=== PATIENT | male | born 1930 | race Caucasian/White ===

== ENCOUNTER 2016-06-25 11:04 | Inpatient (IN) | payer OTHER ==
[2016-06-25] VITALS (44 sets, daily range): BP systolic 81–118; BP diastolic 38–69; PULSE 45–77; TEMP 36.7–37; O2SAT 88–100; Ht 175.3 cm; Wt 93.4 kg
[~2016-06-25] VITALS: Ht 175.3 cm; Wt 93.4 kg
[~2016-06-25 11:04] MED LIST: ALBINS INH; BRVIN INH; BUDE0.5S INH; CINN500T PO; FRS/40 PO; LEVO300T5 PO; PRLSR20 PO
[2016-06-25] MEDS ORDERED: SODIUM CHLORIDE 0.9% 1000ML 1,000 ML IV ONE (11:10)
[2016-06-25] MEDS ORDERED: ACETAMINOPHEN 500 MG TAB PO STA (11:18)
[2016-06-25 11:51] LABS: VEN BLOOD GAS BASE EXCESS -0.4 mmol/L; VENOUS BLOOD GAS PCO2 62 mmHg (38.0-50.0); VENOUS BLOOD GAS PO2 29 mmHg
[2016-06-25 11:59] LABS: BASO % 0.2 %; BASO ABS # 0.03 K/uL (0-0.2); COMPLETE YES; HEMATOCRIT 38.2 % (42-52); IG% 0.3 %; LYMPH % 7.5 %; LYMPH ABS # 1.29 K/uL (1.2-3.4); MEAN CORPUSCULAR HEMOGLOBIN 28.4 pg (25-34); MEAN CORPUSCULAR HGB CONC 31.9 g/dl (32-36); MEAN PLATELET VOLUME 10.8 fL (7.4-10.4); MONO % 9.1 %; NEUT % 82.9 %; PLATELET COUNT 268 K/uL (130-400); RED BLOOD COUNT 4.29 M/uL (4.7-6.1); WHITE BLOOD COUNT 17.28 K/uL (4.8-10.8)
[2016-06-25] MEDS ORDERED: SODIUM CHLORIDE 0.9% 1000ML 1,000 ML IV STA ×3 (11:59→13:03)
[2016-06-25] MEDS ORDERED: PIPERACILLIN/TAZOBACTAM 4.5 GM/100ML D5W IV STA (11:59)
[2016-06-25 12:02] LABS: URINE APPEARANCE CLOUDY (CLEAR); URINE BILIRUBIN NEG (NEG); URINE COLOR YELLOW; URINE NITRITE NEG (NEG); URINE SPECIFIC GRAVITY 1.006 (1.000-1.030); UROBILINOGEN NEG (NEG); ZZUR CULT IF INDIC CLEAN CATCH NO
[2016-06-25 12:03] LABS: MANUAL MICROSCOPIC REQUIRED? NO; REVIEW REQ? NO
--- NOTE | 2016-06-25 12:03 | DIAGNOSTIC IMAGING REPORT ---
KUB HISTORY: fever COMPARISON: KUB 09/28/2013. FINDINGS: The bowel gas pattern is unremarkable. There are no dilated loops of small bowel to suggest an obstruction. Poststernotomy changes. There are 2 gallstones, unchanged. These measure 1.4 cm. No pneumoperitoneum or pneumatosis. IMPRESSION: 1. Unremarkable bowel gas pattern. No evidence for bowel obstruction. 2. Stable cholelithiasis. Electronically signed by: Surendra Palma M.D. 06/25/2016 12:02 PM Dictated Date/Time: 06/25/2016 12:00 PM
--- NOTE | 2016-06-25 12:05 | DIAGNOSTIC IMAGING REPORT ---
CHEST ONE VIEW PORTABLE CLINICAL HISTORY: Fever. Sepsis. COMPARISON STUDY: Chest radiograph December 10, 2013. FINDINGS: There are median sternotomy wires and clips from bypass grafting. Cardiomediastinal silhouette is stable. There is no pneumothorax. There may be a small left pleural effusion. Interstitial thickening is noted. There is mild left basilar opacity. Irregular right midlung density is unchanged. IMPRESSION: 1. Diffuse interstitial thickening. This may reflect pulmonary edema or an infectious process. Radiographic follow-up is recommended. 2. Left hilar prominence. This is likely due to normal vessels but can be assessed on subsequent exams. 3. Left basilar opacity which may reflect consolidation or atelectasis. Electronically signed by: Ron Abdalla M.D. 06/25/2016 12:04 PM Dictated Date/Time: 06/25/2016 12:01 PM
[2016-06-25 12:07] LABS: CALCIUM 8.5 mg/dl (8.5-10.1); CREATININE 2.5 mg/dl (0.60-1.40); MAGNESIUM 1.9 mg/dl (1.8-2.4); PARTIAL THROMBOPLASTIN RATIO 1.2; POTASSIUM 4.2 mmol/L (3.5-5.1); PROTHROMBIN TIME (PATIENT) 11.1 SECONDS (9.0-12.0)
[2016-06-25 12:23] LABS: ALB/GLOB RATIO 0.5 (0.9-2); C-REACTIVE PROTEIN 10.8 mg/dl (0-0.29); CKMB/CK RATIO 0.7 (0-3.0); PHOSPHORUS 3.6 mg/dl (2.5-4.9)
[2016-06-25 12:29] LABS: VEN BLD GAS O2 SATURATION < 60.0 %
[2016-06-25] MEDS ORDERED: NOREPINEPHRINE BIT INJ 8 MG in DEXTROSE 5% 500ML 500 ML IV STA (12:29)
[2016-06-25] MEDS ORDERED: VANCOMYCIN INJ 2,000 MG in SODIUM CHLORIDE 0.9% 500ML 500 ML IV STA (12:50)
[2016-06-25] MEDS ORDERED: LEVAQUIN 750MG / 150ML D5W IV STA (13:18)
[2016-06-25] MEDS ORDERED: VANCOMYCIN INJ 1,000 MG in SODIUM CHLORIDE 0.9% 250ML 250 ML IV STA (13:59)
[2016-06-25] MEDS ORDERED: ACETAMINOPHEN 325 MG TAB PO PRN (14:00)
[2016-06-25] MEDS ORDERED: ONDANSETRON INJ 2 MG/ML 2 ML VIAL IV PRN (14:00)
[2016-06-25] MEDS ORDERED: LSN25 PO (14:03)
[2016-06-25] MEDS ORDERED: LEVO200T6 PO (14:03)
[2016-06-25] MEDS ORDERED: GLUCOSE 40% GEL 15 GM TUBE PO PRN (14:15)
[2016-06-25] MEDS ORDERED: GLUCOSE 10 TABS/TUBE PO PRN (14:15)
[2016-06-25] MEDS ORDERED: DEXTROSE 50% 50 ML SYR IV PRN (14:15)
[2016-06-25] MEDS ORDERED: GLUCAGON FOR INJ 1 MG VIAL SQ PRN (14:15)
[2016-06-25] MEDS ORDERED: UREA20CR EXT (14:23)
[2016-06-25] MEDS ORDERED: BCTROWC EXT (14:23)
[2016-06-25] MEDS ORDERED: MAGNSUS73 PO (14:23)
[2016-06-25] MEDS ORDERED: PROMSYP2 PO (14:23)
[2016-06-25] MEDS ORDERED: LEVALBUTEROL/IPRATROPIUM NEB INH SCH (14:30)
[2016-06-25] MEDS ORDERED: BACITRACIN OINT 15 GM TUBE EXT PRN (14:30)
[2016-06-25] MEDS ORDERED: LEVALBUTEROL/IPRATROPIUM NEB INH PRN (14:30)
[2016-06-25] MEDS ORDERED: MAGNESIUM HYDROXIDE SUSP 30 ML UDC PO PRN (14:30)
[2016-06-25] MEDS ORDERED: PIPERACILL/TAZOBAC CONSULT ACTIVE PRN (15:00)
[2016-06-25] MEDS ORDERED: VANCOMYCIN CONSULT ACTIVE PRN (15:00)
[2016-06-25] MEDS ORDERED: LEVOFLOXACIN CONSULT ACTIVE PRN (15:00)
[2016-06-25] MEDS ORDERED: ALBUTEROL HFA 8 GM INHALER INH PRN (15:00)
--- NOTE | 2016-06-25 15:03 | EMERGENCY ROOM VISIT NOTE ---
History Report prepared by Georgi: Nikkie Jacome Under the Supervision of: Dr. Lucien Pedersen D.O. First contact with patient: 11:04 Stated Complaint: SEPSIS History of Present Illness The patient is an 85 year old male arriving by ambulance from Dr. Goldsmith's office who presents to the Emergency Room with complaints of worsening cough and respiratory difficulties over the past 4 days. The patient visited his PCP' s office this morning for his symptoms, but upon arrival he was found to be febrile at 102.5F, hypotensive and severely hypoxic, so the ambulance was called to bring him to the ED for further evaluation. Patient was given IV fluids as well as a DuoNeb en route to the ED, which did seem to improve his symptoms. Along with the cough and respiratory difficulties over the past few days, patient states that he has been feeling generally ill. He also notes passing several movements of diarrhea yesterday, but he denies abdominal pain, nausea, vomiting or urinary symptoms. Patient does have a history of COPD and CHF. He denies having any chest pain but he has noticed increased swelling to his lower extremities. 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 Review of Systems See HPI for pertinent positives & negatives. A total of 10 systems reviewed and were otherwise negative. Past Medical & Surgical Medical Problems: (1) CKD (chronic kidney disease), stage III (2) COPD (chronic obstructive pulmonary disease) (3) DM type 2 (diabetes mellitus, type 2) (4) H/O diastolic dysfunction (5) Heart disease (6) History of Clostridium difficile (7) Hyperlipidemia (8) Hypertension (9) Hypotension (10) Hypothyroidism (11) Sepsis Surgical Problems: (1) History of cataract surgery (2) S/P CABG x 3 Family History Diabetes mellitus MOTHER FAM HX-ISCHEM HEART DIS MOTHER Social History Smoking Status: Former Smoker Drug Use: none Marital Status: Housing Status: lives with family Occupation Status: retired Current/Historical Medications Scheduled Aspirin (Aspirin 81), 81 MG PO DAILY Atorvastatin (Lipitor), 40 MG PO DAILY Calcitriol (Calcitriol), 0.25 MCG PO DAILY Cholecalciferol (Vitamin D 1000 Unit), 1,000 INTER.UNIT PO DAILY Furosemide (Lasix), 40 MG PO DAILY Levothyroxine Sodium (Levothyroxine Sodium), 1 TAB PO DAILY Levothyroxine Sodium (Levothyroxine Sodium), 1 TAB PO DAILY Lisinopril (Lisinopril), 2.5 MG PO DAILY Pioglitazone Hcl (Actos), 30 MG PO DAILY Urea (Carmol 20), 1 APPLN EXT DAILY Scheduled PRN Albuterol 0.083% Soln (Ventolin 0.083% Soln *), 1 EA INH Q4HR PRN for SOB/ Wheezing Albuterol Sulfate (Proair Respiclick), 2 PUFFS INH Q4H PRN for Wheezing Magnesium Hydroxide (Milk of Magnesia 400 mg/5Ml), 30 ML PO DAILY PRN for Constipation Mupirocin (Bactroban 2% Oint), 1 APPLN EXT TID PRN for skin impairment Omeprazole (Prilosec), 20 MG PO DAILY PRN for Dyspepsia Promethazine-Dm (Promethazine-Dm), 5 ML PO Q6H PRN for Cough Allergies Coded Allergies: No Known Allergies (Verified , 06/25/16) Physical Exam Vital Signs Date Time Temp Pulse Resp B/P Pulse Ox O2 Delivery O2 Flow Rate FiO2 06/25/16 13:46 111/53 06/25/16 13:44 74 23 111/53 100 06/25/16 13:39 77 20 100 06/25/16 13:34 75 26 88/45 100 06/25/16 13:29 76 27 100 06/25/16 13:28 96/39 06/25/16 13:25 37.0 75 28 110/52 100 Non-Rebreather 10.0 06/25/16 13:24 73 24 100 06/25/16 13:23 110/52 06/25/16 13:19 76 30 100 06/25/16 13:18 103/47 06/25/16 13:14 75 30 102/41 100 06/25/16 13:09 76 23 105/45 100 06/25/16 13:04 76 29 106/44 99 06/25/16 13:03 96/45 96 Non-Rebreather 10.0 06/25/16 12:59 77 19 92 06/25/16 12:58 96/45 06/25/16 12:56 88/45 97 Nasal Cannula 6.0 06/25/16 12:54 77 29 88/45 99 06/25/16 12:49 79 26 100 06/25/16 12:48 83/39 06/25/16 12:46 79 28 82/37 100 Non-Rebreather 12.0 06/25/16 12:44 80 23 82/37 100 06/25/16 12:39 79 22 79/40 100 06/25/16 12:34 78 27 100 06/25/16 12:33 75/37 06/25/16 12:31 76/38 06/25/16 12:29 76 27 75/33 100 06/25/16 12:24 77 25 72/42 100 06/25/16 12:23 78 28 73/38 100 Non-Rebreather 12.0 06/25/16 12:19 76 30 100 06/25/16 12:18 73/38 06/25/16 12:16 74/44 06/25/16 12:14 79 29 74/44 100 06/25/16 12:09 79 29 82/34 100 06/25/16 12:07 81/32 06/25/16 12:04 86 25 100 06/25/16 11:59 83 28 92/38 100 06/25/16 11:54 84 33 100 06/25/16 11:53 84/50 06/25/16 11:49 83 32 100 06/25/16 11:48 90/47 06/25/16 11:44 89 23 108/56 100 06/25/16 11:39 84 31 81/45 100 06/25/16 11:34 84 33 103/45 100 06/25/16 11:29 86 21 88/43 100 06/25/16 11:28 87 06/25/16 11:26 100 Non-Rebreather 12.0 06/25/16 11:23 90/40 06/25/16 11:16 91 Nasal Cannula 6.0 06/25/16 11:16 37.0 88 33 83/43 91 Nasal Cannula 6.0 Physical Exam GENERAL: Patient is awake, alert, and very anxious appearing. He appears to be in moderate distress. EYES: The conjunctivae are clear. The pupils are round and reactive. EARS, NOSE, MOUTH AND THROAT: The nose is without any evidence of any deformity. Mucous membranes are dry, tongue is midline NECK: The neck is nontender and supple. RESPIRATORY: Lung sounds diminished throughout. Significant conversational dyspnea appreciated. Scattered rhonchi throughout with rales at basees. CARDIOVASCULAR: Regular rate and rhythm noted to auscultation. No definite murmur appreciated. GASTROINTESTINAL: The abdomen is mildly distended but soft. No specific guarding or rigidity. Bowel sounds are present in all quadrants. PELVIS: The Pelvis is stable. No tenderness to palpation is noted. BACK: No midline tenderness or or step-off noted range of motion in flexion extension as well as rotation no signs of muscle spasm noted MUSCULOSKELETAL/EXTREMITIES: There is no evidence of gross deformity full range of motion is noted in the hips and shoulders SKIN: Pale and dry. There is no obvious evidence of any rash. There are no petechiae, pallor or cyanosis noted. Pedal edema, bilaterally. NEUROLOGIC: Patient is awake alert and oriented x3 Medical Decision & Procedures ER Provider Diagnostic Interpretation: X-ray results as stated below per interpretation by me and the radiologist. KUB HISTORY: fever COMPARISON: KUB 09/28/2013. FINDINGS: The bowel gas pattern is unremarkable. There are no dilated loops of small bowel to suggest an obstruction. Poststernotomy changes. There are 2 gallstones, unchanged. These measure 1.4 cm. No pneumoperitoneum or pneumatosis. IMPRESSION: 1. Unremarkable bowel gas pattern. No evidence for bowel obstruction. 2. Stable cholelithiasis. Electronically signed by: Surendra Palma M.D. 06/25/2016 12:02 PM Dictated Date/Time: 06/25/2016 12:00 PM CHEST ONE VIEW PORTABLE CLINICAL HISTORY: Fever. Sepsis. COMPARISON STUDY: Chest radiograph December 10, 2013. FINDINGS: There are median sternotomy wires and clips from bypass grafting. Cardiomediastinal silhouette is stable. There is no pneumothorax. There may be a small left pleural effusion. Interstitial thickening is noted. There is mild left basilar opacity. Irregular right midlung density is unchanged. IMPRESSION: 1. Diffuse interstitial thickening. This may reflect pulmonary edema or an infectious process. Radiographic follow-up is recommended. 2. Left hilar prominence. This is likely due to normal vessels but can be assessed on subsequent exams. 3. Left basilar opacity which may reflect consolidation or atelectasis. Electronically signed by: Ron Abdalla M.D. 06/25/2016 12:04 PM Dictated Date/Time: 06/25/2016 12:01 PM Laboratory Results 06/25/16 11:28 Red Blood Count 4.29, Mean Corpuscular Volume 89.0, Mean Corpuscular Hemoglobin 28.4, Mean Corpuscular Hemoglobin Concent 31.9, Mean Platelet Volume 10.8, Neutrophils (%) (Auto) 82.9, Lymphocytes (%) (Auto) 7.5, Monocytes (%) (Auto) 9.1, Eosinophils (%) (Auto) 0.0, Basophils (%) (Auto) 0.2, Neutrophils # (Auto) 14.34, Lymphocytes # (Auto) 1.29, Monocytes # (Auto) 1.57, Eosinophils # (Auto) 0.00, Basophils # (Auto) 0.03 06/25/16 11:28 Test 06/25/16 00:00 06/25/16 11:22 06/25/16 11:28 06/25/16 11:50 Bedside Lactic Acid Venous 3.29 mmol/L (0.90-1.70) White Blood Count 17.28 K/uL (4.8-10.8) Red Blood Count 4.29 M/uL (4.7-6.1) Hemoglobin 12.2 g/dL (14.0-18.0) Hematocrit 38.2 % (42-52) Mean Corpuscular Volume 89.0 fL (80-100) Mean Corpuscular Hemoglobin 28.4 pg (25-34) Mean Corpuscular Hemoglobin Concent 31.9 g/dl (32-36) Platelet Count 268 K/uL (130-400) Mean Platelet Volume 10.8 fL (7.4-10.4) Neutrophils (%) (Auto) 82.9 % Lymphocytes (%) (Auto) 7.5 % Monocytes (%) (Auto) 9.1 % Eosinophils (%) (Auto) 0.0 % Basophils (%) (Auto) 0.2 % Neutrophils # (Auto) 14.34 K/uL (1.4-6.5) Lymphocytes # (Auto) 1.29 K/uL (1.2-3.4) Monocytes # (Auto) 1.57 K/uL (0.11-0.59) Eosinophils # (Auto) 0.00 K/uL (0-0.5) Basophils # (Auto) 0.03 K/uL (0-0.2) RDW Standard Deviation 49.6 fL (36.4-46.3) RDW Coefficient of Variation 15.3 % (11.5-14.5) Immature Granulocyte % (Auto) 0.3 % Immature Granulocyte # (Auto) 0.05 K/uL (0.00-0.02) Erythrocyte Sedimentation Rate 40 mm/hr (0-14) Prothrombin Time 11.1 SECONDS (9.0-12.0) Prothromb Time International Ratio 1.0 (0.9-1.1) Activated Partial Thromboplast Time 30.8 SECONDS (21.0-31.0) Partial Thromboplastin Ratio 1.2 Venous Blood pH 7.27 (7.36-7.41) Venous Blood Partial Pressure CO2 62 mmHg (38.0-50.0) Venous Blood Partial Pressure O2 29 mmHg Venous Blood HCO3 28 mmol/L Venous Blood Oxygen Saturation < 60.0 % Venous Blood Base Excess -0.4 mmol/L Anion Gap 10.0 mmol/L (3-11) Est Creatinine Clear Calc Drug Dose 24.5 ml/min Estimated GFR () 26.0 Estimated GFR (Non- 22.4 BUN/Creatinine Ratio 16.0 (10-20) Calcium Level 8.5 mg/dl (8.5-10.1) Phosphorus Level 3.6 mg/dl (2.5-4.9) Magnesium Level 1.9 mg/dl (1.8-2.4) Total Bilirubin 0.4 mg/dl (0.2-1) Aspartate Amino Transf (AST/SGOT) 28 U/L (15-37) Alanine Aminotransferase (ALT/SGPT) 16 U/L (12-78) Alkaline Phosphatase 71 U/L (45-117) Total Creatine Kinase 165 U/L (39-308) Creatine Kinase MB 1.1 ng/ml (0.5-3.6) Creatine Kinase MB Ratio 0.7 (0-3.0) Troponin I 0.113 ng/ml (0-0.045) C-Reactive Protein 10.80 mg/dl (0-0.29) Pro-B-Type Natriuretic Peptide 1747 pg/ml (0-1800) Total Protein 7.1 gm/dl (6.4-8.2) Albumin 2.3 gm/dl (3.4-5.0) Globulin 4.8 gm/dl (2.5-4.0) Albumin/Globulin Ratio 0.5 (0.9-2) Lipase 171 U/L (73-393) Influenza Type A Antigen Neg for Influ A (NEG) Influenza Type B Antigen Neg for Influ B (NEG) Urine Color YELLOW Urine Appearance CLOUDY (CLEAR) Urine pH 5.0 (4.5-7.5) Urine Specific [place] 1.006 (1.000-1.030) Urine Protein NEG (NEG) Urine Glucose (UA) NEG (NEG) Urine Ketones NEG (NEG) Urine Occult Blood NEG (NEG) Urine Nitrite NEG (NEG) Urine Bilirubin NEG (NEG) Urine Urobilinogen NEG (NEG) Urine Leukocyte Esterase NEG (NEG) Urine WBC (Auto) 1-5 /hpf (0-5) Urine RBC (Auto) 0-4 /hpf (0-4) Urine Hyaline Casts (Auto) 5-10 /lpf (0-5) Urine Epithelial Cells (Auto) 10-20 /lpf (0-5) Urine Bacteria (Auto) NEG (NEG) Test 06/25/16 11:53 Random Cortisol 44.36 mcg/dl Date/Time Source Procedure Growth Status 06/25/16 00:00 Nasal MRSA DNA Surveillance Screen - Final Specimen Negative for MRSA by DNA Probe Complete Laboratory results per my review. Medications Administered Medications (Trade) Dose Ordered Sig/Drea Route Start Time Stop Time Status Last Admin Dose Admin Sodium Chloride (Nss 1000ml) 1,000 ml @ 999 mls/hr Q1H1M ONCE IV 06/25/16 11:10 06/25/16 12:10 DC 06/25/16 11:30 999 MLS/HR Acetaminophen 1000 mg 1,000 mg NOW STAT PO 06/25/16 11:18 06/25/16 11:19 DC 06/25/16 11:30 1,000 MG Sodium Chloride (Nss 1000ml) 1,000 ml @ 999 mls/hr Q1H1M STAT IV 06/25/16 11:59 1/12/17 12:59 DC 06/25/16 12:16 999 MLS/HR Piperacillin Sod/ Tazobactam Sod 4.5 gm 4.5 gm NOW STAT IV 06/25/16 11:59 06/25/16 12:01 DC 06/25/16 12:16 4.5 GM Norepinephrine Bitartrate 8 mg/ Dextrose 508 ml @ 0 mls/hr Q0M STAT IV 06/25/16 12:29 06/25/16 12:30 DC 06/25/16 12:48 30 MLS/HR Vancomycin HCl 2000 mg/Sodium Chloride 540 ml @ 200 mls/hr ONE STAT IV 06/25/16 12:50 06/25/16 15:31 DC 06/25/16 13:05 200 MLS/HR Sodium Chloride 1,000 ml @ 125 mls/hr Q8H STAT IV 06/25/16 13:02 06/25/16 14:49 DC 06/25/16 13:05 125 MLS/HR Sodium Chloride (Nss 1000ml) 1,000 ml @ 999 mls/hr Q1H1M STAT IV 06/25/16 13:03 06/25/16 14:03 DC 06/25/16 13:05 999 MLS/HR Levofloxacin (Levaquin / D5W) 750 mg NOW STAT IV 06/25/16 13:18 06/25/16 13:19 DC 06/25/16 13:37 750 MG Procedure Femoral Central Venous Catheter Indication: Sepsis Catheter Type: Triple lumen Location: Right femoral vein Verbal consent was obtained after the risks and benefits were explained, including but not limited to intra-abdominal injury, vessel injury, bleeding, scarring, infection, pain, and bone/joint/nerve damage. At this time, the risks of the procedure are less than the risks of NOT performing the procedure. A time out was taken and the correct patient and site identified. The patient was placed in the supine position and the skin was prepped in the standard fashion with chlorhexidine and full sterile drapes applied. The proper landmarks were identified using landmarks, anesthetized with 1% lidocaine without epinephrine, and the needle was inserted through the skin in the standard fashion. The needle was carefully advanced into blood vessel lumen with ultrasound guidance. The guidewire was placed uneventfully. The vessel is dilated and the catheter was placed. It was sutured into position. There was good blood return from all ports. The patient tolerated the procedure well and there were no complications. ECG Indication: SOB/dyspnea Rate (beats per minute): 87 Rhythm: sinus rhythm Findings: ST depression (inferior and lateral.), no ectopy Change: Ischemic changes noted since 12/10/13. ED Course 1110: The patient was evaluated in room A1. A complete history and physical examination were performed. 1110: NSS bolus IV was ordered. 1118: Tylenol tab 1,000 mg PO was ordered. 1130: A central line was placed in the femoral vein at this time. Patient tolerated this procedure well. 1159: Zosyn 4.5 gm IV and NSS bolus IV were ordered. 1229: Norepinephrine Bitartrate 8 mg/Dextrose 508 IV was ordered. 1240: The patient was reevaluated at this time and appeared to be resting more comfortably. I updated him on the results of his radiology reports and lab tests. The hospitalist will be contacted. 1250: Vancomycin HCl 2,000 mg/NSS 540 ml @ 200 mls/hr IV was ordered. 1302: NSS 1,000 ml @ 125 mls/hr IV and NSS bolus IV were ordered. 1305: Mariam Proctor was contacted. The patient will continue to be evaluated by the [facility] hospitalist for further management. Patient verbalized understanding and agreement with this treatment plan. Mariam recommended that I speak to the apprentice photographer as well. 1315: I discussed the patient's case with Dr. Beebe, the apprentice photographer. It was also recommended to cover with Levaquin along with the other antibiotics that have been ordered. 1318: Levofloxacin 750 mg IV was ordered. Medical Decision Prior records/ancillary studies reviewed. Triage Nursing notes reviewed. Additional history obtained from the patient. The patient's history was concerning for sepsis. Differential diagnosis: Etiologies such as sepsis, UTI, pneumonia, metabolic, electrolyte abnormalities , cardiac sources, intracerebral event, toxicologic, neurologic, as well as others were entertained. The patient is an 85-year-old male who presented to the emergency department from his primary care physician's office for fever. The patient presented to his primary care physician's office today for illness. He was found to be hypotensive and febrile. I received a prehospital medic command call about this patient. They were very concerned because of his hypotension. He received a DuoNeb supplemental oxygen and IV fluids prior to arrival. Upon arrival the patient was awake and alert. His blood pressure had mildly improved as well. I discussed the patient's laboratory and radiographic studies with him. He appeared to have a clinical pneumonia with hypoxia and cough. He was treated with IV fluids and IV antibiotics in conjunction with the sepsis bundle protocol. The patient continued to have hypotension. A central line was placed in his right femoral vein. He was started on IV pressors. The patient was reevaluated multiple times. I discussed his case with the on-call [facility] hospitalist group as well as the on-call apprentice photographer. They've agreed to evaluate the patient in the emergency department for further management and disposition. The patient was also found to have signs of ischemia on EKG. This could be secondary to hypotension. Consults Time Called: 1250 Consulting Physician: Mariam Dominguez Returned Call: 1300 Discussed the patient's case. He will continue to be evaluated by the [facility] hospitalist for further management. She recommended that I speak to the apprentice photographer as well. Additional Consults: Time Called: 1310 Consulted Physician: Dr. Beebe - apprentice photographer Returned Call: 1315 Additional Comments: Discussed the patient's case. It was also recommended to cover with Levaquin along with the other antibiotics that have been ordered. Impression Primary Impression: Altered mental status Additional Impressions: Sepsis Pneumonia Hypotension Abnormal EKG Elevated troponin Hypoxia Critical Care I have personally spent greater than 60 minutes of critical care time in the direct management of this patient. This includes bedside care, interpretation of diagnostic studies, and testing, discussion with consultants, patient, and family members, and other required patient management activities. This 60 minutes is in excess of all separately billable procedures. Scribe Attestation The scribe's documentation has been prepared under my direction and personally reviewed by me in its entirety. I confirm that the note above accurately reflects all work, treatment, procedures, and medical decision making performed by me. Departure Information Dispostion Being Evaluated By Hospitalist (Angelica) Referrals Ivan Campoverde M.D. (PCP) Problem Qualifiers Primary Impression: Altered mental status
[2016-06-25] MEDS ORDERED: LEVALBUTEROL 1.25MG/0.5ML NEB INH PRN (15:15)
[2016-06-25] MEDS ORDERED: IPRATROPIUM BROMIDE NEB SOLN 0.02% 2.5 ML VIAL INH PRN (15:15)
--- NOTE | 2016-06-25 15:16 | History and Physical ---
History & Physical Date & Time of Service: Jun 25, 2016 at 14:03 Chief Complaint: Sepsis Primary Care Physician: Ivan Campoverde M.D. History of Present Illness Source: patient, clinic records, hospital records This is an 85 year old male with PMH of CAD, hypertension, DM type 2, COPD, hypothyroidism, CKD stage III, dyslipidemia, history of clostridium difficile, and other problems listed below who was sent to the ED by ambulance from Dr. Campoverde's office for sepsis. Patient does not know why he is here. Daughter-in- law at bedside states pt became ill 3 days ago with increasing SOB from baseline , generalized weakness, lethargy, poor PO intake, rhinorrhea, sore throat, cough with yellow sputum increased from baseline, subjective fever, sweats, chills/ rigors, disorientation (normally oriented x 3). No aspiration as per family. Yesterday patient had 2 episodes of diarrhea. Family noted black stool yesterday. Pt denies dizziness, headache, chest pain, abdominal pain, nausea, vomiting, dysuria, frequency. He was incontinent overnight. At Dr. Huffman's office today patient was hypoxic to 75% on RA, HR was 118, and was febrile to 39.2. En route to ER he received Duoneb and 1 liter IVF's. In the ER he received 3 additional boluses and now is on NSS at 125/ hour. CXR showed left basilar infiltrate. KUB showed no obstruction. [id number] states reports sick contacts with family members with URI symptoms. No recent travel, antibiotics, or hospitalizations. Family denies history of CHF. Past Medical/Surgical History Medical Problems: (1) CKD (chronic kidney disease), stage III Status: Chronic (2) COPD (chronic obstructive pulmonary disease) Status: Chronic (3) DM type 2 (diabetes mellitus, type 2) Status: Chronic (4) H/O diastolic dysfunction Permanent Comment: grade 1 diastolic dysfunction noted on 2013 echo Status: Chronic (5) Heart disease Status: Chronic (6) History of Clostridium difficile Status: Chronic (7) Hyperlipidemia Status: Chronic (8) Hypertension Status: Chronic (9) Hypothyroidism Status: Chronic Surgical Problems: (1) History of cataract surgery Status: Chronic (2) S/P CABG x 3 Status: Chronic Family History Diabetes mellitus MOTHER FAM HX-ISCHEM HEART DIS MOTHER Social History Smoking Status: Former Smoker Alcohol Use: occasionally Drug Use: none Marital Status: Housing status: lives with family (son and [id number]) Occupational Status: retired Immunizations History of Influenza Vaccine: Yes Influenza Vaccine Date: Apr 25, 2010 History of Tetanus Vaccine?: Unknown History of Pneumococcal: No History of Hepatitis B Vaccine: Unknown Multi-Drug Resistant Organisms History of MDRO: No Allergies Coded Allergies: No Known Allergies (Verified , 06/25/16) Home Medications Scheduled Aspirin (Aspirin 81), 81 MG PO DAILY Atorvastatin (Lipitor), 40 MG PO DAILY Calcitriol (Calcitriol), 0.25 MCG PO DAILY Cholecalciferol (Vitamin D 1000 Unit), 1,000 INTER.UNIT PO DAILY Furosemide (Lasix), 40 MG PO DAILY Levothyroxine Sodium (Levothyroxine Sodium), 1 TAB PO DAILY Levothyroxine Sodium (Levothyroxine Sodium), 1 TAB PO DAILY Lisinopril (Lisinopril), 2.5 MG PO DAILY Pioglitazone Hcl (Actos), 30 MG PO DAILY Urea (Carmol 20), 1 APPLN EXT DAILY Scheduled PRN Albuterol 0.083% Soln (Ventolin 0.083% Soln *), 1 EA INH Q4HR PRN for SOB/ Wheezing Albuterol Sulfate (Proair Respiclick), 2 PUFFS INH Q4H PRN for Wheezing Magnesium Hydroxide (Milk of Magnesia 400 mg/5Ml), 30 ML PO DAILY PRN for Constipation Mupirocin (Bactroban 2% Oint), 1 APPLN EXT TID PRN for skin impairment Omeprazole (Prilosec), 20 MG PO DAILY PRN for Dyspepsia Promethazine-Dm (Promethazine-Dm), 5 ML PO Q6H PRN for Cough Review of Systems Ten point review of systems performed with pertinent positives and negatives per HPI. All other systems negative. Physical Exam Vital Signs Date Time Temp Pulse Resp B/P Pulse Ox O2 Delivery O2 Flow Rate FiO2 06/25/16 13:34 75 26 88/45 100 06/25/16 13:29 76 27 100 06/25/16 13:28 96/39 06/25/16 13:25 37.0 75 28 110/52 100 Non-Rebreather 10.0 06/25/16 13:24 73 24 100 06/25/16 13:23 110/52 06/25/16 13:19 76 30 100 06/25/16 13:18 103/47 06/25/16 13:14 75 30 102/41 100 06/25/16 13:09 76 23 105/45 100 06/25/16 13:04 76 29 106/44 99 06/25/16 13:03 96/45 96 Non-Rebreather 10.0 06/25/16 12:59 77 19 92 06/25/16 12:58 96/45 06/25/16 12:56 88/45 97 Nasal Cannula 6.0 06/25/16 12:54 77 29 88/45 99 06/25/16 12:49 79 26 100 06/25/16 12:48 83/39 06/25/16 12:46 79 28 82/37 100 Non-Rebreather 12.0 06/25/16 12:44 80 23 82/37 100 06/25/16 12:39 79 22 79/40 100 06/25/16 12:34 78 27 100 06/25/16 12:33 75/37 06/25/16 12:31 76/38 06/25/16 12:29 76 27 75/33 100 06/25/16 12:24 77 25 72/42 100 06/25/16 12:23 78 28 73/38 100 Non-Rebreather 12.0 06/25/16 12:19 76 30 100 06/25/16 12:18 73/38 06/25/16 12:16 74/44 06/25/16 12:14 79 29 74/44 100 06/25/16 12:09 79 29 82/34 100 06/25/16 12:07 81/32 06/25/16 12:04 86 25 100 06/25/16 11:59 83 28 92/38 100 06/25/16 11:54 84 33 100 06/25/16 11:53 84/50 06/25/16 11:49 83 32 100 06/25/16 11:48 90/47 06/25/16 11:44 89 23 108/56 100 06/25/16 11:39 84 31 81/45 100 06/25/16 11:34 84 33 103/45 100 06/25/16 11:29 86 21 88/43 100 06/25/16 11:28 87 06/25/16 11:26 100 Non-Rebreather 12.0 06/25/16 11:23 90/40 06/25/16 11:16 91 Nasal Cannula 6.0 06/25/16 11:16 37.0 88 33 83/43 91 Nasal Cannula 6.0 General Appearance: WD/WN, + pertinent finding (alert confused 85 year old male , on non-rebreather mask, daughter in law at bedside) Head: normocephalic, atraumatic Eyes: normal inspection, PERRL, EOMI ENT: hearing grossly normal, pharynx normal Neck: supple, no JVD, trachea midline Respiratory/Chest: no respiratory distress, no accessory muscle use, + wheezing (expiratory wheezing), + pertinent finding (diffuse rhonchi) Cardiovascular: regular rate, rhythm, no murmur Abdomen/GI: normal bowel sounds, non tender, soft Genitourinary - Male: + pertinent finding (segovia catheter draining clear yellow urine) Extremities/Musculoskelatal: normal inspection, no calf tenderness, normal capillary refill, + pertinent finding (trace edema BLLE- chronic per family) Neurologic/Psych: no motor/sensory deficits, alert, + disoriented (disoriented to date/ place, oriented to person- usually oriented x 3) Skin: normal color, warm/dry, + pertinent finding (+ venous stasis changes, dry flaky skin. no open areas. no mottling. ) Diagnostics Laboratory Results Results Past 24 Hours Test 06/25/16 11:22 06/25/16 11:28 06/25/16 11:50 06/25/16 11:53 Range/Units Bedside Lactic Acid Venous 3.29 0.90-1.70 mmol/L White Blood Count 17.28 4.8-10.8 K/uL Red Blood Count 4.29 4.7-6.1 M/uL Hemoglobin 12.2 14.0-18.0 g/dL Hematocrit 38.2 42-52 % Mean Corpuscular Volume 89.0 80-100 fL Mean Corpuscular Hemoglobin 28.4 25-34 pg Mean Corpuscular Hemoglobin Concent 31.9 32-36 g/dl Platelet Count 268 130-400 K/uL Mean Platelet Volume 10.8 7.4-10.4 fL Neutrophils (%) (Auto) 82.9 % Lymphocytes (%) (Auto) 7.5 % Monocytes (%) (Auto) 9.1 % Eosinophils (%) (Auto) 0.0 % Basophils (%) (Auto) 0.2 % Neutrophils # (Auto) 14.34 1.4-6.5 K/uL Lymphocytes # (Auto) 1.29 1.2-3.4 K/uL Monocytes # (Auto) 1.57 0.11-0.59 K/uL Eosinophils # (Auto) 0.00 0-0.5 K/uL Basophils # (Auto) 0.03 0-0.2 K/uL RDW Standard Deviation 49.6 36.4-46.3 fL RDW Coefficient of Variation 15.3 11.5-14.5 % Immature Granulocyte % (Auto) 0.3 % Immature Granulocyte # (Auto) 0.05 0.00-0.02 K/uL Erythrocyte Sedimentation Rate 40 0-14 mm/hr Prothrombin Time 11.1 9.0-12.0 SECONDS Prothromb Time International Ratio 1.0 0.9-1.1 Activated Partial Thromboplast Time 30.8 21.0-31.0 SECONDS Partial Thromboplastin Ratio 1.2 Venous Blood pH 7.27 7.36-7.41 Venous Blood Partial Pressure CO2 62 38.0-50.0 mmHg Venous Blood Partial Pressure O2 29 mmHg Venous Blood HCO3 28 mmol/L Venous Blood Oxygen Saturation < 60.0 % Venous Blood Base Excess -0.4 mmol/L Sodium Level 134 136-145 mmol/L Potassium Level 4.2 3.5-5.1 mmol/L Chloride Level 98 98-107 mmol/L Carbon Dioxide Level 26 21-32 mmol/L Anion Gap 10.0 3-11 mmol/L Blood Urea Nitrogen 40 7-18 mg/dl Creatinine 2.50 0.60-1.40 mg/dl Est Creatinine Clear Calc Drug Dose 24.5 ml/min Estimated GFR () 26.0 Estimated GFR (Non- 22.4 BUN/Creatinine Ratio 16.0 10-20 Random Glucose 163 70-99 mg/dl Calcium Level 8.5 8.5-10.1 mg/dl Phosphorus Level 3.6 2.5-4.9 mg/dl Magnesium Level 1.9 1.8-2.4 mg/dl Total Bilirubin 0.4 0.2-1 mg/dl Aspartate Amino Transf (AST/SGOT) 28 15-37 U/L Alanine Aminotransferase (ALT/SGPT) 16 12-78 U/L Alkaline Phosphatase 71 45-117 U/L Total Creatine Kinase 165 39-308 U/L Creatine Kinase MB 1.1 0.5-3.6 ng/ml Creatine Kinase MB Ratio 0.7 0-3.0 Troponin I 0.113 0-0.045 ng/ml C-Reactive Protein 10.80 0-0.29 mg/dl Pro-B-Type Natriuretic Peptide 1747 0-1800 pg/ml Total Protein 7.1 6.4-8.2 gm/dl Albumin 2.3 3.4-5.0 gm/dl Globulin 4.8 2.5-4.0 gm/dl Albumin/Globulin Ratio 0.5 0.9-2 Lipase 171 73-393 U/L Influenza Type A Antigen Neg for Influ A NEG Influenza Type B Antigen Neg for Influ B NEG Urine Color YELLOW Urine Appearance CLOUDY CLEAR Urine pH 5.0 4.5-7.5 Urine Specific [place] 1.006 1.000-1.030 Urine Protein NEG NEG Urine Glucose (UA) NEG NEG Urine Ketones NEG NEG Urine Occult Blood NEG NEG Urine Nitrite NEG NEG Urine Bilirubin NEG NEG Urine Urobilinogen NEG NEG Urine Leukocyte Esterase NEG NEG Urine WBC (Auto) 1-5 0-5 /hpf Urine RBC (Auto) 0-4 0-4 /hpf Urine Hyaline Casts (Auto) 5-10 0-5 /lpf Urine Epithelial Cells (Auto) 10-20 0-5 /lpf Urine Bacteria (Auto) NEG NEG Random Cortisol 44.36 mcg/dl Microbiology Results 06/25/16 Blood Culture, Received Pending 06/25/16 Blood Culture, Received Pending Diagnostic Radiology KUB HISTORY: fever COMPARISON: KUB 09/28/2013. FINDINGS: The bowel gas pattern is unremarkable. There are no dilated loops of small bowel to suggest an obstruction. Poststernotomy changes. There are 2 gallstones, unchanged. These measure 1.4 cm. No pneumoperitoneum or pneumatosis. IMPRESSION: 1. Unremarkable bowel gas pattern. No evidence for bowel obstruction. 2. Stable cholelithiasis. [~ rep ct add3]] CHEST ONE VIEW PORTABLE CLINICAL HISTORY: Fever. Sepsis. COMPARISON STUDY: Chest radiograph December 10, 2013. FINDINGS: There are median sternotomy wires and clips from bypass grafting. Cardiomediastinal silhouette is stable. There is no pneumothorax. There may be a small left pleural effusion. Interstitial thickening is noted. There is mild left basilar opacity. Irregular right midlung density is unchanged. IMPRESSION: 1. Diffuse interstitial thickening. This may reflect pulmonary edema or an infectious process. Radiographic follow-up is recommended. 2. Left hilar prominence. This is likely due to normal vessels but can be assessed on subsequent exams. 3. Left basilar opacity which may reflect consolidation or atelectasis. 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 diff, WBC smear, stool culture, Hemoccult due to reported diarrhea and black stool [employer] Compliance Specialist Dr. Beebe notified; appreciate input ACUTE HYPOXIC RESPIRATORY FAILURE Due to pneumonia and COPD exacerbation Antibiotics as noted above Will give 1 dose Solu-Medrol 80 mg and defer to chief operating engineer Xopenex/ Atrovent nebs Continue supplemental O2- saturating well on non-rebreather mask currently ALTERED MENTAL STATUS Disoriented to date/ place; at baseline is oriented x 3 Likely due to sepsis DIARRHEA Pt with history of C. diff Check stool for C. diff, WBC smear, stool culture ? MELENA Family reported 1 episode black stool yesterday Hg is stable Check Hemoccult stool Repeat CBC at 1800 ELEVATED TROPONIN Denies chest pain EKG non-specific Trend serial cardiac enzymes Repeat EKG in am DAKOTA on CKD STAGE III Cr is increased to 2.5 from baseline of 1.6-1.7 Likely due to sepsis and dehydration Hold lisinopril and Lasix IV fluids Monitor renal function and avoid nephrotoxins DM TYPE 2 Hold Actos Insulin sliding scale coverage CAD s/p CABG x 3 Continue aspirin and statin MILADIS-I on hold for hypotension and DAKOTA H/O HYPERTENSION Hold lisinopril and Lasix due to hypotension HYPOTHYROIDISM Continue levothyroxine GERD Continue PPI DVT PROPHYLAXIS SCD's CODE STATUS FULL CODE per my discussion with patient and [id number]-thy. He does not have an advanced directive as per the daughter in law. Patient seen in collaboration with Dr. Keene. Please see his addendum. ATTENDING NOTE Patient seen & examined at bedside. Reviewed the above History/Physical and confirmed all the findings in person. Patient is brought to ED with feeling of not being well and has fever, leukocytosis, elevated lactic acid with suspicion of infiltrate in Chest X-Ray.Was given IVF resuscitation in ED as her BP was low. Has been started on Levophed. Started on Vancomycin, Levaquin and Zosyn. Follow up lactic acid in 6 hours. Critical Care has to involved in patient management. Patient is being admitted to ICU. Patient is FULL CODE. DVT Prophylaxis with SCDs. Patient will be followed by Dr. Freeman. Benja Keene MD Level of Care Critical Care Resuscitation Status FULL RESUSCITATION VTE Prophylaxis VTE Risk Assessment Done? Y/N: Yes Risk Level: High Given or contraindicated: SCD's
[2016-06-25] MEDS ORDERED: NOREPINEPHRINE BIT INJ 8 MG in DEXTROSE 5% 500ML 500 ML IV PRN (15:21)
[2016-06-25] MEDS: SODIUM CHLORIDE 0.9% 1000ML 1,000 ML IV SCH (15:26)
[2016-06-25] MEDS ORDERED: METHYLPREDNISOLONE IV 80 MG in SYRINGE 0 ML IV ONE (15:30)
[2016-06-25] MEDS: [UNRECOGNIZED DRUG - REMARK] SCH (15:57)
[2016-06-25] MEDS ORDERED: LEVALBUTEROL 1.25MG/0.5ML NEB INH SCH (16:00)
[2016-06-25] MEDS: INSULIN ASPART 100 UNITS/ML 3 ML PEN SC SCH ×2 (16:00→23:04)
[2016-06-25] MEDS: IPRATROPIUM BROMIDE NEB SOLN 0.02% 2.5 ML VIAL INH SCH ×2 (16:18→20:00)
--- NOTE | 2016-06-25 16:22 | Pharmacy Progress Note ---
Pharmacy Antibiotic Consult Date of Service: Jun 25, 2016. Pharmacy Dosing Scope Pharmacy is consulted to initiate vancomycin/Zosyn/Levaquin IV dosing therapy, order appropriate labs and adjust drug dose/frequency. Subjective The patient is a 85 year old male admitted on Jun 25, 2016 at 13:48 with sepsis from a pulmonary source. He has a three day history of wheezing, shortness of breath, decreased PO intake, and lethargy. He presented to his PCP office; they then sent him to the ER for evaluation for sepsis. Objective Height (Feet): 5 Height (Inches): 9.00 Weight (Kilograms): 96.600 Lab Results (24hrs): Laboratory Tests Test 06/25/16 11:28 BUN/Creatinine Ratio 16.0 Blood Urea Nitrogen 40 mg/dl Creatinine 2.50 mg/dl White Blood Count 17.28 K/uL Red Blood Count 4.29 M/uL Hemoglobin 12.2 g/dL Hematocrit 38.2 % Mean Corpuscular Volume 89.0 fL Mean Corpuscular Hemoglobin 28.4 pg Mean Corpuscular Hemoglobin Concent 31.9 g/dl Platelet Count 268 K/uL Mean Platelet Volume 10.8 fL Neutrophils (%) (Auto) 82.9 % Lymphocytes (%) (Auto) 7.5 % Monocytes (%) (Auto) 9.1 % Eosinophils (%) (Auto) 0.0 % Basophils (%) (Auto) 0.2 % Neutrophils # (Auto) 14.34 K/uL Lymphocytes # (Auto) 1.29 K/uL Monocytes # (Auto) 1.57 K/uL Eosinophils # (Auto) 0.00 K/uL Basophils # (Auto) 0.03 K/uL Assessment & Plan VANCOMYCIN: -vancomycin 2000 mg (20.7 mg/kg) was given in the ED. With a volume of distribution of 0.7 mg/L I suspect that the peak produced by this dose will be around 30 mg/L -with population kinetics suggesting a half-life of ~28 hours, I believe that a random tomorrow morning will suffice for adequate dosing. A goal of 15-20 mcg/ mL is still being utilized as the patient is a pulmonary source infection. A MRSA nasal swab is pending. ZOSYN -a loading dose of Zosyn 4.5 gm IV x 1 was given in the ED then 4.5 gm IV q8h CI was started. Zosyn 4.5 gm was started due to the patient's acuity of illness LEVAQUIN -the patient's creatinine clearance if 24.5 mL/min, therefore the recommended dose for Levaquin 750 mg IV daily is Levaquin 750 mg IV q48 hours Pharmacy will continue to follow and will adjust dose/frequency as necessary. Thank you
[2016-06-25] MEDS: PIPERACILL/TAZOBAC IV 4.5 GM in DEXTROSE 5% 100ML 100 ML IV SCH (17:29)
--- NOTE | 2016-06-25 18:08 | Progress Note ---
Progress Note Post Crystalloid Evaluation Date: Jun 25, 2016 Time: 15:30 Subjective Patient seen and examined. States he is feeling OK. Denies chest pain or SOB. He is now oriented to the hospital, knows he has pneumonia, and continues to recognize his daughter in law at bedside. Still disoriented to date. Physical Exam Vital Signs: Vital Signs Date Time Temp Pulse Resp B/P Pulse Ox O2 Delivery O2 Flow Rate FiO2 06/25/16 14:24 72 29 100 06/25/16 14:23 110/48 06/25/16 13:50 37.0 Non-Rebreather 15.0 BP is 105/40, pulse ox 93% on 6 liters NC, RR 20-25, temp 36.9, HR 70's Lungs: no respiratory distress, no accessory muscle use, + rhonchi (diffuse), + wheezing Heart: regular rate, rhythm, no murmur, normal peripheral pulses Peripheral Pulse: Normal Capillary Refill: Normal (less than 2 seconds) Skin: Pale Assessment & Plan Sepsis likely pulmonary source Continue plan as noted in H&P
[2016-06-25 18:14] LABS: BASO % 0.1 %; BASO ABS # 0.02 K/uL (0-0.2); COMPLETE YES; HEMATOCRIT 33.3 % (42-52); IG% 0.4 %; LYMPH ABS # 1.32 K/uL (1.2-3.4); MEAN CORPUSCULAR HEMOGLOBIN 28.1 pg (25-34); MEAN CORPUSCULAR HGB CONC 31.2 g/dl (32-36); MEAN PLATELET VOLUME 10.3 fL (7.4-10.4); MONO % 5.7 %; NEUT % 85.8 %; PLATELET COUNT 222 K/uL (130-400); WHITE BLOOD COUNT 16.48 K/uL (4.8-10.8)
[2016-06-25 18:39] LABS: CKMB/CK RATIO 1.5 (0-3.0)
[2016-06-25] MEDS: ACETYLCYSTEINE 20% INHAL SOLN ***DISPENSED BY RESP. INH SCH ×2 (18:41→20:00)
[2016-06-25] MEDS ORDERED: LEVALBUTEROL 1.25MG/3ML NEB INH SCH (21:00)
[2016-06-25 21:43] LABS: INFLUENZA A PCR Neg for Influ A (NEG); INFLUENZA B PCR Neg for Influ B (NEG)
--- NOTE | 2016-06-25 22:00 | DIAGNOSTIC IMAGING REPORT ---
CT HEAD WITHOUT CONTRAST (CT) CLINICAL HISTORY: Change in neurological status. Suspected stroke COMPARISON STUDY: No previous studies for comparison. TECHNIQUE: Axial CT of the brain is performed from the vertex to the skull base. IV contrast was not administered for this examination. CT DOSE: 2382.43 mGy.cm FINDINGS: The patient is rotated. There is mild motion artifact. No intra or extra-axial mass lesions are visualized. There is no CT evidence of acute cortical infarction. There is no evidence of midline shift. There is no acute hemorrhage. No calvarial fractures are visualized. There are patchy white matter hypodensities likely on a small vessel basis. 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 There is no evidence of pathologic ventricular dilatation. There is trace fluid within the left maxillary sinus. IMPRESSION: No acute intracranial findings Electronically signed by: Moises Vora M.D. 06/25/2016 9:58 PM Dictated Date/Time: 06/25/2016 9:56 PM
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
[2016-06-25 22:23] LABS: ISTAT ALLEN TEST Pass; ISTAT ARTERIAL BLOOD GAS HCO3 21 meq/L (19-24); ISTAT ARTERIAL BLOOD GAS PCO2 53 mmHg (35-46); ISTAT ARTERIAL BLOOD GAS PO2 71 mmHg (80-95); ISTAT CARBON DIOXIDE 22 mEq/l (24-31); ISTAT DELIVERY SYSTEM Cannula; ISTAT SITE L Radial
[2016-06-25] MEDS: METHYLPREDNISOLONE IV 60 MG in SYRINGE 0 ML IV SCH (22:58)
--- NOTE | 2016-06-25 23:01 | DIAGNOSTIC IMAGING REPORT ---
ULTRASOUND VENOUS DOPPLER LWR EXT BILA CLINICAL HISTORY: Lower extremity swelling and shortness of breath COMPARISON STUDY: 10/02/2013 FINDINGS: Real-time and color flow Doppler imaging were performed. Flow was seen within the femoral, popliteal and calf veins with no intraluminal thrombus demonstrated. The saphenous vein is patent. IMPRESSION: No evidence of lower extremity DVT. Electronically signed by: Moises Vora M.D. 06/25/2016 10:59 PM Dictated Date/Time: 06/25/2016 10:59 PM
[2016-06-25] MEDS: HEPARIN SOD 5000 UNIT/0.5 ML CARP SQ SCH (23:05)
[2016-06-26] VITALS (83 sets, daily range): BP systolic 75–172; BP diastolic 36–82; PULSE 41–250; TEMP 36.4–36.9; O2SAT 80–100
[2016-06-26 00:02] LABS: CKMB/CK RATIO 1.6 (0-3.0)
[2016-06-26 00:03] LABS: IPAP 15; ISTAT ALLEN TEST Pass; ISTAT ARTERIAL BLOOD GAS HCO3 23 meq/L (19-24); ISTAT ARTERIAL BLOOD GAS PCO2 67 mmHg (35-46); ISTAT ARTERIAL BLOOD GAS PO2 123 mmHg (80-95); ISTAT ARTERIAL BLOOD GAS pH 7.13 (7.35-7.45); ISTAT CARBON DIOXIDE 25 mEq/l (24-31); ISTAT DELIVERY SYSTEM BIPAP; ISTAT FIO2 40 %; ISTAT RATE 12; ISTAT SITE R Radial
[2016-06-26] MEDS: IPRATROPIUM BROMIDE NEB SOLN 0.02% 2.5 ML VIAL INH SCH (00:03)
[2016-06-26 01:45] LABS: IPAP 17; ISTAT ALLEN TEST Pass; ISTAT ARTERIAL BLOOD GAS HCO3 22 meq/L (19-24); ISTAT ARTERIAL BLOOD GAS PCO2 59 mmHg (35-46); ISTAT ARTERIAL BLOOD GAS PO2 70 mmHg (80-95); ISTAT ARTERIAL BLOOD GAS pH 7.17 (7.35-7.45); ISTAT CARBON DIOXIDE 24 mEq/l (24-31); ISTAT DELIVERY SYSTEM BIPAP; ISTAT FIO2 30 %; ISTAT RATE 20; ISTAT SITE R Radial
[2016-06-26] MEDS ORDERED: PROPOFOL IV EMULSION 10 MG/ML 100 ML VIAL IV ONE (02:02)
[2016-06-26] MEDS ORDERED: FENTANYL CITRATE INJ 50 MCG/1 ML 2 ML VIAL ONE ×2 (02:03→02:31)
[2016-06-26] MEDS: SODIUM CHLORIDE 0.9% 1000ML 1,000 ML IV SCH ×3 (02:14→13:31)
--- NOTE | 2016-06-26 02:33 | Progress Note ---
Progress Note Asked to evaluate Admitted with Sepsis secondary to Pneumonia complicated by COPD and Acute respiratory failure Has been intermittently confused sine around [address] of the head-negative and ABG Acidosis with increased CO2 The gases and patient condition did not improve with BIPAP O/E Semiresponsive Hemodynamically stable Chest-decreased breath sound bilaterally Heart-regular Abdomen-benign,bowel sound present Labs and Imaging studies were noted. Has Increasing Confusion with Hypercarbia and acidosis Sepsis secondary to Pneumonia COPD with Respiratory failure Discussed with the Son and Daughter in law and consent for Intubation was taken from the Son over the Phone Discussed with the Master Dyer. Dr Marly Sánchez
[2016-06-26] MEDS ORDERED: RAPID SEQUENCE INDUCTION BAG ONE (02:46)
[2016-06-26] MEDS: ACETYLCYSTEINE 20% INHAL SOLN ***DISPENSED BY RESP. INH SCH ×4 (03:00→20:38)
[2016-06-26] MEDS ORDERED: FENTANYL CITRATE INJ 50 MCG/1 ML 2 ML VIAL IM STA (03:12)
[2016-06-26] MEDS ORDERED: FENTANYL CITRATE INJ 50 MCG/1 ML 2 ML VIAL IV STA (03:13)
[2016-06-26] MEDS ORDERED: FENTANYL CITRATE INJ 50 MCG/1 ML 2 ML VIAL IV PRN (03:15)
--- NOTE | 2016-06-26 03:17 | Procedure Note ---
Procedure Note City Surveyor: I was called late last night about the patient's mental status changes and the report of the CT head. I was asked for bipap settings which were started at 15/ 5. F/U ABG's despite increasing the inspiratory pressure did not improve. I asked Dr. Sánchez to discuss code status with family before coming in to intubate. He confirmed full code. The patient was preoxygenated with 100% FIO2 through the bipap and then was bagged after 75 mcg of fentanyl was given. He was also given 7cc of propofol. I used a 4 Glidescope blade and passed a #* ETT through the vocal cords without difficulty. +BS bilaterally and +CO2 detector. F/U chext xray pending. Vitals stable throughout but patient had bradycardia to 40's before the procedure was started. HR increased to 60 after ETT was placed and the patient began to awaken. O2 sats 90-100%.
[2016-06-26 03:22] LABS: HEMATOCRIT 36.7 % (42-52); IG% 0.3 %; LYMPH % 6.1 %; MEAN CELL VOLUME 90.6 fL (80-100); MEAN CORPUSCULAR HEMOGLOBIN 28.1 pg (25-34); MEAN PLATELET VOLUME 10.5 fL (7.4-10.4); MONO % 1.8 %; NEUT % 91.8 %; PLATELET COUNT 272 K/uL (130-400); RED BLOOD COUNT 4.05 M/uL (4.7-6.1)
[2016-06-26 03:44] LABS: COMPLETE YES; MEAN CORPUSCULAR HGB CONC 31.1 g/dl (32-36)
[2016-06-26 04:01] LABS: CALCIUM 7.9 mg/dl (8.5-10.1); MAGNESIUM 1.8 mg/dl (1.8-2.4); PHOSPHORUS 3.7 mg/dl (2.5-4.9); POTASSIUM 3.8 mmol/L (3.5-5.1)
[2016-06-26 04:13] LABS: ISTAT ALLEN TEST Pass; ISTAT ARTERIAL BLOOD GAS HCO3 20 meq/L (19-24); ISTAT ARTERIAL BLOOD GAS PCO2 43 mmHg (35-46); ISTAT ARTERIAL BLOOD GAS PO2 78 mmHg (80-95); ISTAT ARTERIAL BLOOD GAS pH 7.28 (7.35-7.45); ISTAT CARBON DIOXIDE 22 mEq/l (24-31); ISTAT DELIVERY SYSTEM Ventilator; ISTAT FIO2 60 %; ISTAT PEEP 5; ISTAT RATE 20; ISTAT SITE R Radial; VE 9.3; Vt 500
[2016-06-26] MEDS: PIPERACILL/TAZOBAC IV 4.5 GM in DEXTROSE 5% 100ML 100 ML IV SCH ×3 (04:15→17:47)
[2016-06-26] MEDS: METHYLPREDNISOLONE IV 60 MG in SYRINGE 0 ML IV SCH ×4 (04:18→21:42)
[2016-06-26] MEDS: LEVOTHYROXINE 200 MCG TAB PO SCH (05:40)
[2016-06-26] MEDS: LEVOTHYROXINE 25 MCG TAB PO SCH (05:40)
[2016-06-26] MEDS: INSULIN ASPART 100 UNITS/ML 3 ML PEN SC SCH ×4 (05:58→20:13)
[2016-06-26] MEDS: PROPOFOL IV EMULSION 10 MG/ML 100 ML VIAL IV PRN ×4 (06:39→21:40)
[2016-06-26 06:54] LABS: ESTIMATED AVERAGE GLUCOSE 140 mg/dl; HA1C FLAG Normal (Normal)
[2016-06-26] MEDS: [UNRECOGNIZED DRUG - REMARK] SCH ×4 (07:10→22:59)
--- NOTE | 2016-06-26 07:20 | Clinical Documentation Query ---
CLINICAL DOCUMENTATION QUERY 85-y/o male who presents with septic shock and pneumonia. H&P and daily progress notes state "change in mental status." In your clinical opinion is this patient being managed for: ( ) Metabolic/Septic encephalopathy in setting of Sepsis, pneumonia, and hypercapnia. ( x ) Other explanation of clinical findings (Please Explain) ( ) Unable to determine (Please Define) ( ) Need to Discuss ( ) Not Agree The medical record reflects the following clinical findings, treatment, and risk factors. Clinical Indicators: Change in mental status 2/2 sepsis per H&P. WBC's, 17.25, ABG 7.13/67/123/23, BUN 40, Creatinine 2.50, Lactic acid 3.29, Treatment: multiple IVF boluses, ABG's, BiPAP, Mechanical ventilation, IV Levofloxacin, IV Zosyn, IV Vancomycin, IV Solumedrol, IV Levophed, Risk Factors: Age, COPD, and underlying infectious processes. Please clarify and document your clinical opinion in the progress notes and discharge summary. Terms such as "probable", "suspected", "likely", "questionable", "possible", or "still to be ruled out" are acceptable. IF IN AGREEMENT, YOU MUST DOCUMENT ABOVE DIAGNOSTIC STATEMENT IN DAILY PROGRESS NOTES AND DISCHARGE SUMMARY. This document is not part of the patient's record. Septic Encephalopathy;a form of metabolic encephalopathy Systemic sepsis can produce an encephalopathy that may be related to impaired cerebral blood flow, disruption of the blood-brain barrier, or cerebral edema. Gram-negative infections are the most common cause. Liver failure or kidney failure may be present. Neurologic manifestations include confusional states or coma, seizures, focal neurologic deficits, rigidity, myoclonus, and asterixis. The EEG is often abnormal. Therapy involves supportive measures, such as assisted ventilation, and treatment of the underlying infection. Mortality is high, but can be reduced by prompt diagnosis and treatment. ref: Valentino Luke. Septic encephalopathy. Curr Neurol Neurosci Rep. 2013;13:383-389 Thank You, Mehdi Valencia RN [phone]
[2016-06-26] MEDS: LEValbuterol HFA 15GM INHALER INH SCH ×3 (07:25→20:38)
[2016-06-26] MEDS: IPRATROPIUM BROMIDE HFA INHALER INH SCH ×3 (07:25→20:38)
--- NOTE | 2016-06-26 08:05 | DIAGNOSTIC IMAGING REPORT ---
CHEST ONE VIEW PORTABLE HISTORY: s/p intubation, check ETT COMPARISON: Chest 06/25/2016. FINDINGS: The endotracheal tube terminates proximal 1 cm from the velvet. This report back by approximately 1 to 2 cm. The tip of the nasogastric tube terminates in the stomach. The heart is mildly enlarged. There are trace bilateral pleural effusions. Diffuse interstitial and basilar thickening likely represents mild pulmonary edema. No definite pneumothorax. There are poststernotomy changes. IMPRESSION: 1. The endotracheal tube terminates 1 cm from the velvet. This should be pulled back by approximately 1 to 2 cm. 2. Cardiomegaly and mild interstitial pulmonary edema persists. Electronically signed by: Surendra Palma M.D. 06/26/2016 8:04 AM Dictated Date/Time: 06/26/2016 8:00 AM
[2016-06-26] MEDS: FENTANYL CITRATE INJ 50 MCG/1 ML 2 ML VIAL IV PRN ×2 (08:28→21:08)
[2016-06-26] MEDS ORDERED: PANTOprazole SOD 40 MG TAB PO SCH (09:00)
[2016-06-26] MEDS ORDERED: ASPIRIN 81 MG ECTAB PO SCH (09:00)
[2016-06-26] MEDS ORDERED: PHARMACY GLYCEMIC MGMT CONSULT PRN (09:00)
[2016-06-26] MEDS: CHOLECALCIFEROL 1000 INTER.UNIT TAB PO SCH (09:33)
[2016-06-26] MEDS: ATORVASTATIN 40 MG TAB PO SCH (09:33)
[2016-06-26] MEDS: HEPARIN SOD 5000 UNIT/0.5 ML CARP SQ SCH ×2 (09:34→20:14)
[2016-06-26] MEDS: CHLORHEXIDINE GLUCONATE 0.12% 480 ML MT SCH ×2 (09:38→20:08)
[2016-06-26] MEDS: CALCITRIOL 0.25 MCG CAP PO SCH (09:40)
[2016-06-26 09:43] LABS: ISTAT ARTERIAL BLOOD GAS HCO3 22 meq/L (19-24); ISTAT ARTERIAL BLOOD GAS PCO2 34 mmHg (35-46); ISTAT ARTERIAL BLOOD GAS PO2 91 mmHg (80-95); ISTAT ARTERIAL BLOOD GAS pH 7.41 (7.35-7.45); ISTAT CARBON DIOXIDE 23 mEq/l (24-31); ISTAT DELIVERY SYSTEM Ventilator; ISTAT FIO2 50 %; ISTAT PEEP 5; ISTAT RATE 20; ISTAT SITE R Radial; VE 10.2; Vt 550
[2016-06-26] MEDS ORDERED: LANTUS PER UNIT CHARGE SQ SCH (10:00)
[2016-06-26] MEDS ORDERED: PERFLUTREN LIPID MICROSPHERE (DEFINITY) IV ONE (10:42)
--- NOTE | 2016-06-26 10:46 | Critical Care Progress Note ---
Critical Care Progress Note Date of Service Jun 26, 2016. Attending Dr. Aida Beebe Subjective Mr. Camacho is an 85yo male with a hx of COPD, CKD III, HTN, and DM2 who presented due to septic shock from the ED yesterday after feeling ill for a few days. He was brought in via EMS due to saturations in the 70's and hypotension at his PCPs office. He was ill for multiple days runny nose, cough, sore throat , with some diarrhea. In the ED, he was also febrile and underwent fluid resuscitation, central line placement, and arterial line placement. CXR demonstrated diffuse interstitial thickening and a left hilar prominence and a left basilar opacity. EKG in ED showed NSR with 1st* AV block and mild ST- segment depressions in V4 & V5. He was started on Zosyn, vanco, and Levaquin and reported to have a negative influenza screen. Pt became lethargic overnight and underwent a CT head that demonstrated an old infarct but no acute changes. He was placed on BiPap 15/5 and a repeat ABG did not show improvement. Dr. Beebe came in and ultimately decided to intubate after Dr. Sánchez confirmed with his family that he was to be a full code. Pt is on Propofol drip and Fentanyl PRN currently for sedation. Upon entering the room this morning, Mr. Camacho does not arouse but does withdrawal to painful stimuli. ROS could not be obtained secondary to pt condition due to sedation and intubation. Objective Vital Signs - as noted Laboratory Data - as noted Physical Exam: General - NAD, intubated Eyes - Pupils equal unresponsive, no icterus ENT - Mucosa moist, et tube in place Neck - Supple, trachea midline, no masses or lymphadenopathy, no JVD or bruits Lungs - No paradoxical chest wall movement, rhonci bilaterally and throughout, no wheezes or rales noted Heart - Bradycardic with distant heart sounds, No murmur, rubs, clicks, or gallops appreciated Abdomen - BS present, no bruits noted, tympanic to percussion, soft, nondistended, no organomegaly Extremities - trace edema, pedal pulses intact, mild erythema to bilaterally lower legs with crusting of right, no overt drainage note, left painful Neuro - Sedated: Propofol 40mcg/kg/min; PRN Fentanyl Reflexes: Upgoing toes and withdrawal to plantar stimulation; no DTR noted CN:Pupils equal unresponsive, no facial asymmetry, movement to both lower extremities noted Assessment & Plan (1) Altered mental status Changes note in level of alertness last night; pt sent to CT 06/25/16 CT of head: demonstrates trace fluid within left maxillary sinus, 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 Aida Beebe Vent Settings: AC 20/550/5/50% 8.0 ET tube 28cm at the lip Sedated to goal RASS -3 for rest today ABG @ 0900 7.41; CO2 34, PO2 91, HCO3 22 Failure likely secondary to Sepsis from CAQ PNA and hx of COPD Will Continue ventilation today, wean down FIO2 Attempt Sedation vacation and weaning trial tomorrow if possible Continue treating infxn as below (3) Septic shock Pt admitted with pyrexia, hypotension, and community acquired PNA on 06/25 Lactic Acid at 3.29 in ED, Now 0.9 BP 124/62; MAP at goal Random Cortisol: 44.[address] Levophed at 0.05mcg.kg.min Wean as tolerated to goal MAP > 65 ECHO Pending Blood and Sputum Cultures Pending Broad Spectrum Abx in place * Continue Zosyn 4.5 q 8 hrs * Continue Levoquin 700 q 48 hrs (pharmacy consult in place) * Continue Vanco 1,500 q 24 hrs (pharmacy consult in place) (4) Community acquired pneumonia Intubated now for respiratory failure CXR: CXR demonstrated diffuse interstitial thickening and a left hilar prominence and a left basilar opacity Cough, hx of COPD WBC rising 19.8, Temp 36.7 Sputum Culture: Pending MRSA: Negative Mucomyst 2ml q6hrs Continue Percussion Vest per nursing Broad Spectrum Abx in place * Continue Zosyn 4.5 q 8 hrs * Continue Levoquin 700 q 48 hrs (pharmacy consult in place) * Continue Vanco 1,500 q 24 hrs (pharmacy consult in place) (5) COPD (chronic obstructive pulmonary disease) CAQ PNA this admission Hx of COPD No Wheezing on physical exam Intubated for respiratory failure Continue Respiratory Regimen * Solu-Medrol 60mg q 6hrs * Xopenex q 6hrs * Atrovent q 6 hrs * Mucomyst 2ml q 6hrs * Percussion Vest per nursing Continue Broad Spectrum Abx in place * Continue Zosyn 4.5 q 8 hrs * Continue Levoquin 700 q 48 hrs (pharmacy consult in place) * Continue Vanco 1,500 q 24 hrs (pharmacy consult in place) (6) Acute kidney injury superimposed on chronic kidney disease BUN & Cr: 32& 2.0 -1.5L today (Even I&Os for admission) Avoid Nephrotoxic Agents Pharmacy consult in place for renal dosage on abx Decrease Nl Saline to 50ml/hr Follow serial labs and I&O's (7) Abnormal EKG EKG 06/25: NSR with 1st* AV block and mild ST-segment depressions in V4 & V5. Bradycardic now Mild troponin leak: peaked at 0.187; Now 0.133 Cardiac Consult placed for Dr. Blank today Defibrillator pads in place ECHO Pending Continue Atorvastatin Monitor on Telemetry (8) Diabetes mellitus A1C: 6.5; 24hr BSG range: 241-249 Glycemic Control per pharmacy in place SSI with Novolog in place (9) Hypothyroid Continue Home medication * Synthroid 225mcg (10) access Left [address] Right Triple Lumen Femoral Catheter in place from ED GI: * Consult Nutrition to start tube feeds Chlorhexidine Mouth Care: In Place GI Prophylaxis: D/C'd PO and Started IV Protonix DVT Prophylaxis: * Heparin 5,000U q 12 * Neg Lower Extremity Doppler Bilaterally Waist Cutter Attending: I have personally interviewed and examined the patient today and his care was discussed in detail on multidisciplinary rounds. I have reviewed this documentation and agree with the assessment and plan. My exam verifies what is documented here as well and I was in and out of his room several times today. He was well sedated when I saw him - CAM +and due to bradycardia, I increased his fentanyl with the goal of weaning off the propofol. Dopamine was started to try to improve his blood pressure. Tube feeds were started as well. Echo report noted and many thanks to Dr. Marley for his consultation. Continue broad spectrum antibiotics and await further culture data. I did not see his family and will update them when I see them. Critical care time 40 min. Consults & Procedures Consultants: Cardiology: Dr. Blank Procedures: Femoral Line Right: ED 06/25/[address] Beebe: 06/26/16 Data Medications: Current Inpatient Medications Medications (Trade) Dose Ordered Sig/Drea Route Start Time Stop Time Status Last Admin Dose Admin Ondansetron HCl (Zofran Inj) 4 mg Q6H PRN IV 06/25/16 14:00 07/25/16 13:59 Acetaminophen 650 mg 650 mg Q4H PRN PO 06/25/16 14:00 07/25/16 13:59 Sodium Chloride 1,000 ml @ 50 mls/hr Q20H IV 06/25/16 14:00 07/25/16 13:59 06/26/16 09:40 50 MLS/HR Piperacillin Sod/ Tazobactam Sod 4.5 gm/Dextrose 120 ml @ 30 mls/hr Q8H IV 06/25/16 18:00 07/02/16 17:59 06/26/16 09:32 30 MLS/HR Levofloxacin/Prmx (Levaquin / D5W/ Premixed D5W) 150 ml @ 100 mls/hr Q48H IV 06/27/16 13:00 07/05/16 23:59 Levofloxacin (Consult) 1 ea UD PRN N/A 06/25/16 15:00 07/25/16 14:59 Glucose (Glucose 40% Gel) 15-30 GRAMS 15 GRAMS... UD PRN PO 06/25/16 14:15 07/25/16 14:14 Glucose (Glucose Chew Tab) 4-8 Tablets 4 Tabl... UD PRN PO 06/25/16 14:15 07/25/16 14:14 Dextrose (Dextrose 50% 50ML Syringe) 25-50ML OF 50% DW IV FOR... UD PRN IV 06/25/16 14:15 07/25/16 14:14 Glucagon (Glucagon Inj) 1 mg UD PRN SQ 06/25/16 14:15 07/25/16 14:14 Atorvastatin Calcium (Lipitor Tab) 40 mg DAILY PO 06/26/16 09:00 07/26/16 08:59 06/26/16 09:33 40 MG Calcitriol (Rocaltrol Cap) 0.25 mcg DAILY PO 06/26/16 09:00 07/26/16 08:59 Cholecalciferol (Vitamin D Tab) 1,000 inter.unit DAILY PO 06/26/16 09:00 07/26/16 08:59 06/26/16 09:33 1,000 INTER.UNIT Levothyroxine Sodium (Synthroid Tab) 25 mcg DAILYBB PO 06/26/16 06:00 07/26/16 05:59 06/26/16 05:40 25 MCG Levothyroxine Sodium (Synthroid Tab) 200 mcg DAILYBB PO 06/26/16 06:00 07/26/16 05:59 06/26/16 05:40 200 MCG Magnesium Hydroxide (Milk Of Magnesia Susp) 30 ml DAILY PRN PO 06/25/16 14:30 07/25/16 14:29 Bacitracin (Bacitracin Oint) 1 appln TID PRN EXT 06/25/16 14:30 07/25/16 14:29 Albuterol (Ventolin Hfa Inhaler) 2 puffs Q4H PRN INH 06/25/16 15:00 07/25/16 14:59 Miscellaneous Information (Order Awaiting Action) 1 ea QS N/A 06/25/16 16:00 07/25/16 15:59 Miscellaneous Information (Order Awaiting Action) 1 ea QS N/A 06/25/16 16:00 07/25/16 15:59 Vancomycin HCl (Consult) 1 ea UD PRN N/A 06/25/16 15:00 07/25/16 14:59 Piperacillin Sod/ Tazobactam Sod 1 ea 1 ea UD PRN N/A 06/25/16 15:00 07/25/16 14:59 Norepinephrine Bitartrate 8 mg/ Dextrose 508 ml @ 0 mls/hr Q0M PRN IV 06/25/16 15:21 07/25/16 15:20 06/26/16 04:49 25.4 MLS/HR Methylprednisolone Sodium Succinate/ Syringe (Solu-Medrol IV/ Syringe) 0.96 ml @ 1.5 mls/min Q6H IV 06/25/16 22:00 07/25/16 21:59 06/26/16 09:33 1.5 MLS/MIN Acetylcysteine (Mucomyst 20% Inh Soln) 2 ml Q6R INH 06/25/16 16:30 07/25/16 16:29 06/26/16 07:25 2 ML Heparin Sodium (Porcine) (Heparin Sq 5000 Unit/0.5ml) 5,000 unit Q12 SQ 06/25/16 21:00 07/25/16 20:59 06/26/16 09:34 5,000 UNIT Propofol (Diprivan IV 100ML VIAL) 1 dose UD PRN IV 06/26/16 03:00 06/29/16 02:59 06/26/16 09:35 1 DOSE Chlorhexidine Gluconate (Peridex Oral Soln) 15 ml BID MT 06/26/16 09:00 07/26/16 08:59 06/26/16 09:38 15 ML Fentanyl Citrate (Fentanyl Inj) 25 mcg Q2H PRN IV 06/26/16 03:00 07/10/16 02:59 06/26/16 08:28 25 MCG Fentanyl Citrate (Fentanyl Inj) 75 mcg Q2H PRN IV 06/26/16 03:15 07/10/16 03:14 Miscellaneous Information (Consult Glycemic Management Pharmacy) 1 ea DAILY PRN N/A 06/26/16 09:00 07/26/16 08:59 Ipratropium [place] (Atrovent Hfa Inhaler) 4 puffs Q6R INH 06/26/16 09:00 07/26/16 08:59 06/26/16 07:25 4 PUFFS Levalbuterol (Xopenex Hfa Inhaler) 4 puffs Q6R INH 06/26/16 09:00 07/26/16 08:59 06/26/16 07:25 4 PUFFS Insulin Aspart SLIDING SCALE If C... Q6 SC 06/26/16 06:00 07/26/16 05:59 06/26/16 05:58 3 UNITS Fentanyl Citrate 250 ml @ 0 mls/hr Q0M PRN IV 06/26/16 09:00 07/10/16 08:59 Pantoprazole Sodium/Syringe (Protonix Inj/ Syringe) 10 ml @ 5 mls/min DAILY@11 IV 06/26/16 11:00 07/26/16 10:59 Aspirin (Aspirin Chew) 81 mg DAILY PO 06/26/16 09:30 07/26/16 09:29 Insulin Glargine (Lantus Per Unit) 10 units 1000 SQ 06/26/16 10:00 06/26/16 11:00 I & O: 24-Hour Column 06/26/16 08:00 Intake Total 5387 ml Output Total 5400 ml Balance -13 ml Vital Signs: Date Time Temp Pulse Resp B/P Pulse Ox O2 Delivery O2 Flow Rate FiO2 06/26/16 08:00 36.7 44 20 124/62 96 Mechanical Ventilator 50 06/26/16 07:58 44 20 124/62 96 Mechanical Ventilator 50 06/26/16 07:45 53 20 150/50 97 Mechanical Ventilator 50 06/26/16 07:30 53 20 172/62 100 Mechanical Ventilator 50 06/26/16 07:25 50 06/26/16 07:13 44 20 138/63 100 Mechanical Ventilator 50 06/26/16 06:44 44 20 151/53 100 Mechanical Ventilator 50 06/26/16 06:29 44 20 128/55 100 Mechanical Ventilator 50 06/26/16 06:14 44 20 135/51 99 Mechanical Ventilator 50 06/26/16 05:59 43 20 127/63 100 Mechanical Ventilator 50 06/26/16 05:43 49 20 125/76 100 Mechanical Ventilator 50 06/26/16 05:29 43 20 139/53 100 Mechanical Ventilator 50 06/26/16 05:14 47 20 134/49 99 Mechanical Ventilator 50 06/26/16 05:00 50 06/26/16 04:45 42 20 99 06/26/16 04:44 43 23 146/61 99 06/26/16 04:30 47 20 97 06/26/16 04:29 48 21 159/58 98 06/26/16 04:15 44 20 97 06/26/16 04:14 50 06/26/16 04:14 45 20 135/57 97 06/26/16 04:00 45 23 97 06/26/16 04:00 97 Mechanical Ventilator 60 06/26/16 03:59 43 20 131/55 97 06/26/16 03:45 51 20 97 06/26/16 03:44 50 16 135/60 06/26/16 03:30 42 20 97 06/26/16 03:28 44 20 146/58 98 06/26/16 03:16 60 06/26/16 03:15 45 1 132/52 100 06/26/16 03:13 44 0 127/50 100 06/26/16 03:11 47 6 137/54 100 06/26/16 03:09 50 8 139/56 100 06/26/16 03:07 55 20 154/55 100 06/26/16 03:07 55 20 154/55 100 06/26/16 03:04 193 23 141/53 90 06/26/16 03:04 193 23 141/53 90 06/26/16 03:01 58 23 133/52 100 06/26/16 03:01 58 23 133/52 100 06/26/16 03:00 57 19 100 06/26/16 03:00 57 19 100 06/26/16 02:59 56 23 134/57 100 06/26/16 02:57 210 17 126/66 91 06/26/16 02:55 217 24 131/52 91 06/26/16 02:53 58 5 134/58 100 06/26/16 02:50 79 20 122/53 100 06/26/16 02:47 45 20 114/50 100 06/26/16 02:45 45 19 100 06/26/16 02:44 45 22 125/48 100 06/26/16 02:43 51 16 112/50 100 06/26/16 02:39 48 18 118/46 99 06/26/16 02:30 44 18 97 06/26/16 02:29 46 7 118/46 97 06/26/16 02:18 44 20 114/51 93 06/26/16 02:15 46 20 97 06/26/16 02:09 41 22 121/49 98 06/26/16 02:00 48 27 95 06/26/16 00:58 49 18 95/44 94 06/26/16 00:29 58 15 106/53 91 06/26/16 00:14 36.4 250 19 128/82 80 06/26/16 00:03 50 18 96 BiPAP/CPAP 30 06/26/16 00:02 50 96 30 06/25/16 23:59 94 BiPAP 30 06/25/16 22:58 54 0 100/45 99 06/25/16 22:43 57 19 108/48 99 1/12/17 22:29 59 97 40 06/25/16 22:28 57 17 103/45 99 06/25/16 22:14 58 18 112/48 94 06/25/16 22:01 66 25 112/69 96 06/25/16 21:28 58 18 99/46 94 06/25/16 21:28 58 18 99/46 94 06/25/16 21:15 60 17 94 06/25/16 21:13 65 30 108/43 93 06/25/16 21:13 65 30 108/43 93 06/25/16 21:00 59 20 93 06/25/16 20:58 59 19 102/44 93 06/25/16 20:58 59 19 102/44 93 06/25/16 20:45 58 19 94 06/25/16 20:43 59 19 105/38 95 06/25/16 20:43 59 19 105/38 95 06/25/16 20:30 59 19 99 06/25/16 20:28 52 21 100/42 100 06/25/16 20:28 52 21 100/42 100 06/25/16 20:15 55 20 100 06/25/16 20:13 57 27 99/48 100 06/25/16 20:13 57 27 99/48 100 06/25/16 20:06 58 27 110/41 06/25/16 20:06 36.7 58 27 110/41 06/25/16 20:01 50 20 88 Nasal Cannula 2.0 06/25/16 20:00 94 Nasal Cannula 3.0 06/25/16 20:00 55 25 99 06/25/16 19:45 45 20 95 06/25/16 19:43 48 20 87/50 96 06/25/16 19:43 48 20 87/50 96 06/25/16 19:30 47 20 95 06/25/16 19:28 51 27 94/40 92 06/25/16 19:28 51 27 94/40 92 06/25/16 19:15 49 21 94 06/25/16 19:14 51 22 89/40 95 06/25/16 19:14 51 22 89/40 95 06/25/16 19:00 52 23 93 06/25/16 19:00 52 23 93 06/25/16 18:00 Nasal Cannula 2.0 06/25/16 17:59 65 28 103/45 93 06/25/16 17:44 65 20 88/40 94 06/25/16 17:29 61 13 118/44 99 06/25/16 17:14 66 20 103/43 99 06/25/16 16:44 73 15 117/50 90 06/25/16 16:28 60 25 99/41 100 06/25/16 16:24 58 20 97 Nasal Cannula 6.0 06/25/16 16:13 62 18 97/42 92 06/25/16 16:01 68 20 92/39 93 06/25/16 16:00 Room Air 6.0 06/25/16 15:59 65 18 81/43 93 06/25/16 15:43 70 25 101/43 96 06/25/16 15:35 36.9 06/25/16 15:29 77 27 96/44 93 06/25/16 15:13 73 25 105/47 94 06/25/16 15:04 73 26 116/45 92 06/25/16 14:24 72 29 100 06/25/16 14:23 110/48 06/25/16 14:19 78 33 100 06/25/16 14:18 111/40 06/25/16 14:14 78 30 100 06/25/16 14:13 111/51 06/25/16 14:10 109/43 06/25/16 14:09 79 31 100 06/25/16 14:04 78 26 103/37 100 06/25/16 13:59 79 34 100 06/25/16 13:54 78 22 100 06/25/16 13:53 117/49 06/25/16 13:50 37.0 77 25 88/45 95 Non-Rebreather 15.0 06/25/16 13:49 77 26 114/37 100 06/25/16 13:46 111/53 06/25/16 13:44 74 23 111/53 100 06/25/16 13:39 77 20 100 06/25/16 13:34 75 26 88/45 100 06/25/16 13:29 76 27 100 06/25/16 13:28 96/39 06/25/16 13:25 37.0 75 28 110/52 100 Non-Rebreather 10.0 06/25/16 13:24 73 24 100 06/25/16 13:23 110/52 06/25/16 13:19 76 30 100 06/25/16 13:18 103/47 06/25/16 13:14 75 30 102/41 100 06/25/16 13:09 76 23 105/45 100 06/25/16 13:04 76 29 106/44 99 06/25/16 13:03 96/45 96 Non-Rebreather 10.0 06/25/16 12:59 77 19 92 06/25/16 12:58 96/45 06/25/16 12:56 88/45 97 Nasal Cannula 6.0 06/25/16 12:54 77 29 88/45 99 06/25/16 12:49 79 26 100 06/25/16 12:48 83/39 06/25/16 12:46 79 28 82/37 100 Non-Rebreather 12.0 06/25/16 12:44 80 23 82/37 100 06/25/16 12:39 79 22 79/40 100 06/25/16 12:34 78 27 100 06/25/16 12:33 75/37 06/25/16 12:31 76/38 06/25/16 12:29 76 27 75/33 100 06/25/16 12:24 77 25 72/42 100 06/25/16 12:23 78 28 73/38 100 Non-Rebreather 12.0 06/25/16 12:19 76 30 100 06/25/16 12:18 73/38 06/25/16 12:16 74/44 06/25/16 12:14 79 29 74/44 100 06/25/16 12:09 79 29 82/34 100 06/25/16 12:07 81/32 06/25/16 12:04 86 25 100 06/25/16 11:59 83 28 92/38 100 06/25/16 11:54 84 33 100 06/25/16 11:53 84/50 06/25/16 11:49 83 32 100 06/25/16 11:48 90/47 06/25/16 11:44 89 23 108/56 100 06/25/16 11:39 84 31 81/45 100 06/25/16 11:34 84 33 103/45 100 06/25/16 11:29 86 21 88/43 100 06/25/16 11:28 87 06/25/16 11:26 100 Non-Rebreather 12.0 06/25/16 11:23 90/40 06/25/16 11:16 91 Nasal Cannula 6.0 06/25/16 11:16 37.0 88 33 83/43 91 Nasal Cannula 6.0 Laboratory Results: Last 24 Hours Test 06/25/16 11:22 06/25/16 11:28 06/25/16 11:50 06/25/16 11:53 Bedside Lactic Acid Venous 3.29 mmol/L White Blood Count 17.28 K/uL Red Blood Count 4.29 M/uL Hemoglobin 12.2 g/dL Hematocrit 38.2 % Mean Corpuscular Volume 89.0 fL Mean Corpuscular Hemoglobin 28.4 pg Mean Corpuscular Hemoglobin Concent 31.9 g/dl Platelet Count 268 K/uL Mean Platelet Volume 10.8 fL Neutrophils (%) (Auto) 82.9 % Lymphocytes (%) (Auto) 7.5 % Monocytes (%) (Auto) 9.1 % Eosinophils (%) (Auto) 0.0 % Basophils (%) (Auto) 0.2 % Neutrophils # (Auto) 14.34 K/uL Lymphocytes # (Auto) 1.29 K/uL Monocytes # (Auto) 1.57 K/uL Eosinophils # (Auto) 0.00 K/uL Basophils # (Auto) 0.03 K/uL RDW Standard Deviation 49.6 fL RDW Coefficient of Variation 15.3 % Immature Granulocyte % (Auto) 0.3 % Immature Granulocyte # (Auto) 0.05 K/uL Erythrocyte Sedimentation Rate 40 mm/hr Prothrombin Time 11.1 SECONDS Prothromb Time International Ratio 1.0 Activated Partial Thromboplast Time 30.8 SECONDS Partial Thromboplastin Ratio 1.2 Venous Blood pH 7.27 Venous Blood Partial Pressure CO2 62 mmHg Venous Blood Partial Pressure O2 29 mmHg Venous Blood HCO3 28 mmol/L Venous Blood Oxygen Saturation < 60.0 % Venous Blood Base Excess -0.4 mmol/L Sodium Level 134 mmol/L Potassium Level 4.2 mmol/L Chloride Level 98 mmol/L Carbon Dioxide Level 26 mmol/L Anion Gap 10.0 mmol/L Blood Urea Nitrogen 40 mg/dl Creatinine 2.50 mg/dl Est Creatinine Clear Calc Drug Dose 24.5 ml/min Estimated GFR () 26.0 Estimated GFR (Non- 22.4 BUN/Creatinine Ratio 16.0 Random Glucose 163 mg/dl Calcium Level 8.5 mg/dl Phosphorus Level 3.6 mg/dl Magnesium Level 1.9 mg/dl Total Bilirubin 0.4 mg/dl Aspartate Amino Transf (AST/SGOT) 28 U/L Alanine Aminotransferase (ALT/SGPT) 16 U/L Alkaline Phosphatase 71 U/L Total Creatine Kinase 165 U/L Creatine Kinase MB 1.1 ng/ml Creatine Kinase MB Ratio 0.7 Troponin I 0.113 ng/ml C-Reactive Protein 10.80 mg/dl Pro-B-Type Natriuretic Peptide 1747 pg/ml Total Protein 7.1 gm/dl Albumin 2.3 gm/dl Globulin 4.8 gm/dl Albumin/Globulin Ratio 0.5 Lipase 171 U/L Influenza Type A Antigen Neg for Influ A Influenza Type B Antigen Neg for Influ B Urine Color YELLOW Urine Appearance CLOUDY Urine pH 5.0 Urine Specific [place] 1.006 Urine Protein NEG Urine Glucose (UA) NEG Urine Ketones NEG Urine Occult Blood NEG Urine Nitrite NEG Urine Bilirubin NEG Urine Urobilinogen NEG Urine Leukocyte Esterase NEG Urine WBC (Auto) 1-5 /hpf Urine RBC (Auto) 0-4 /hpf Urine Hyaline Casts (Auto) 5-10 /lpf Urine Epithelial Cells (Auto) 10-20 /lpf Urine Bacteria (Auto) NEG Random Cortisol 44.36 mcg/dl Test 06/25/16 15:17 06/25/16 16:25 06/25/16 18:00 06/25/16 20:56 Lactic Acid Level 0.9 mmol/L Bedside Glucose (other) 178 mg/dl White Blood Count 16.48 K/uL Red Blood Count 3.70 M/uL Hemoglobin 10.4 g/dL Hematocrit 33.3 % Mean Corpuscular Volume 90.0 fL Mean Corpuscular Hemoglobin 28.1 pg Mean Corpuscular Hemoglobin Concent 31.2 g/dl Platelet Count 222 K/uL Mean Platelet Volume 10.3 fL Neutrophils (%) (Auto) 85.8 % Lymphocytes (%) (Auto) 8.0 % Monocytes (%) (Auto) 5.7 % Eosinophils (%) (Auto) 0.0 % Basophils (%) (Auto) 0.1 % Neutrophils # (Auto) 14.14 K/uL Lymphocytes # (Auto) 1.32 K/uL Monocytes # (Auto) 0.94 K/uL Eosinophils # (Auto) 0.00 K/uL Basophils # (Auto) 0.02 K/uL RDW Standard Deviation 50.8 fL RDW Coefficient of Variation 15.3 % Immature Granulocyte % (Auto) 0.4 % Immature Granulocyte # (Auto) 0.06 K/uL Total Creatine Kinase 179 U/L Creatine Kinase MB 2.7 ng/ml Creatine Kinase MB Ratio 1.5 Troponin I 0.187 ng/ml Bedside Glucose 285 mg/dl Test 06/25/16 22:10 06/25/16 23:25 06/25/16 23:51 06/26/16 01:31 Blood Gas Sample Site L Radial R Radial R Radial Bedside Blood Gas pH (LAB) 7.20 7.13 7.17 Bedside Blood Gas pCO2 (LAB) 53 mmHg 67 mmHg 59 mmHg Bedside Blood Gas pO2 (LAB) 71 mmHg 123 mmHg 70 mmHg Bedside Blood Gas HCO3 (LAB) 21 meq/L 23 meq/L 22 meq/L Bedside Blood Gas Total CO2 22 mEq/l 25 mEq/l 24 mEq/l Bedside Blood Gas Base Excess (LAB) -8.0 meq/L -7.0 meq/L -7.0 meq/L Bedside Blood Gas O2 Saturation 90.0 % 97.0 % 89.0 % Arvind Test Pass Pass Pass Oxygen Delivery Device Cannula BIPAP BIPAP Total Creatine Kinase 166 U/L Creatine Kinase MB 2.6 ng/ml Creatine Kinase MB Ratio 1.6 Troponin I 0.133 ng/ml Bedside Oxygen Rate (breaths/min) 12 20 Bedside FiO2 40 % 30 % Blood Gas IPAP 15 17 Test 06/26/16 03:14 06/26/16 04:00 06/26/16 05:00 06/26/16 05:53 White Blood Count 19.80 K/uL Red Blood Count 4.05 M/uL Hemoglobin 11.4 g/dL Hematocrit 36.7 % Mean Corpuscular Volume 90.6 fL Mean Corpuscular Hemoglobin 28.1 pg Mean Corpuscular Hemoglobin Concent 31.1 g/dl Platelet Count 272 K/uL Mean Platelet Volume 10.5 fL Neutrophils (%) (Auto) 91.8 % Lymphocytes (%) (Auto) 6.1 % Monocytes (%) (Auto) 1.8 % Eosinophils (%) (Auto) 0.0 % Basophils (%) (Auto) 0.0 % Neutrophils # (Auto) 18.18 K/uL Lymphocytes # (Auto) 1.20 K/uL Monocytes # (Auto) 0.36 K/uL Eosinophils # (Auto) 0.00 K/uL Basophils # (Auto) 0.00 K/uL RDW Standard Deviation 51.1 fL RDW Coefficient of Variation 15.2 % Immature Granulocyte % (Auto) 0.3 % Immature Granulocyte # (Auto) 0.06 K/uL Sodium Level 139 mmol/L Potassium Level 3.8 mmol/L Chloride Level 104 mmol/L Carbon Dioxide Level 26 mmol/L Anion Gap 9.0 mmol/L Blood Urea Nitrogen 32 mg/dl Creatinine 2.00 mg/dl Est Creatinine Clear Calc Drug Dose 30.4 ml/min Estimated GFR () 34.0 Estimated GFR (Non- 29.3 BUN/Creatinine Ratio 16.0 Random Glucose 241 mg/dl Estimated Average Glucose 140 mg/dl Hemoglobin A1c 6.5 % Calcium Level 7.9 mg/dl Phosphorus Level 3.7 mg/dl Magnesium Level 1.8 mg/dl Blood Gas Sample Site R Radial Bedside Blood Gas pH (LAB) 7.28 Bedside Blood Gas pCO2 (LAB) 43 mmHg Bedside Blood Gas pO2 (LAB) 78 mmHg Bedside Blood Gas HCO3 (LAB) 20 meq/L Bedside Blood Gas Total CO2 22 mEq/l Bedside Blood Gas Base Excess (LAB) -7.0 meq/L Bedside Blood Gas O2 Saturation 94.0 % Arvind Test Pass Oxygen Delivery Device Ventilator Bedside Oxygen Rate (breaths/min) 20 Blood Gas Minute Ventilation 9.3 Bedside FiO2 60 % Blood Gas Tidal Volume 500 Blood Gas PEEP 5 Random Vancomycin Level 17.7 mcg/ml Bedside Glucose (other) 249 mg/dl Test 06/26/16 09:15 06/26/16 09:29 Blood Gas Sample Site R Radial Bedside Blood Gas pH (LAB) 7.41 Bedside Blood Gas pCO2 (LAB) 34 mmHg Bedside Blood Gas pO2 (LAB) 91 mmHg Bedside Blood Gas HCO3 (LAB) 22 meq/L Bedside Blood Gas Total CO2 23 mEq/l Bedside Blood Gas Base Excess (LAB) -3.0 meq/L Bedside Blood Gas O2 Saturation 97.0 % Arvind Test NA Oxygen Delivery Device Ventilator Bedside Oxygen Rate (breaths/min) 20 Blood Gas Minute Ventilation 10.2 Bedside FiO2 50 % Blood Gas Tidal Volume 550 Blood Gas PEEP 5
[2016-06-26] MEDS: ASPIRIN 81 MG CHEW PO SCH (10:52)
[2016-06-26] MEDS: PANTOprazole INJ 40 MG in SYRINGE 0 ML IV SCH (10:52)
[2016-06-26] MEDS: FENTANYL 1250MCG/250ML NSS 250 ML IV PRN ×2 (10:56→21:39)
--- NOTE | 2016-06-26 12:18 | Pharmacy Progress Note ---
Pharmacy Antibiotic Consult Date of Service: Jun 26, 2016. Pharmacy Dosing Scope Pharmacy is consulted to initiate vancomycin and piperacillin/tazobactam IV dosing therapy, order appropriate labs and adjust drug dose/frequency. Subjective The patient is a 85 year old male admitted on Jun 25, 2016 at 13:48 with sepsis secondary to community acquired pneumonia. Objective Height (Feet): 5 Height (Inches): 9.00 Weight (Kilograms): 97.100 Lab Results (24hrs): Laboratory Tests Test 06/25/16 18:00 06/26/16 03:14 White Blood Count 16.48 K/uL 19.80 K/uL Red Blood Count 3.70 M/uL 4.05 M/uL Hemoglobin 10.4 g/dL 11.4 g/dL Hematocrit 33.3 % 36.7 % Mean Corpuscular Volume 90.0 fL 90.6 fL Mean Corpuscular Hemoglobin 28.1 pg 28.1 pg Mean Corpuscular Hemoglobin Concent 31.2 g/dl 31.1 g/dl Platelet Count 222 K/uL 272 K/uL Mean Platelet Volume 10.3 fL 10.5 fL Neutrophils (%) (Auto) 85.8 % 91.8 % Lymphocytes (%) (Auto) 8.0 % 6.1 % Monocytes (%) (Auto) 5.7 % 1.8 % Eosinophils (%) (Auto) 0.0 % 0.0 % Basophils (%) (Auto) 0.1 % 0.0 % Neutrophils # (Auto) 14.14 K/uL 18.18 K/uL Lymphocytes # (Auto) 1.32 K/uL 1.20 K/uL Monocytes # (Auto) 0.94 K/uL 0.36 K/uL Eosinophils # (Auto) 0.00 K/uL 0.00 K/uL Basophils # (Auto) 0.02 K/uL 0.00 K/uL BUN/Creatinine Ratio 16.0 Blood Urea Nitrogen 32 mg/dl Creatinine 2.00 mg/dl Micro Results: Item Value Date Time MRSA DNA Surveillance Screen - Final Complete 06/25/16 0000 Nasal Specimen Negative for MRSA by DNA Probe Gram Stain - Final Resulted 06/25/16 0000 Sputum Expectorated Sputum Blood Culture Received 06/25/16 1128 Blood Pending Blood Culture Received 06/25/16 1135 Blood Pending Recent Pertinent Medications Item Value Date Time Levofloxacin 750 mg 06/25/16 1318 (Levaquin / D5W) NOW STAT/IV ONE TIME DOSE IN ED 06/25/16 1337 Piperacillin Sod/ 4.5 gm 06/25/16 1159 Tazobactam Sod NOW STAT/IV 06/25/16 1216 (Zosyn Iv) ONE TIME DOSE IN ED Assessment & Plan Assessment: * Mr. Camacho is an 85yo male with a hx of COPD, CKD III, HTN, and DM2 who presented due to septic shock from the ED yesterday after feeling ill for a few days. He was ill for multiple days runny nose, cough, sore throat, with some diarrhea. * In the ED, he was also febrile and underwent fluid resuscitation, central line placement, and arterial line placement. * CXR demonstrated diffuse interstitial thickening and a left hilar prominence and a left basilar opacity. * MRSA swab negative - May consider deescalation of MRSA coverage Plan: Continue broad spectrum antibiotics in the form of vancomycin, levofloxacin, and piperacillin/tazobactam Vancomycin: * Loading dose: 2000 mg IV X 1 dose * Maintenance dose 1500 mg IV q 24 hours * Trough level prior to the dose on 06/28/16 * Goal trough: 15-20mcg/mL for pulmonary source of infection Levofloxacin: * 750mg IV x1 dose (given in ED) * Target dose = 750mg IV/PO q24 hours * Adjust dose to 750mg IV every 48 hours for CrCl 20-50mL/min Piperacillin/tazobactam: * 4.5g IV x1 dose (given in ED) * Target dose = 4.5g IV every 8 hours (infused over 4 hours) * no dose adjustment needed for CrCl above 20mL/min Pharmacy will continue to follow and will adjust dose/frequency as necessary. Thank you
[2016-06-26 13:18] LABS: HEMATOCRIT 36.9 % (42-52)
--- NOTE | 2016-06-26 13:27 | ECHOCARDIOGRAM REPORT ---
*NOTICE TO RECEIVING LIBERTARIAN AGENCY This information is strictly Confidential and protected under [place] law. [place] law prohibits you from making any further disclosure of this information unless further disclosure is expressly permitted by the written consent of the person to whom it pertains or is authorized by law. A general authorization for the release of medical or other information is not sufficient for this purpose. Hospital accepts no responsibility if the information is made available to any other person, INCLUDING THE PATIENT. Interpretation Summary * Name: TINO AYERS Study Date: 06/26/2016 09:38 AM BP: 146/61 mmHg * Patient Location: .MSICU\S\E107\S\1 HR: 42 * : 1930 (M/d/yyyy) Gender: Male Height: 69 in * Age: 85 yrs Ethnicity: [place] Weight: 212 lb * Ordering Physician: Aida Beebe * Referring Physician: Ivan Campoverde * Performed By: Lucinda Moeller RCS * * Reason For Study: Septic Shock, Junctional Bradycardia * BSA: 2.1 m2 * Grossly normal valvular structure and function. * -- Conclusions -- * The left ventricle is normal in size. * Ejection Fraction = 55-60%. * The left ventricular wall motion is normal. * The right ventricular systolic function is normal. * The left atrial size is normal. * Right atrial size is normal. * Grossly normal valvular structure and function. Procedure Details * A complete two-dimensional transthoracic echocardiogram was performed (2D, M-mode, Doppler and color flow Doppler). * There were technical limitations due to patient'ssupine positioning while on mechanical ventilation * A contrast injection of Definity was performed to improve assessment of LV function. * Contrast was injected into an intravenous site in the left arm. * One vial of Definity ultrasound contrast was diluted in normal saline to a total volume of 10 ml. A total of '2' ml of solution was administered during imaging. * Lot # [id number] of Definity utilized for procedure. * Expiration date 1N. * The attending nurse who injected the contrast agent was Roberto Friedman RN. Left Ventricle * The left ventricle is normal in size. * There is normal left ventricular wall thickness. * Ejection Fraction = 55-60%. * Left ventricular systolic function is normal. * The left ventricular wall motion is normal. Right Ventricle * The right ventricle is normal size. * The right ventricular systolic function is normal. Atria * The left atrial size is normal. * Right atrial size is normal. * There is no evidence of atrial septal defect, but resolution does not allow assessment for a patent foramen ovale. Mitral Valve * The mitral valve is grossly normal. * Significant mitral regurgitation is absent. Tricuspid Valve * The tricuspid valve is not well visualized, but is grossly normal. * Significant tricuspid regurgitation is absent. Aortic Valve * The aortic valve is tricuspid. The leaflet thickness if normal. There is no aortic stenosis, and no significant insufficiency. * No hemodynamically significant valvular aortic stenosis. * There is no significant aortic regurgitation. Pulmonic Valve * The pulmonic valve is not well visualized. * There is no significant pulmonary regurgitation. Great Vessels * The aortic root and proximal ascending aorta are normal sized. Pericardium/Pleural * There is no pericardial effusion. MMode 2D Measurements and Calculations IVSd 0.99 cm IVSs 1.2 cm LVIDd 4.6 cm LVIDs 3.4 cm LVPWd 1.1 cm LVPWs 1.2 cm IVS/LVPW 0.89 FS 25.6 % EDV(Teich) 96.9 ml ESV(Teich) 47.9 ml EF(Teich) 50.6 % EDV(cubed) 96.8 ml ESV(cubed) 39.8 ml EF(cubed) 58.9 % % IVS thick 22.7 % % LVPW thick 6.1 % LV mass(C)d 169.3 grams LV mass(C)dI 80.0 grams/m\S\2 LV mass(C)s 130.4 grams LV mass(C)sI 61.6 grams/m\S\2 CO(Teich) 2.4 l/min CI(Teich) 1.1 l/min/m\S\2 SV(Teich) 49.0 ml SI(Teich) 23.1 ml/m\S\2 CO(cubed) 2.7 l/min CI(cubed) 1.3 l/min/m\S\2 SV(cubed) 57.0 ml SI(cubed) 26.9 ml/m\S\2 Ao root diam 3.8 cm Ao root area 11.4 cm\S\2 ACS 1.7 cm LA dimension 4.1 cm LA/Ao 1.1 LVAd ap4 22.5 cm\S\2 LVLd ap4 7.2 cm EDV(MOD-sp4) 60.0 ml LVAs ap4 14.8 cm\S\2 LVLs ap4 6.8 cm ESV(MOD-sp4) 27.0 ml EF(MOD-sp4) 55.0 % LVAd ap2 32.7 cm\S\2 LVLd ap2 8.6 cm EDV(MOD-sp2) 102.0 ml LVAs ap2 20.7 cm\S\2 LVLs ap2 7.5 cm ESV(MOD-sp2) 46.0 ml EF(MOD-sp2) 54.9 % CO(MOD-sp4) 1.6 l/min CI(MOD-sp4) 0.75 l/min/m\S\2 SV(MOD-sp4) 33.0 ml SI(MOD-sp4) 15.6 ml/m\S\2 CO(MOD-sp2) 2.7 l/min CI(MOD-sp2) 1.3 l/min/m\S\2 SV(MOD-sp2) 56.0 ml SI(MOD-sp2) 26.4 ml/m\S\2 Doppler Measurements and Calculations MV E max shaquille 88.8 cm/sec MV A max shaquille 88.8 cm/sec MV E/A 1.0 MV P1/2t max shaquille 73.0 cm/sec MV P1/2t 90.8 msec MVA(P1/2t) 2.4 cm\S\2 MV dec slope 235.4 cm/sec\S\2 MV dec time 0.21 sec Ao V2 max 133.4 cm/sec Ao max PG 7.1 mmHg Ao max PG (full) 5.0 mmHg LV V1 max PG 2.1 mmHg LV V1 max 72.2 cm/sec PA V2 max 128.1 cm/sec PA max PG 6.6 mmHg PI max shaquille 144.4 cm/sec PI max PG 8.3 mmHg PI dec slope 44.1 cm/sec\S\2 PI P1/2t 960.1 msec
[2016-06-26] MEDS: VANCOMYCIN INJ 1,500 MG in SODIUM CHLORIDE 0.9% 500ML 500 ML IV SCH (13:31)
--- NOTE | 2016-06-26 13:44 | Pharmacy Progress Note ---
Glycemic Control Intl Consult Date of Service Jun 26, 2016. Scope Glycemic Pharmacist consulted by Dr Beebe on 06/26/16 for glycemic control and to write orders per [facility] inpatient glycemic control protocol Objective Weight (Kilograms): 97.100 Accuchecks BSG (last 24hrs): Test 06/25/16 20:56 06/26/16 03:14 Bedside Glucose 285 mg/dl (70-99) Random Glucose 241 mg/dl (70-99) Laboratory Data (last 24hrs) Test 06/25/16 18:00 06/26/16 03:14 White Blood Count 16.48 K/uL 19.80 K/uL Red Blood Count 3.70 M/uL 4.05 M/uL Hemoglobin 10.4 g/dL 11.4 g/dL Hematocrit 33.3 % 36.7 % Mean Corpuscular Volume 90.0 fL 90.6 fL Mean Corpuscular Hemoglobin 28.1 pg 28.1 pg Mean Corpuscular Hemoglobin Concent 31.2 g/dl 31.1 g/dl Platelet Count 222 K/uL 272 K/uL Mean Platelet Volume 10.3 fL 10.5 fL Neutrophils (%) (Auto) 85.8 % 91.8 % Lymphocytes (%) (Auto) 8.0 % 6.1 % Monocytes (%) (Auto) 5.7 % 1.8 % Eosinophils (%) (Auto) 0.0 % 0.0 % Basophils (%) (Auto) 0.1 % 0.0 % Neutrophils # (Auto) 14.14 K/uL 18.18 K/uL Lymphocytes # (Auto) 1.32 K/uL 1.20 K/uL Monocytes # (Auto) 0.94 K/uL 0.36 K/uL Eosinophils # (Auto) 0.00 K/uL 0.00 K/uL Basophils # (Auto) 0.02 K/uL 0.00 K/uL Anion Gap 9.0 mmol/L BUN/Creatinine Ratio 16.0 Blood Urea Nitrogen 32 mg/dl Creatinine 2.00 mg/dl Hemoglobin A1c 6.5 % Potassium Level 3.8 mmol/L Sodium Level 139 mmol/L HbA1c Test 06/26/16 03:14 Hemoglobin A1c 6.5 %(4.5-5.6) H Recent Pertinent Medications Outpatient Anti-diabetic Regimen: * Actos 30mg PO daily * A1c = 6.5 % 06/26/16 The patient is currently receiving: * Basal insulin: none at this time * Correctional Insulin: NovoLog Correction per scale ACHS or q6 hours if NPO Goal Range: Low 140 mg/dL - High 180 mg/dL Correction Factor: 35 mg/dL/unit * Prandial insulin: Per carb ratio of 1 unit per 15 grams CHO consumed Risk Factors for Insulin Resistance: * Steroids: Solu-Medrol 60mg IV every 6 hours * Infection: sepsis: current ABX include pip/tazo, levofloxacin, and vancomycin * Pressors: norepinephrine * IVF: fentanyl gtt, NSS @ 50mL/hr * Recent Surgery: n/a * Diet: NPO * Mechanical Ventilation: yes Assessment & Plan ASSESSMENT: * ADA & AACE recommend a goal blood sugar range 140-180 mg/dl for the majority of critically ill & non-critically ill patients. However, more stringent targets may be selected in individual cases. 06/26/16 * 85 y/o type 2 diabetic who is know from historical admissions to the glycemic consult service. * in 2013 the patient was admitted and ordered around the clock steroids. At that time, he required ~50 units of insulin per day at this time. His insulin needs precipitously dropped as his steroids were change to oral therapy and tapered off. It is likely that Mr. Camacho needs additional insulin at this time to compensate for the higher physiologic stress as well ATC steroids * BSGs becoming increasingly elevated over the last 12-24 hours. * add basal insulin * increase Accu-check frequency to every 4 hours * A1c is current and shows appropriate outpatient glycemic control on oral medication alone. PLAN FOR INPATIENT GLYCEMIC CONTROL: * Lantus 10 units SQ BID * hold dose for BSG below 140mg/dL * Continue NovoLog * Increase checks to every 4 hours * Continue goal range 140-180mg/dL per ADA recommendations * Continue correction factor of 25mg/dL/unit (per weight and a stress of 2) * Add carb ratio of 1 unit per 8g of CHO consumed * A1c - current * Added to discharge instructions * Likely, Dayron can continue his home regimen upon discharge. * Please note that the plan above was derived based on current level of insulin resistance and hospital stress. These recommendations are appropriate for inpatient admission only. Plan of care upon discharge will need to be reassessed to avoid potential outpatient hypo/hyperglycemia. Thank you.
--- NOTE | 2016-06-26 15:08 | CARDIOLOGY CONSULTATION ---
DATE OF CONSULTATION: 06/26/2016 REFERRING PHYSICIAN: [facility] service. REASON FOR CONSULTATION: Bradycardia. HISTORY OF PRESENT ILLNESS: This is an 85-year-old male patient with a history of ischemic heart disease and previous coronary artery bypass surgery performed at [place], who has never followed with a airplane rigger. 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 On the date of admission, he was brought to the primary care physician's office after several days of increasing weakness, lethargy and poor oral intake. He was then sent by ambulance to be admitted for sepsis. He was admitted to the ICU, where he was eventually required that he be intubated and placed on a ventilator. He was in sinus bradycardia upon admission. After he was intubated and given sedation with fentanyl and propofol, his bradycardia worsened and he developed a junctional rhythm. The patient was placed on Levophed and has maintained his blood pressure. He has had a very good urine output and seems to have post-ATN diuresis. He remains intubated and sedated. I have reviewed the patient's echocardiogram that was performed this morning. It essentially reveals that he has normal left and right ventricular systolic function and no significant valvular pathology. ALLERGIES: No known medical allergies. PAST MEDICAL HISTORY: The patient has a history of type 2 diabetes. He has a history of ischemic heart disease, status post coronary artery bypass surgery. The year of his bypass is unknown, but according to records, it was performed in [place]. He has never followed with a airplane rigger. He has a history of COPD and chronic kidney disease. He has treated hypothyroidism. SOCIAL HISTORY: He is a former smoker. He is and lives with his family. FAMILY MEDICAL HISTORY: Noncontributory. REVIEW OF SYSTEMS: Unobtainable. PHYSICAL EXAMINATION: GENERAL: The patient is intubated and sedated. VITAL SIGNS: Blood pressure currently is 160/80 on a small amount of Levophed. He is in a bradycardia on the threat monitoring analyst with heart rates in the 40s. It appears to be junctional. HEENT: The patient is normocephalic. He is intubated. NECK: The neck veins are flat. Carotids have good upstrokes bilaterally without bruits. Thyroid is nonpalpable. RESPIRATORY: Breath sounds equal bilaterally and clear to auscultation. CARDIOVASCULAR: Heart has a regular rhythm. No cardiac rubs or murmurs. GASTROINTESTINAL: Abdomen is soft and nontender without organomegaly. EXTREMITIES: Free of edema, digit clubbing, or cyanosis. NEUROLOGIC: Grossly intact. SKIN: Warm to touch. LYMPH NODES: Negative to palpation. IMPRESSION: 1. Sepsis. 2. Bradycardia and hypotension, which is multifactorial including the sepsis as well as sedation. 3. History of ischemic heart disease with previous coronary artery bypass surgery. RECOMMENDATIONS: As outlined above, the patient's echocardiogram indicates that his overall cardiac function is quite good considering. He is maintaining a good blood pressure with a small amount of Levophed. He is also diuresing quite well and has a good urine output. At this point, I would consider switching him from propofol to perhaps Versed for sedation as some of the bradycardia may be related to the propofol. If necessary, I would add dopamine to his current medical regimen to maintain a better heart rate and blood pressure. At this point because the patient is hemodynamically stable, I would be reluctant to risk placing a temporary pacing wire. I will be available if the patient's clinical course changes. Please feel free to contact me at any time. We will follow along with you during his hospital stay. MAYELIN
[2016-06-26] MEDS: DOPamine 400MG / D5W 400 MG IV PRN (15:34)
[2016-06-26] MEDS ORDERED: PEPTAMEN INTENSE VHP 1000ML BAG OG PRN (16:00)
--- NOTE | 2016-06-26 18:28 | Progress Note ---
Medicine Progress Note Date & Time of Visit: Jun 26, 2016 at 17:48. Subjective Patient seen earlier this AM, was sedated and intubated overnight due to increasing lethargy and hypercapnia. Remains on the vent with sedation presently. Remains on levophed. No family present at bedside. Objective Last 8 Hrs Date Time Temp Pulse Resp B/P Pulse Ox O2 Delivery O2 Flow Rate FiO2 06/26/16 16:00 Mechanical Ventilator 50 06/26/16 16:00 50 06/26/16 15:28 36.9 41 20 101/49 93 Mechanical Ventilator 50 06/26/16 14:59 48 21 103/48 93 Mechanical Ventilator 50 06/26/16 14:30 51 21 113/57 93 Mechanical Ventilator 50 06/26/16 14:05 50 06/26/16 12:59 43 20 160/62 100 Mechanical Ventilator 50 06/26/16 12:29 41 20 148/65 100 Mechanical Ventilator 50 06/26/16 12:02 42 20 82/41 100 Mechanical Ventilator 50 06/26/16 12:00 50 06/26/16 12:00 Mechanical Ventilator 50 06/26/16 11:58 42 20 79/43 99 Mechanical Ventilator 50 06/26/16 11:43 42 20 75/47 99 Mechanical Ventilator 50 06/26/16 11:05 50 06/26/16 10:59 50 20 82/36 100 Mechanical Ventilator 50 06/26/16 10:29 43 20 112/55 100 Mechanical Ventilator 50 06/26/16 09:59 46 20 141/59 100 Mechanical Ventilator 50 Physical Exam: GENERAL: Patient is in no acute distress. HEENT: No acute trauma, normocephalic, mucous membranes moist, no nasal congestion, no scleral icterus. NECK: No stridor, trachea is midline. LUNGS: Diminished bases bilaterally, no wheeze, no rhonchi, breath sounds equal. HEART: Without murmurs gallops or rubs, Bradycardic ABDOMEN: Soft, nontender, bowel sounds positive EXTREMITIES: No cyanosis or edema; distal LE cold; R femoral central line NEUROLOGIC: Sedated, unable to evaluate for focal or sensory deficits SKIN: No rash, no jaundice, no diaphoresis. Laboratory Results: Last 24 Hours Test 06/25/16 18:00 06/25/16 20:56 06/25/16 22:10 06/25/16 23:25 White Blood Count 16.48 K/uL Red Blood Count 3.70 M/uL Hemoglobin 10.4 g/dL Hematocrit 33.3 % Mean Corpuscular Volume 90.0 fL Mean Corpuscular Hemoglobin 28.1 pg Mean Corpuscular Hemoglobin Concent 31.2 g/dl Platelet Count 222 K/uL Mean Platelet Volume 10.3 fL Neutrophils (%) (Auto) 85.8 % Lymphocytes (%) (Auto) 8.0 % Monocytes (%) (Auto) 5.7 % Eosinophils (%) (Auto) 0.0 % Basophils (%) (Auto) 0.1 % Neutrophils # (Auto) 14.14 K/uL Lymphocytes # (Auto) 1.32 K/uL Monocytes # (Auto) 0.94 K/uL Eosinophils # (Auto) 0.00 K/uL Basophils # (Auto) 0.02 K/uL RDW Standard Deviation 50.8 fL RDW Coefficient of Variation 15.3 % Immature Granulocyte % (Auto) 0.4 % Immature Granulocyte # (Auto) 0.06 K/uL Total Creatine Kinase 179 U/L 166 U/L Creatine Kinase MB 2.7 ng/ml 2.6 ng/ml Creatine Kinase MB Ratio 1.5 1.6 Troponin I 0.187 ng/ml 0.133 ng/ml Bedside Glucose 285 mg/dl Blood Gas Sample Site L Radial Bedside Blood Gas pH (LAB) 7.20 Bedside Blood Gas pCO2 (LAB) 53 mmHg Bedside Blood Gas pO2 (LAB) 71 mmHg Bedside Blood Gas HCO3 (LAB) 21 meq/L Bedside Blood Gas Total CO2 22 mEq/l Bedside Blood Gas Base Excess (LAB) -8.0 meq/L Bedside Blood Gas O2 Saturation 90.0 % Arvind Test Pass Oxygen Delivery Device Cannula Test 06/25/16 23:51 06/26/16 01:31 06/26/16 03:14 06/26/16 04:00 Blood Gas Sample Site R Radial R Radial R Radial Bedside Blood Gas pH (LAB) 7.13 7.17 7.28 Bedside Blood Gas pCO2 (LAB) 67 mmHg 59 mmHg 43 mmHg Bedside Blood Gas pO2 (LAB) 123 mmHg 70 mmHg 78 mmHg Bedside Blood Gas HCO3 (LAB) 23 meq/L 22 meq/L 20 meq/L Bedside Blood Gas Total CO2 25 mEq/l 24 mEq/l 22 mEq/l Bedside Blood Gas Base Excess (LAB) -7.0 meq/L -7.0 meq/L -7.0 meq/L Bedside Blood Gas O2 Saturation 97.0 % 89.0 % 94.0 % Arvind Test Pass Pass Pass Oxygen Delivery Device BIPAP BIPAP Ventilator Bedside Oxygen Rate (breaths/min) 12 20 20 Bedside FiO2 40 % 30 % 60 % Blood Gas IPAP 15 17 White Blood Count 19.80 K/uL Red Blood Count 4.05 M/uL Hemoglobin 11.4 g/dL Hematocrit 36.7 % Mean Corpuscular Volume 90.6 fL Mean Corpuscular Hemoglobin 28.1 pg Mean Corpuscular Hemoglobin Concent 31.1 g/dl Platelet Count 272 K/uL Mean Platelet Volume 10.5 fL Neutrophils (%) (Auto) 91.8 % Lymphocytes (%) (Auto) 6.1 % Monocytes (%) (Auto) 1.8 % Eosinophils (%) (Auto) 0.0 % Basophils (%) (Auto) 0.0 % Neutrophils # (Auto) 18.18 K/uL Lymphocytes # (Auto) 1.20 K/uL Monocytes # (Auto) 0.36 K/uL Eosinophils # (Auto) 0.00 K/uL Basophils # (Auto) 0.00 K/uL RDW Standard Deviation 51.1 fL RDW Coefficient of Variation 15.2 % Immature Granulocyte % (Auto) 0.3 % Immature Granulocyte # (Auto) 0.06 K/uL Sodium Level 139 mmol/L Potassium Level 3.8 mmol/L Chloride Level 104 mmol/L Carbon Dioxide Level 26 mmol/L Anion Gap 9.0 mmol/L Blood Urea Nitrogen 32 mg/dl Creatinine 2.00 mg/dl Est Creatinine Clear Calc Drug Dose 30.4 ml/min Estimated GFR () 34.0 Estimated GFR (Non- 29.3 BUN/Creatinine Ratio 16.0 Random Glucose 241 mg/dl Estimated Average Glucose 140 mg/dl Hemoglobin A1c 6.5 % Calcium Level 7.9 mg/dl Phosphorus Level 3.7 mg/dl Magnesium Level 1.8 mg/dl Blood Gas Minute Ventilation 9.3 Blood Gas Tidal Volume 500 Blood Gas PEEP 5 Test 06/26/16 05:00 06/26/16 05:53 06/26/16 09:29 06/26/16 10:44 Random Vancomycin Level 17.7 mcg/ml Bedside Glucose (other) 249 mg/dl Blood Gas Sample Site R Radial Bedside Blood Gas pH (LAB) 7.41 Bedside Blood Gas pCO2 (LAB) 34 mmHg Bedside Blood Gas pO2 (LAB) 91 mmHg Bedside Blood Gas HCO3 (LAB) 22 meq/L Bedside Blood Gas Total CO2 23 mEq/l Bedside Blood Gas Base Excess (LAB) -3.0 meq/L Bedside Blood Gas O2 Saturation 97.0 % Arvind Test NA Oxygen Delivery Device Ventilator Bedside Oxygen Rate (breaths/min) 20 Blood Gas Minute Ventilation 10.2 Bedside FiO2 50 % Blood Gas Tidal Volume 550 Blood Gas PEEP 5 Test 06/26/16 13:03 06/26/16 13:06 06/26/16 13:20 06/26/16 16:28 Hemoglobin 11.8 g/dL Hematocrit 36.9 % Bedside Glucose (other) 240 mg/dl 193 mg/dl Troponin I 0.087 ng/ml Date/Time Source Procedure Growth Status 06/26/16 16:00 Sputum Trach. Tube Suction Gram Stain Pending Received 06/26/16 16:00 Sputum Trach. Tube Suction Sputum Culture Pending Received Assessment & Plan SEPSIS WITH SHOCK: -requiring pressors -presented with hypotension, leukocytosis (WBC > 17,000), tachycardia to 110s ( on admission), fever of 39.2, tachypnea, hypoxemia, POC lactic acid 3.29 -suspected source is pulmonary due to CXR with left base infiltrate -UA does not appear infected -KUB: no obstruction -Blood cultures pending -was aggressively hydrated and had low BP despite this -on Levophed, now being transitioned to dopamine -initially on Zosyn, Vancomycin, and Levaquin -repeat lactic acid: 0.9 -check sputum culture -Truck Manager consulted, appreciate management ACUTE HYPOXIC HYPERCAPNIC RESPIRATORY FAILURE: -due to sepsis, pneumonia and possibly COPD -patient did require intubation overnight, remains on the vent -on solu-medrol for possible COPD component -on Xopenex/Atrovent nebs BRADYCARDIA: -HR was 30's-40's earlier -Cardiology consulted, appreciate recs -recommended switching levophed to dopamine, and also changing sedation from propofol to versed DIARRHEA: -pt with a prior history of C. diff -check stool for C. diff, WBC smear, stool culture MELENA: -per family 1 episode black stool -monitor Hb -check Hemoccult stool ELEVATED TROPONIN: -not trending up significantly -denies chest pain -EKG non-specific DAKOTA on CKD STAGE III -Cr 2.5-->2.0 -baseline Cr of 1.6-1.7 -likely due to sepsis and dehydration -hold lisinopril and Lasix -on IV fluids -avoid nephrotoxins DM TYPE II: well controlled -HbA1c: 6.5% -hold oral hyperglycemic medications -on lantus + insulin correction scale coverage -further adjustments when patient getting nutrition CAD s/p CABG x 3 VESSELS: -continue aspirin and statin -MILADIS-I on hold for hypotension and DAKOTA -was not on BB HTN: presently hypotensive due to sepsis -hold lisinopril and Lasix due to hypotension HYPOTHYROIDISM: -continue levothyroxine GERD: -continue PPI Current Inpatient Medications: Current Inpatient Medications Medications (Trade) Dose Ordered Sig/Drea Route Start Time Stop Time Status Last Admin Dose Admin Ondansetron HCl (Zofran Inj) 4 mg Q6H PRN IV 06/25/16 14:00 07/25/16 13:59 Acetaminophen 650 mg 650 mg Q4H PRN PO 06/25/16 14:00 07/25/16 13:59 Sodium Chloride 1,000 ml @ 50 mls/hr Q20H IV 06/25/16 14:00 07/25/16 13:59 06/26/16 13:31 50 MLS/HR Piperacillin Sod/ Tazobactam Sod 4.5 gm/Dextrose 120 ml @ 30 mls/hr Q8H IV 06/25/16 18:00 07/02/16 17:59 06/26/16 09:32 30 MLS/HR Levofloxacin/Prmx (Levaquin / D5W/ Premixed D5W) 150 ml @ 100 mls/hr Q48H IV 06/27/16 13:00 07/05/16 23:59 Levofloxacin (Consult) 1 ea UD PRN N/A 06/25/16 15:00 07/25/16 14:59 Glucose (Glucose 40% Gel) 15-30 GRAMS 15 GRAMS... UD PRN PO 06/25/16 14:15 07/25/16 14:14 Glucose (Glucose Chew Tab) 4-8 Tablets 4 Tabl... UD PRN PO 06/25/16 14:15 07/25/16 14:14 Dextrose (Dextrose 50% 50ML Syringe) 25-50ML OF 50% DW IV FOR... UD PRN IV 06/25/16 14:15 07/25/16 14:14 Glucagon (Glucagon Inj) 1 mg UD PRN SQ 06/25/16 14:15 07/25/16 14:14 Atorvastatin Calcium (Lipitor Tab) 40 mg DAILY PO 06/26/16 09:00 07/26/16 08:59 06/26/16 09:33 40 MG Calcitriol (Rocaltrol Cap) 0.25 mcg DAILY PO 06/26/16 09:00 07/26/16 08:59 Cholecalciferol (Vitamin D Tab) 1,000 inter.unit DAILY PO 06/26/16 09:00 07/26/16 08:59 06/26/16 09:33 1,000 INTER.UNIT Levothyroxine Sodium (Synthroid Tab) 25 mcg DAILYBB PO 06/26/16 06:00 07/26/16 05:59 06/26/16 05:40 25 MCG Levothyroxine Sodium (Synthroid Tab) 200 mcg DAILYBB PO 06/26/16 06:00 07/26/16 05:59 06/26/16 05:40 200 MCG Magnesium Hydroxide (Milk Of Magnesia Susp) 30 ml DAILY PRN PO 06/25/16 14:30 07/25/16 14:29 Bacitracin (Bacitracin Oint) 1 appln TID PRN EXT 06/25/16 14:30 07/25/16 14:29 Albuterol (Ventolin Hfa Inhaler) 2 puffs Q4H PRN INH 06/25/16 15:00 07/25/16 14:59 Miscellaneous Information (Order Awaiting Action) 1 ea QS N/A 06/25/16 16:00 07/25/16 15:59 Miscellaneous Information (Order Awaiting Action) 1 ea QS N/A 06/25/16 16:00 07/25/16 15:59 Vancomycin HCl (Consult) 1 ea UD PRN N/A 06/25/16 15:00 07/25/16 14:59 Piperacillin Sod/ Tazobactam Sod 1 ea 1 ea UD PRN N/A 06/25/16 15:00 07/25/16 14:59 Norepinephrine Bitartrate 8 mg/ Dextrose 508 ml @ 0 mls/hr Q0M PRN IV 06/25/16 15:21 07/25/16 15:20 06/26/16 04:49 25.4 MLS/HR Methylprednisolone Sodium Succinate/ Syringe (Solu-Medrol IV/ Syringe) 0.96 ml @ 1.5 mls/min Q6H IV 06/25/16 22:00 07/25/16 21:59 06/26/16 16:41 1.5 MLS/MIN Acetylcysteine (Mucomyst 20% Inh Soln) 2 ml Q6R INH 06/25/16 16:30 07/25/16 16:29 06/26/16 14:31 2 ML Heparin Sodium (Porcine) (Heparin Sq 5000 Unit/0.5ml) 5,000 unit Q12 SQ 06/25/16 21:00 07/25/16 20:59 06/26/16 09:34 5,000 UNIT Propofol (Diprivan IV 100ML VIAL) 1 dose UD PRN IV 06/26/16 03:00 06/29/16 02:59 06/26/16 15:35 1 DOSE Chlorhexidine Gluconate (Peridex Oral Soln) 15 ml BID MT 06/26/16 09:00 07/26/16 08:59 06/26/16 09:38 15 ML Fentanyl Citrate (Fentanyl Inj) 25 mcg Q2H PRN IV 06/26/16 03:00 07/10/16 02:59 06/26/16 08:28 25 MCG Fentanyl Citrate (Fentanyl Inj) 75 mcg Q2H PRN IV 06/26/16 03:15 07/10/16 03:14 Miscellaneous Information (Consult Glycemic Management Pharmacy) 1 ea DAILY PRN N/A 06/26/16 09:00 07/26/16 08:59 Ipratropium [place] (Atrovent Hfa Inhaler) 4 puffs Q6R INH 06/26/16 09:00 07/26/16 08:59 06/26/16 14:31 4 PUFFS Levalbuterol 4 puffs 4 puffs Q6R INH 06/26/16 09:00 07/26/16 08:59 06/26/16 14:31 4 PUFFS Fentanyl Citrate 250 ml @ 0 mls/hr Q0M PRN IV 06/26/16 09:00 1/13/17 10:56 15 MLS/HR Pantoprazole Sodium/Syringe (Protonix Inj/ Syringe) 10 ml @ 5 mls/min DAILY@11 IV 06/26/16 11:00 07/26/16 10:59 06/26/16 10:52 5 MLS/MIN Aspirin 81 mg 81 mg DAILY PO 06/26/16 09:30 07/26/16 09:29 06/26/16 10:52 81 MG Vancomycin HCl/ Sodium Chloride (Vancomycin Inj/ Nss 500ml) 530 ml @ 200 mls/hr Q24H IV 06/26/16 11:00 07/01/16 13:38 06/26/16 13:31 200 MLS/HR Insulin Aspart (novoLOG ASPART) SLIDING SCALE If C... Q4 SC 06/26/16 16:00 07/26/16 15:59 06/26/16 16:41 1 UNITS Insulin Glargine 10 unit 10 unit BID SC 06/26/16 21:00 07/26/16 20:59 Dopamine HCl/ Dextrose (DOPamine 400MG / D5W) 250 ml @ 0 mls/hr Q0M PRN IV 06/26/16 14:00 07/26/16 13:59 06/26/16 15:34 18 MLS/HR Enteral Nutritional Formula (Peptamen Intense VHP) 10 ml PRN PRN OG 06/26/16 16:00 07/26/16 15:59 06/26/16 16:31 10 ML
[2016-06-26] MEDS ORDERED: INSULIN GLARGINE SOLOSTAR 100 UNITS/ML 3 ML PEN SC SCH (21:00)
[2016-06-27] VITALS (34 sets, daily range): BP systolic 81–152; BP diastolic 36–74; PULSE 49–198; TEMP 36.4–37.1; O2SAT 91–100
[2016-06-27] MEDS: INSULIN ASPART 100 UNITS/ML 3 ML PEN SC SCH ×6 (00:18→23:50)
[2016-06-27] MEDS: IPRATROPIUM BROMIDE HFA INHALER INH SCH ×3 (02:08→15:19)
[2016-06-27] MEDS: LEValbuterol HFA 15GM INHALER INH SCH ×3 (02:08→15:19)
[2016-06-27] MEDS: ACETYLCYSTEINE 20% INHAL SOLN ***DISPENSED BY RESP. INH SCH ×4 (02:08→19:19)
[2016-06-27] MEDS: PIPERACILL/TAZOBAC IV 4.5 GM in DEXTROSE 5% 100ML 100 ML IV SCH ×3 (02:36→18:02)
[2016-06-27] MEDS: METHYLPREDNISOLONE IV 60 MG in SYRINGE 0 ML IV SCH (03:47)
[2016-06-27] MEDS: DOPamine 400MG / D5W 400 MG IV PRN (04:12)
[2016-06-27] MEDS: FENTANYL 1250MCG/250ML NSS 250 ML IV PRN (05:33)
[2016-06-27] MEDS: LEVOTHYROXINE 200 MCG TAB PO SCH (05:39)
[2016-06-27] MEDS: LEVOTHYROXINE 25 MCG TAB PO SCH (05:39)
[2016-06-27] MEDS: PROPOFOL IV EMULSION 10 MG/ML 100 ML VIAL IV PRN (06:10)
[2016-06-27 06:22] LABS: HEMATOCRIT 35.2 % (42-52); MEAN CELL VOLUME 85.6 fL (80-100); MEAN CORPUSCULAR HEMOGLOBIN 27.5 pg (25-34); MEAN CORPUSCULAR HGB CONC 32.1 g/dl (32-36); MEAN PLATELET VOLUME 10.7 fL (7.4-10.4); PLATELET COUNT 256 K/uL (130-400); RED BLOOD COUNT 4.11 M/uL (4.7-6.1); WHITE BLOOD COUNT 24.18 K/uL (4.8-10.8)
[2016-06-27 06:50] LABS: BASO ABS # 0.01 K/uL (0-0.2); COMPLETE YES; ECHINOCYTES 1+; IG% 0.4 %; LYMPH % 6.9 %; LYMPH ABS # 1.66 K/uL (1.2-3.4); MONO % 3.3 %; NEUT % 89.4 %; VACUOLIZATION OCCASIONAL
[2016-06-27 06:59] LABS: CREATININE 1.8 mg/dl (0.60-1.40)
[2016-06-27 07:00] LABS: BUN/CREATININE RATIO 12.8 (10-20); CALCIUM 8.5 mg/dl (8.5-10.1); MAGNESIUM 1.8 mg/dl (1.8-2.4); PHOSPHORUS 2.3 mg/dl (2.5-4.9); POTASSIUM 3.1 mmol/L (3.5-5.1)
[2016-06-27] MEDS: [UNRECOGNIZED DRUG - REMARK] SCH ×3 (07:29→23:50)
--- NOTE | 2016-06-27 07:52 | DIAGNOSTIC IMAGING REPORT ---
CHEST ONE VIEW PORTABLE CLINICAL HISTORY: respiratory failure COMPARISON STUDY: 06/26/2016 FINDINGS: The heart remains mildly enlarged. There are postsurgical changes of a midline sternotomy. There is an endotracheal tube 27 mm above the velvet. There is a nasogastric tube which passes into the stomach. There is continued evidence for mild pulmonary vascular congestion. More focal right basilar airspace opacities, likely reflect focal edema although a superimposed inflammatory process could appear similar[ IMPRESSION: 1. Endotracheal tube 27 mm above the velvet 2. Continued radiographic evidence for congestive failure and mild edema. 3. More focal right basilar airspace opacity, likely representing focal edema although a superimposed inflammatory process could appear similar Electronically signed by: Moises Vora M.D. 06/27/2016 7:50 AM Dictated Date/Time: 06/27/2016 7:49 AM
[2016-06-27] MEDS: SODIUM CHLORIDE 0.9% 1000ML 1,000 ML IV SCH (08:33)
[2016-06-27] MEDS: CHLORHEXIDINE GLUCONATE 0.12% 480 ML MT SCH (08:34)
[2016-06-27] MEDS: HEPARIN SOD 5000 UNIT/0.5 ML CARP SQ SCH ×2 (08:38→20:12)
[2016-06-27] MEDS ORDERED: POTASSIUM CHLORIDE 20 MEQ/15 ML UDC PO STA (08:47)
[2016-06-27] MEDS ORDERED: POTASSIUM PHOS 3 MMOL/1 ML INFUSION IV STA (08:55)
[2016-06-27] MEDS ORDERED: DOCUSATE SODIUM 100 MG/10 ML UDC PO STA (08:57)
[2016-06-27] MEDS: CALCITRIOL 0.25 MCG CAP PO SCH (09:00)
[2016-06-27] MEDS ORDERED: INSULIN GLARGINE SOLOSTAR 100 UNITS/ML 3 ML PEN SC SCH ×2 (09:00→21:00)
--- NOTE | 2016-06-27 09:01 | DIAGNOSTIC IMAGING REPORT ---
KUB CLINICAL HISTORY: Abdominal film for nasogastric tube placement COMPARISON STUDY: 06/25/2016 FINDINGS: There is no pathologic bowel dilatation. There is a nasogastric tube with its tip projected over the gastric cardia. There are right upper quadrant calcifications consistent with gallstones. There is a right femoral catheter present. IMPRESSION: 1. The nasogastric tube is positioned within the stomach 2. Cholelithiasis 3. Right femoral catheter 4. No evidence of pathologic bowel dilatation Electronically signed by: Moises Vora M.D. 06/27/2016 8:59 AM Dictated Date/Time: 06/27/2016 8:58 AM
[2016-06-27] MEDS ORDERED: POTASSIUM PHOSPHATE INJ 9 MMOL in SODIUM CHLORIDE 0.9% 250ML 250 ML IV ONE (09:15)
[2016-06-27] MEDS ORDERED: FUROSEMIDE INJ 20 MG in SYRINGE 0 ML IV ONE (09:15)
[2016-06-27] MEDS ORDERED: POTASSIUM CHLORIDE 20 MEQ/15 ML UDC PO ONE (09:15)
--- NOTE | 2016-06-27 09:38 | PROGRESS NOTE ---
DATE: 06/27/2016 FOLLOWUP VISIT SUBJECTIVE: The patient is an 85-year-old male, with a history of ischemic heart disease and prior coronary artery bypass surgery. He was admitted with sepsis. He required intubation and soon after developed bradycardia and hypotension. He was placed on pressor agents along with sedation including fentanyl and propofol drip. He remained bradycardic and was actually in a junctional rhythm when I saw him yesterday. Dopamine was utilized in place of Levophed and this morning the patient has been weaned off of his propofol drip. His heart rates are now in the 70s. On telemetry, it appears that he is in a rate-controlled AFib. The patient is currently being weaned from the ventilator and is hemodynamically stable. OBJECTIVE: VITAL SIGNS: Blood pressure is 130/80 and pulse is irregular at 75 beats per minute. He is afebrile. HEENT: He is normocephalic. Pupils are equal and reactive to light. He is intubated. NECK: The neck veins are flat. Carotids have good upstrokes bilaterally without bruits. Thyroid is nonpalpable. RESPIRATORY: Breath sounds are equal bilaterally and clear to auscultation. CARDIOVASCULAR: Heart has a regular rhythm. Normal S1, S2. No S3, S4. No cardiac rubs or murmurs. GASTROINTESTINAL: Abdomen is soft and nontender without organomegaly. EXTREMITIES: Free of edema, digital clubbing or cyanosis. NEUROLOGIC: Grossly intact. SKIN: Warm to touch. LYMPH NODES: Negative to palpation. LABORATORY DATA: Hemoglobin is 11.3, WBC count is 24.1, creatinine is 1.8 and potassium is 3.1. IMPRESSION: 1. Sepsis. 2. History of ischemic heart disease with prior coronary artery bypass surgery. 3. Bradycardia, now resolving with medication changes. 4. Rate-controlled atrial fibrillation. RECOMMENDATIONS: I think the patient should be continued to be weaned from the ventilator. He is hemodynamically stable at this time. I would recommend no additional treatment regarding his atrial fibrillation at this time until he is off the ventilator.
[2016-06-27] MEDS: PANTOprazole INJ 40 MG in SYRINGE 0 ML IV SCH (10:34)
[2016-06-27] MEDS: VANCOMYCIN INJ 1,500 MG in SODIUM CHLORIDE 0.9% 500ML 500 ML IV SCH (10:34)
[2016-06-27] MEDS: POLYETHYLENE (MIRALAX) 17 GM PACK PO SCH (10:34)
[2016-06-27] MEDS: ATORVASTATIN 40 MG TAB PO SCH (10:35)
[2016-06-27] MEDS: ASPIRIN 81 MG CHEW PO SCH (10:35)
[2016-06-27] MEDS: CHOLECALCIFEROL 1000 INTER.UNIT TAB PO SCH (10:35)
[2016-06-27] MEDS: METHYLPREDNISOLONE IV 40 MG in SYRINGE 0 ML IV SCH ×3 (12:04→23:58)
--- NOTE | 2016-06-27 12:31 | Pharmacy Progress Note ---
Glycemic Control: Progress Nt Date of Service Jun 27, 2016. Scope Glycemic Pharmacist consulted by Dr Beebe on 06/26/16 for glycemic control and to write orders per [facility] inpatient glycemic control protocol. Objective Accuchecks BSG (last 24hrs): Test 06/27/16 06:02 06/27/16 11:59 Random Glucose 245 mg/dl (70-99) Bedside Glucose 154 mg/dl (70-99) Laboratory Data (last 24hrs) Test 06/27/16 06:02 Anion Gap 12.0 mmol/L BUN/Creatinine Ratio 12.8 Blood Urea Nitrogen 23 mg/dl Creatinine 1.80 mg/dl Potassium Level 3.1 mmol/L Sodium Level 143 mmol/L White Blood Count 24.18 K/uL Red Blood Count 4.11 M/uL Hemoglobin 11.3 g/dL Hematocrit 35.2 % Mean Corpuscular Volume 85.6 fL Mean Corpuscular Hemoglobin 27.5 pg Mean Corpuscular Hemoglobin Concent 32.1 g/dl Platelet Count 256 K/uL Mean Platelet Volume 10.7 fL Neutrophils (%) (Auto) 89.4 % Lymphocytes (%) (Auto) 6.9 % Monocytes (%) (Auto) 3.3 % Eosinophils (%) (Auto) 0.0 % Basophils (%) (Auto) 0.0 % Neutrophils # (Auto) 21.63 K/uL Lymphocytes # (Auto) 1.66 K/uL Monocytes # (Auto) 0.79 K/uL Eosinophils # (Auto) 0.00 K/uL Basophils # (Auto) 0.01 K/uL HbA1c: Test 06/26/16 03:14 Hemoglobin A1c 6.5 %(4.5-5.6) H Recent Pertinent Medications Outpatient Anti-diabetic Regimen: * Actos 30mg PO daily * A1c = 6.5 % 06/26/16 The patient is currently receiving: * Basal insulin: Lantus 10 units SQ BID * Correctional Insulin: NovoLog Correction per scale every 4 hours Goal Range: Low 140 mg/dL - High 180 mg/dL Correction Factor: 25 mg/dL/unit * Prandial insulin: Per carb ratio of 1 unit per 8 grams CHO consumed Risk Factors for Insulin Resistance: * Steroids: Solu-Medrol 60mg IV every 6 hours --> 40mg IV every 6 hours today at noon * Infection: sepsis: current ABX include pip/tazo, levofloxacin, and vancomycin * Pressors: dopamine gtt * IVF: fentanyl gtt, NSS @ 50mL/hr, propofol gtt * Recent Surgery: n/a * Diet: NPO. Peptamen Bariatric @ 10mL/hr * Mechanical Ventilation: yes Assessment & Plan ASSESSMENT: * ADA & AACE recommend a goal blood sugar range 140-180 mg/dl for the majority of critically ill & non-critically ill patients. However, more stringent targets may be selected in individual cases. 06/26/16 * 85 y/o type 2 diabetic who is know from historical admissions to the glycemic consult service. * in 2013 the patient was admitted and ordered around the clock steroids. At that time, he required ~50 units of insulin per day at this time. His insulin needs precipitously dropped as his steroids were change to oral therapy and tapered off. It is likely that Mr. Camacho needs additional insulin at this time to compensate for the higher physiologic stress as well ATC steroids * BSGs becoming increasingly elevated over the last 12-24 hours. * add basal insulin * increase Accu-check frequency to every 4 hours * A1c is current and shows appropriate outpatient glycemic control on oral medication alone. 06/27/16 * BSGs much improved with every 4 hour NovoLog and the addition of Lantus. * Fasting today more reasonable at 189mg/dL * Initially considered increasing Lantus to 15 units SQ BID, however Solu- Medrol then decreased to 40mg IV every 6 hours * Peptamen Bariatric tube feedings started yesterday evening * only at 10mL/hr and not likely contributing to hyperglycemia due to minimal amounts of CHO administered * 32 units of insulin given on 06/26, however this was mostly basal insulin * will try to re-distribute this closer to 50/50 ratio between basal and prandial insulin PLAN FOR INPATIENT GLYCEMIC CONTROL: * Continue Lantus 10 units SQ BID (15 units SQ X1 given this AM) * hold dose for BSG below 140mg/dL * Continue NovoLog * Decrease checks to every 6 hours * Continue goal range 140-180mg/dL per ADA recommendations * Tighten correction factor of 20mg/dL/unit * Continue carb ratio of 1 unit per 8g of CHO consumed * A1c - current * Added to discharge instructions * Likely, Dayron can continue his home regimen upon discharge. * Please note that the plan above was derived based on current level of insulin resistance and hospital stress. These recommendations are appropriate for inpatient admission only. Plan of care upon discharge will need to be reassessed to avoid potential outpatient hypo/hyperglycemia. Thank you.
[2016-06-27] MEDS: LEVOFLOXACIN / D5W 750 MG in PREMIXED IN D5W 150 ML IV SCH (13:52)
--- NOTE | 2016-06-27 14:32 | CRITICAL CARE PROGRESS NOTE ---
DATE: 06/27/2016 DATE: 06/27/2016. GENERAL INFORMATION: This is an 85-year-old gentleman with multiple medical problems who presented to the Emergency Department 2 days ago and who was treated for septic shock, felt to be secondary to pneumonia. Since that time, he has been weaned off his Levophed; however, on the first night of his hospitalization, he required intubation secondary to hypercapnia. He is also being treated for an acute exacerbation of chronic obstructive pulmonary disease. Prior to intubation, he had become bradycardic in the 40s and yesterday he was started on dopamine. The dopamine is now off and he is off his sedation since this morning. There were no acute events overnight. His care was discussed in detail with his bedside nurse, Alicia. He is having a small amount of secretions from his endotracheal tube. PHYSICAL EXAMINATION: VITAL SIGNS: Maximum temperature 36.7, heart rate 54-70, respiratory rate 20, blood pressure 102-149/50s-70s, oxygen saturation 97%. VENTILATOR SETTINGS: Assist control rate 20, tidal volume 500, FIO2 40%, PEEP 5. Presently he is on CPAP 5/5 40%. He has not had a bowel movement since admission. GENERAL: On exam he awakens easily. His CAM assessment is negative and he moves all 4 extremities to command. LUNGS: Lung sounds are decreased in the bases with some expiratory wheezes, no rhonchi or rales. HEART: Regular rate and rhythm. No murmurs noted. ABDOMEN: Soft, nondistended, nontender with active bowel sounds. EXTREMITIES: Show SCDs in place and they are slightly cool. There is 1+ edema of the lower extremities. LABORATORY DATA: White blood cell count 24.18, hemoglobin 11.3, hematocrit 35.2, platelets 256. Sodium 143, potassium 3.1, chloride 106, CO2 25, BUN 23, creatinine 1.8. MEDICATIONS AND INFUSIONS: Acetaminophen, Mucomyst, albuterol, aspirin, atorvastatin, bacitracin, rocaltrol, chlorhexidine, vitamin D, Colace, dopamine, Peptamen, fentanyl, subcutaneous heparin, insulin sliding scale, Lantus, Atrovent, Levaquin day 3, levothyroxine, magnesium hydroxide, Solu-Medrol 40 mg IV q. 6 hours, Zofran, Protonix, Zosyn day 3, propofol, vancomycin day 3. IMAGING: Chest x-ray from this morning was reviewed and shows a developing right lower lobe infiltrate and possibly some mild pulmonary vascular congestion. KUB from this morning shows cholelithiasis, nasogastric tube within the stomach, right femoral catheter and no evidence of pathological bowel dilatation. CULTURE DATA: Sputum Gram stain from the endotracheal tube specimen shows many polys, no organisms. Culture is preliminarily no growth. Blood cultures 06/25/2016 no growth. Sputum 06/25/2016 scant normal camelia. IMPRESSION: 1. Acute hypercapnic respiratory failure. 2. Septic shock, resolved. His white blood cell count is still rising; however, he is on steroids. At the present time I do not see any other glaring source of infection other than pulmonary. 3. Acute exacerbation of chronic obstructive disease. 4. Right lower lobe infiltrate and pneumonia. 5. Delirium, improved. 6. Acute kidney injury on chronic kidney disease, improved. 7. Diabetes mellitus. 8. Hypothyroidism. 9. Status post right femoral triple lumen catheter placement in the Emergency Department on arrival to the hospital. 10. Mild hypophosphatemia. PLAN: NEUROLOGIC: Continue to avoid sedatives. I will discontinue the fentanyl 75 mcg every 2 hours as needed. PULMONARY: He looks remarkably good on the CPAP 10/16. Consider extubation. Continue bronchodilators as well as intravenous corticosteroids, which have been decreased today. CARDIOVASCULAR: His bradycardia seems to be improved without specific intervention other than the dopamine. This has also been discontinued. INFECTIOUS DISEASE: Culture blood and urine if he spikes a temperature of 38.2 or above. Continue Levaquin, Zosyn and vancomycin. Consider a PICC line. Likely will discontinue vancomycin tomorrow pending culture data. RENAL: Continue to follow the creatinine. I have given him 20 mg of Lasix today and I am repleting electrolytes. GASTROINTESTINAL: Tube feeds held for potential extubation. Consult speech therapy for swallowing evaluation once extubated. ENDOCRINE: Many thanks to the pharmacy service for their assistance in his care. Discontinue normal saline. Continue DVT and GI prophylaxis. HEME: No acute issues other than leukocytosis. Overall his is improved from his admission. I have not met his family but have spoken to his daughter in law, Linda, on the phone. I would like to get the femoral triple lumen catheter out. He was evaluated for a PICC line which was attempted but not successful. I will try to minimize IV meds and reevaluate the need or central access tomorrow. Thank you for asking me to see this nice gentleman. Please call me with any questions or concerns. Critical care time 60 minutes. MAYELIN
[2016-06-27 14:47] LABS: ISTAT ALLEN TEST Pass; ISTAT ARTERIAL BLOOD GAS HCO3 26 meq/L (19-24); ISTAT ARTERIAL BLOOD GAS PCO2 41 mmHg (35-46); ISTAT ARTERIAL BLOOD GAS PO2 98 mmHg (80-95); ISTAT CARBON DIOXIDE 27 mEq/l (24-31); ISTAT DELIVERY SYSTEM Ventilator; ISTAT FIO2 40 %; ISTAT PEEP 5; ISTAT SITE L Radial
[2016-06-27] MEDS ORDERED: FUROSEMIDE 40 MG/4 ML VIAL IV ONE (18:10)
--- NOTE | 2016-06-27 18:53 | Progress Note ---
Medicine Progress Note Date & Time of Visit: Jun 27, 2016 at 18:35. Subjective Patient was seen earlier in the day while still intubated; he was on CPAP weaning trial. He denied any complaints of pain or SOB. No overnight events noted. Dopamine drip and sedation were weaned off this AM. Later in the day patient was eventually extubated after ABG did not show worsening. Objective Last 8 Hrs Date Time Temp Pulse Resp B/P Pulse Ox O2 Delivery O2 Flow Rate FiO2 06/27/16 18:00 70 20 106/41 100 Mask 8.0 06/27/16 16:00 36.4 72 18 88/43 95 Mask 8.0 06/27/16 16:00 Mask 8.0 06/27/16 14:00 70 24 90/41 97 CPAP 40 Mechanical Ventilator 06/27/16 12:00 36.9 84 26 111/51 98 CPAP 40 Mechanical Ventilator 06/27/16 12:00 40 06/27/16 12:00 CPAP 40 Mechanical Ventilator 06/27/16 11:48 40 06/27/16 11:29 83 22 99/44 94 CPAP 40 Mechanical Ventilator 06/27/16 10:59 198 15 81/50 93 CPAP 40 Mechanical Ventilator Physical Exam: GENERAL: Patient is in no acute distress. HEENT: No acute trauma, normocephalic, mucous membranes moist, no nasal congestion, no scleral icterus. NECK: No stridor, trachea is midline. LUNGS: Diminished bases bilaterally, no wheeze, no rhonchi, breath sounds equal. HEART: Without murmurs gallops or rubs, RR, S1 and S2 auscultated ABDOMEN: Soft, nontender, bowel sounds positive EXTREMITIES: No cyanosis or edema; moving all extremities, R femoral central line NEUROLOGIC: Oriented, no acute focal motor or sensory deficits noted. SKIN: No rash, no jaundice, no diaphoresis. Laboratory Results: Last 24 Hours Test 06/26/16 20:09 06/27/16 00:14 06/27/16 03:59 06/27/16 06:02 Bedside Glucose (other) 229 mg/dl 247 mg/dl 252 mg/dl White Blood Count 24.18 K/uL Red Blood Count 4.11 M/uL Hemoglobin 11.3 g/dL Hematocrit 35.2 % Mean Corpuscular Volume 85.6 fL Mean Corpuscular Hemoglobin 27.5 pg Mean Corpuscular Hemoglobin Concent 32.1 g/dl Platelet Count 256 K/uL Mean Platelet Volume 10.7 fL Neutrophils (%) (Auto) 89.4 % Lymphocytes (%) (Auto) 6.9 % Monocytes (%) (Auto) 3.3 % Eosinophils (%) (Auto) 0.0 % Basophils (%) (Auto) 0.0 % Neutrophils # (Auto) 21.63 K/uL Lymphocytes # (Auto) 1.66 K/uL Monocytes # (Auto) 0.79 K/uL Eosinophils # (Auto) 0.00 K/uL Basophils # (Auto) 0.01 K/uL RDW Standard Deviation 46.6 fL RDW Coefficient of Variation 14.8 % Immature Granulocyte % (Auto) 0.4 % Immature Granulocyte # (Auto) 0.09 K/uL Toxic Vacuolation OCCASIONAL Echinocytes 1+ Sodium Level 143 mmol/L Potassium Level 3.1 mmol/L Chloride Level 106 mmol/L Carbon Dioxide Level 25 mmol/L Anion Gap 12.0 mmol/L Blood Urea Nitrogen 23 mg/dl Creatinine 1.80 mg/dl Est Creatinine Clear Calc Drug Dose 33.9 ml/min Estimated GFR () 38.6 Estimated GFR (Non- 33.3 BUN/Creatinine Ratio 12.8 Random Glucose 245 mg/dl Calcium Level 8.5 mg/dl Phosphorus Level 2.3 mg/dl Magnesium Level 1.8 mg/dl Test 06/27/16 08:17 06/27/16 11:59 06/27/16 14:34 06/27/16 17:15 Bedside Glucose (other) 189 mg/dl Bedside Glucose 154 mg/dl 87 mg/dl Blood Gas Sample Site L Radial Bedside Blood Gas pH (LAB) 7.40 Bedside Blood Gas pCO2 (LAB) 41 mmHg Bedside Blood Gas pO2 (LAB) 98 mmHg Bedside Blood Gas HCO3 (LAB) 26 meq/L Bedside Blood Gas Total CO2 27 mEq/l Bedside Blood Gas Base Excess (LAB) 1.0 meq/L Bedside Blood Gas O2 Saturation 98.0 % Arvind Test Pass Oxygen Delivery Device Ventilator Bedside FiO2 40 % Blood Gas PEEP 5 Assessment & Plan SEPSIS WITH SHOCK: -requiring pressors -presented with hypotension, leukocytosis (WBC > 17,000), tachycardia to 110s ( on admission), fever of 39.2, tachypnea, hypoxemia, POC lactic acid 3.29 -suspected source is pulmonary due to pneumonia -UA does not appear infected -KUB: no obstruction -Blood cultures pending -was aggressively hydrated and had low BP despite this -was on Levophed, transitioned to dopamine, and now off all pressors -initially on Zosyn, Vancomycin, and Levaquin; MRSA swab negative, can likely stop vanco -repeat lactic acid: 0.9 -check sputum culture -Community Resource Consultant consulted, appreciate management -leukocytosis trending up, however no other source of infection suspected and patient remains on abx; possibly related to steroids ACUTE HYPOXIC HYPERCAPNIC RESPIRATORY FAILURE: -due to sepsis, pneumonia and possibly COPD exacerbation -patient did require intubation and vent; was extubated 06/27 -on solu-medrol for possible COPD exacerbation -on Xopenex/Atrovent nebs -continued on abx for pneumonia ENCEPHALOPATHY/LETHARGY/AMS: -likely multifactorial due to hypercapnia and sepsis, now improved -now extubated and ABG improved, observe for further AMS BRADYCARDIA: resolved -HR was 30's-40's earlier -Cardiology consulted, appreciate recs -recommended switching levophed to dopamine, and also changing sedation from propofol to versed -has had slow atrial fibrillation this AM intermittently DIARRHEA: -pt with a prior history of C. diff -check stool for C. diff, WBC smear, stool culture MELENA: -per family 1 episode black stool -monitor Hb -check Hemoccult stool ELEVATED TROPONIN: -not trending up significantly -denies chest pain -EKG non-specific DAKOTA on CKD STAGE III: -Cr 2.5-->2.0-->1.8 -baseline Cr of 1.6-1.7 -likely due to sepsis and dehydration -hold lisinopril and Lasix -was on IV fluids, now stopped -avoid nephrotoxins DM TYPE II: well controlled -HbA1c: 6.5% -hold oral hyperglycemic medications -on lantus + insulin correction scale coverage -further adjustments when patient getting nutrition CAD s/p CABG x 3 VESSELS: -continue aspirin and statin -MILADIS-I on hold for hypotension and DAKOTA -was not on BB HTN: presently hypotensive due to sepsis -hold lisinopril and Lasix due to hypotension HYPOTHYROIDISM: -continue levothyroxine GERD: -continue PPI Current Inpatient Medications: Current Inpatient Medications Medications (Trade) Dose Ordered Sig/Drea Route Start Time Stop Time Status Last Admin Dose Admin Ondansetron HCl (Zofran Inj) 4 mg Q6H PRN IV 06/25/16 14:00 07/25/16 13:59 06/26/16 20:22 4 MG Acetaminophen 650 mg 650 mg Q4H PRN PO 06/25/16 14:00 07/25/16 13:59 Piperacillin Sod/ Tazobactam Sod 4.5 gm/Dextrose 120 ml @ 30 mls/hr Q8H IV 06/25/16 18:00 07/02/16 17:59 06/27/16 18:02 30 MLS/HR Levofloxacin/Prmx (Levaquin / D5W/ Premixed D5W) 150 ml @ 100 mls/hr Q48H IV 06/27/16 13:00 07/05/16 23:59 06/27/16 13:52 100 MLS/HR Levofloxacin (Consult) 1 ea UD PRN N/A 06/25/16 15:00 07/25/16 14:59 Glucose (Glucose 40% Gel) 15-30 GRAMS 15 GRAMS... UD PRN PO 06/25/16 14:15 07/25/16 14:14 Glucose (Glucose Chew Tab) 4-8 Tablets 4 Tabl... UD PRN PO 06/25/16 14:15 07/25/16 14:14 Dextrose (Dextrose 50% 50ML Syringe) 25-50ML OF 50% DW IV FOR... UD PRN IV 06/25/16 14:15 07/25/16 14:14 Glucagon (Glucagon Inj) 1 mg UD PRN SQ 06/25/16 14:15 07/25/16 14:14 Atorvastatin Calcium (Lipitor Tab) 40 mg DAILY PO 06/26/16 09:00 07/26/16 08:59 06/27/16 10:35 40 MG Calcitriol (Rocaltrol Cap) 0.25 mcg DAILY PO 06/26/16 09:00 07/26/16 08:59 Cholecalciferol (Vitamin D Tab) 1,000 inter.unit DAILY PO 06/26/16 09:00 07/26/16 08:59 06/27/16 10:35 1,000 INTER.UNIT Levothyroxine Sodium (Synthroid Tab) 25 mcg DAILYBB PO 06/26/16 06:00 07/26/16 05:59 06/27/16 05:39 25 MCG Levothyroxine Sodium (Synthroid Tab) 200 mcg DAILYBB PO 06/26/16 06:00 07/26/16 05:59 06/27/16 05:39 200 MCG Magnesium Hydroxide (Milk Of Magnesia Susp) 30 ml DAILY PRN PO 06/25/16 14:30 07/25/16 14:29 Bacitracin (Bacitracin Oint) 1 appln TID PRN EXT 06/25/16 14:30 07/25/16 14:29 Albuterol (Ventolin Hfa Inhaler) 2 puffs Q4H PRN INH 06/25/16 15:00 07/25/16 14:59 Miscellaneous Information (Order Awaiting Action) 1 ea QS N/A 06/25/16 16:00 07/25/16 15:59 Miscellaneous Information (Order Awaiting Action) 1 ea QS N/A 06/25/16 16:00 07/25/16 15:59 Vancomycin HCl (Consult) 1 ea UD PRN N/A 06/25/16 15:00 07/25/16 14:59 Piperacillin Sod/ Tazobactam Sod (Consult) 1 ea UD PRN N/A 06/25/16 15:00 07/25/16 14:59 Acetylcysteine (Mucomyst 20% Inh Soln) 2 ml Q6R INH 06/25/16 16:30 07/25/16 16:29 06/27/16 15:19 2 ML Heparin Sodium (Porcine) (Heparin Sq 5000 Unit/0.5ml) 5,000 unit Q12 SQ 06/25/16 21:00 07/25/16 20:59 06/27/16 08:38 5,000 UNIT Fentanyl Citrate (Fentanyl Inj) 25 mcg Q2H PRN IV 06/26/16 03:00 07/10/16 02:59 06/26/16 21:08 25 MCG Miscellaneous Information 1 ea 1 ea DAILY PRN N/A 06/26/16 09:00 07/26/16 08:59 Pantoprazole Sodium/Syringe (Protonix Inj/ Syringe) 10 ml @ 5 mls/min DAILY@11 IV 06/26/16 11:00 07/26/16 10:59 06/27/16 10:34 5 MLS/MIN Aspirin 81 mg 81 mg DAILY PO 06/26/16 09:30 07/26/16 09:29 06/27/16 10:35 81 MG Vancomycin HCl 1500 mg/Sodium Chloride 530 ml @ 200 mls/hr Q24H IV 06/26/16 11:00 07/01/16 13:38 06/27/16 10:34 200 MLS/HR Dopamine HCl/ Dextrose 250 ml @ 0 mls/hr Q0M PRN IV 06/26/16 14:00 07/26/16 13:59 06/27/16 04:12 18.1 MLS/HR Methylprednisolone Sodium Succinate/ Syringe (Solu-Medrol IV/ Syringe) 0.64 ml @ 1.5 mls/min Q6H IV 06/27/16 12:00 07/27/16 11:59 06/27/16 18:02 1.5 MLS/MIN Docusate Sodium (coLACE SYRUP) 100 mg BID PO 06/27/16 21:00 07/27/16 20:59 Polyethylene (Miralax Powder Packet) 17 gm DAILY PO 06/27/16 09:00 07/27/16 08:59 06/27/16 10:34 17 GM Insulin Aspart (novoLOG ASPART) SLIDING SCALE If C... Q6 SC 06/27/16 18:00 07/27/16 17:59 Insulin Glargine (Lantus Solostar Pen) 10 unit BID SC 06/27/16 21:00 07/27/16 20:59 Ipratropium [employer] (Atrovent 0.02% 0.5MG/2.5ML Neb) 0.5 mg Q6R INH 06/27/16 21:00 07/27/16 20:59 Levalbuterol (Xopenex 1.25MG/ 0.5ML Neb) 1.25 mg Q6R INH 06/27/16 21:00 07/27/16 20:59 Enteral Nutritional Formula (Boost Pudding) 1 cup TIDM PO 06/28/16 07:15 07/28/16 07:14
[2016-06-27] MEDS: LEVALBUTEROL 1.25MG/0.5ML NEB INH SCH (19:19)
[2016-06-27] MEDS: IPRATROPIUM BROMIDE NEB SOLN 0.02% 2.5 ML VIAL INH SCH (19:19)
[2016-06-27] MEDS ORDERED: DOCUSATE SODIUM 100 MG/10 ML UDC PO SCH (21:00)
[2016-06-28] VITALS (24 sets, daily range): BP systolic 93–131; BP diastolic 36–80; PULSE 58–87; TEMP 36.6–37.6; O2SAT 88–100
[2016-06-28] MEDS: PIPERACILL/TAZOBAC IV 4.5 GM in DEXTROSE 5% 100ML 100 ML IV SCH ×3 (01:46→17:43)
[2016-06-28] MEDS: ACETYLCYSTEINE 20% INHAL SOLN ***DISPENSED BY RESP. INH SCH (01:51)
[2016-06-28] MEDS: IPRATROPIUM BROMIDE NEB SOLN 0.02% 2.5 ML VIAL INH SCH ×2 (01:51→07:39)
[2016-06-28] MEDS: LEVALBUTEROL 1.25MG/0.5ML NEB INH SCH ×2 (01:51→07:39)
[2016-06-28] MEDS: LEVOTHYROXINE 200 MCG TAB PO SCH (05:12)
[2016-06-28] MEDS: LEVOTHYROXINE 25 MCG TAB PO SCH (05:12)
[2016-06-28] MEDS: METHYLPREDNISOLONE IV 40 MG in SYRINGE 0 ML IV SCH ×4 (05:13→22:57)
[2016-06-28] MEDS: INSULIN ASPART 100 UNITS/ML 3 ML PEN SC SCH ×4 (05:47→20:17)
[2016-06-28 06:27] LABS: BASO % 0.1 %; BASO ABS # 0.01 K/uL (0-0.2); COMPLETE YES; HEMATOCRIT 36.4 % (42-52); IG% 0.3 %; LYMPH % 8.5 %; LYMPH ABS # 1.51 K/uL (1.2-3.4); MEAN CELL VOLUME 87.5 fL (80-100); MEAN CORPUSCULAR HEMOGLOBIN 27.6 pg (25-34); MEAN CORPUSCULAR HGB CONC 31.6 g/dl (32-36); MEAN PLATELET VOLUME 10.9 fL (7.4-10.4); MONO % 3.2 %; NEUT % 87.9 %; PLATELET COUNT 219 K/uL (130-400); RED BLOOD COUNT 4.16 M/uL (4.7-6.1); WHITE BLOOD COUNT 17.74 K/uL (4.8-10.8)
[2016-06-28 06:40] LABS: BUN/CREATININE RATIO 14.6 (10-20); CALCIUM 8.8 mg/dl (8.5-10.1); CREATININE 1.8 mg/dl (0.60-1.40); MAGNESIUM 1.8 mg/dl (1.8-2.4); POTASSIUM 3.5 mmol/L (3.5-5.1)
[2016-06-28 06:43] LABS: PHOSPHORUS 3.5 mg/dl (2.5-4.9)
[2016-06-28] MEDS: BOOST VANILLA PUDDING CUP PO SCH ×2 (07:15→11:02)
[2016-06-28] MEDS: [UNRECOGNIZED DRUG - REMARK] SCH ×3 (07:32→19:41)
--- NOTE | 2016-06-28 09:44 | DIAGNOSTIC IMAGING REPORT ---
SINGLE VIEW CHEST CLINICAL HISTORY: Follow-up airspace consolidation. FINDINGS: An AP, portable, upright chest radiograph is compared to study dated 06/27/2016 and correlated with chest CT dated 10/01/2013. The examination is significantly degraded by portable technique and patient rotation. The endotracheal and enteric tubes have been removed. The patient is status post midline sternotomy. The heart is enlarged and there is atherosclerotic calcification of the thoracic aorta. There is pulmonary vascular congestion and interstitial edema. This is similar to yesterday. Interstitial thickening and nodularity are identified. Small pleural effusions and bibasilar airspace consolidation persist. No pneumothorax is seen. The skeletal structures are osteopenic. The bony thorax is grossly intact. IMPRESSION: 1. Endotracheal and enteric tubes have been removed. 2. Cardiomegaly with pulmonary vascular congestion and mild interstitial edema is unchanged. Radiographic follow-up to resolution is recommended. 3. Bibasilar patchy airspace opacities and small pleural effusions persist. Correlate clinically for evidence of a superimposed infectious or inflammatory pneumonitis. Electronically signed by: Jesus Jenkins M.D. 06/28/2016 9:42 AM Dictated Date/Time: 06/28/2016 9:40 AM
[2016-06-28] MEDS ORDERED: POTASSIUM CHLORIDE 20 MEQ TABCR PO ONE (09:45)
[2016-06-28] MEDS ORDERED: SENNA 8.6 MG TAB PO ONE (09:45)
--- NOTE | 2016-06-28 09:46 | PROGRESS NOTE ---
DATE: 06/28/2016 FOLLOWUP VISIT SUBJECTIVE: The patient is an 85-year-old male who was admitted with sepsis requiring intubation. He has ischemic heart disease and previous coronary artery bypass surgery. After intubation, he became bradycardic, most likely due to propofol. His sedation was changed and he was started on dopamine. His heart rates eventually recovered and he is now off of dopamine and extubated. He is alert and although he has BiPAP on, he is conversive. OBJECTIVE: VITAL SIGNS: Blood pressure is 120/40, pulse is regular at 60 beats per minute. GENERAL: He is afebrile. HEENT: He is wearing BiPAP. He is normocephalic. NECK: The neck veins are flat. Carotids have good upstrokes bilaterally without bruits. Thyroid is nonpalpable. RESPIRATORY: Breath sounds equal bilaterally and clear to auscultation. CARDIOVASCULAR: Heart has a regular rhythm. There are no cardiac rubs or murmurs. GASTROINTESTINAL: Abdomen is soft, nontender without organomegaly. EXTREMITIES: Free of edema, digit clubbing, or cyanosis. NEUROLOGIC: Grossly intact. SKIN: Warm to touch. LYMPH NODES: Negative to palpation. LABORATORY DATA: WBC count 17.7, hemoglobin is 11.5, creatinine is 1.8, potassium is 3.5. IMPRESSION: 1. Sepsis. 2. History of ischemic heart disease with previous coronary artery bypass surgery. 3. Bradycardia, resolved. 4. Probably rate controlled atrial fibrillation on the telemetry. RECOMMENDATIONS: At this point, the patient is hemodynamically stable and recovering from his sepsis. I will obtain an EKG to see what his underlying rhythm is, but it appears to me to be possibly a rate controlled atrial fibrillation or possibly even sinus. It is hard to say from the telemetry.
[2016-06-28] MEDS: INSULIN GLARGINE SOLOSTAR 100 UNITS/ML 3 ML PEN SC SCH ×2 (09:50→20:17)
[2016-06-28] MEDS: HEPARIN SOD 5000 UNIT/0.5 ML CARP SQ SCH ×2 (09:52→19:39)
[2016-06-28] MEDS ORDERED: FUROSEMIDE 40 MG TAB PO ONE (10:00)
[2016-06-28] MEDS: CALCITRIOL 0.25 MCG CAP PO SCH (10:02)
[2016-06-28] MEDS: ASPIRIN 81 MG CHEW PO SCH (10:02)
[2016-06-28] MEDS: POLYETHYLENE (MIRALAX) 17 GM PACK PO SCH (10:02)
[2016-06-28] MEDS: ATORVASTATIN 40 MG TAB PO SCH (10:02)
[2016-06-28] MEDS: CHOLECALCIFEROL 1000 INTER.UNIT TAB PO SCH (10:02)
[2016-06-28 10:08] LABS: IPAP 15; ISTAT ALLEN TEST Pass; ISTAT ARTERIAL BLOOD GAS HCO3 31 meq/L (19-24); ISTAT ARTERIAL BLOOD GAS PCO2 47 mmHg (35-46); ISTAT ARTERIAL BLOOD GAS PO2 64 mmHg (80-95); ISTAT ARTERIAL BLOOD GAS pH 7.43 (7.35-7.45); ISTAT CARBON DIOXIDE 33 mEq/l (24-31); ISTAT DELIVERY SYSTEM BIPAP; ISTAT FIO2 35 %; ISTAT RATE 12; ISTAT SITE L Radial
[2016-06-28] MEDS ORDERED: VANCOMYCIN TROUGH SCH (10:30)
[2016-06-28] MEDS ORDERED: ALBUT/IPRATROP 3MG/0.5MG NEB 3 ML VIAL INH PRN (11:45)
[2016-06-28] MEDS: ALBUT/IPRATROP 3MG/0.5MG NEB 3 ML VIAL INH SCH ×3 (12:00→19:38)
[2016-06-28] MEDS: BOOST GLUCOSE CONTROL PO SCH ×2 (12:27→16:50)
--- NOTE | 2016-06-28 13:26 | Pharmacy Progress Note ---
Glycemic Control: Progress Nt Date of Service Jun 28, 2016. Scope Glycemic Pharmacist consulted by Dr Beebe on 06/26/16 for glycemic control and to write orders per [facility] inpatient glycemic control protocol. Objective Accuchecks BSG (last 24hrs): Test 06/27/16 17:15 06/27/16 20:24 06/27/16 23:24 06/28/16 05:46 Bedside Glucose 87 mg/dl (70-99) 95 mg/dl (70-99) 130 mg/dl (70-99) 130 mg/dl (70-99) Test 06/28/16 05:49 06/28/16 11:00 Random Glucose 144 mg/dl (70-99) Bedside Glucose 138 mg/dl (70-99) Laboratory Data (last 24hrs) Test 06/28/16 05:49 Anion Gap 12.0 mmol/L BUN/Creatinine Ratio 14.6 Blood Urea Nitrogen 26 mg/dl Creatinine 1.80 mg/dl Potassium Level 3.5 mmol/L Sodium Level 145 mmol/L White Blood Count 17.74 K/uL Red Blood Count 4.16 M/uL Hemoglobin 11.5 g/dL Hematocrit 36.4 % Mean Corpuscular Volume 87.5 fL Mean Corpuscular Hemoglobin 27.6 pg Mean Corpuscular Hemoglobin Concent 31.6 g/dl Platelet Count 219 K/uL Mean Platelet Volume 10.9 fL Neutrophils (%) (Auto) 87.9 % Lymphocytes (%) (Auto) 8.5 % Monocytes (%) (Auto) 3.2 % Eosinophils (%) (Auto) 0.0 % Basophils (%) (Auto) 0.1 % Neutrophils # (Auto) 15.59 K/uL Lymphocytes # (Auto) 1.51 K/uL Monocytes # (Auto) 0.57 K/uL Eosinophils # (Auto) 0.00 K/uL Basophils # (Auto) 0.01 K/uL HbA1c: Test 06/26/16 03:14 Hemoglobin A1c 6.5 % (4.5-5.6) H Recent Pertinent Medications Outpatient Anti-diabetic Regimen: * Actos 30mg PO daily * A1c = 6.5 % 06/26/16 The patient is currently receiving: * Basal insulin: Lantus 10 units SQ BID * Correctional Insulin: NovoLog Correction per scale every 4 hours Goal Range: Low 140 mg/dL - High 180 mg/dL Correction Factor: 20 mg/dL/unit * Prandial insulin: Per carb ratio of 1 unit per 8 grams CHO consumed Risk Factors for Insulin Resistance: * Steroids: Solu-Medrol 40mg IV every 6 hours * Infection: sepsis: current ABX include pip/tazo and levofloxacin * Diet: T2DM/AHA + Boost glucose control TID with meals Assessment & Plan ASSESSMENT: * ADA & AACE recommend a goal blood sugar range 140-180 mg/dl for the majority of critically ill & non-critically ill patients. However, more stringent targets may be selected in individual cases. 06/26/16 * 85 y/o type 2 diabetic who is know from historical admissions to the glycemic consult service. * in 2013 the patient was admitted and ordered around the clock steroids. At that time, he required ~50 units of insulin per day at this time. His insulin needs precipitously dropped as his steroids were change to oral therapy and tapered off. It is likely that Mr. Camacho needs additional insulin at this time to compensate for the higher physiologic stress as well ATC steroids * BSGs becoming increasingly elevated over the last 12-24 hours. * add basal insulin * increase Accu-check frequency to every 4 hours * A1c is current and shows appropriate outpatient glycemic control on oral medication alone. 06/27/16 * BSGs much improved with every 4 hour NovoLog and the addition of Lantus. * Fasting today more reasonable at 189mg/dL * Initially considered increasing Lantus to 15 units SQ BID, however Solu- Medrol then decreased to 40mg IV every 6 hours * Peptamen Bariatric tube feedings started yesterday evening * only at 10mL/hr and not likely contributing to hyperglycemia due to minimal amounts of CHO administered * 32 units of insulin given on 06/26, however this was mostly basal insulin * will try to re-distribute this closer to 50/50 ratio between basal and prandial insulin 06/28/16 * Mr. Camacho received 29 units of insulin on 06/27 with BSGs ranging from 85- 252mg/dL * BSGs improved greatly after Lantus "load" in the mornig of 06/27 * Fasting BSG slightly below goal range for ICU patients this AM and current insulin regimen heavily weighted toward glargine * Decrease Lantus again to 7 units SQ BID * Continue with NovoLog as ordered as BSGs reacted well yesterday to corrections * hopeful to use more correction with decreased basal doses for a more even insulin ratio * Nutritional supplements started * difficult to cover with SQ insulin as patient's tend to sip over multiple hours - will continue to try to cover CHO with NovoLog PLAN FOR INPATIENT GLYCEMIC CONTROL: * Lantus 7 units SQ BID * Continue NovoLog AC and HS * Continue goal range 140-180mg/dL per ADA recommendations * Correction factor of 20mg/dL/unit * Carb ratio of 1 unit per 8g of CHO consumed * A1c - current * Added to discharge instructions * Likely, Dayron can continue his home regimen upon discharge. * Please note that the plan above was derived based on current level of insulin resistance and hospital stress. These recommendations are appropriate for inpatient admission only. Plan of care upon discharge will need to be reassessed to avoid potential outpatient hypo/hyperglycemia. Thank you.
--- NOTE | 2016-06-28 18:22 | Progress Note ---
Medicine Progress Note Date & Time of Visit: Jun 28, 2016 at 18:21. Subjective Patient doing better overall, was extubated yesterday and did have a period this AM on bipap however has since been doing well. Denies any new complaints. Tolerating PO. Reports occasional cough but does not feel SOB or chest tightness. No overnight events noted. Objective Last 8 Hrs Date Time Temp Pulse Resp B/P Pulse Ox O2 Delivery O2 Flow Rate FiO2 06/28/16 16:00 36.9 85 18 110/54 93 Nasal Cannula 3.0 06/28/16 16:00 Nasal Cannula 3.0 06/28/16 15:16 72 18 88 Nasal Cannula 2.0 06/28/16 14:00 77 20 99/57 94 Nasal Cannula 2.0 06/28/16 12:00 36.9 87 18 93/36 93 Nasal Cannula 2.0 06/28/16 12:00 Nasal Cannula 2.0 Physical Exam: GENERAL: Patient is in no acute distress. HEENT: No acute trauma, normocephalic, mucous membranes moist, no nasal congestion, no scleral icterus. NECK: No stridor, trachea is midline. LUNGS: Diminished bases bilaterally, no wheeze, no rhonchi, breath sounds equal. HEART: Without murmurs gallops or rubs, RR, S1 and S2 auscultated ABDOMEN: Soft, nontender, bowel sounds positive EXTREMITIES: No cyanosis; B/L LE edema NEUROLOGIC: Oriented, no acute focal motor or sensory deficits noted. SKIN: No rash, no jaundice, no diaphoresis. Laboratory Results: Last 24 Hours Test 06/27/16 20:24 06/27/16 23:24 06/28/16 05:46 06/28/16 05:49 Bedside Glucose 95 mg/dl 130 mg/dl 130 mg/dl White Blood Count 17.74 K/uL Red Blood Count 4.16 M/uL Hemoglobin 11.5 g/dL Hematocrit 36.4 % Mean Corpuscular Volume 87.5 fL Mean Corpuscular Hemoglobin 27.6 pg Mean Corpuscular Hemoglobin Concent 31.6 g/dl Platelet Count 219 K/uL Mean Platelet Volume 10.9 fL Neutrophils (%) (Auto) 87.9 % Lymphocytes (%) (Auto) 8.5 % Monocytes (%) (Auto) 3.2 % Eosinophils (%) (Auto) 0.0 % Basophils (%) (Auto) 0.1 % Neutrophils # (Auto) 15.59 K/uL Lymphocytes # (Auto) 1.51 K/uL Monocytes # (Auto) 0.57 K/uL Eosinophils # (Auto) 0.00 K/uL Basophils # (Auto) 0.01 K/uL RDW Standard Deviation 48.1 fL RDW Coefficient of Variation 15.1 % Immature Granulocyte % (Auto) 0.3 % Immature Granulocyte # (Auto) 0.06 K/uL Sodium Level 145 mmol/L Potassium Level 3.5 mmol/L Chloride Level 104 mmol/L Carbon Dioxide Level 29 mmol/L Anion Gap 12.0 mmol/L Blood Urea Nitrogen 26 mg/dl Creatinine 1.80 mg/dl Est Creatinine Clear Calc Drug Dose 32.8 ml/min Estimated GFR () 38.6 Estimated GFR (Non- 33.3 BUN/Creatinine Ratio 14.6 Random Glucose 144 mg/dl Calcium Level 8.8 mg/dl Phosphorus Level 3.5 mg/dl Magnesium Level 1.8 mg/dl Test 06/28/16 09:55 06/28/16 11:00 06/28/16 12:30 06/28/16 15:59 Blood Gas Sample Site L Radial Bedside Blood Gas pH (LAB) 7.43 Bedside Blood Gas pCO2 (LAB) 47 mmHg Bedside Blood Gas pO2 (LAB) 64 mmHg Bedside Blood Gas HCO3 (LAB) 31 meq/L Bedside Blood Gas Total CO2 33 mEq/l Bedside Blood Gas Base Excess (LAB) 7.0 meq/L Bedside Blood Gas O2 Saturation 92.0 % Arvind Test Pass Oxygen Delivery Device BIPAP Bedside Oxygen Rate (breaths/min) 12 Bedside FiO2 35 % Blood Gas IPAP 15 Bedside Glucose 138 mg/dl 211 mg/dl Stool Occult Blood POSITIVE Date/Time Source Procedure Growth Status 06/28/16 12:30 Stool WBC Smear Pending Received 06/28/16 12:30 Stool C.difficile Toxin B Gene (PCR) - Final No C. difficile toxin B gene detected Complete 06/28/16 12:30 Stool Shiga Toxin Test Pending Received 06/28/16 12:30 Stool Stool Culture Pending Received Assessment & Plan SEPSIS WITH SHOCK: -presented with hypotension, leukocytosis (WBC > 17,000), tachycardia to 110s ( on admission), fever of 39.2, tachypnea, hypoxemia, POC lactic acid 3.29 -repeat lactic acid: 0.9 -suspected source is pulmonary due to pneumonia -UA does not appear infected -KUB: no obstruction -Blood cultures pending -was aggressively hydrated and had low BP despite this -was on Levophed, transitioned to dopamine, and now off all pressors -initially on Zosyn, Vancomycin, and Levaquin; MRSA swab negative, stopped vanco -check sputum culture -Rig Builder Helper consulted, appreciate management -leukocytosis was trending up, however no other source of infection suspected and patient remains on abx; possibly related to steroids, now slightly improving -patient transferred out of ICU today ACUTE HYPOXIC HYPERCAPNIC RESPIRATORY FAILURE: -due to sepsis, pneumonia and possibly COPD exacerbation -patient did require intubation and vent; was extubated 06/27 -on solu-medrol for possible COPD exacerbation -on Xopenex/Atrovent nebs -continued on abx for pneumonia ENCEPHALOPATHY/LETHARGY/AMS: -likely multifactorial due to hypercapnia and sepsis, now improved -extubated and ABG remains improved, observe for further AMS BRADYCARDIA: resolved -HR was 30's-40's earlier -Cardiology consulted, appreciate recs -recommended switching levophed to dopamine, and also changing sedation from propofol to versed -has had slow atrial fibrillation intermittently per monitor DIARRHEA: -pt with a prior history of C. diff -check stool for C. diff, WBC smear, stool culture MELENA: -per family 1 episode black stool -monitor Hb which has been stable thus far -Hemoccult stool + ELEVATED TROPONIN: -not trending up significantly -denies chest pain -EKG non-specific DAKOTA on CKD STAGE III: -Cr 2.5-->2.0-->1.8 -baseline Cr of 1.6-1.7 -likely due to sepsis and dehydration -hold lisinopril and Lasix -was on IV fluids initially as well -avoid nephrotoxins DM TYPE II: well controlled -HbA1c: 6.5% -hold oral hyperglycemic medications -on lantus + insulin correction scale coverage -further adjustments when patient getting nutrition CAD s/p CABG x 3 VESSELS: -continue aspirin and statin -MILADIS-I on hold for hypotension and DAKOTA -was not on BB HTN: -held lisinopril and Lasix due to hypotension HYPOTHYROIDISM: -continue levothyroxine GERD: -continue PPI Current Inpatient Medications: Current Inpatient Medications Medications (Trade) Dose Ordered Sig/Drea Route Start Time Stop Time Status Last Admin Dose Admin Ondansetron HCl (Zofran Inj) 4 mg Q6H PRN IV 06/25/16 14:00 07/25/16 13:59 06/26/16 20:22 4 MG Acetaminophen 650 mg 650 mg Q4H PRN PO 06/25/16 14:00 07/25/16 13:59 Piperacillin Sod/ Tazobactam Sod 4.5 gm/Dextrose 120 ml @ 30 mls/hr Q8H IV 06/25/16 18:00 07/02/16 17:59 06/28/16 17:43 30 MLS/HR Levofloxacin/Prmx (Levaquin / D5W/ Premixed D5W) 150 ml @ 100 mls/hr Q48H IV 06/27/16 13:00 07/05/16 23:59 06/27/16 13:52 100 MLS/HR Levofloxacin (Consult) 1 ea UD PRN N/A 06/25/16 15:00 07/25/16 14:59 Glucose (Glucose 40% Gel) 15-30 GRAMS 15 GRAMS... UD PRN PO 06/25/16 14:15 07/25/16 14:14 Glucose (Glucose Chew Tab) 4-8 Tablets 4 Tabl... UD PRN PO 06/25/16 14:15 07/25/16 14:14 Dextrose (Dextrose 50% 50ML Syringe) 25-50ML OF 50% DW IV FOR... UD PRN IV 06/25/16 14:15 07/25/16 14:14 Glucagon (Glucagon Inj) 1 mg UD PRN SQ 06/25/16 14:15 07/25/16 14:14 Atorvastatin Calcium (Lipitor Tab) 40 mg DAILY PO 06/26/16 09:00 07/26/16 08:59 06/28/16 10:02 40 MG Calcitriol (Rocaltrol Cap) 0.25 mcg DAILY PO 06/26/16 09:00 07/26/16 08:59 06/28/16 10:02 0.25 MCG Cholecalciferol (Vitamin D Tab) 1,000 inter.unit DAILY PO 06/26/16 09:00 07/26/16 08:59 06/28/16 10:02 1,000 INTER.UNIT Levothyroxine Sodium (Synthroid Tab) 25 mcg DAILYBB PO 06/26/16 06:00 07/26/16 05:59 06/28/16 05:12 25 MCG Levothyroxine Sodium (Synthroid Tab) 200 mcg DAILYBB PO 06/26/16 06:00 07/26/16 05:59 06/28/16 05:12 200 MCG Magnesium Hydroxide (Milk Of Magnesia Susp) 30 ml DAILY PRN PO 06/25/16 14:30 07/25/16 14:29 Bacitracin (Bacitracin Oint) 1 appln TID PRN EXT 06/25/16 14:30 07/25/16 14:29 Miscellaneous Information (Order Awaiting Action) 1 ea QS N/A 06/25/16 16:00 07/25/16 15:59 Miscellaneous Information (Order Awaiting Action) 1 ea QS N/A 06/25/16 16:00 07/25/16 15:59 Piperacillin Sod/ Tazobactam Sod (Consult) 1 ea UD PRN N/A 06/25/16 15:00 07/25/16 14:59 Heparin Sodium (Porcine) (Heparin Sq 5000 Unit/0.5ml) 5,000 unit Q12 SQ 06/25/16 21:00 07/25/16 20:59 06/28/16 09:52 5,000 UNIT Miscellaneous Information (Consult Glycemic Management Pharmacy) 1 ea DAILY PRN N/A 06/26/16 09:00 07/26/16 08:59 Aspirin 81 mg 81 mg DAILY PO 06/26/16 09:30 07/26/16 09:29 06/28/16 10:02 81 MG Methylprednisolone Sodium Succinate/ Syringe (Solu-Medrol IV/ Syringe) 0.64 ml @ 1.5 mls/min Q6H IV 06/27/16 12:00 07/27/16 11:59 06/28/16 17:43 1.5 MLS/MIN Polyethylene (Miralax Powder Packet) 17 gm DAILY PO 06/27/16 09:00 07/27/16 08:59 06/28/16 10:02 17 GM Insulin Aspart (novoLOG ASPART) SLIDING SCALE If C... ACHS SC 06/28/16 11:00 07/28/16 10:59 06/28/16 16:53 7 UNITS Insulin Glargine (Lantus Solostar Pen) 7 unit BID SC 06/28/16 09:00 07/28/16 08:59 06/28/16 09:50 7 UNIT Docusate Sodium (coLACE CAP) 100 mg BID PO 06/28/16 21:00 07/28/16 20:59 Pantoprazole Sodium (Protonix Tab) 40 mg QAM PO 06/29/16 09:00 07/29/16 08:59 Senna (Senokot Tab) 8.6 mg QAM PO 06/29/16 09:00 07/29/16 08:59 Enteral Nutritional Formula (Boost Glucose Control) 1 can TIDM PO 06/28/16 11:30 07/28/16 11:29 06/28/16 16:50 1 CAN Albuterol/ Ipratropium (Duoneb) 3 ml QIDR INH 06/28/16 12:00 07/28/16 11:59 06/28/16 15:15 3 ML Albuterol/ Ipratropium (Duoneb) 3 ml Q2H PRN INH 06/28/16 11:45 07/28/16 11:44
[2016-06-28] MEDS: DOCUSATE SODIUM 100 MG CAP PO SCH (20:13)
[2016-06-29] VITALS (12 sets, daily range): BP systolic 115–148; BP diastolic 66–89; PULSE 52–95; TEMP 36.4–36.9; O2SAT 90–98
[2016-06-29] MEDS: PIPERACILL/TAZOBAC IV 4.5 GM in DEXTROSE 5% 100ML 100 ML IV SCH ×3 (01:39→21:09)
[2016-06-29] MEDS: LEVOTHYROXINE 25 MCG TAB PO SCH (05:09)
[2016-06-29] MEDS: LEVOTHYROXINE 200 MCG TAB PO SCH (05:10)
[2016-06-29] MEDS: METHYLPREDNISOLONE IV 40 MG in SYRINGE 0 ML IV SCH ×3 (05:10→16:41)
[2016-06-29] MEDS: INSULIN ASPART 100 UNITS/ML 3 ML PEN SC SCH ×4 (07:00→21:04)
[2016-06-29 07:03] LABS: BASO % 0.2 %; BASO ABS # 0.02 K/uL (0-0.2); COMPLETE YES; HEMATOCRIT 34.6 % (42-52); IG% 0.8 %; LYMPH ABS # 1.34 K/uL (1.2-3.4); MEAN CELL VOLUME 88.3 fL (80-100); MEAN CORPUSCULAR HGB CONC 30.6 g/dl (32-36); MEAN PLATELET VOLUME 11.5 fL (7.4-10.4); MONO % 6.1 %; NEUT % 79.9 %; PLATELET COUNT 190 K/uL (130-400); RED BLOOD COUNT 3.92 M/uL (4.7-6.1); WHITE BLOOD COUNT 10.29 K/uL (4.8-10.8)
--- NOTE | 2016-06-29 07:09 | CRITICAL CARE PROGRESS NOTE ---
DATE: 06/28/2016 GENERAL INFORMATION: The patient is an 85-year-old gentleman with a history of multiple medical problems including chronic obstructive pulmonary disease, chronic kidney disease, hypertension and diabetes mellitus, who presented to the Emergency Department on June 25 with complaints of cough and shortness of breath. He was hypotensive and placed on Levophed after receiving a triple-lumen catheter in the right groin in the Emergency Department. He was placed on broad spectrum antibiotics and admitted to the intensive care unit, where he also received IV corticosteroids. The first night in the ICU, he became lethargic and had a CT scan of his brain, showing no acute change. He was placed some BiPAP secondary to hypercapnia, which worsened and necessitated endotracheal intubation very early in the morning on June 26. While on the ventilator, he received tube feeds, bronchodilators and Mucomyst. A sputum culture was obtained and he was extubated on June 27, which was yesterday. He has had a swallowing evaluation and is now on a diet. There were no acute events overnight; however, this morning, he started to have some apnea. He is wearing the BIPAP at night and when he is sleeping. His BiPAP settings were increased to 15/5 at 35%. He has no specific complaints and denies shortness of breath, nausea or vomiting. He has not yet had a bowel movement since his admission. Prior to intubation, he became bradycardic in the 40s with a junctional rhythm. After intubation, that did not improve. He was placed on some dopamine, which has since been weaned off. He has been off Levophed since yesterday. PHYSICAL EXAMINATION: VITAL SIGNS: Maximum temperature 37.6. Respiratory rate 16-22. Blood pressure 105-123/40s-80s. Oxygen saturation 95% on 6 liters nasal cannula. GENERAL: He is awake, alert and seems to have somewhat of a poor memory. NEUROLOGIC: He moves all 4 extremities to command. He is diffusely weak. PULMONARY: Rales, right base. No rhonchi or wheezes. HEART: Regular rate and rhythm. ABDOMEN: Soft, nondistended, and nontender with active bowel sounds. EXTREMITIES: SCDs are in place on the lower extremities. He is warm and there is 2+ edema of the feet. LABORATORY DATA: White blood cell count 17.74, hemoglobin 11.5, hematocrit 36.4, and platelets 219. ABG, pH 7.43, pCO2 of 47, pO2 of 64, and HCO3 of 31. Sodium 145, potassium 3.5, chloride 104, CO2 of 29, BUN 26, and creatinine 1.8. MEDICATIONS AND INFUSIONS: Tylenol, albuterol, aspirin, Lipitor, bacitracin, Rocaltrol, vitamin D, Colace, Boost, Lasix, subcutaneous heparin, insulin sliding scale, Lantus, Atrovent, Xopenex, Levaquin day 3, levothyroxine, milk of magnesia, Solu-Medrol, Zofran, Protonix, Zosyn day 3, and MiraLax. Sputum culture preliminarily still shows no growth from June 26. June 25 blood cultures, no growth. IMAGING STUDIES: Portable chest x-ray from this morning was reviewed and shows cardiomegaly and mild interstitial edema. Bibasilar infiltrates. IMPRESSION: 1. Septic shock, likely secondary to pneumonia, improved. He has been off Levophed for 2 days now. 2. Acute hypercapnic respiratory failure. I suspect he has an element of chronic respiratory failure as well. He is using BIPAP at night and when he is sleeping. He has been having some apneic episodes as well. He is not getting any sedatives. 3. Sinus bradycardia, improved. Dopamine has been discontinued. 4. Acute exacerbation of chronic obstructive pulmonary disease, likely secondary to upper respiratory infection and pneumonia. 5. Community acquired pneumonia. No definitive organism identified yet. 6. Acute kidney injury on chronic kidney disease, improved. Baseline creatinine is somewhere around 1.8, which is where he is now. 7. Delirium, improved. 8. Diabetes mellitus. He was on an insulin infusion for a very short period of time and that has been discontinued. Blood sugars are satisfactory. 9. Hypothyroidism. 10. History of hypertension. 11. History of coronary artery bypass grafting surgery in 2001. PLAN: NEUROLOGIC: Avoid sedatives. I have discontinued his p.r.n. fentanyl, which he had not been getting since extubation. PULMONARY: Discontinue Mucomyst. Continue percussion vest as well as flutter valve. Continue bronchodilators and intravenous corticosteroids. Out of bed to a chair today. Continue BiPAP 15/5 at 35% at night and when sleeping. CARDIOVASCULAR: He is on his aspirin and takes Lasix 40 mg p.o. daily. He may be getting a little bit dry as he has a metabolic alkalosis. I will hold his Lasix. Many thanks to the cardiology service, who has been seeing him. RENAL: Continue Lopez catheter and as above, hold Lasix. Replete electrolytes. GASTROINTESTINAL: He is constipated. Add senna to his Colace today. Continue to advance diet. He has dietary supplements ordered. HEMATOLOGY: Leukocytosis is improved. No acute issues at the present time. Would continue subcutaneous heparin. Consider increasing the frequency to q. 8 hours. Continue Protonix for GI prophylaxis. INFECTIOUS DISEASE: He is on Levaquin and Zosyn day 4. I discontinued the vancomycin this morning. ENDOCRINE: The pharmacy has been managing his blood sugars. Many thanks for their assistance in his care. MISCELLANEOUS: Out of bed to chair and physical therapy consult. I think he is stable for transfer to telemetry later today.
[2016-06-29] MEDS: ALBUT/IPRATROP 3MG/0.5MG NEB 3 ML VIAL INH SCH ×4 (07:25→19:39)
[2016-06-29 07:28] LABS: BUN/CREATININE RATIO 20.3 (10-20); CALCIUM 8.7 mg/dl (8.5-10.1); CREATININE 1.8 mg/dl (0.60-1.40); MAGNESIUM 2.1 mg/dl (1.8-2.4); POTASSIUM 3.8 mmol/L (3.5-5.1)
[2016-06-29] MEDS: BOOST GLUCOSE CONTROL PO SCH ×3 (07:30→16:38)
[2016-06-29] MEDS ORDERED: FUROSEMIDE 40 MG/4 ML VIAL IV STA (08:37)
[2016-06-29] MEDS: ATORVASTATIN 40 MG TAB PO SCH (08:46)
[2016-06-29] MEDS: DOCUSATE SODIUM 100 MG CAP PO SCH ×2 (08:46→21:02)
[2016-06-29] MEDS: SENNA 8.6 MG TAB PO SCH (08:47)
[2016-06-29] MEDS: CALCITRIOL 0.25 MCG CAP PO SCH (08:47)
[2016-06-29] MEDS: PANTOprazole SOD 40 MG TAB PO SCH (08:48)
[2016-06-29] MEDS: ASPIRIN 81 MG CHEW PO SCH (08:48)
[2016-06-29] MEDS: POLYETHYLENE (MIRALAX) 17 GM PACK PO SCH (08:48)
[2016-06-29] MEDS: HEPARIN SOD 5000 UNIT/0.5 ML CARP SQ SCH ×2 (08:49→21:05)
[2016-06-29] MEDS: CHOLECALCIFEROL 1000 INTER.UNIT TAB PO SCH (08:49)
[2016-06-29] MEDS: INSULIN GLARGINE SOLOSTAR 100 UNITS/ML 3 ML PEN SC SCH ×2 (08:55→21:04)
[2016-06-29] MEDS ORDERED: FUROSEMIDE 40 MG TAB PO SCH (09:00)
[2016-06-29] MEDS ORDERED: FUROSEMIDE INJ 40 MG in SYRINGE 0 ML IV ONE (09:00)
--- NOTE | 2016-06-29 12:46 | Pharmacy Progress Note ---
Glycemic Control: Progress Nt Date of Service Jun 29, 2016. Scope Glycemic Pharmacist consulted by Dr Beebe06/16/16 on [date] for glycemic control and to write orders per [facility] inpatient glycemic control protocol. Objective Accuchecks BSG (last 24hrs): Test 06/28/16 15:59 06/28/16 20:09 06/29/16 06:30 06/29/16 07:01 Bedside Glucose 211 mg/dl (70-99) 219 mg/dl (70-99) 187 mg/dl (70-99) Random Glucose 197 mg/dl (70-99) Test 06/29/16 10:51 Bedside Glucose 185 mg/dl (70-99) Laboratory Data (last 24hrs) Test 06/29/16 06:30 Anion Gap 6.0 mmol/L BUN/Creatinine Ratio 20.3 Blood Urea Nitrogen 37 mg/dl Creatinine 1.80 mg/dl Potassium Level 3.8 mmol/L Sodium Level 142 mmol/L White Blood Count 10.29 K/uL Red Blood Count 3.92 M/uL Hemoglobin 10.6 g/dL Hematocrit 34.6 % Mean Corpuscular Volume 88.3 fL Mean Corpuscular Hemoglobin 27.0 pg Mean Corpuscular Hemoglobin Concent 30.6 g/dl Platelet Count 190 K/uL Mean Platelet Volume 11.5 fL Neutrophils (%) (Auto) 79.9 % Lymphocytes (%) (Auto) 13.0 % Monocytes (%) (Auto) 6.1 % Eosinophils (%) (Auto) 0.0 % Basophils (%) (Auto) 0.2 % Neutrophils # (Auto) 8.22 K/uL Lymphocytes # (Auto) 1.34 K/uL Monocytes # (Auto) 0.63 K/uL Eosinophils # (Auto) 0.00 K/uL Basophils # (Auto) 0.02 K/uL HbA1c: Test 06/26/16 03:14 Hemoglobin A1c 6.5 % (4.5-5.6) H Recent Pertinent Medications Outpatient Anti-diabetic Regimen: * Actos 30mg PO daily * A1c = 6.5 % 06/26/16 The patient is currently receiving: * Basal insulin: Lantus 7 units SQ BID * Correctional Insulin: NovoLog Correction per scale every 4 hours Goal Range: Low 140 mg/dL - High 180 mg/dL Correction Factor: 20 mg/dL/unit * Prandial insulin: Per carb ratio of 1 unit per 7 grams CHO consumed Risk Factors for Insulin Resistance: * Steroids: Solu-Medrol 40mg IV every 6 hours * Infection: sepsis: current ABX include pip/tazo and levofloxacin * Diet: T2DM/AHA + Boost glucose control TID with meals Assessment & Plan ASSESSMENT: * ADA & AACE recommend a goal blood sugar range 140-180 mg/dl for the majority of critically ill & non-critically ill patients. However, more stringent targets may be selected in individual cases. 06/26/16 * 85 y/o type 2 diabetic who is know from historical admissions to the glycemic consult service. * in 2013 the patient was admitted and ordered around the clock steroids. At that time, he required ~50 units of insulin per day at this time. His insulin needs precipitously dropped as his steroids were change to oral therapy and tapered off. It is likely that Mr. Camacho needs additional insulin at this time to compensate for the higher physiologic stress as well ATC steroids * BSGs becoming increasingly elevated over the last 12-24 hours. * add basal insulin * increase Accu-check frequency to every 4 hours * A1c is current and shows appropriate outpatient glycemic control on oral medication alone. 06/28/16 * Mr. Camacho received 29 units of insulin on 06/27 with BSGs ranging from 85- 252mg/dL * BSGs improved greatly after Lantus "load" in the mornig of 06/27 * Fasting BSG slightly below goal range for ICU patients this AM and current insulin regimen heavily weighted toward glargine * Decrease Lantus again to 7 units SQ BID * Continue with NovoLog as ordered as BSGs reacted well yesterday to corrections * hopeful to use more correction with decreased basal doses for a more even insulin ratio * Nutritional supplements started * difficult to cover with SQ insulin as patient's tend to sip over multiple hours - will continue to try to cover CHO with NovoLog 06/29/16 * BSGs this AM higher than the prior day secondary to reduced Lantus dose * increase Lantus back to 10 units SQ BID * Correction factor appears to be appropriate, however we are seeing a rise in BSG throughout the day (secondary to steroids) * tighten carb ratio slightly PLAN FOR INPATIENT GLYCEMIC CONTROL: * Lantus 10 units SQ BID * Continue NovoLog AC and HS * Continue goal range 140-180mg/dL per ADA recommendations * Correction factor of 20 mg/dL/unit * Carb ratio of 1 unit per 7 g of CHO consumed * A1c - current * Added to discharge instructions * Likely, Dayron can continue his home regimen upon discharge. * Please note that the plan above was derived based on current level of insulin resistance and hospital stress. These recommendations are appropriate for inpatient admission only. Plan of care upon discharge will need to be reassessed to avoid potential outpatient hypo/hyperglycemia. Thank you.
--- NOTE | 2016-06-29 14:41 | Cardiology Follow-Up ---
Subjective General Date of Service: Jun 29, 2016. Chief Complaint: follow up AF, bradycardia Pt evaluation today including: conversation w/ patient, physical exam History of Present Illness The patient is a 85 year old male seen in follow up. Pt without complaints, sitting in bedside chair. AF with controlled ventricular rates noted on telemetry, no bradycardia. Allergies Coded Allergies: No Known Allergies (Verified , 06/25/16) Social History Smoking Status: Former Smoker Hx Tobacco Use In Past Year?: No Hx Alcohol Use - Type And Amou: No (BEER 3 cans daily) Hx Substance Use - Type And Am: No Problem List Medical Problems: (1) Abnormal EKG Status: Acute (2) Altered mental status Status: Acute (3) Elevated troponin Status: Acute (4) Hypoxia Status: Acute (5) Pneumonia Status: Acute Physical Exam Vital Signs Last Vital Signs Documentation Date Time Temp Pulse Resp B/P Pulse Ox O2 Delivery O2 Flow Rate FiO2 06/29/16 11:18 74 18 91 Nasal Cannula 3.0 06/29/16 07:25 35 06/29/16 07:18 36.4 148/78 Physical Exam Neck: supple Lungs: Auscultation: no wheezing, no rales/crackles Cardiovascular: Heart Auscultation: no murmurs, irregular rate rhythm Extremities: no edema Assessment and Plan Assessment and Plan Impression: 85 year old male 1. bradycardia, resolved 2. rate controlled AF 3. H/o CAD, CABG 4. Sepsis/ pneumonia-improving Plan: Monitor off of AV darell blockers. Pt is a poor candidate for anticoagulation. No coumadin advised. Laboratory Results Last 24 Hours Test 06/28/16 15:59 06/28/16 20:09 06/29/16 06:30 06/29/16 07:01 Bedside Glucose 211 mg/dl 219 mg/dl 187 mg/dl White Blood Count 10.29 K/uL Red Blood Count 3.92 M/uL Hemoglobin 10.6 g/dL Hematocrit 34.6 % Mean Corpuscular Volume 88.3 fL Mean Corpuscular Hemoglobin 27.0 pg Mean Corpuscular Hemoglobin Concent 30.6 g/dl Platelet Count 190 K/uL Mean Platelet Volume 11.5 fL Neutrophils (%) (Auto) 79.9 % Lymphocytes (%) (Auto) 13.0 % Monocytes (%) (Auto) 6.1 % Eosinophils (%) (Auto) 0.0 % Basophils (%) (Auto) 0.2 % Neutrophils # (Auto) 8.22 K/uL Lymphocytes # (Auto) 1.34 K/uL Monocytes # (Auto) 0.63 K/uL Eosinophils # (Auto) 0.00 K/uL Basophils # (Auto) 0.02 K/uL RDW Standard Deviation 49.0 fL RDW Coefficient of Variation 15.1 % Immature Granulocyte % (Auto) 0.8 % Immature Granulocyte # (Auto) 0.08 K/uL Sodium Level 142 mmol/L Potassium Level 3.8 mmol/L Chloride Level 102 mmol/L Carbon Dioxide Level 34 mmol/L Anion Gap 6.0 mmol/L Blood Urea Nitrogen 37 mg/dl Creatinine 1.80 mg/dl Est Creatinine Clear Calc Drug Dose 33.4 ml/min Estimated GFR () 38.6 Estimated GFR (Non- 33.3 BUN/Creatinine Ratio 20.3 Random Glucose 197 mg/dl Calcium Level 8.7 mg/dl Magnesium Level 2.1 mg/dl Test 06/29/16 10:51 Bedside Glucose 185 mg/dl
[2016-06-29] MEDS: LEVOFLOXACIN / D5W 750 MG in PREMIXED IN D5W 150 ML IV SCH (16:39)
--- NOTE | 2016-06-29 17:50 | Progress Note ---
Medicine Progress Note Date & Time of Visit: Jun 29, 2016 at 17:49. Subjective Patient reports feeling better overall, is anxious to go home. No overnight events noted. No complaints noted. Feels his breathing is improving. Objective Last 8 Hrs Date Time Temp Pulse Resp B/P Pulse Ox O2 Delivery O2 Flow Rate FiO2 06/29/16 15:52 36.9 74 20 115/66 92 06/29/16 15:42 66 18 94 Nasal Cannula 4.0 06/29/16 11:18 74 18 91 Nasal Cannula 3.0 06/29/16 10:24 95 90 Physical Exam: GENERAL: Patient is in no acute distress. HEENT: No acute trauma, normocephalic, mucous membranes moist, no nasal congestion, no scleral icterus. NECK: No stridor, trachea is midline. LUNGS: Diminished bases bilaterally, no wheeze, no rhonchi, breath sounds equal. HEART: Without murmurs gallops or rubs, RR, S1 and S2 auscultated ABDOMEN: Soft, nontender, bowel sounds positive EXTREMITIES: No cyanosis; B/L LE edema NEUROLOGIC: Oriented, no acute focal motor or sensory deficits noted. SKIN: No rash, no jaundice, no diaphoresis. Laboratory Results: Last 24 Hours Test 06/28/16 20:09 06/29/16 06:30 06/29/16 07:01 06/29/16 10:51 Bedside Glucose 219 mg/dl 187 mg/dl 185 mg/dl White Blood Count 10.29 K/uL Red Blood Count 3.92 M/uL Hemoglobin 10.6 g/dL Hematocrit 34.6 % Mean Corpuscular Volume 88.3 fL Mean Corpuscular Hemoglobin 27.0 pg Mean Corpuscular Hemoglobin Concent 30.6 g/dl Platelet Count 190 K/uL Mean Platelet Volume 11.5 fL Neutrophils (%) (Auto) 79.9 % Lymphocytes (%) (Auto) 13.0 % Monocytes (%) (Auto) 6.1 % Eosinophils (%) (Auto) 0.0 % Basophils (%) (Auto) 0.2 % Neutrophils # (Auto) 8.22 K/uL Lymphocytes # (Auto) 1.34 K/uL Monocytes # (Auto) 0.63 K/uL Eosinophils # (Auto) 0.00 K/uL Basophils # (Auto) 0.02 K/uL RDW Standard Deviation 49.0 fL RDW Coefficient of Variation 15.1 % Immature Granulocyte % (Auto) 0.8 % Immature Granulocyte # (Auto) 0.08 K/uL Sodium Level 142 mmol/L Potassium Level 3.8 mmol/L Chloride Level 102 mmol/L Carbon Dioxide Level 34 mmol/L Anion Gap 6.0 mmol/L Blood Urea Nitrogen 37 mg/dl Creatinine 1.80 mg/dl Est Creatinine Clear Calc Drug Dose 33.4 ml/min Estimated GFR () 38.6 Estimated GFR (Non- 33.3 BUN/Creatinine Ratio 20.3 Random Glucose 197 mg/dl Calcium Level 8.7 mg/dl Magnesium Level 2.1 mg/dl Test 06/29/16 16:14 Bedside Glucose 128 mg/dl Assessment & Plan SEPSIS WITH SHOCK: -presented with hypotension, leukocytosis (WBC > 17,000), tachycardia to 110s ( on admission), fever of 39.2, tachypnea, hypoxemia, POC lactic acid 3.29 -repeat lactic acid: 0.9 -suspected source is pulmonary due to pneumonia -UA does not appear infected -KUB: no obstruction -Blood cultures pending, no growth thus far -was aggressively hydrated and had low BP despite this -was on Levophed, transitioned to dopamine, and now off all pressors -initially on Zosyn, Vancomycin, and Levaquin; MRSA swab negative, stopped vanco -check sputum culture -[employer] Professor consulted, appreciate management -leukocytosis was trending up, however no other source of infection suspected and patient remains on abx; possibly related to steroids, now slightly improving -patient transferred out of ICU ACUTE HYPOXIC HYPERCAPNIC RESPIRATORY FAILURE: -due to sepsis, pneumonia and possibly COPD exacerbation -patient did require intubation and vent; was extubated 06/27 -on solu-medrol for possible COPD exacerbation -on Xopenex/Atrovent nebs -continued on abx for pneumonia ENCEPHALOPATHY/LETHARGY/AMS: -likely multifactorial due to hypercapnia and sepsis, now improved -extubated and ABG remains improved, observe for further AMS BRADYCARDIA: resolved -HR was 30's-40's earlier in ICU -Cardiology consulted, appreciate recs -had recommended switching levophed to dopamine, and also changing sedation from propofol to versed -has had slow atrial fibrillation intermittently per monitor DIARRHEA: -pt with a prior history of C. diff -check stool for C. diff, WBC smear, stool culture MELENA: -per family 1 episode black stool -monitor Hb which has been stable thus far -Hemoccult stool + ELEVATED TROPONIN: -not trending up significantly -denies chest pain -EKG non-specific DAKOTA on CKD STAGE III: -Cr 2.5-->2.0-->1.8 -baseline Cr of 1.6-1.7 -likely due to sepsis and dehydration -hold lisinopril and Lasix -was on IV fluids initially as well -avoid nephrotoxins DM TYPE II: well controlled -HbA1c: 6.5% -hold oral hyperglycemic medications -on lantus + insulin correction scale coverage -further adjustments when patient getting nutrition CAD s/p CABG x 3 VESSELS: -continue aspirin and statin -MILADIS-I on hold for hypotension and DAKOTA -was not on BB HTN: -held lisinopril and Lasix due to hypotension HYPOTHYROIDISM: -continue levothyroxine GERD: -continue PPI Current Inpatient Medications: Current Inpatient Medications Medications (Trade) Dose Ordered Sig/Drea Route Start Time Stop Time Status Last Admin Dose Admin Ondansetron HCl (Zofran Inj) 4 mg Q6H PRN IV 06/25/16 14:00 07/25/16 13:59 06/26/16 20:22 4 MG Acetaminophen 650 mg 650 mg Q4H PRN PO 06/25/16 14:00 07/25/16 13:59 Piperacillin Sod/ Tazobactam Sod 4.5 gm/Dextrose 120 ml @ 30 mls/hr Q8H IV 06/25/16 18:00 07/02/16 17:59 06/29/16 10:00 30 MLS/HR Levofloxacin/Prmx (Levaquin / D5W/ Premixed D5W) 150 ml @ 100 mls/hr Q48H IV 06/27/16 13:00 07/05/16 23:59 06/29/16 16:39 100 MLS/HR Levofloxacin (Consult) 1 ea UD PRN N/A 06/25/16 15:00 07/25/16 14:59 Glucose (Glucose 40% Gel) 15-30 GRAMS 15 GRAMS... UD PRN PO 06/25/16 14:15 07/25/16 14:14 Glucose (Glucose Chew Tab) 4-8 Tablets 4 Tabl... UD PRN PO 06/25/16 14:15 07/25/16 14:14 Dextrose (Dextrose 50% 50ML Syringe) 25-50ML OF 50% DW IV FOR... UD PRN IV 06/25/16 14:15 07/25/16 14:14 Glucagon (Glucagon Inj) 1 mg UD PRN SQ 06/25/16 14:15 07/25/16 14:14 Atorvastatin Calcium (Lipitor Tab) 40 mg DAILY PO 06/26/16 09:00 07/26/16 08:59 06/29/16 08:46 40 MG Calcitriol (Rocaltrol Cap) 0.25 mcg DAILY PO 06/26/16 09:00 07/26/16 08:59 06/29/16 08:47 0.25 MCG Cholecalciferol (Vitamin D Tab) 1,000 inter.unit DAILY PO 06/26/16 09:00 07/26/16 08:59 06/29/16 08:49 1,000 INTER.UNIT Levothyroxine Sodium (Synthroid Tab) 25 mcg DAILYBB PO 06/26/16 06:00 07/26/16 05:59 06/29/16 05:09 25 MCG Levothyroxine Sodium (Synthroid Tab) 200 mcg DAILYBB PO 06/26/16 06:00 07/26/16 05:59 06/29/16 05:10 200 MCG Magnesium Hydroxide (Milk Of Magnesia Susp) 30 ml DAILY PRN PO 06/25/16 14:30 07/25/16 14:29 Bacitracin (Bacitracin Oint) 1 appln TID PRN EXT 06/25/16 14:30 07/25/16 14:29 Miscellaneous Information (Order Awaiting Action) 1 ea QS N/A 06/25/16 16:00 07/25/16 15:59 Miscellaneous Information (Order Awaiting Action) 1 ea QS N/A 06/25/16 16:00 07/25/16 15:59 Piperacillin Sod/ Tazobactam Sod (Consult) 1 ea UD PRN N/A 06/25/16 15:00 07/25/16 14:59 Heparin Sodium (Porcine) (Heparin Sq 5000 Unit/0.5ml) 5,000 unit Q12 SQ 06/25/16 21:00 07/25/16 20:59 06/28/16 09:52 5,000 UNIT Miscellaneous Information (Consult Glycemic Management Pharmacy) 1 ea DAILY PRN N/A 06/26/16 09:00 07/26/16 08:59 Aspirin 81 mg 81 mg DAILY PO 06/26/16 09:30 07/26/16 09:29 06/29/16 08:48 81 MG Methylprednisolone Sodium Succinate/ Syringe (Solu-Medrol IV/ Syringe) 0.64 ml @ 1.5 mls/min Q6H IV 06/27/16 12:00 07/27/16 11:59 06/29/16 16:41 1.5 MLS/MIN Polyethylene (Miralax Powder Packet) 17 gm DAILY PO 06/27/16 09:00 07/27/16 08:59 06/28/16 10:02 17 GM Insulin Aspart (novoLOG ASPART) SLIDING SCALE If C... ACHS SC 06/28/16 11:00 07/28/16 10:59 06/29/16 11:00 5 UNITS Docusate Sodium (coLACE CAP) 100 mg BID PO 06/28/16 21:00 07/28/16 20:59 Pantoprazole Sodium (Protonix Tab) 40 mg QAM PO 06/29/16 09:00 07/29/16 08:59 06/29/16 08:48 40 MG Senna (Senokot Tab) 8.6 mg QAM PO 06/29/16 09:00 07/29/16 08:59 Enteral Nutritional Formula (Boost Glucose Control) 1 can TIDM PO 06/28/16 11:30 07/28/16 11:29 06/29/16 12:34 1 CAN Albuterol/ Ipratropium (Duoneb) 3 ml QIDR INH 06/28/16 12:00 07/28/16 11:59 06/29/16 15:42 3 ML Albuterol/ Ipratropium (Duoneb) 3 ml Q2H PRN INH 06/28/16 11:45 07/28/16 11:44 Insulin Glargine (Lantus Solostar Pen) 10 unit BID SC 06/29/16 09:00 07/29/16 08:59 06/29/16 08:55 10 UNIT
--- NOTE | 2016-06-29 20:51 | DIAGNOSTIC IMAGING REPORT ---
ABDOMEN AND PELVIS CT WITH ORAL CONTRAST CT DOSE: 950.17 mGy.cm HISTORY: Right lower quadrant abdominal pain melena, unable to give IV contrast due to renal function TECHNIQUE: Multiaxial CT images of the abdomen and pelvis were performed following the use of oral contrast. COMPARISON STUDY: None. FINDINGS: Patchy bilateral lower lobe airspace opacities. There is motion artifact resulting in suboptimal evaluation. Poststernotomy changes. No pneumoperitoneum. No pneumatosis. Old, healed right pubic fractures. There are old, healed bilateral rib fractures. Mild body wall edema. There is a right lower quadrant abdominal wall hernia containing the cecum. The hernia sac measures 11 cm. The hernia neck measures 2 cm. However, this does not result in a bowel obstruction. This is consistent with a Spigelian hernia. There is also a large left inguinal hernia containing the majority of the sigmoid colon. The bladder is decompressed by a Lopez catheter. Trace bilateral pleural effusions. Contrast extends into the ascending colon. No bowel wall thickening. There is liquid stool seen within the distal colon and rectum. No retroperitoneal lymphadenopathy. Multiple dense gallstones. The unenhanced liver, spleen, adrenal glands, and pancreas are unremarkable. No renal stones or hydronephrosis. There is a 17 mm hypodense lesion within the upper pole the right kidney. This is incompletely characterized on this noncontrast study but favors a cyst. IMPRESSION: 1. Liquid stool within the distal colon and rectum. This is nonspecific but could represent a mild gastroenteritis. 2. No evidence for bowel wall thickening. 3. There is a right lower quadrant Spigelian hernia containing the cecum and a large left inguinal hernia containing the majority of the sigmoid colon. No evidence for bowel obstruction. 4. Patchy bilateral lower lobe densities. This favors a pneumonia. 5. Additional findings as described above. Electronically signed by: Surendra Palma M.D. 06/29/2016 8:49 PM Dictated Date/Time: 06/29/2016 8:40 PM
[2016-06-30] VITALS (12 sets, daily range): BP systolic 119–171; BP diastolic 63–78; PULSE 54–89; TEMP 36.5–36.9; O2SAT 93–99
[2016-06-30] MEDS: METHYLPREDNISOLONE IV 40 MG in SYRINGE 0 ML IV SCH ×3 (00:34→17:01)
[2016-06-30] MEDS: [UNRECOGNIZED DRUG - REMARK] SCH ×4 (00:55→16:00)
[2016-06-30] MEDS: PIPERACILL/TAZOBAC IV 4.5 GM in DEXTROSE 5% 100ML 100 ML IV SCH ×3 (02:07→17:01)
[2016-06-30] MEDS: LEVOTHYROXINE 200 MCG TAB PO SCH (05:58)
[2016-06-30] MEDS: LEVOTHYROXINE 25 MCG TAB PO SCH (05:58)
[2016-06-30] MEDS: ALBUT/IPRATROP 3MG/0.5MG NEB 3 ML VIAL INH SCH ×4 (07:05→20:47)
[2016-06-30] MEDS: BOOST GLUCOSE CONTROL PO SCH ×3 (07:19→16:10)
[2016-06-30] MEDS: ATORVASTATIN 40 MG TAB PO SCH (07:20)
[2016-06-30] MEDS: DOCUSATE SODIUM 100 MG CAP PO SCH (07:20)
[2016-06-30] MEDS: POLYETHYLENE (MIRALAX) 17 GM PACK PO SCH (07:21)
[2016-06-30] MEDS: CHOLECALCIFEROL 1000 INTER.UNIT TAB PO SCH (07:22)
[2016-06-30] MEDS: PANTOprazole SOD 40 MG TAB PO SCH (07:22)
[2016-06-30] MEDS: SENNA 8.6 MG TAB PO SCH (07:22)
[2016-06-30] MEDS: CALCITRIOL 0.25 MCG CAP PO SCH (07:22)
[2016-06-30 07:34] LABS: HEMATOCRIT 32.8 % (42-52); MEAN CELL VOLUME 86.1 fL (80-100); MEAN CORPUSCULAR HEMOGLOBIN 27.3 pg (25-34); MEAN CORPUSCULAR HGB CONC 31.7 g/dl (32-36); MEAN PLATELET VOLUME 11.2 fL (7.4-10.4); PLATELET COUNT 208 K/uL (130-400); RED BLOOD COUNT 3.81 M/uL (4.7-6.1); WHITE BLOOD COUNT 12.93 K/uL (4.8-10.8)
[2016-06-30] MEDS: INSULIN ASPART 100 UNITS/ML 3 ML PEN SC SCH ×4 (08:00→21:00)
[2016-06-30 08:06] LABS: BUN/CREATININE RATIO 24.9 (10-20); CALCIUM 9.1 mg/dl (8.5-10.1); CREATININE 1.5 mg/dl (0.60-1.40); MAGNESIUM 2.1 mg/dl (1.8-2.4); POTASSIUM 3.6 mmol/L (3.5-5.1)
[2016-06-30 08:34] LABS: COMPLETE YES; LYMPH ABS # 1.44 K/uL (1.2-3.4); LYMPHOCYTE % 11.1 %; MYELOCYTE % 0.9 %; NEUTROPHILS % 85.4 %
[2016-06-30] MEDS: INSULIN GLARGINE SOLOSTAR 100 UNITS/ML 3 ML PEN SC SCH ×2 (09:00→21:29)
--- NOTE | 2016-06-30 09:19 | Progress Note ---
Medicine Progress Note Date & Time of Visit: Jun 30, 2016 at 09:08. Subjective seen sitting up in bedside chair, comfortable, on o2 via NC oriented x 2 denies dyspnea, has occasional cough no chest pain, palpitations no abdominal pain (+) loose stools this AM, dark brown (+) red tinged urine output in the Lopez Cath Bag Objective Last 8 Hrs Date Time Temp Pulse Resp B/P Pulse Ox O2 Delivery O2 Flow Rate FiO2 06/30/16 07:22 36.9 66 22 171/78 96 BiPAP 06/30/16 07:05 54 23 96 BiPAP/CPAP 30 06/30/16 07:05 54 96 30 06/30/16 04:18 BiPAP 06/30/16 04:00 36.6 64 18 142/63 96 BiPAP 06/30/16 03:28 75 97 35 Physical Exam: General- oriented x 2, not in distress, speaks in sentences , no effort Eyes- EOMI, anicteric Neck- supple, no JVD Lungs- clear breath sounds bilaterally Heart-normal rate, irregularly irregular rhythm; no murmur Abdomen- normal bowel sounds, soft, nontender Extremities- no pretibial edema, no calf tenderness Neuro- alert, oriented x 2;no gross deficits Skin- warm & dry Laboratory Results: Last 24 Hours Test 06/29/16 10:51 06/29/16 16:14 06/29/16 20:37 06/30/16 06:42 Bedside Glucose 185 mg/dl 128 mg/dl 187 mg/dl White Blood Count 12.93 K/uL Red Blood Count 3.81 M/uL Hemoglobin 10.4 g/dL Hematocrit 32.8 % Mean Corpuscular Volume 86.1 fL Mean Corpuscular Hemoglobin 27.3 pg Mean Corpuscular Hemoglobin Concent 31.7 g/dl Platelet Count 208 K/uL Mean Platelet Volume 11.2 fL RDW Standard Deviation 46.6 fL RDW Coefficient of Variation 14.8 % Nucleated RBC Absolute Count (auto) 0.02 K/uL Neutrophils % (Manual) 85.4 % Lymphocytes % (Manual) 11.1 % Monocytes % (Manual) 2.6 % Myelocytes % 0.9 % Nucleated Red Blood Cells % 0.1 % Neutrophils # (Manual) 11.04 K/uL Total Absolute Neutrophils 11.04 K/uL Lymphocytes # (Manual) 1.44 K/uL Total Absolute Lymphocytes 1.44 K/uL Monocytes # (Manual) 0.34 K/uL Myelocytes # 0.12 K/uL Sodium Level 139 mmol/L Potassium Level 3.6 mmol/L Chloride Level 95 mmol/L Carbon Dioxide Level 34 mmol/L Anion Gap 10.0 mmol/L Blood Urea Nitrogen 37 mg/dl Creatinine 1.50 mg/dl Est Creatinine Clear Calc Drug Dose 40.0 ml/min Estimated GFR () 48.2 Estimated GFR (Non- 41.6 BUN/Creatinine Ratio 24.9 Random Glucose 154 mg/dl Calcium Level 9.1 mg/dl Magnesium Level 2.1 mg/dl Test 06/30/16 06:49 Bedside Glucose 160 mg/dl Assessment & Plan SEPSIS WITH SHOCK, RESOLVED SECONDARY TO BILATERAL PNEUMONIA - off levophed, post extubation, doing well on nasal cannula and bipap - on Zosyn and levaquin IV Nebs taper IV steroids ACUTE HYPOXIC HYPERCAPNIC RESPIRATORY FAILURE, Resolved - management as noted above ENCEPHALOPATHY/LETHARGY/AMS, Resolved -likely multifactorial due to hypercapnia and sepsis, improved DAKOTA on CKD STAGE III -likely due to sepsis and dehydration -Cr 2.5-->2.0-->1.8 -baseline Cr of 1.6-1.7 -held lisinopril and Lasix, given IV fluids - back to baseline BRADYCARDIA, Resolved -has had slow atrial fibrillation intermittently per monitor -no beta blockers coumadin not recommended DIARRHEA negative for C diff, stool cultures d/c laxatives MELENA: -per family 1 episode black stool -Hemoccult stool + - Hg stable around 10 CT abdomen/pelvis: RLQ and Left Groin hernia, no signs of obstruction - d/c Heparin, Aspirin check anemia panel continue Protonix daily monitor for now HEMATURIA - d/c Heparin, Aspirin - if persistent, will consult Urology CAD s/p CABG x 3 VESSELS: -hold Aspirin, continue statin -MILADIS-I on hold for hypotension and DAKOTA -was not on BB DM TYPE II: well controlled -HbA1c: 6.5% -hold oral hyperglycemic medications -on lantus + insulin correction scale coverage HTN: -held lisinopril and Lasix due to hypotension - monitor HYPOTHYROIDISM: -continue levothyroxine GERD: -continue PPI Disposition pending management of pneumonia, hematuria as noted above PT recommending transition to ECF when stable Current Inpatient Medications: Current Inpatient Medications Medications (Trade) Dose Ordered Sig/Drea Route Start Time Stop Time Status Last Admin Dose Admin Ondansetron HCl (Zofran Inj) 4 mg Q6H PRN IV 06/25/16 14:00 07/25/16 13:59 06/26/16 20:22 4 MG Acetaminophen 650 mg 650 mg Q4H PRN PO 06/25/16 14:00 07/25/16 13:59 Piperacillin Sod/ Tazobactam Sod 4.5 gm/Dextrose 120 ml @ 30 mls/hr Q8H IV 06/25/16 18:00 07/02/16 17:59 06/30/16 02:07 30 MLS/HR Levofloxacin/Prmx (Levaquin / D5W/ Premixed D5W) 150 ml @ 100 mls/hr Q48H IV 06/27/16 13:00 07/05/16 23:59 06/29/16 16:39 100 MLS/HR Levofloxacin (Consult) 1 ea UD PRN N/A 06/25/16 15:00 07/25/16 14:59 Glucose (Glucose 40% Gel) 15-30 GRAMS 15 GRAMS... UD PRN PO 06/25/16 14:15 07/25/16 14:14 Glucose (Glucose Chew Tab) 4-8 Tablets 4 Tabl... UD PRN PO 06/25/16 14:15 07/25/16 14:14 Dextrose (Dextrose 50% 50ML Syringe) 25-50ML OF 50% DW IV FOR... UD PRN IV 06/25/16 14:15 07/25/16 14:14 Glucagon (Glucagon Inj) 1 mg UD PRN SQ 06/25/16 14:15 07/25/16 14:14 Atorvastatin Calcium (Lipitor Tab) 40 mg DAILY PO 06/26/16 09:00 07/26/16 08:59 06/30/16 07:20 40 MG Calcitriol (Rocaltrol Cap) 0.25 mcg DAILY PO 06/26/16 09:00 07/26/16 08:59 06/30/16 07:22 0.25 MCG Cholecalciferol (Vitamin D Tab) 1,000 inter.unit DAILY PO 06/26/16 09:00 07/26/16 08:59 06/30/16 07:22 1,000 INTER.UNIT Levothyroxine Sodium (Synthroid Tab) 25 mcg DAILYBB PO 06/26/16 06:00 07/26/16 05:59 06/30/16 05:58 25 MCG Levothyroxine Sodium (Synthroid Tab) 200 mcg DAILYBB PO 06/26/16 06:00 07/26/16 05:59 06/30/16 05:58 200 MCG Magnesium Hydroxide (Milk Of Magnesia Susp) 30 ml DAILY PRN PO 06/25/16 14:30 07/25/16 14:29 Bacitracin (Bacitracin Oint) 1 appln TID PRN EXT 06/25/16 14:30 07/25/16 14:29 Miscellaneous Information (Order Awaiting Action) 1 ea QS N/A 06/25/16 16:00 07/25/16 15:59 06/30/16 00:56 1 EA Miscellaneous Information (Order Awaiting Action) 1 ea QS N/A 06/25/16 16:00 07/25/16 15:59 06/30/16 00:56 1 EA Piperacillin Sod/ Tazobactam Sod (Consult) 1 ea UD PRN N/A 06/25/16 15:00 07/25/16 14:59 Heparin Sodium (Porcine) (Heparin Sq 5000 Unit/0.5ml) 5,000 unit Q12 SQ 06/25/16 21:00 07/25/16 20:59 06/29/16 21:05 5,000 UNIT Miscellaneous Information (Consult Glycemic Management Pharmacy) 1 ea DAILY PRN N/A 06/26/16 09:00 07/26/16 08:59 Aspirin 81 mg 81 mg DAILY PO 06/26/16 09:30 07/26/16 09:29 06/29/16 08:48 81 MG Methylprednisolone Sodium Succinate/ Syringe (Solu-Medrol IV/ Syringe) 0.64 ml @ 1.5 mls/min Q6H IV 06/27/16 12:00 07/27/16 11:59 06/30/16 05:58 1.5 MLS/MIN Polyethylene (Miralax Powder Packet) 17 gm DAILY PO 06/27/16 09:00 07/27/16 08:59 06/28/16 10:02 17 GM Insulin Aspart (novoLOG ASPART) SLIDING SCALE If C... ACHS SC 06/28/16 11:00 07/28/16 10:59 06/29/16 21:04 1 UNITS Docusate Sodium (coLACE CAP) 100 mg BID PO 06/28/16 21:00 07/28/16 20:59 06/30/16 07:20 100 MG Pantoprazole Sodium (Protonix Tab) 40 mg QAM PO 06/29/16 09:00 07/29/16 08:59 06/30/16 07:22 40 MG Senna (Senokot Tab) 8.6 mg QAM PO 06/29/16 09:00 07/29/16 08:59 06/30/16 07:22 8.6 MG Enteral Nutritional Formula (Boost Glucose Control) 1 can TIDM PO 06/28/16 11:30 07/28/16 11:29 06/29/16 12:34 1 CAN Albuterol/ Ipratropium (Duoneb) 3 ml QIDR INH 06/28/16 12:00 07/28/16 11:59 06/30/16 07:05 3 ML Albuterol/ Ipratropium (Duoneb) 3 ml Q2H PRN INH 06/28/16 11:45 07/28/16 11:44 Insulin Glargine (Lantus Solostar Pen) 10 unit BID SC 06/29/16 09:00 07/29/16 08:59 06/29/16 21:04 10 UNIT
--- NOTE | 2016-06-30 15:52 | Cardiology Follow-Up ---
Subjective General Date of Service: Jun 30, 2016. Chief Complaint: follow up AF, bradycardia Pt evaluation today including: conversation w/ patient, physical exam History of Present Illness The patient is a 85 year old male seen in follow up. Pt denies chest pain or SOB. Rate controlled AF noted on telemetry. Allergies Coded Allergies: No Known Allergies (Verified , 06/25/16) Social History Smoking Status: Former Smoker Hx Tobacco Use In Past Year?: No Hx Alcohol Use - Type And Amou: No (BEER 3 cans daily) Hx Substance Use - Type And Am: No Problem List Medical Problems: (1) Abnormal EKG Status: Acute (2) Altered mental status Status: Acute (3) Elevated troponin Status: Acute (4) Hypoxia Status: Acute (5) Pneumonia Status: Acute Physical Exam Vital Signs Last Vital Signs Documentation Date Time Temp Pulse Resp B/P Pulse Ox O2 Delivery O2 Flow Rate FiO2 06/30/16 15:47 BiPAP 06/30/16 11:30 36.5 79 18 130/72 99 4.0 06/30/16 07:05 30 Physical Exam Neck: supple Lungs: Auscultation: no wheezing, no rales/crackles Cardiovascular: Heart Auscultation: no murmurs, irregular rate rhythm Extremities: no edema Assessment and Plan Assessment and Plan Impression: 85 year old male 1. bradycardia, resolved 2. rate controlled AF 3. H/o CAD, CABG 4. Sepsis/ pneumonia-improving Plan: Monitor off of AV darell blockers. Pt is a poor candidate for anticoagulation. No coumadin advised. SQ heparin and aspirin on hold due to hematuria. Laboratory Results Last 24 Hours Test 06/29/16 16:14 06/29/16 20:37 06/30/16 06:42 06/30/16 06:49 Bedside Glucose 128 mg/dl 187 mg/dl 160 mg/dl White Blood Count 12.93 K/uL Red Blood Count 3.81 M/uL Hemoglobin 10.4 g/dL Hematocrit 32.8 % Mean Corpuscular Volume 86.1 fL Mean Corpuscular Hemoglobin 27.3 pg Mean Corpuscular Hemoglobin Concent 31.7 g/dl Platelet Count 208 K/uL Mean Platelet Volume 11.2 fL RDW Standard Deviation 46.6 fL RDW Coefficient of Variation 14.8 % Nucleated RBC Absolute Count (auto) 0.02 K/uL Neutrophils % (Manual) 85.4 % Lymphocytes % (Manual) 11.1 % Monocytes % (Manual) 2.6 % Myelocytes % 0.9 % Nucleated Red Blood Cells % 0.1 % Neutrophils # (Manual) 11.04 K/uL Total Absolute Neutrophils 11.04 K/uL Lymphocytes # (Manual) 1.44 K/uL Total Absolute Lymphocytes 1.44 K/uL Monocytes # (Manual) 0.34 K/uL Myelocytes # 0.12 K/uL Sodium Level 139 mmol/L Potassium Level 3.6 mmol/L Chloride Level 95 mmol/L Carbon Dioxide Level 34 mmol/L Anion Gap 10.0 mmol/L Blood Urea Nitrogen 37 mg/dl Creatinine 1.50 mg/dl Est Creatinine Clear Calc Drug Dose 40.0 ml/min Estimated GFR () 48.2 Estimated GFR (Non- 41.6 BUN/Creatinine Ratio 24.9 Random Glucose 154 mg/dl Calcium Level 9.1 mg/dl Magnesium Level 2.1 mg/dl Test 06/30/16 11:15 Bedside Glucose 231 mg/dl
--- NOTE | 2016-06-30 15:55 | Pharmacy Progress Note ---
Glycemic: Assessment & Plan Date of Service Jun 30, 2016. Assessment & Plan * BSGs ranging 128 - 231 mg/dl over the past 24hrs. * Steroids are beginning to taper today --> Solu-medrol 40mg IV [id number] --> now [id number]. * No change to current inpatient glycemic regimen. Will need to loosen Novolog parameters and reduce Lantus dose as steroid effect diminishes. Pt's insulin needs are inflated when on solu-medrol compared to prednisone in the past. * Will add a hold parameter to Lantus to avoid inducing hypoglycemia as steroids are tapered. CONTINUE: * Basal insulin: Lantus 10 units every 12 hours; hold for BSG below 110 mg/dl * Correctional Insulin: Novolog Correction per scale ACHS Goal Range: Low 140 mg/dL - High 180 mg/dL Correction Factor: 20 mg/dL/unit * Prandial insulin: Per carb ratio of 1 unit per 7 grams CHO consumed BSGs continue to improve, no changes needed to inpatient regimen at this time. Pharmacy will continue to monitor patient daily and write orders per [facility] inpatient glycemic control protocol. Thanks. * Please note that the plan above was derived based on current level of insulin resistance and hospital stress. These recommendations are appropriate for inpatient admission only. Plan of care upon discharge will need to be reassessed to avoid potential outpatient hypo/hyperglycemia.
[2016-06-30 20:18] LABS: HEMATOCRIT 33.6 % (42-52); MEAN CELL VOLUME 85.9 fL (80-100); MEAN CORPUSCULAR HEMOGLOBIN 27.6 pg (25-34); MEAN PLATELET VOLUME 10.5 fL (7.4-10.4); PLATELET COUNT 223 K/uL (130-400); RED BLOOD COUNT 3.91 M/uL (4.7-6.1); WHITE BLOOD COUNT 16.03 K/uL (4.8-10.8)
[2016-06-30 20:48] LABS: LYMPH ABS # 1.25 K/uL (1.2-3.4); LYMPHOCYTE % 7.8 %; MEAN CORPUSCULAR HGB CONC 32.1 g/dl (32-36); MYELOCYTE % 1.7 %; NEUTROPHILS % 78.4 %; PLASMA CELL 3.4 %
[2016-06-30 20:58] LABS: COMPLETE YES
[2016-07-01] VITALS (11 sets, daily range): BP systolic 116–163; BP diastolic 63–74; PULSE 18–94; TEMP 36.3–36.7; O2SAT 91–100
[2016-07-01] MEDS: PIPERACILL/TAZOBAC IV 4.5 GM in DEXTROSE 5% 100ML 100 ML IV SCH ×3 (02:00→18:15)
[2016-07-01] MEDS: LEVOTHYROXINE 200 MCG TAB PO SCH (05:51)
[2016-07-01] MEDS: METHYLPREDNISOLONE IV 40 MG in SYRINGE 0 ML IV SCH (05:51)
[2016-07-01] MEDS: LEVOTHYROXINE 25 MCG TAB PO SCH (05:51)
[2016-07-01 06:21] LABS: BUN/CREATININE RATIO 23.9 (10-20); CALCIUM 8.6 mg/dl (8.5-10.1); CREATININE 1.7 mg/dl (0.60-1.40); POTASSIUM 2.9 mmol/L (3.5-5.1)
[2016-07-01 06:30] LABS: FERRITIN 327.6 ng/ml (8.0-388.0)
[2016-07-01] MEDS: ALBUT/IPRATROP 3MG/0.5MG NEB 3 ML VIAL INH SCH ×4 (07:08→22:00)
[2016-07-01] MEDS: BOOST GLUCOSE CONTROL PO SCH ×3 (07:20→18:14)
[2016-07-01] MEDS: POLYETHYLENE (MIRALAX) 17 GM PACK PO SCH (07:20)
[2016-07-01] MEDS: CALCITRIOL 0.25 MCG CAP PO SCH (07:21)
[2016-07-01] MEDS: PANTOprazole SOD 40 MG TAB PO SCH (07:21)
[2016-07-01] MEDS: CHOLECALCIFEROL 1000 INTER.UNIT TAB PO SCH (07:21)
[2016-07-01] MEDS: ATORVASTATIN 40 MG TAB PO SCH (07:21)
[2016-07-01] MEDS: INSULIN GLARGINE SOLOSTAR 100 UNITS/ML 3 ML PEN SC SCH (07:31)
[2016-07-01] MEDS: [UNRECOGNIZED DRUG - REMARK] SCH ×3 (08:00→16:00)
[2016-07-01] MEDS: INSULIN ASPART 100 UNITS/ML 3 ML PEN SC SCH ×4 (09:09→21:00)
[2016-07-01 09:51] LABS: HEMATOCRIT 33.8 % (42-52); MEAN CELL VOLUME 85.4 fL (80-100); MEAN CORPUSCULAR HEMOGLOBIN 27.3 pg (25-34); MEAN PLATELET VOLUME 11.1 fL (7.4-10.4); PLATELET COUNT 234 K/uL (130-400); RED BLOOD COUNT 3.96 M/uL (4.7-6.1); WHITE BLOOD COUNT 16.66 K/uL (4.8-10.8)
--- NOTE | 2016-07-01 10:11 | Progress Note ---
Medicine Progress Note Date & Time of Visit: Jul 01, 2016 at 10:05. Subjective seen sleeping, easily rousable oriented x 2 comfortable states he had a hard time falling asleep last night denies dyspnea, has occasional cough no abdominal pain, nausea (+) red tinged urine Objective Last 8 Hrs Date Time Temp Pulse Resp B/P Pulse Ox O2 Delivery O2 Flow Rate FiO2 07/01/16 08:00 Nasal Cannula 07/01/16 07:54 36.4 76 18 163/70 100 2.0 07/01/16 07:08 72 16 98 Nasal Cannula 2.0 07/01/16 04:00 36.7 78 20 146/73 92 Room Air 07/01/16 04:00 Nasal Cannula 2.0 BiPAP Physical Exam: General- oriented x 2, not in distress, speaks in sentences , no effort Eyes- anicteric Neck- no JVD Lungs- mild rales left base, no wheeze Heart-normal rate, irregularly irregular rhythm; no murmur Abdomen- normal bowel sounds, soft, nontender (+) red tinged urine output per [facility]an Cath bag Extremities- no pretibial edema, no calf tenderness Neuro- alert, oriented x 2;no gross deficits Skin- warm & dry Laboratory Results: Last 24 Hours Test 06/30/16 11:15 06/30/16 20:07 07/01/16 02:20 07/01/16 05:15 Bedside Glucose 231 mg/dl White Blood Count 16.03 K/uL 16.66 K/uL Red Blood Count 3.91 M/uL 3.96 M/uL Hemoglobin 10.8 g/dL 10.8 g/dL Hematocrit 33.6 % 33.8 % Mean Corpuscular Volume 85.9 fL 85.4 fL Mean Corpuscular Hemoglobin 27.6 pg 27.3 pg Mean Corpuscular Hemoglobin Concent 32.1 g/dl 32.0 g/dl Platelet Count 223 K/uL 234 K/uL Mean Platelet Volume 10.5 fL 11.1 fL RDW Standard Deviation 46.3 fL 46.6 fL RDW Coefficient of Variation 14.8 % 14.8 % Neutrophils % (Manual) 78.4 % Lymphocytes % (Manual) 7.8 % Monocytes % (Manual) 7.8 % Myelocytes % 1.7 % Blast Cells % 0.9 % Neutrophils # (Manual) 12.57 K/uL Total Absolute Neutrophils 12.57 K/uL Lymphocytes # (Manual) 1.25 K/uL Total Absolute Lymphocytes 1.25 K/uL Monocytes # (Manual) 1.25 K/uL Myelocytes # 0.27 K/uL Blast Cells # 0.14 K/uL Plasma Cells % 3.4 % Blood Smear Review Red Blood Cell Morphology Unremarkable Stool Occult Blood POSITIVE Sodium Level 139 mmol/L Potassium Level 2.9 mmol/L Chloride Level 95 mmol/L Carbon Dioxide Level 36 mmol/L Anion Gap 8.0 mmol/L Blood Urea Nitrogen 41 mg/dl Creatinine 1.70 mg/dl Est Creatinine Clear Calc Drug Dose 35.2 ml/min Estimated GFR () 41.4 Estimated GFR (Non- 35.7 BUN/Creatinine Ratio 23.9 Random Glucose 156 mg/dl Calcium Level 8.6 mg/dl Iron Level 70 mcg/dl Total Iron Binding Capacity 187 mcg/dl Transferrin 153 mg/dl Transferrin % Saturation 33 % Ferritin 327.6 ng/ml Vitamin B12 Level 441 pg/mL Folate 4.47 ng/mL Test 07/01/16 06:18 Bedside Glucose 153 mg/dl Date/Time Source Procedure Growth Status 07/01/16 02:20 Stool C.difficile Toxin B Gene (PCR) - Final No C. difficile toxin B gene detected Complete Assessment & Plan SEPSIS WITH SHOCK, RESOLVED SECONDARY TO BILATERAL PNEUMONIA - off levophed, post extubation, doing well on nasal cannula and bipap - on Zosyn and levaquin IV Day 7 Nebs taper IV steroids to daily ACUTE HYPOXIC HYPERCAPNIC RESPIRATORY FAILURE, Resolved - management as noted above ENCEPHALOPATHY/LETHARGY/AMS, Resolved -likely multifactorial due to hypercapnia and sepsis, improved DAKOTA on CKD STAGE III, Resolved -likely due to sepsis and dehydration -Cr 2.5-->2.0-->1.8 -baseline Cr of 1.6-1.7 -held lisinopril and Lasix, given IV fluids - back to baseline - hold Lasix and Lisinopril today BRADYCARDIA, Resolved -has had slow atrial fibrillation intermittently per monitor -no beta blockers coumadin not recommended - Aspirin on hold for hematuria DIARRHEA, Resolved negative for C diff, stool cultures d/c laxatives MELENA -per family 1 episode black stool -Hemoccult stool + x 2 - Hg stable around 10 CT abdomen/pelvis: RLQ and Left Groin hernia, no signs of obstruction - d/c Heparin, Aspirin check anemia panel: low folate, replace continue Protonix daily - GO consulted HEMATURIA - hold Heparin, Aspirin for now - will consult Urology CAD s/p CABG x 3 VESSELS: -hold Aspirin, continue statin -MILADIS-I on hold for hypotension and DAKOTA -was not on BB DM TYPE II: well controlled -HbA1c: 6.5% -hold oral hyperglycemic medications -on lantus + insulin correction scale coverage HTN: -held lisinopril and Lasix due to hypotension - monitor HYPOTHYROIDISM -continue levothyroxine GERD -continue PPI Disposition pending management of pneumonia, hematuria as noted above PT recommending transition to ECF when stable Current Inpatient Medications: Current Inpatient Medications Medications (Trade) Dose Ordered Sig/Drea Route Start Time Stop Time Status Last Admin Dose Admin Ondansetron HCl (Zofran Inj) 4 mg Q6H PRN IV 06/25/16 14:00 07/25/16 13:59 06/26/16 20:22 4 MG Acetaminophen 650 mg 650 mg Q4H PRN PO 06/25/16 14:00 07/25/16 13:59 Piperacillin Sod/ Tazobactam Sod 4.5 gm/Dextrose 120 ml @ 30 mls/hr Q8H IV 06/25/16 18:00 07/02/16 11:59 07/01/16 02:00 30 MLS/HR Levofloxacin/Prmx (Levaquin / D5W/ Premixed D5W) 150 ml @ 100 mls/hr Q48H IV 06/27/16 13:00 07/01/16 23:59 06/29/16 16:39 100 MLS/HR Levofloxacin (Consult) 1 ea UD PRN N/A 06/25/16 15:00 07/25/16 14:59 Glucose (Glucose 40% Gel) 15-30 GRAMS 15 GRAMS... UD PRN PO 06/25/16 14:15 07/25/16 14:14 Glucose (Glucose Chew Tab) 4-8 Tablets 4 Tabl... UD PRN PO 06/25/16 14:15 07/25/16 14:14 Dextrose (Dextrose 50% 50ML Syringe) 25-50ML OF 50% DW IV FOR... UD PRN IV 06/25/16 14:15 07/25/16 14:14 Glucagon (Glucagon Inj) 1 mg UD PRN SQ 06/25/16 14:15 07/25/16 14:14 Atorvastatin Calcium (Lipitor Tab) 40 mg DAILY PO 06/26/16 09:00 07/26/16 08:59 07/01/16 07:21 40 MG Calcitriol (Rocaltrol Cap) 0.25 mcg DAILY PO 06/26/16 09:00 07/26/16 08:59 07/01/16 07:21 0.25 MCG Cholecalciferol (Vitamin D Tab) 1,000 inter.unit DAILY PO 06/26/16 09:00 07/26/16 08:59 07/01/16 07:21 1,000 INTER.UNIT Levothyroxine Sodium (Synthroid Tab) 25 mcg DAILYBB PO 06/26/16 06:00 07/26/16 05:59 07/01/16 05:51 25 MCG Levothyroxine Sodium (Synthroid Tab) 200 mcg DAILYBB PO 06/26/16 06:00 07/26/16 05:59 07/01/16 05:51 200 MCG Magnesium Hydroxide (Milk Of Magnesia Susp) 30 ml DAILY PRN PO 06/25/16 14:30 07/25/16 14:29 Bacitracin (Bacitracin Oint) 1 appln TID PRN EXT 06/25/16 14:30 07/25/16 14:29 Miscellaneous Information (Order Awaiting Action) 1 ea QS N/A 06/25/16 16:00 07/25/16 15:59 06/30/16 00:56 1 EA Miscellaneous Information (Order Awaiting Action) 1 ea QS N/A 06/25/16 16:00 07/25/16 15:59 06/30/16 00:56 1 EA Piperacillin Sod/ Tazobactam Sod (Consult) 1 ea UD PRN N/A 06/25/16 15:00 07/25/16 14:59 Miscellaneous Information (Consult Glycemic Management Pharmacy) 1 ea DAILY PRN N/A 06/26/16 09:00 07/26/16 08:59 Polyethylene (Miralax Powder Packet) 17 gm DAILY PO 06/27/16 09:00 07/27/16 08:59 07/01/16 07:20 17 GM Insulin Aspart (novoLOG ASPART) SLIDING SCALE If C... ACHS SC 06/28/16 11:00 07/28/16 10:59 07/01/16 09:09 10 UNITS Pantoprazole Sodium (Protonix Tab) 40 mg QAM PO 06/29/16 09:00 07/29/16 08:59 07/01/16 07:21 40 MG Enteral Nutritional Formula (Boost Glucose Control) 1 can TIDM PO 06/28/16 11:30 07/28/16 11:29 07/01/16 07:20 1 CAN Albuterol/ Ipratropium (Duoneb) 3 ml QIDR INH 06/28/16 12:00 07/28/16 11:59 07/01/16 07:08 3 ML Albuterol/ Ipratropium (Duoneb) 3 ml Q2H PRN INH 06/28/16 11:45 07/28/16 11:44 Insulin Glargine 10 unit 10 unit BID SC 06/29/16 09:00 07/29/16 08:59 07/01/16 07:31 10 UNIT Methylprednisolone Sodium Succinate/ Syringe (Solu-Medrol IV/ Syringe) 0.64 ml @ 1.5 mls/min Q12@0600,1800 IV 06/30/16 18:00 07/30/16 17:59 07/01/16 05:51 1.5 MLS/MIN Folic Acid (Folvite Tab) 1 mg QAM PO 07/02/16 09:00 08/01/16 08:59 Potassium Chloride (Klor-Con M10) 40 meq NOW STAT PO 07/01/16 09:59 07/01/16 10:00 UNV
[2016-07-01] MEDS ORDERED: POTASSIUM CHLORIDE 10 MEQ TABCR PO ONE (10:15)
--- NOTE | 2016-07-01 10:45 | Cardiology Follow-Up ---
Subjective General Date of Service: Jul 01, 2016. Chief Complaint: follow up AF, bradycardia Pt evaluation today including: conversation w/ patient, physical exam, chart review, lab review, review of studies, review of inpatient medication list History of Present Illness Patient feeling ok this AM. Denies chest pain or SOB. No dizziness. Continues to have hematuria. Telemetry reviewed - rate controlled atrial fib. No significant bradyarrhythmias or pauses. Allergies Coded Allergies: No Known Allergies (Verified , 06/25/16) Social History Smoking Status: Former Smoker Hx Tobacco Use In Past Year?: No Hx Alcohol Use - Type And Amou: No (BEER 3 cans daily) Hx Substance Use - Type And Am: No Problem List Medical Problems: (1) Abnormal EKG Status: Acute (2) Altered mental status Status: Acute (3) Elevated troponin Status: Acute (4) Hypoxia Status: Acute (5) Pneumonia Status: Acute Review of Systems Respiratory: No cough, No dyspnea at rest, No hemoptysis, No shortness of breath, No sputum Cardiac: No PND, No chest pain, No edema, No orthopnea, No palpitations Physical Exam Vital Signs Last Vital Signs Documentation Date Time Temp Pulse Resp B/P Pulse Ox O2 Delivery O2 Flow Rate FiO2 07/01/16 08:00 Nasal Cannula 07/01/16 07:54 36.4 76 18 163/70 100 2.0 06/30/16 22:07 30 Physical Exam Constitutional: General Apperance: well-nourished Level of Distress: NAD, chronically ill Psychiatric: Mental Status: active & alert Orientation: to place, to person Eyes: Pupils: PERRLA Neck: supple Lungs: Auscultation: no wheezing, no rales/crackles Cardiovascular: Heart Auscultation: no murmurs, irregular rate rhythm Extremities: no edema Assessment and Plan Assessment and Plan Impression: 85 year old male 1. bradycardia, resolved 2. rate controlled AF 3. H/o CAD, CABG 4. Sepsis/ pneumonia-improving 5. Hematuria 6. Hypokalemia Plan: Monitor off of AV darell blockers. Pt is a poor candidate for anticoagulation. No Coumadin advised. SQ heparin and aspirin on hold due to hematuria. Supplement potassium and recheck this afternoon. Case discussed with Dr. Small. Will follow. CARDIOLOGY ATTENDING ADDENDUM: The patient was seen and personally examined. Agree with Corinne Varela PA-C's findings and plans as documented above with additions as noted below. Patient comfortable. Agree with urology consult for gross hematuria / segovia advice. Laboratory Results Last 24 Hours Test 06/30/16 11:15 06/30/16 20:07 07/01/16 02:20 07/01/16 05:15 Bedside Glucose 231 mg/dl White Blood Count 16.03 K/uL 16.66 K/uL Red Blood Count 3.91 M/uL 3.96 M/uL Hemoglobin 10.8 g/dL 10.8 g/dL Hematocrit 33.6 % 33.8 % Mean Corpuscular Volume 85.9 fL 85.4 fL Mean Corpuscular Hemoglobin 27.6 pg 27.3 pg Mean Corpuscular Hemoglobin Concent 32.1 g/dl 32.0 g/dl Platelet Count 223 K/uL 234 K/uL Mean Platelet Volume 10.5 fL 11.1 fL RDW Standard Deviation 46.3 fL 46.6 fL RDW Coefficient of Variation 14.8 % 14.8 % Neutrophils % (Manual) 78.4 % Lymphocytes % (Manual) 7.8 % Monocytes % (Manual) 7.8 % Myelocytes % 1.7 % Blast Cells % 0.9 % Neutrophils # (Manual) 12.57 K/uL Total Absolute Neutrophils 12.57 K/uL Lymphocytes # (Manual) 1.25 K/uL Total Absolute Lymphocytes 1.25 K/uL Monocytes # (Manual) 1.25 K/uL Myelocytes # 0.27 K/uL Blast Cells # 0.14 K/uL Plasma Cells % 3.4 % Blood Smear Review Red Blood Cell Morphology Unremarkable Stool Occult Blood POSITIVE Sodium Level 139 mmol/L Potassium Level 2.9 mmol/L Chloride Level 95 mmol/L Carbon Dioxide Level 36 mmol/L Anion Gap 8.0 mmol/L Blood Urea Nitrogen 41 mg/dl Creatinine 1.70 mg/dl Est Creatinine Clear Calc Drug Dose 35.2 ml/min Estimated GFR () 41.4 Estimated GFR (Non- 35.7 BUN/Creatinine Ratio 23.9 Random Glucose 156 mg/dl Calcium Level 8.6 mg/dl Iron Level 70 mcg/dl Total Iron Binding Capacity 187 mcg/dl Transferrin 153 mg/dl Transferrin % Saturation 33 % Ferritin 327.6 ng/ml Vitamin B12 Level 441 pg/mL Folate 4.47 ng/mL Test 07/01/16 06:18 07/01/16 10:02 Bedside Glucose 153 mg/dl
[2016-07-01 11:08] LABS: LYMPH ABS # 3.25 K/uL (1.2-3.4); LYMPHOCYTE % 19.5 %; META ABS # 0.45 K/uL (0-0); METAMYELOCYTE % 2.7 %; MYELOCYTE % 0.9 %; NEUTROPHILS % 68.9 %; PLASMA CELL 1.8 %; VACUOLIZATION 1+
[2016-07-01 11:24] LABS: COMPLETE YES
--- NOTE | 2016-07-01 11:25 | Gastrointestinal Consultation ---
Gastrointestinal Consultation Date of Consultation: Jul 01, 2016 Attending Physician: Ab Mcpherson Consulting Physician: Miguel Angel Hewitt Reason for Consultation: Possible GI bleed History of Present Illness Patient is a 85 year old male admitted w septic shock secondary to bilateral pneumonia, hypoxemia currently on Zosyn and Levaquin. GI is currently consulted for GI bleed. He had a few episodes of melena a couple of days ago and had 2 positive hemoccult. He does also have hematuria noted in his Lopez cath, Urology has been consulted. Hgb stays around 10-12. Pt states he last noticed blood in stools 2 days ago. He denies any abd pain, n/v. Had regular consistency breakfast this AM. Denies any issues also w dysphagia, reflux symptoms. He did have hx of Cdiff, though this time Cdiff and stool cx negative. CT abd/pelvis on admission showed ? gastroenteritis given liquid stool in colon, RLQ hernia in cecum, and L inguinal hernia. He never had any EGD or colonoscopy eval in the past. Denies any family hx of colorectal ca. Past Medical/Surgical History Medical Problems: (1) Abnormal EKG Status: Acute (2) Altered mental status Status: Acute (3) Elevated troponin Status: Acute (4) Hypoxia Status: Acute (5) Pneumonia Status: Acute Past Surgical History: Cataract CABG x 3 Family History Diabetes mellitus MOTHER FAM HX-ISCHEM HEART DIS MOTHER Social History Smoking Status: Former Smoker Drug Use: none Marital Status: Housing Status: lives with family Occupation Status: retired Allergies Coded Allergies: No Known Allergies (Verified , 06/25/16) Current Medications Home Meds and Scripts Medications Dose Route/Sig Max Daily Dose Days Date Category Dose Instructions Carmol 20 (Urea) 20 % Cre 1 Appln EXT DAILY 06/25/16 Reported Apply daily to feet. Promethazine-Dm 1 Syp Syp 5 Ml PO Q6H PRN 6 06/25/16 Reported Proair Respiclick (Albuterol Sulfate) 108 Mcg/Act Aer 2 Puffs INH Q4H PRN 06/25/16 Reported Bactroban 2% Oint (Mupirocin) 66 Appln/22 Gm Oint 1 Appln EXT TID PRN 06/25/16 Reported Milk of Magnesia 400 mg/5Ml (Magnesium Hydroxide) 1 Fatemeh Fatemeh 30 Ml PO DAILY PRN 06/25/16 Reported Levothyroxine Sodium 200 Mcg Tab 1 Tab PO DAILY 30 06/25/16 Reported with 25mcg tablet; total dose is 225mcg Levothyroxine Sodium 25 Mcg Tab 1 Tab PO DAILY 30 06/25/16 Reported with 200mcg tablet; total dose is 225mcg Lisinopril 2.5 Mg Tab 2.5 Mg PO DAILY 06/25/16 Reported Lasix (Furosemide) 40 Mg Tab 40 Mg PO DAILY 12/10/13 Reported Calcitriol 0.25 Mcg Cap 0.25 Mcg PO DAILY 09/28/13 Reported Vitamin D 1000 Unit (Cholecalciferol) 1,000 Unit Cap 1,000 Inter.unit PO DAILY 09/28/13 Reported Aspirin 81 (Aspirin) 81 Mg Tab 81 Mg PO DAILY 09/28/13 Reported Actos (Pioglitazone Hcl) 30 Mg Tab 30 Mg PO DAILY 09/28/13 Reported Lipitor (Atorvastatin Calcium) 40 Mg Tab 40 Mg PO DAILY 09/28/13 Reported Ventolin 0.083% Soln * (Albuterol Sulfate) Nebu 1 Ea INH Q4HR PRN 04/22/10 Reported Prilosec (Omeprazole) 20 Mg Capcr 20 Mg PO DAILY PRN 04/22/10 Reported Review of Systems Constitutional: No chills, No fever Respiratory: No cough, No shortness of breath Cardiac: + edema, No chest pain Abdomen: + GI bleeding, No constipation, No diarrhea, No nausea, No pain, No vomiting Physical Exam Date Time Temp Pulse Resp B/P Pulse Ox O2 Delivery O2 Flow Rate FiO2 07/01/16 11:12 86 16 97 Nasal Cannula 2.0 07/01/16 08:00 Nasal Cannula 07/01/16 07:54 36.4 76 18 163/70 100 2.0 07/01/16 07:08 72 16 98 Nasal Cannula 2.0 07/01/16 04:00 36.7 78 20 146/73 92 Room Air 07/01/16 04:00 Nasal Cannula 2.0 BiPAP 07/01/16 00:00 Nasal Cannula 2.0 BiPAP 07/01/16 00:00 36.4 70 20 130/63 91 Room Air 06/30/16 22:07 71 95 30 06/30/16 20:47 65 16 93 Nasal Cannula 4.0 06/30/16 20:28 36.5 75 20 119/66 95 Nasal Cannula 3.0 06/30/16 20:00 Nasal Cannula 2.0 BiPAP 06/30/16 16:16 84 16 95 Nasal Cannula 4.0 06/30/16 16:01 36.5 74 20 127/73 97 Nasal Cannula 3.0 06/30/16 15:47 BiPAP 06/30/16 11:39 BiPAP 06/30/16 11:30 36.5 79 18 130/72 99 4.0 General Appearance: WD/WN, no apparent distress Eyes: normal inspection, PERRL, EOMI Neck: supple, no JVD, trachea midline Respiratory/Chest: no respiratory distress, no accessory muscle use, + decreased breath sounds Cardiovascular: regular rate, rhythm, no gallop, no murmur Abdomen: normal bowel sounds, soft, + tenderness (mild TTP over RUQ area) Neurologic/Psych: alert, normal mood/affect, + disoriented (he has hx of dementia, RN report sundowing symptoms in evening times. ) Skin: normal color, no jaundice, no rash Laboratory Results Last 24 Hours Test 06/30/16 11:15 06/30/16 20:07 07/01/16 02:20 07/01/16 05:15 Bedside Glucose 231 mg/dl White Blood Count 16.03 K/uL 16.66 K/uL Red Blood Count 3.91 M/uL 3.96 M/uL Hemoglobin 10.8 g/dL 10.8 g/dL Hematocrit 33.6 % 33.8 % Mean Corpuscular Volume 85.9 fL 85.4 fL Mean Corpuscular Hemoglobin 27.6 pg 27.3 pg Mean Corpuscular Hemoglobin Concent 32.1 g/dl 32.0 g/dl Platelet Count 223 K/uL 234 K/uL Mean Platelet Volume 10.5 fL 11.1 fL RDW Standard Deviation 46.3 fL 46.6 fL RDW Coefficient of Variation 14.8 % 14.8 % Neutrophils % (Manual) 78.4 % 68.9 % Lymphocytes % (Manual) 7.8 % 19.5 % Monocytes % (Manual) 7.8 % 5.3 % Myelocytes % 1.7 % 0.9 % Blast Cells % 0.9 % Neutrophils # (Manual) 12.57 K/uL 11.48 K/uL Total Absolute Neutrophils 12.57 K/uL 11.48 K/uL Lymphocytes # (Manual) 1.25 K/uL 3.25 K/uL Total Absolute Lymphocytes 1.25 K/uL 3.25 K/uL Monocytes # (Manual) 1.25 K/uL 0.88 K/uL Myelocytes # 0.27 K/uL 0.15 K/uL Blast Cells # 0.14 K/uL Plasma Cells % 3.4 % 1.8 % Blood Smear Review Red Blood Cell Morphology Unremarkable Stool Occult Blood POSITIVE Metamyelocytes % 2.7 % Promyelocytes % 0.9 % Metamyelocytes # 0.45 K/uL Promyelocytes # 0.15 K/uL Toxic Vacuolation 1+ Sodium Level 139 mmol/L Potassium Level 2.9 mmol/L Chloride Level 95 mmol/L Carbon Dioxide Level 36 mmol/L Anion Gap 8.0 mmol/L Blood Urea Nitrogen 41 mg/dl Creatinine 1.70 mg/dl Est Creatinine Clear Calc Drug Dose 35.2 ml/min Estimated GFR () 41.4 Estimated GFR (Non- 35.7 BUN/Creatinine Ratio 23.9 Random Glucose 156 mg/dl Calcium Level 8.6 mg/dl Iron Level 70 mcg/dl Total Iron Binding Capacity 187 mcg/dl Transferrin 153 mg/dl Transferrin % Saturation 33 % Ferritin 327.6 ng/ml Vitamin B12 Level 441 pg/mL Folate 4.47 ng/mL Test 07/01/16 06:18 07/01/16 10:02 Bedside Glucose 153 mg/dl Impression Patient is a 85 year old male, currently being seen for anemia, melena, positive hemoccult x 2. He has also hematuria, Urology consulted. Hgb around 10- 12. He noticed bright red blood in stool 2 days ago, since then normal stools. He denies much abd pain except slight discomfort in RUQ abd area, no n/v, reflux , dysphagia. CT w/ possible gastroenteritis, no signs of bowel obstruction, + RLQ hernia, L inguinal hernia. Cdiff and stool cx negative. Discussed possible EGD/colonoscopy evals but pt refused these unless he starts having any more blood in stools or other significant GI symptoms. Plan - Monitor H/H and transfuse PRN - Continue FA supplement - Urology to eval for hematuria - Continue current antibx for pneumonia - GI will sign off, call if new questions or concerns arise. I performed a history and physical examination of the patient. I have discussed the patient's case, impression and plan with CRISTINE Robbins. Her note reflects my findings and plan. I do not think endoscopy would add anything to the care of this patient and may put him at more risk. Miguel Angel Hewitt MD
--- NOTE | 2016-07-01 12:53 | Urology Consultation ---
History General Date of Service: Jul 01, 2016. Chief Complaint: GROSS HEMATURIA Primary Care Physician: Ivan Campoverde M.D. Pt seen a urologist before?: No History of Present Illness I am asked by Dr Mcpherson to evaluate and treat patient for gross hematuria. Patient was admitted critically ill with pneumonia and sepsis a few days ago. he is improving. He had segovia while critically ill and had had several days of gross hematuria and clots. He does not report any red urine at home. He is a many decade smoker quitting about 12 years ago. he had a ct at admission but bladder was colapsed around the segovia so no good detail available for bladder. He feels weak but improving. Urine today is light pink. Imaging Imaging: CT Laboratory Results Past 24 Hours Test 06/30/16 20:07 07/01/16 02:20 07/01/16 05:15 07/01/16 06:18 Range/Units White Blood Count 16.03 16.66 4.8-10.8 K/uL Red Blood Count 3.91 3.96 4.7-6.1 M/uL Hemoglobin 10.8 10.8 14.0-18.0 g/dL Hematocrit 33.6 33.8 42-52 % Mean Corpuscular Volume 85.9 85.4 80-100 fL Mean Corpuscular Hemoglobin 27.6 27.3 25-34 pg Mean Corpuscular Hemoglobin Concent 32.1 32.0 32-36 g/dl Platelet Count 223 234 130-400 K/uL Mean Platelet Volume 10.5 11.1 7.4-10.4 fL RDW Standard Deviation 46.3 46.6 36.4-46.3 fL RDW Coefficient of Variation 14.8 14.8 11.5-14.5 % Neutrophils % (Manual) 78.4 68.9 % Lymphocytes % (Manual) 7.8 19.5 % Monocytes % (Manual) 7.8 5.3 % Myelocytes % 1.7 0.9 % Blast Cells % 0.9 % Neutrophils # (Manual) 12.57 11.48 1.4-6.5 K/uL Total Absolute Neutrophils 12.57 11.48 1.4-6.5 K/uL Lymphocytes # (Manual) 1.25 3.25 1.2-3.4 K/uL Total Absolute Lymphocytes 1.25 3.25 1.2-3.4 K/uL Monocytes # (Manual) 1.25 0.88 0.11-0.59 K/uL Myelocytes # 0.27 0.15 0-0 K/uL Blast Cells # 0.14 0-0 K/uL Plasma Cells % 3.4 1.8 % Blood Smear Review Red Blood Cell Morphology Unremarkable Stool Occult Blood POSITIVE NEGATIVE Metamyelocytes % 2.7 % Promyelocytes % 0.9 % Metamyelocytes # 0.45 0-0 K/uL Promyelocytes # 0.15 0-0 K/uL Toxic Vacuolation 1+ Sodium Level 139 136-145 mmol/L Potassium Level 2.9 3.5-5.1 mmol/L Chloride Level 95 98-107 mmol/L Carbon Dioxide Level 36 21-32 mmol/L Anion Gap 8.0 3-11 mmol/L Blood Urea Nitrogen 41 7-18 mg/dl Creatinine 1.70 0.60-1.40 mg/dl Est Creatinine Clear Calc Drug Dose 35.2 ml/min Estimated GFR () 41.4 Estimated GFR (Non- 35.7 BUN/Creatinine Ratio 23.9 10-20 Random Glucose 156 70-99 mg/dl Calcium Level 8.6 8.5-10.1 mg/dl Iron Level 70 35-175 mcg/dl Total Iron Binding Capacity 187 250-450 mcg/dl Transferrin 153 200-360 mg/dl Transferrin % Saturation 33 20-50 % Ferritin 327.6 8.0-388.0 ng/ml Vitamin B12 Level 441 211-911 pg/mL Folate 4.47 >5.38 ng/mL Bedside Glucose 153 70-99 mg/dl Test 07/01/16 11:18 Range/Units Bedside Glucose 234 70-99 mg/dl Microbiology Results 07/01/16 C.difficile Toxin B Gene (PCR) - Final, Complete No C. difficile toxin B gene detected Labs were reviewed and are within normal limits unless listed below. Labs are available in the chart and at [facility] Problem List Medical Problems: (1) Abnormal EKG Status: Acute (2) Altered mental status Status: Acute (3) Elevated troponin Status: Acute (4) Hypoxia Status: Acute (5) Pneumonia Status: Acute Past History COPD, coronary artery disease, dementia, diabetes, GI bleed (upper), heart disease, high cholesterol, hypertension, lung disease, myocardial infarction, pneumonia, renal disease Past Surgical History: coronary bypass surgery, other Family History Diabetes mellitus MOTHER FAM HX-ISCHEM HEART DIS MOTHER not relevant at his age Social History Hx Tobacco Use In Past Year?: No Smoking: quit greater than 1 year Alcohol: never Marital status: Housing status: lives with family (son and [id number]) Occupation status: retired Immunizations History of Influenza Vaccine: Yes Influenza Vaccine Date: Apr 25, 2010 History of Tetanus Vaccine?: Unknown History of Pneumococcal: No History of Hepatitis B Vaccine: Unknown History of MDRO No Allergies Coded Allergies: No Known Allergies (Verified , 06/25/16) Medications Home Medications: Home Meds and Scripts Medications Dose Route/Sig Max Daily Dose Days Date Category Dose Instructions Carmol 20 (Urea) 20 % Cre 1 Appln EXT DAILY 06/25/16 Reported Apply daily to feet. Promethazine-Dm 1 Syp Syp 5 Ml PO Q6H PRN 6 06/25/16 Reported Proair Respiclick (Albuterol Sulfate) 108 Mcg/Act Aer 2 Puffs INH Q4H PRN 06/25/16 Reported Bactroban 2% Oint (Mupirocin) 66 Appln/22 Gm Oint 1 Appln EXT TID PRN 06/25/16 Reported Milk of Magnesia 400 mg/5Ml (Magnesium Hydroxide) 1 Fatemeh Faetmeh 30 Ml PO DAILY PRN 06/25/16 Reported Levothyroxine Sodium 200 Mcg Tab 1 Tab PO DAILY 30 06/25/16 Reported with 25mcg tablet; total dose is 225mcg Levothyroxine Sodium 25 Mcg Tab 1 Tab PO DAILY 30 06/25/16 Reported with 200mcg tablet; total dose is 225mcg Lisinopril 2.5 Mg Tab 2.5 Mg PO DAILY 06/25/16 Reported Lasix (Furosemide) 40 Mg Tab 40 Mg PO DAILY 12/10/13 Reported Calcitriol 0.25 Mcg Cap 0.25 Mcg PO DAILY 09/28/13 Reported Vitamin D 1000 Unit (Cholecalciferol) 1,000 Unit Cap 1,000 Inter.unit PO DAILY 09/28/13 Reported Aspirin 81 (Aspirin) 81 Mg Tab 81 Mg PO DAILY 09/28/13 Reported Actos (Pioglitazone Hcl) 30 Mg Tab 30 Mg PO DAILY 09/28/13 Reported Lipitor (Atorvastatin Calcium) 40 Mg Tab 40 Mg PO DAILY 09/28/13 Reported Ventolin 0.083% Soln * (Albuterol Sulfate) Nebu 1 Ea INH Q4HR PRN 04/22/10 Reported Prilosec (Omeprazole) 20 Mg Capcr 20 Mg PO DAILY PRN 04/22/10 Reported Inpatient Medications: Current Inpatient Medications Medications (Trade) Dose Ordered Sig/Drea Route Start Time Stop Time Status Last Admin Dose Admin Ondansetron HCl (Zofran Inj) 4 mg Q6H PRN IV 06/25/16 14:00 07/25/16 13:59 06/26/16 20:22 4 MG Acetaminophen 650 mg 650 mg Q4H PRN PO 06/25/16 14:00 07/25/16 13:59 Piperacillin Sod/ Tazobactam Sod 4.5 gm/Dextrose 120 ml @ 30 mls/hr Q8H IV 06/25/16 18:00 07/02/16 11:59 07/01/16 10:19 30 MLS/HR Levofloxacin/Prmx (Levaquin / D5W/ Premixed D5W) 150 ml @ 100 mls/hr Q48H IV 06/27/16 13:00 07/01/16 23:59 06/29/16 16:39 100 MLS/HR Levofloxacin (Consult) 1 ea UD PRN N/A 06/25/16 15:00 07/25/16 14:59 Glucose (Glucose 40% Gel) 15-30 GRAMS 15 GRAMS... UD PRN PO 06/25/16 14:15 07/25/16 14:14 Glucose (Glucose Chew Tab) 4-8 Tablets 4 Tabl... UD PRN PO 06/25/16 14:15 07/25/16 14:14 Dextrose (Dextrose 50% 50ML Syringe) 25-50ML OF 50% DW IV FOR... UD PRN IV 06/25/16 14:15 07/25/16 14:14 Glucagon (Glucagon Inj) 1 mg UD PRN SQ 06/25/16 14:15 07/25/16 14:14 Atorvastatin Calcium (Lipitor Tab) 40 mg DAILY PO 06/26/16 09:00 07/26/16 08:59 07/01/16 07:21 40 MG Calcitriol (Rocaltrol Cap) 0.25 mcg DAILY PO 06/26/16 09:00 07/26/16 08:59 07/01/16 07:21 0.25 MCG Cholecalciferol (Vitamin D Tab) 1,000 inter.unit DAILY PO 06/26/16 09:00 07/26/16 08:59 07/01/16 07:21 1,000 INTER.UNIT Levothyroxine Sodium (Synthroid Tab) 25 mcg DAILYBB PO 06/26/16 06:00 07/26/16 05:59 07/01/16 05:51 25 MCG Levothyroxine Sodium (Synthroid Tab) 200 mcg DAILYBB PO 06/26/16 06:00 07/26/16 05:59 07/01/16 05:51 200 MCG Magnesium Hydroxide (Milk Of Magnesia Susp) 30 ml DAILY PRN PO 06/25/16 14:30 07/25/16 14:29 Bacitracin (Bacitracin Oint) 1 appln TID PRN EXT 06/25/16 14:30 07/25/16 14:29 Miscellaneous Information (Order Awaiting Action) 1 ea QS N/A 06/25/16 16:00 07/25/16 15:59 06/30/16 00:56 1 EA Miscellaneous Information (Order Awaiting Action) 1 ea QS N/A 06/25/16 16:00 07/25/16 15:59 06/30/16 00:56 1 EA Piperacillin Sod/ Tazobactam Sod (Consult) 1 ea UD PRN N/A 06/25/16 15:00 07/25/16 14:59 Miscellaneous Information (Consult Glycemic Management Pharmacy) 1 ea DAILY PRN N/A 06/26/16 09:00 07/26/16 08:59 Polyethylene (Miralax Powder Packet) 17 gm DAILY PO 06/27/16 09:00 07/27/16 08:59 07/01/16 07:20 17 GM Insulin Aspart (novoLOG ASPART) SLIDING SCALE If C... ACHS SC 06/28/16 11:00 07/28/16 10:59 07/01/16 09:09 10 UNITS Pantoprazole Sodium (Protonix Tab) 40 mg QAM PO 06/29/16 09:00 07/29/16 08:59 07/01/16 07:21 40 MG Enteral Nutritional Formula (Boost Glucose Control) 1 can TIDM PO 06/28/16 11:30 07/28/16 11:29 07/01/16 07:20 1 CAN Albuterol/ Ipratropium (Duoneb) 3 ml QIDR INH 06/28/16 12:00 07/28/16 11:59 07/01/16 11:12 3 ML Albuterol/ Ipratropium (Duoneb) 3 ml Q2H PRN INH 06/28/16 11:45 07/28/16 11:44 Insulin Glargine (Lantus Solostar Pen) 10 unit BID SC 06/29/16 09:00 07/29/16 08:59 07/01/16 07:31 10 UNIT Folic Acid 1 mg 1 mg QAM PO 07/02/16 09:00 08/01/16 08:59 Methylprednisolone Sodium Succinate/ Syringe (Solu-Medrol IV/ Syringe) 0.64 ml @ 1.5 mls/min DAILY IV 07/02/16 09:00 08/01/16 08:59 Review of Systems Review of Systems Constitutional: + chills Neurological: + dizzy Endocrine: + too cold, + too hot Gastrointestinal: + abdominal pain, + diarrhea Cardiovascular: No swelling ankles/feet Respiratory: + chronic cough Musculoskeletal: + back pain Male : + blood in urine, + nocturia more than once/night Physical Exam Vital Signs: Vital Signs Past 12 Hours Date Time Temp Pulse Resp B/P Pulse Ox O2 Delivery O2 Flow Rate FiO2 07/01/16 12:00 Nasal Cannula 07/01/16 11:54 36.3 82 18 127/72 95 2.0 07/01/16 11:12 86 16 97 Nasal Cannula 2.0 07/01/16 08:00 Nasal Cannula 07/01/16 07:54 36.4 76 18 163/70 100 2.0 07/01/16 07:08 72 16 98 Nasal Cannula 2.0 07/01/16 04:00 36.7 78 20 146/73 92 Room Air 07/01/16 04:00 Nasal Cannula 2.0 BiPAP Physical Exam: General Appearance: WD/WN, no apparent distress, + obese, + pertinent finding ( appears much younger than his stated age) Eyes: bilateral eyes normal inspection ENT: hearing grossly normal Neck: supple, no adenopathy, no JVD, trachea midline Respiratory/Chest: no respiratory distress, no accessory muscle use Gastrointestinal: Abdomen: normal abdomen Bladder: normal bladder Renal: normal renal Hernia: pertinent finding (he has soft hernia right mid abd and left groin) Extremities: non-tender, normal inspection, no pedal edema, no calf tenderness Neurologic/Psychiatric: alert, normal mood/affect, + disoriented (he is unsure of why he cant have his shoes and he does not understand why his family havent cime to pick him up) Skin: normal color, + pertinent finding (many bruises arms) Assessment & Plan Assessment & Plan gross hematuria getting better suggest remove segovia tomorrow early am will discuss cysto in office in next 3-6 weeks per patient's wishes
[2016-07-01] MEDS: LEVOFLOXACIN / D5W 750 MG in PREMIXED IN D5W 150 ML IV SCH (13:44)
[2016-07-01 16:17] LABS: POTASSIUM 3.5 mmol/L (3.5-5.1)
[2016-07-01 16:19] LABS: MAGNESIUM 2.2 mg/dl (1.8-2.4)
--- NOTE | 2016-07-01 16:23 | Pharmacy Progress Note ---
Glycemic: Assessment & Plan Date of Service Jul 01, 2016. Assessment & Plan Item Value Date Time Bedside Glucose 234 mg/dl H 07/01/16 1118 Bedside Glucose 153 mg/dl H 07/01/16 0618 Random Glucose 156 mg/dl H 07/01/16 0515 Bedside Glucose 231 mg/dl H 06/30/16 1115 Bedside Glucose 160 mg/dl H 06/30/16 0649 Random Glucose 154 mg/dl H 06/30/16 0642 PLAN: As IV Solu-Medrol continues to wean (now 40mg IV qAM), will continue to wean basal insulin with Lantus and Novolog CF/CR. * Basal insulin: DECREASED Lantus 10 units every AM, hold for BSG < 110 mg/dL * Correctional Insulin: Novolog Correction per scale ACHS Goal Range: Low 140 mg/dL - High 180 mg/dL (goal BSG range for advanced age & wanting to limit hypoglycemic event) LOOSENED Correction Factor: 25 mg/dL/unit starting with dinner * Prandial insulin: LOOSENED carb ratio of 1 unit per 10 grams CHO consumed starting with dinner. Pharmacy will continue to monitor patient daily and write orders per [facility] inpatient glycemic control protocol. Thanks. * Please note that the plan above was derived based on current level of insulin resistance and hospital stress. These recommendations are appropriate for inpatient admission only. Plan of care upon discharge will need to be reassessed to avoid potential outpatient hypo/hyperglycemia.
--- NOTE | 2016-07-01 21:02 | DIAGNOSTIC IMAGING REPORT ---
HEAD CT NONCONTRAST CT DOSE: 638.56 mGycm HISTORY: Stroke symptoms. TECHNIQUE: Multiaxial CT images of the head were performed without the use of intravenous contrast. Automated exposure control was utilized for this study. Comparison: Head CT 06/25/2016. Findings: The paranasal sinuses and mastoid air cells are clear. The calvarium and skull base are intact. There is no mass, hematoma, midline shift, acute infarct. White matter hypodensity is nonspecific but suggestive of microvascular ischemic change. The ventricles and sulci demonstrate mild age-related involutional changes. Old right frontal lobe infarct. Impression: No significant change compared to the prior study. No acute intracranial abnormality. Electronically signed by: Surendra Palma M.D. 07/01/2016 9:00 PM Dictated Date/Time: 07/01/2016 8:57 PM
[2016-07-01] MEDS ORDERED: HALOPERIDOL 1 MG TAB PO PRN (21:15)
[2016-07-01] MEDS ORDERED: HALOPERIDOL LACTATE 5 MG/ML 1 ML VIAL IM PRN (21:15)
[2016-07-02] VITALS (10 sets, daily range): BP systolic 120–138; BP diastolic 66–73; PULSE 65–90; TEMP 36.3–36.9; O2SAT 90–95
[2016-07-02] MEDS: PIPERACILL/TAZOBAC IV 4.5 GM in DEXTROSE 5% 100ML 100 ML IV SCH ×2 (02:05→10:36)
[2016-07-02] MEDS: LEVOTHYROXINE 200 MCG TAB PO SCH (05:42)
[2016-07-02] MEDS: LEVOTHYROXINE 25 MCG TAB PO SCH (05:42)
[2016-07-02] MEDS: INSULIN ASPART 100 UNITS/ML 3 ML PEN SC SCH ×4 (07:00→20:58)
[2016-07-02] MEDS: ALBUT/IPRATROP 3MG/0.5MG NEB 3 ML VIAL INH SCH ×4 (07:11→19:47)
[2016-07-02 07:50] LABS: HEMATOCRIT 32.4 % (42-52); MEAN CELL VOLUME 86.4 fL (80-100); MEAN CORPUSCULAR HEMOGLOBIN 27.5 pg (25-34); MEAN CORPUSCULAR HGB CONC 31.8 g/dl (32-36); MEAN PLATELET VOLUME 10.7 fL (7.4-10.4); PLATELET COUNT 237 K/uL (130-400); RED BLOOD COUNT 3.75 M/uL (4.7-6.1); WHITE BLOOD COUNT 12.07 K/uL (4.8-10.8)
[2016-07-02] MEDS: [UNRECOGNIZED DRUG - REMARK] SCH ×2 (08:00)
[2016-07-02] MEDS: BOOST GLUCOSE CONTROL PO SCH ×3 (08:02→16:45)
[2016-07-02] MEDS: POLYETHYLENE (MIRALAX) 17 GM PACK PO SCH (08:02)
[2016-07-02] MEDS: PANTOprazole SOD 40 MG TAB PO SCH (08:03)
[2016-07-02] MEDS: CALCITRIOL 0.25 MCG CAP PO SCH (08:03)
[2016-07-02] MEDS: ATORVASTATIN 40 MG TAB PO SCH (08:03)
[2016-07-02] MEDS: CHOLECALCIFEROL 1000 INTER.UNIT TAB PO SCH (08:04)
[2016-07-02 08:20] LABS: BUN/CREATININE RATIO 21.7 (10-20); CALCIUM 8.9 mg/dl (8.5-10.1); CREATININE 1.6 mg/dl (0.60-1.40); POTASSIUM 3.2 mmol/L (3.5-5.1)
[2016-07-02 08:26] LABS: COMPLETE YES; LYMPH ABS # 1.24 K/uL (1.2-3.4); LYMPHOCYTE % 10.3 %; META ABS # 0.63 K/uL (0-0); METAMYELOCYTE % 5.2 %; MYELOCYTE % 5.2 %; PLASMA CELL 3.4 %
[2016-07-02] MEDS ORDERED: METHYLPREDNISOLONE IV 40 MG in SYRINGE 0 ML IV SCH (09:00)
[2016-07-02] MEDS ORDERED: INSULIN GLARGINE SOLOSTAR 100 UNITS/ML 3 ML PEN SC SCH (09:00)
[2016-07-02] MEDS ORDERED: FUROSEMIDE 20 MG TAB PO ONE (09:56)
[2016-07-02] MEDS ORDERED: POTASSIUM CHLORIDE 20 MEQ TABCR PO ONE (09:56)
[2016-07-02] MEDS ORDERED: DOXYCYCLINE HYCLATE 100 MG CAP PO ONE (10:09)
--- NOTE | 2016-07-02 10:09 | Progress Note ---
Medicine Progress Note Date & Time of Visit: Jul 02, 2016 at 09:57. Subjective received 1 dose of haldol last night no signs of agitation since then patient states he feels ok overall no dyspnea, cough, sputum denies chest pain no abdominal pain, nausea urine pink tinged but improving no other symptoms Objective Last 8 Hrs Date Time Temp Pulse Resp B/P Pulse Ox O2 Delivery O2 Flow Rate FiO2 07/02/16 08:00 Room Air 07/02/16 07:44 36.7 85 16 138/70 95 Nasal Cannula 2.0 07/02/16 07:11 80 16 93 Nasal Cannula 2.0 07/02/16 07:03 36.7 85 16 138/70 95 Nasal Cannula 2.0 07/02/16 04:00 Nasal Cannula 2.0 BiPAP 07/02/16 03:15 36.3 83 20 122/68 93 Nasal Cannula 2.0 Physical Exam: General- oriented x 2, not in distress, speaks in sentences , no effort Eyes- anicteric Neck- no JVD Lungs- mild rales bilaterally, no wheeze Heart-normal rate, irregularly irregular rhythm; no murmur Abdomen- normal bowel sounds, soft, nontender Extremities-(+) grade 1 lower leg edema, no erythema/warmth/tenderness Neuro- alert, oriented x 2;no gross deficits Skin- warm & dry Laboratory Results: Last 24 Hours Test 07/01/16 11:18 07/01/16 15:50 07/02/16 06:30 07/02/16 06:56 Bedside Glucose 234 mg/dl Potassium Level 3.5 mmol/L 3.2 mmol/L Magnesium Level 2.2 mg/dl Sodium Level 142 mmol/L Chloride Level 98 mmol/L Carbon Dioxide Level 37 mmol/L Anion Gap 7.0 mmol/L Blood Urea Nitrogen 35 mg/dl Creatinine 1.60 mg/dl Est Creatinine Clear Calc Drug Dose 37.7 ml/min Estimated GFR () 44.6 Estimated GFR (Non- 38.4 BUN/Creatinine Ratio 21.7 Random Glucose 73 mg/dl Calcium Level 8.9 mg/dl White Blood Count 12.07 K/uL Red Blood Count 3.75 M/uL Hemoglobin 10.3 g/dL Hematocrit 32.4 % Mean Corpuscular Volume 86.4 fL Mean Corpuscular Hemoglobin 27.5 pg Mean Corpuscular Hemoglobin Concent 31.8 g/dl Platelet Count 237 K/uL Mean Platelet Volume 10.7 fL RDW Standard Deviation 47.3 fL RDW Coefficient of Variation 14.9 % Neutrophils % (Manual) 69.0 % Lymphocytes % (Manual) 10.3 % Monocytes % (Manual) 6.9 % Metamyelocytes % 5.2 % Myelocytes % 5.2 % Neutrophils # (Manual) 8.33 K/uL Total Absolute Neutrophils 8.33 K/uL Lymphocytes # (Manual) 1.24 K/uL Total Absolute Lymphocytes 1.24 K/uL Monocytes # (Manual) 0.83 K/uL Metamyelocytes # 0.63 K/uL Myelocytes # 0.63 K/uL Plasma Cells % 3.4 % Red Blood Cell Morphology Unremarkable Assessment & Plan SEPSIS WITH SHOCK, RESOLVED SECONDARY TO BILATERAL PNEUMONIA - off levophed, post extubation being weaned off nasal cannula not tolerating Bipap - on Zosyn and Levaquin IV Day 8 Nebs change IV steroids to prednisone ACUTE HYPOXIC HYPERCAPNIC RESPIRATORY FAILURE, Resolved - management as noted above ENCEPHALOPATHY/LETHARGY/AMS, Resolved -likely multifactorial due to hypercapnia and sepsis, improved - has episodes of delirium CT head negative monitor DAKOTA on CKD STAGE III, Resolved -likely due to sepsis and dehydration -Cr 2.5-->2.0-->1.7 -baseline Cr of 1.6-1.7 - back to baseline - resume lasix, lower dose to 20mg po daily for now - hold Lisinopril BRADYCARDIA, Resolved -has had slow atrial fibrillation intermittently per monitor -no beta blockers coumadin not recommended - Aspirin on hold for hematuria DIARRHEA, Resolved negative for C diff, stool cultures d/c laxatives MELENA -per family 1 episode black stool -Hemoccult stool + x 2 - Hg stable around [address] abdomen/pelvis: RLQ and Left Groin hernia, no signs of obstruction - d/c Heparin, Aspirin check anemia panel: low folate, replace continue Protonix daily - GI consulted, EGD/Colonoscopy not recommended at this time appreciate the input HEMATURIA - hold Heparin, Aspirin for now - improving Lopez discontinued appreciate Dr. Oakes' recommendations CAD s/p CABG x 3 VESSELS: -hold Aspirin, continue statin -MILADIS-I on hold for hypotension and DAKOTA -was not on BB DM TYPE II: well controlled -HbA1c: 6.5% -hold oral hyperglycemic medications -on lantus + insulin correction scale coverage HTN: -held lisinopril monitor HYPOTHYROIDISM -continue levothyroxine GERD -continue PPI Disposition pending management of pneumonia, hematuria as noted above PT recommending transition to ECF when stable will discuss with family Current Inpatient Medications: Current Inpatient Medications Medications (Trade) Dose Ordered Sig/Drea Route Start Time Stop Time Status Last Admin Dose Admin Ondansetron HCl (Zofran Inj) 4 mg Q6H PRN IV 06/25/16 14:00 07/25/16 13:59 06/26/16 20:22 4 MG Acetaminophen 650 mg 650 mg Q4H PRN PO 06/25/16 14:00 07/25/16 13:59 07/01/16 22:07 650 MG Piperacillin Sod/ Tazobactam Sod/ Dextrose (Zosyn Iv/D5 100ml) 120 ml @ 30 mls/hr Q8H IV 06/25/16 18:00 07/02/16 11:59 07/02/16 02:05 30 MLS/HR Glucose (Glucose 40% Gel) 15-30 GRAMS 15 GRAMS... UD PRN PO 06/25/16 14:15 07/25/16 14:14 Glucose (Glucose Chew Tab) 4-8 Tablets 4 Tabl... UD PRN PO 06/25/16 14:15 07/25/16 14:14 Dextrose (Dextrose 50% 50ML Syringe) 25-50ML OF 50% DW IV FOR... UD PRN IV 06/25/16 14:15 07/25/16 14:14 Glucagon (Glucagon Inj) 1 mg UD PRN SQ 06/25/16 14:15 07/25/16 14:14 Atorvastatin Calcium (Lipitor Tab) 40 mg DAILY PO 06/26/16 09:00 07/26/16 08:59 07/02/16 08:03 40 MG Calcitriol (Rocaltrol Cap) 0.25 mcg DAILY PO 06/26/16 09:00 07/26/16 08:59 07/02/16 08:03 0.25 MCG Cholecalciferol (Vitamin D Tab) 1,000 inter.unit DAILY PO 06/26/16 09:00 07/26/16 08:59 07/02/16 08:04 1,000 INTER.UNIT Levothyroxine Sodium (Synthroid Tab) 25 mcg DAILYBB PO 06/26/16 06:00 07/26/16 05:59 07/02/16 05:42 25 MCG Levothyroxine Sodium (Synthroid Tab) 200 mcg DAILYBB PO 06/26/16 06:00 07/26/16 05:59 07/02/16 05:42 200 MCG Magnesium Hydroxide (Milk Of Magnesia Susp) 30 ml DAILY PRN PO 06/25/16 14:30 07/25/16 14:29 Bacitracin (Bacitracin Oint) 1 appln TID PRN EXT 06/25/16 14:30 07/25/16 14:29 Miscellaneous Information (Order Awaiting Action) 1 ea QS N/A 06/25/16 16:00 07/25/16 15:59 06/30/16 00:56 1 EA Miscellaneous Information (Order Awaiting Action) 1 ea QS N/A 06/25/16 16:00 07/25/16 15:59 06/30/16 00:56 1 EA Piperacillin Sod/ Tazobactam Sod (Consult) 1 ea UD PRN N/A 06/25/16 15:00 07/25/16 14:59 Miscellaneous Information (Consult Glycemic Management Pharmacy) 1 ea DAILY PRN N/A 06/26/16 09:00 07/26/16 08:59 Polyethylene (Miralax Powder Packet) 17 gm DAILY PO 06/27/16 09:00 07/27/16 08:59 07/02/16 08:02 17 GM Insulin Aspart (novoLOG ASPART) SLIDING SCALE If C... ACHS SC 06/28/16 11:00 07/28/16 10:59 07/01/16 17:41 7 UNITS Pantoprazole Sodium (Protonix Tab) 40 mg QAM PO 06/29/16 09:00 07/29/16 08:59 07/02/16 08:03 40 MG Enteral Nutritional Formula (Boost Glucose Control) 1 can TIDM PO 06/28/16 11:30 07/28/16 11:29 07/02/16 08:02 1 CAN Albuterol/ Ipratropium (Duoneb) 3 ml QIDR INH 06/28/16 12:00 07/28/16 11:59 07/02/16 07:11 3 ML Albuterol/ Ipratropium (Duoneb) 3 ml Q2H PRN INH 06/28/16 11:45 07/28/16 11:44 Folic Acid 1 mg 1 mg QAM PO 07/02/16 09:00 08/01/16 08:59 07/02/16 08:04 1 MG Methylprednisolone Sodium Succinate/ Syringe (Solu-Medrol IV/ Syringe) 0.64 ml @ 1.5 mls/min DAILY IV 07/02/16 09:00 08/01/16 08:59 07/02/16 08:03 1.5 MLS/MIN Insulin Glargine (Lantus Solostar Pen) 10 unit QAM SC 07/02/16 09:00 08/01/16 08:59 Future Hold 07/02/16 08:15 10 UNIT Haloperidol (Haldol Tab) 2 mg Q4H PRN PO 07/01/16 21:15 07/31/16 21:14 Haloperidol Lactate (Haldol Inj) 2 mg Q2H PRN IM 07/01/16 21:15 07/31/16 21:14 07/01/16 21:21 2 MG
--- NOTE | 2016-07-02 13:24 | Pharmacy Progress Note ---
Glycemic Control: Progress Nt Date of Service Jul 02, 2016. Scope Glycemic Pharmacist consulted by Dr Beebe on 06/26/16 for glycemic control and to write orders per [facility] inpatient glycemic control protocol. Objective Accuchecks BSG (last 24hrs): Test 07/01/16 16:02 07/01/16 20:02 07/02/16 06:17 07/02/16 06:30 Bedside Glucose 258 mg/dl (70-99) 140 mg/dl (70-99) 79 mg/dl (70-99) Random Glucose 73 mg/dl (70-99) Test 07/02/16 10:00 07/02/16 11:16 Bedside Glucose 152 mg/dl (70-99) 187 mg/dl (70-99) Laboratory Data (last 24hrs) Test 07/01/16 15:50 07/02/16 06:30 07/02/16 06:56 Potassium Level 3.5 mmol/L 3.2 mmol/L Anion Gap 7.0 mmol/L BUN/Creatinine Ratio 21.7 Blood Urea Nitrogen 35 mg/dl Creatinine 1.60 mg/dl Sodium Level 142 mmol/L White Blood Count 12.07 K/uL Red Blood Count 3.75 M/uL Hemoglobin 10.3 g/dL Hematocrit 32.4 % Mean Corpuscular Volume 86.4 fL Mean Corpuscular Hemoglobin 27.5 pg Mean Corpuscular Hemoglobin Concent 31.8 g/dl Platelet Count 237 K/uL Mean Platelet Volume 10.7 fL HbA1c: Test 06/26/16 03:14 Hemoglobin A1c 6.5 % (4.5-5.6) H Recent Pertinent Medications Outpatient Anti-diabetic Regimen: * Actos 30mg PO daily * A1c = 6.5 % 06/26/16 The patient is currently receiving: * Basal insulin: Lantus 10 units SQ daily * Correctional Insulin: NovoLog Correction per scale AC and HS Goal Range: Low 140 mg/dL - High 180 mg/dL Correction Factor: 25 mg/dL/unit * Prandial insulin: Per carb ratio of 1 unit per 10 grams CHO consumed Risk Factors for Insulin Resistance: * Steroids: Solu-Medrol 40mg IV daily --> prednisone 30mg PO daily starting * Infection: sepsis: current ABX include pip/tazo --> doxycycline PO today * Diet: T2DM/AHA + Boost glucose control TID with meals Assessment & Plan ASSESSMENT: * ADA & AACE recommend a goal blood sugar range 140-180 mg/dl for the majority of critically ill & non-critically ill patients. However, more stringent targets may be selected in individual cases. 06/26/16 * 85 y/o type 2 diabetic who is know from historical admissions to the glycemic consult service. * in 2013 the patient was admitted and ordered around the clock steroids. At that time, he required ~50 units of insulin per day at this time. His insulin needs precipitously dropped as his steroids were change to oral therapy and tapered off. It is likely that Mr. Camacho needs additional insulin at this time to compensate for the higher physiologic stress as well ATC steroids * BSGs becoming increasingly elevated over the last 12-24 hours. * add basal insulin * increase Accu-check frequency to every 4 hours * A1c is current and shows appropriate outpatient glycemic control on oral medication alone. 06/28/16 * Mr. Camacho received 29 units of insulin on 06/27 with BSGs ranging from 85- 252mg/dL * BSGs improved greatly after Lantus "load" in the mornig of 06/27 * Fasting BSG slightly below goal range for ICU patients this AM and current insulin regimen heavily weighted toward glargine * Decrease Lantus again to 7 units SQ BID * Continue with NovoLog as ordered as BSGs reacted well yesterday to corrections * hopeful to use more correction with decreased basal doses for a more even insulin ratio * Nutritional supplements started * difficult to cover with SQ insulin as patient's tend to sip over multiple hours - will continue to try to cover CHO with NovoLog 06/30/16 * BSGs ranging 128 - 231 mg/dl over the past 24hrs. * Steroids are beginning to taper today --> Solu-medrol 40mg IV [id number] --> now [id number]. * No change to current inpatient glycemic regimen. Will need to loosen Novolog parameters and reduce Lantus dose as steroid effect diminishes. Pt's insulin needs are inflated when on solu-medrol compared to prednisone in the past. * Will add a hold parameter to Lantus to avoid inducing hypoglycemia as steroids are tapered. 07/02/16 * Fasting BSG well below goal this morning * Discontinue basal insulin at this time * Steroids further changed today from Solu-Medrol 40mg IV daily --> Prednisone 30mg PO daily (starting 07/03) * Loosen NovoLog parameters. * Erratic eating habits * difficult to assess insulin needs - continue to monitor PLAN FOR INPATIENT GLYCEMIC CONTROL: * Discontinue Lantus * Continue NovoLog AC and HS * Continue goal range 140-180mg/dL per ADA recommendations * Correction factor of 35 mg/dL/unit * Carb ratio of 1 unit per 12 g of CHO consumed * A1c - current * Added to discharge instructions * Likely, Dayron can continue his home regimen upon discharge. * Please note that the plan above was derived based on current level of insulin resistance and hospital stress. These recommendations are appropriate for inpatient admission only. Plan of care upon discharge will need to be reassessed to avoid potential outpatient hypo/hyperglycemia. Thank you.
--- NOTE | 2016-07-02 15:04 | Cardiology Follow-Up ---
Subjective General Date of Service: Jul 02, 2016. Chief Complaint: sepsis; bradycardia Pt evaluation today including: conversation w/ patient, physical exam, chart review, lab review, review of studies, review of inpatient medication list History of Present Illness Patient confused and disoriented overnight and this AM. He offers no complaints at this time. Denies chest pain or SOB. No bradyarrhythmias on monitor. Segovia removed about 1 hour ago per urology recommendations. Allergies Coded Allergies: No Known Allergies (Verified , 06/25/16) Social History Smoking Status: Former Smoker Hx Tobacco Use In Past Year?: No Hx Alcohol Use - Type And Amou: No (BEER 3 cans daily) Hx Substance Use - Type And Am: No Problem List Medical Problems: (1) Abnormal EKG Status: Acute (2) Altered mental status Status: Acute (3) Elevated troponin Status: Acute (4) Hypoxia Status: Acute (5) Pneumonia Status: Acute Review of Systems Respiratory: No cough, No dyspnea at rest, No hemoptysis, No shortness of breath, No sputum, No wheezing Cardiac: + edema, No PND, No chest pain, No palpitations Physical Exam Vital Signs Last Vital Signs Documentation Date Time Temp Pulse Resp B/P Pulse Ox O2 Delivery O2 Flow Rate FiO2 07/02/16 12:00 Room Air 07/02/16 11:11 88 16 90 1.0 07/02/16 10:44 36.6 120/66 06/30/16 22:07 30 Physical Exam Constitutional: General Apperance: well-nourished Level of Distress: NAD, chronically ill Psychiatric: Mental Status: active & alert Orientation: to place, to person Eyes: Pupils: PERRLA Neck: supple Lungs: Auscultation: no wheezing, no rales/crackles Cardiovascular: Heart Auscultation: no murmurs, irregular rate rhythm Extremities: edema (1+ pedal and ankle edema) Assessment and Plan Assessment and Plan Impression: 85 year old male 1. bradycardia, resolved 2. rate controlled AF 3. H/o CAD, CABG 4. Sepsis/ pneumonia-improving 5. Hematuria 6. Hypokalemia Plan: No recurrent bradyarrhythmias. Monitor off of AV darell blockers. Pt is a poor candidate for anticoagulation. No Coumadin advised. SQ heparin and aspirin on hold due to hematuria. If hematuria resolves after discontinuing segovia, will likely need to resume ASA therapy given chronic afib. Supplement potassium and recheck this afternoon. Agree with resuming low dose furosemide given mild LE edema. Case discussed with Dr. Small. Will follow. CARDIOLOGY ATTENDING ADDENDUM: The patient was seen and personally examined. Agree with Corinne Varela PA-C's findings and plans as documented above. Laboratory Results Last 24 Hours Test 07/01/16 15:50 07/01/16 16:02 07/01/16 20:02 07/02/16 06:17 Potassium Level 3.5 mmol/L Magnesium Level 2.2 mg/dl Bedside Glucose 258 mg/dl 140 mg/dl 79 mg/dl Test 07/02/16 06:30 07/02/16 06:56 07/02/16 10:00 07/02/16 11:16 Sodium Level 142 mmol/L Potassium Level 3.2 mmol/L Chloride Level 98 mmol/L Carbon Dioxide Level 37 mmol/L Anion Gap 7.0 mmol/L Blood Urea Nitrogen 35 mg/dl Creatinine 1.60 mg/dl Est Creatinine Clear Calc Drug Dose 37.7 ml/min Estimated GFR () 44.6 Estimated GFR (Non- 38.4 BUN/Creatinine Ratio 21.7 Random Glucose 73 mg/dl Calcium Level 8.9 mg/dl White Blood Count 12.07 K/uL Red Blood Count 3.75 M/uL Hemoglobin 10.3 g/dL Hematocrit 32.4 % Mean Corpuscular Volume 86.4 fL Mean Corpuscular Hemoglobin 27.5 pg Mean Corpuscular Hemoglobin Concent 31.8 g/dl Platelet Count 237 K/uL Mean Platelet Volume 10.7 fL RDW Standard Deviation 47.3 fL RDW Coefficient of Variation 14.9 % Neutrophils % (Manual) 69.0 % Lymphocytes % (Manual) 10.3 % Monocytes % (Manual) 6.9 % Metamyelocytes % 5.2 % Myelocytes % 5.2 % Neutrophils # (Manual) 8.33 K/uL Total Absolute Neutrophils 8.33 K/uL Lymphocytes # (Manual) 1.24 K/uL Total Absolute Lymphocytes 1.24 K/uL Monocytes # (Manual) 0.83 K/uL Metamyelocytes # 0.63 K/uL Myelocytes # 0.63 K/uL Plasma Cells % 3.4 % Red Blood Cell Morphology Unremarkable Bedside Glucose 152 mg/dl 187 mg/dl
[2016-07-02] MEDS: FERROUS SULFATE 325 MG TAB PO SCH (16:45)
[2016-07-02] MEDS: DOXYCYCLINE HYCLATE 100 MG CAP PO SCH ×2 (20:58→20:59)
[2016-07-03] VITALS (10 sets, daily range): BP systolic 111–135; BP diastolic 56–83; PULSE 83–103; TEMP 36.5–37.1; O2SAT 88–96
[2016-07-03] MEDS: LEVOTHYROXINE 25 MCG TAB PO SCH (06:08)
[2016-07-03] MEDS: LEVOTHYROXINE 200 MCG TAB PO SCH (06:08)
[2016-07-03] MEDS: INSULIN ASPART 100 UNITS/ML 3 ML PEN SC SCH ×4 (07:00→20:21)
[2016-07-03] MEDS: ALBUT/IPRATROP 3MG/0.5MG NEB 3 ML VIAL INH SCH ×4 (07:06→19:09)
[2016-07-03] MEDS: BOOST GLUCOSE CONTROL PO SCH ×3 (07:30→16:45)
[2016-07-03] MEDS: [UNRECOGNIZED DRUG - REMARK] SCH ×4 (08:00→23:43)
[2016-07-03] MEDS ORDERED: POTASSIUM CHLORIDE 20 MEQ TABCR PO SCH (09:00)
[2016-07-03] MEDS ORDERED: FUROSEMIDE 20 MG TAB PO SCH (09:00)
[2016-07-03] MEDS: CALCITRIOL 0.25 MCG CAP PO SCH (09:04)
[2016-07-03] MEDS: DOXYCYCLINE HYCLATE 100 MG CAP PO SCH ×2 (09:04→20:29)
[2016-07-03] MEDS: ATORVASTATIN 40 MG TAB PO SCH (09:04)
[2016-07-03] MEDS: PANTOprazole SOD 40 MG TAB PO SCH (09:04)
[2016-07-03] MEDS: CHOLECALCIFEROL 1000 INTER.UNIT TAB PO SCH (09:04)
[2016-07-03] MEDS: FERROUS SULFATE 325 MG TAB PO SCH ×2 (09:05→16:45)
[2016-07-03] MEDS: POLYETHYLENE (MIRALAX) 17 GM PACK PO SCH (09:05)
--- NOTE | 2016-07-03 10:03 | Cardiology Follow-Up ---
Subjective General Date of Service: Jul 03, 2016. Chief Complaint: sepsis; bradycardia Pt evaluation today including: conversation w/ patient, physical exam, chart review, lab review, review of studies, review of inpatient medication list History of Present Illness Patient is pleasantly confused this AM. Denies complaints of CP or SOB. Rate controlled atrial fib/flutter on monitor. NO bradyarrhythmias. Allergies Coded Allergies: No Known Allergies (Verified , 06/25/16) Social History Smoking Status: Former Smoker Hx Tobacco Use In Past Year?: No Hx Alcohol Use - Type And Amou: No (BEER 3 cans daily) Hx Substance Use - Type And Am: No Problem List Medical Problems: (1) Abnormal EKG Status: Acute (2) Altered mental status Status: Acute (3) Elevated troponin Status: Acute (4) Hypoxia Status: Acute (5) Pneumonia Status: Acute Review of Systems Respiratory: No cough, No dyspnea at rest, No hemoptysis, No shortness of breath, No sputum Cardiac: No PND, No chest pain, No edema, No orthopnea, No palpitations Physical Exam Vital Signs Last Vital Signs Documentation Date Time Temp Pulse Resp B/P Pulse Ox O2 Delivery O2 Flow Rate FiO2 07/03/16 08:00 Nasal Cannula 2.0 07/03/16 07:30 36.7 89 20 127/73 93 06/30/16 22:07 30 Physical Exam Constitutional: General Apperance: well-nourished Level of Distress: NAD, chronically ill Psychiatric: Mental Status: active & alert Orientation: to place, to person Eyes: Pupils: PERRLA Neck: supple Lungs: Auscultation: no wheezing, no rales/crackles Cardiovascular: Heart Auscultation: no murmurs, irregular rate rhythm Abdomen: Bowel Sounds: normal, diminished Inspection & Palpation: non-distended Extremities: edema (1+ pedal and ankle edema) Assessment and Plan Assessment and Plan Impression: 85 year old male 1. bradycardia, resolved 2. rate controlled AF 3. H/o CAD, CABG 4. Sepsis/ pneumonia-improving 5. Hematuria 6. Hypokalemia Plan: No recurrent bradyarrhythmias. Monitor off of AV darell blockers. Pt is a poor candidate for anticoagulation. No Coumadin advised. SQ heparin and aspirin on hold due to hematuria. If hematuria resolves after discontinuing segovia, will need to resume ASA therapy given chronic afib. Repeat labs pending this AM. Monitor renal function/electrolytes Furosemide resumed. Case discussed with Dr. Small. Stable cardiac signs/symptoms. Will sign off. Please notify extrusion die coordinator cardiology provider if there are any additional questions or concerns. CARDIOLOGY ATTENDING ADDENDUM: The patient was seen and personally examined. Agree with Corinne Varela PA-C's findings and plans as documented above. Recommend that primary service resume pt's aspirin when felt to be stable from a hematuria standpoint. Pt is not on pharmacologic DVT prophylaxis due to the transient hematuria, Risk / benefits of this need to be assessed daily. Blake Small, DO Laboratory Results Last 24 Hours Test 07/02/16 10:00 07/02/16 11:16 07/02/16 16:39 07/02/16 20:29 Bedside Glucose 152 mg/dl 187 mg/dl 243 mg/dl 186 mg/dl Test 07/03/16 04:44 07/03/16 07:28 Bedside Glucose 93 mg/dl
[2016-07-03 11:40] LABS: HEMATOCRIT 36.7 % (42-52); MEAN CELL VOLUME 85.9 fL (80-100); MEAN CORPUSCULAR HEMOGLOBIN 27.6 pg (25-34); MEAN CORPUSCULAR HGB CONC 32.2 g/dl (32-36); MEAN PLATELET VOLUME 10.2 fL (7.4-10.4); PLATELET COUNT 266 K/uL (130-400); RED BLOOD COUNT 4.27 M/uL (4.7-6.1); WHITE BLOOD COUNT 15.43 K/uL (4.8-10.8)
[2016-07-03 12:17] LABS: BUN/CREATININE RATIO 17.2 (10-20); CREATININE 1.5 mg/dl (0.60-1.40)
[2016-07-03 12:51] LABS: BASO % 0.7 %; BASO ABS # 0.11 K/uL (0-0.2); COMPLETE YES; EOS % 2.9 %; HYPERSEGMENTED POLYS 1+; IG% 7.3 %; LYMPH % 22.1 %; LYMPH ABS # 3.41 K/uL (1.2-3.4); MONO % 7.5 %; NEUT % 59.5 %
[2016-07-03] MEDS ORDERED: ASPIRIN 81 MG ECTAB PO ONE (12:53)
--- NOTE | 2016-07-03 12:54 | Progress Note ---
Medicine Progress Note Date & Time of Visit: Jul 03, 2016 at 12:47. Subjective patient noted to be agitated and confused again overnight this morning, patient also noted that patient seems confused on exam, patient resting, calm, pleasant oriented to person only denies dyspnea, cough improving no abdominal pain, nausea no note of hematuria denies other symptoms Objective Last 8 Hrs Date Time Temp Pulse Resp B/P Pulse Ox O2 Delivery O2 Flow Rate FiO2 07/03/16 12:00 Nasal Cannula 2.0 07/03/16 11:35 37.1 103 20 134/68 91 Nasal Cannula 1.0 07/03/16 11:31 83 16 88 Nasal Cannula 2.0 07/03/16 08:00 Nasal Cannula 2.0 07/03/16 07:30 36.7 89 20 127/73 93 Nasal Cannula 2.0 07/03/16 07:06 83 16 88 Nasal Cannula 2.0 Physical Exam: General- oriented x 1, not in distress, speaks in sentences , no effort Eyes- anicteric Neck- no JVD Lungs- mild bibasilar rales, no wheeze Heart-normal rate, irregularly irregular rhythm; no murmur Abdomen- normal bowel sounds, soft, nontender Extremities-(+) mild lower leg edema, no erythema/warmth/tenderness Neuro- alert, oriented x 1;no gross deficits Skin- warm & dry Laboratory Results: Last 24 Hours Test 07/02/16 16:39 07/02/16 20:29 07/03/16 07:28 07/03/16 11:32 Bedside Glucose 243 mg/dl 186 mg/dl 93 mg/dl White Blood Count 15.43 K/uL Red Blood Count 4.27 M/uL Hemoglobin 11.8 g/dL Hematocrit 36.7 % Mean Corpuscular Volume 85.9 fL Mean Corpuscular Hemoglobin 27.6 pg Mean Corpuscular Hemoglobin Concent 32.2 g/dl Platelet Count 266 K/uL Mean Platelet Volume 10.2 fL RDW Standard Deviation 47.7 fL RDW Coefficient of Variation 15.2 % Sodium Level 142 mmol/L Potassium Level 4.0 mmol/L Chloride Level 99 mmol/L Carbon Dioxide Level 34 mmol/L Anion Gap 9.0 mmol/L Blood Urea Nitrogen 26 mg/dl Creatinine 1.50 mg/dl Est Creatinine Clear Calc Drug Dose 40.0 ml/min Estimated GFR () 48.2 Estimated GFR (Non- 41.6 BUN/Creatinine Ratio 17.2 Random Glucose 113 mg/dl Calcium Level 9.0 mg/dl Test 07/03/16 11:34 Bedside Glucose 136 mg/dl Assessment & Plan SEPSIS WITH SHOCK, RESOLVED SECONDARY TO BILATERAL PNEUMONIA - off levophed, post extubation being weaned off nasal cannula not tolerating Bipap - on Zosyn and Levaquin IV Day 9 Nebs change IV steroids to prednisone , will d/c now as may be contributing to confusion ENCEPHALOPATHY/LETHARGY/AMS, Resolved -likely multifactorial due to hypercapnia and sepsis, improved initially - seems to have been recurring for the past 2-3 days Levaquin changed to Doxy, Steroids discontinued CT head negative will consult Neurology ACUTE HYPOXIC HYPERCAPNIC RESPIRATORY FAILURE, Resolved - management as noted above DAKOTA on CKD STAGE III, Resolved -likely due to sepsis and dehydration -Cr 2.5-->2.0-->1.7 -baseline Cr of 1.6-1.7 - back to baseline - resumed lasix, lower dose to 20mg po daily for now - hold Lisinopril BRADYCARDIA, Resolved -has had slow atrial fibrillation intermittently per monitor -no beta blockers coumadin not recommended - resume Aspirin today DIARRHEA, Resolved negative for C diff, stool cultures d/c laxatives MELENA, Resolved -per family 1 episode black stool -Hemoccult stool + x 2 - Hg stable around [address] abdomen/pelvis: RLQ and Left Groin hernia, no signs of obstruction - check anemia panel: low folate, replace resume Aspirin, heparin continue Protonix daily - GI consulted, EGD/Colonoscopy not recommended at this time appreciate the input HEMATURIA - improving Lopez discontinued appreciate Dr. Oakes' recommendations - monitor CAD s/p CABG x 3 VESSELS: -resume Aspirin, continue statin -MILADIS-I on hold for hypotension and DAKOTA -was not on BB DM TYPE II: well controlled -HbA1c: 6.5% -hold oral hyperglycemic medications -on lantus + insulin correction scale coverage HTN: -held lisinopril monitor HYPOTHYROIDISM -continue levothyroxine GERD -continue PPI Disposition pending management of altered mental status, pneumonia as noted above family would prefer for patient to return home with caregiver and homehealth services Current Inpatient Medications: Current Inpatient Medications Medications (Trade) Dose Ordered Sig/Drea Route Start Time Stop Time Status Last Admin Dose Admin Ondansetron HCl (Zofran Inj) 4 mg Q6H PRN IV 06/25/16 14:00 07/25/16 13:59 06/26/16 20:22 4 MG Acetaminophen (Tylenol Tab) 650 mg Q4H PRN PO 06/25/16 14:00 07/25/16 13:59 07/01/16 22:07 650 MG Glucose (Glucose 40% Gel) 15-30 GRAMS 15 GRAMS... UD PRN PO 06/25/16 14:15 07/25/16 14:14 Glucose (Glucose Chew Tab) 4-8 Tablets 4 Tabl... UD PRN PO 06/25/16 14:15 07/25/16 14:14 Dextrose (Dextrose 50% 50ML Syringe) 25-50ML OF 50% DW IV FOR... UD PRN IV 06/25/16 14:15 07/25/16 14:14 Glucagon (Glucagon Inj) 1 mg UD PRN SQ 06/25/16 14:15 07/25/16 14:14 Atorvastatin Calcium (Lipitor Tab) 40 mg DAILY PO 06/26/16 09:00 07/26/16 08:59 07/03/16 09:04 40 MG Calcitriol (Rocaltrol Cap) 0.25 mcg DAILY PO 06/26/16 09:00 07/26/16 08:59 07/03/16 09:04 0.25 MCG Cholecalciferol (Vitamin D Tab) 1,000 inter.unit DAILY PO 06/26/16 09:00 07/26/16 08:59 07/03/16 09:04 1,000 INTER.UNIT Levothyroxine Sodium (Synthroid Tab) 25 mcg DAILYBB PO 06/26/16 06:00 07/26/16 05:59 07/03/16 06:08 25 MCG Levothyroxine Sodium (Synthroid Tab) 200 mcg DAILYBB PO 06/26/16 06:00 07/26/16 05:59 07/03/16 06:08 200 MCG Magnesium Hydroxide (Milk Of Magnesia Susp) 30 ml DAILY PRN PO 06/25/16 14:30 07/25/16 14:29 Bacitracin (Bacitracin Oint) 1 appln TID PRN EXT 06/25/16 14:30 07/25/16 14:29 Miscellaneous Information (Order Awaiting Action) 1 ea QS N/A 06/25/16 16:00 07/25/16 15:59 06/30/16 00:56 1 EA Miscellaneous Information (Order Awaiting Action) 1 ea QS N/A 06/25/16 16:00 07/25/16 15:59 06/30/16 00:56 1 EA Miscellaneous Information (Consult Glycemic Management Pharmacy) 1 ea DAILY PRN N/A 06/26/16 09:00 07/26/16 08:59 Polyethylene (Miralax Powder Packet) 17 gm DAILY PO 06/27/16 09:00 07/27/16 08:59 07/03/16 09:05 17 GM Insulin Aspart (novoLOG ASPART) SLIDING SCALE If C... ACHS SC 06/28/16 11:00 07/28/16 10:59 07/02/16 20:58 1 UNITS Pantoprazole Sodium (Protonix Tab) 40 mg QAM PO 06/29/16 09:00 07/29/16 08:59 07/03/16 09:04 40 MG Enteral Nutritional Formula (Boost Glucose Control) 1 can TIDM PO 06/28/16 11:30 07/28/16 11:29 07/02/16 08:02 1 CAN Albuterol/ Ipratropium (Duoneb) 3 ml QIDR INH 06/28/16 12:00 07/28/16 11:59 07/03/16 11:30 3 ML Albuterol/ Ipratropium (Duoneb) 3 ml Q2H PRN INH 06/28/16 11:45 07/28/16 11:44 Folic Acid (Folvite Tab) 1 mg QAM PO 07/02/16 09:00 08/01/16 08:59 07/03/16 09:04 1 MG Haloperidol (Haldol Tab) 2 mg Q4H PRN PO 07/01/16 21:15 07/31/16 21:14 Haloperidol Lactate (Haldol Inj) 2 mg Q2H PRN IM 07/01/16 21:15 07/31/16 21:14 07/01/16 21:21 2 MG Furosemide (Lasix Tab) 20 mg QAM PO 07/03/16 09:00 08/02/16 08:59 07/03/16 09:06 20 MG Ferrous Sulfate (Feosol Tab) 325 mg BIDM PO 07/02/16 16:45 08/01/16 16:44 07/03/16 09:05 325 MG Doxycycline Hyclate (Vibramycin Cap) 100 mg BID PO 07/02/16 21:00 07/09/16 08:59 07/03/16 09:04 100 MG Aspirin (Ecotrin Tab) 81 mg QAM PO 07/04/16 09:00 08/03/16 08:59 UNV Aspirin (Ecotrin Tab) 81 mg 1233 ONCE PO 07/03/16 12:33 07/03/16 12:34 UNV Heparin Sodium (Porcine) (Heparin Sq 5000 Unit/0.5ml) 5,000 unit Q12 SQ 07/03/16 21:00 08/02/16 20:59 UNV
--- NOTE | 2016-07-03 15:08 | Neurology Consultation ---
Neurology Consultation Date of Consultation: Jul 03, 2016. Attending Physician: Ab Mcpherson MD Primary Care Physician: Ivan Campoverde M.D. Reason for Consultation: altered mental status History of Present Illness Source: patient Dayron is a 85 year old male who has a PMH of CAD, hypertension, DM type 2, COPD, hypothyroidism, CKD stage III, dyslipidemia, history of clostridium difficile. He was sent to the ED by ambulance after being seen in Dr Huffman's office. At his office he was hypoxic at 75^ on RA and HR was 118 and febrile 39.2. It was report he was ill 3 days prior with increasing SOB from baseline, generalized weakness, lethargy, poor PO intake, rhinorrhea, sore throat, cough with yellow sputum increased from baseline, subjective fever, sweats, chills/ rigors, disorientation (normally oriented x 3). Then he had 2 episodes of diarrhea with black stools. He was intubated on 06/26 due to respiratory issues and extubated 06/27. He was given broad spectrum antibiotics and IV steroids. Today he is sitting beside and states he is doing fine. denies CP, SOB, abdominal pain, weakness, numbness tingling, N, V. Past Medical/Surgical History Medical Problems: (1) Abnormal EKG Status: Acute (2) Altered mental status Status: Acute (3) Elevated troponin Status: Acute (4) Hypoxia Status: Acute (5) Pneumonia Status: Acute Social History Alcohol Use: occasionally Drug Use: none Marital Status: Housing Status: lives with family Occupation Status: retired Allergies Coded Allergies: No Known Allergies (Verified , 06/25/16) Current Inpatient Medications Current Inpatient Medications Medications (Trade) Dose Ordered Sig/Drea Route Start Time Stop Time Status Last Admin Dose Admin Ondansetron HCl (Zofran Inj) 4 mg Q6H PRN IV 06/25/16 14:00 07/25/16 13:59 06/26/16 20:22 4 MG Acetaminophen (Tylenol Tab) 650 mg Q4H PRN PO 06/25/16 14:00 07/25/16 13:59 07/01/16 22:07 650 MG Glucose (Glucose 40% Gel) 15-30 GRAMS 15 GRAMS... UD PRN PO 06/25/16 14:15 07/25/16 14:14 Glucose (Glucose Chew Tab) 4-8 Tablets 4 Tabl... UD PRN PO 06/25/16 14:15 07/25/16 14:14 Dextrose (Dextrose 50% 50ML Syringe) 25-50ML OF 50% DW IV FOR... UD PRN IV 06/25/16 14:15 07/25/16 14:14 Glucagon (Glucagon Inj) 1 mg UD PRN SQ 06/25/16 14:15 07/25/16 14:14 Atorvastatin Calcium (Lipitor Tab) 40 mg DAILY PO 06/26/16 09:00 07/26/16 08:59 07/03/16 09:04 40 MG Calcitriol (Rocaltrol Cap) 0.25 mcg DAILY PO 06/26/16 09:00 07/26/16 08:59 07/03/16 09:04 0.25 MCG Cholecalciferol (Vitamin D Tab) 1,000 inter.unit DAILY PO 06/26/16 09:00 07/26/16 08:59 07/03/16 09:04 1,000 INTER.UNIT Levothyroxine Sodium (Synthroid Tab) 25 mcg DAILYBB PO 06/26/16 06:00 07/26/16 05:59 07/03/16 06:08 25 MCG Levothyroxine Sodium (Synthroid Tab) 200 mcg DAILYBB PO 06/26/16 06:00 07/26/16 05:59 07/03/16 06:08 200 MCG Magnesium Hydroxide (Milk Of Magnesia Susp) 30 ml DAILY PRN PO 06/25/16 14:30 07/25/16 14:29 Bacitracin (Bacitracin Oint) 1 appln TID PRN EXT 06/25/16 14:30 07/25/16 14:29 Miscellaneous Information (Order Awaiting Action) 1 ea QS N/A 06/25/16 16:00 07/25/16 15:59 06/30/16 00:56 1 EA Miscellaneous Information (Order Awaiting Action) 1 ea QS N/A 06/25/16 16:00 07/25/16 15:59 06/30/16 00:56 1 EA Miscellaneous Information (Consult Glycemic Management Pharmacy) 1 ea DAILY PRN N/A 06/26/16 09:00 07/26/16 08:59 Polyethylene (Miralax Powder Packet) 17 gm DAILY PO 06/27/16 09:00 07/27/16 08:59 07/03/16 09:05 17 GM Insulin Aspart (novoLOG ASPART) SLIDING SCALE If C... ACHS SC 06/28/16 11:00 07/28/16 10:59 07/02/16 20:58 1 UNITS Pantoprazole Sodium (Protonix Tab) 40 mg QAM PO 06/29/16 09:00 07/29/16 08:59 07/03/16 09:04 40 MG Enteral Nutritional Formula (Boost Glucose Control) 1 can TIDM PO 06/28/16 11:30 07/28/16 11:29 07/02/16 08:02 1 CAN Albuterol/ Ipratropium (Duoneb) 3 ml QIDR INH 06/28/16 12:00 07/28/16 11:59 07/03/16 11:30 3 ML Albuterol/ Ipratropium (Duoneb) 3 ml Q2H PRN INH 06/28/16 11:45 07/28/16 11:44 Folic Acid (Folvite Tab) 1 mg QAM PO 07/02/16 09:00 08/01/16 08:59 07/03/16 09:04 1 MG Haloperidol (Haldol Tab) 2 mg Q4H PRN PO 07/01/16 21:15 07/31/16 21:14 Haloperidol Lactate (Haldol Inj) 2 mg Q2H PRN IM 07/01/16 21:15 07/31/16 21:14 07/01/16 21:21 2 MG Furosemide (Lasix Tab) 20 mg QAM PO 07/03/16 09:00 08/02/16 08:59 07/03/16 09:06 20 MG Ferrous Sulfate (Feosol Tab) 325 mg BIDM PO 07/02/16 16:45 08/01/16 16:44 07/03/16 09:05 325 MG Doxycycline Hyclate (Vibramycin Cap) 100 mg BID PO 07/02/16 21:00 07/09/16 08:59 07/03/16 09:04 100 MG Aspirin (Ecotrin Tab) 81 mg QAM PO 07/04/16 09:00 08/03/16 08:59 Heparin Sodium (Porcine) (Heparin Sq 5000 Unit/0.5ml) 5,000 unit Q12 SQ 07/03/16 21:00 08/02/16 20:59 Physical Exam Vital Signs (Past 24 Hrs): Date Time Temp Pulse Resp B/P Pulse Ox O2 Delivery O2 Flow Rate FiO2 07/03/16 12:00 Nasal Cannula 2.0 07/03/16 11:35 37.1 103 20 134/68 91 Nasal Cannula 1.0 07/03/16 11:31 83 16 88 Nasal Cannula 2.0 07/03/16 08:00 Nasal Cannula 2.0 07/03/16 07:30 36.7 89 20 127/73 93 Nasal Cannula 2.0 07/03/16 07:06 83 16 88 Nasal Cannula 2.0 07/03/16 04:00 Nasal Cannula 07/03/16 03:54 36.9 84 20 111/56 90 Nasal Cannula 2.0 07/03/16 00:00 36.5 88 20 115/61 94 Nasal Cannula 2.0 07/02/16 23:59 Nasal Cannula 07/02/16 20:00 Nasal Cannula 07/02/16 19:51 36.9 87 18 138/73 93 07/02/16 19:47 84 16 93 Nasal Cannula 2.0 07/02/16 16:00 Room Air 07/02/16 15:43 36.8 90 18 124/70 94 07/02/16 15:29 88 16 92 Nasal Cannula 2.0 Physical Exam: Constitutional: appearance nourished, healthy and obese, jaw tremor Ears, Nose, Mouth and Throat: mucous membranes moist, no injection and skin normal, eyes normal Cardiovascular: regular rate rhythm Respiratory: bilateral rales with inspiration Musculoskeletal: non pitting peripheral edema Skin: multiple areas of bruising Eyes: extraocular muscles intact (EOMI) and pupils equal, round and reactive to light (PERRL), miotic NEUROLOGIC EXAMINATION: Mental status: Alert and interactive Oriented to person, knows he is in a hospital but not sure which one, does not know the year and who is president but does know where he lives Speech fluent with no evidence of aphasia Cranial Nerves smile, eye brow raise symmetric, tongue midline Reflexes: Deep tendon reflexes were symmetrical and graded 2/5. Plantar responses were flexor. Sensory: no sensory deficits to vibration or cool touch Coordination: finger to nose with out bipass, bilateral essential tremor and some cogwheeling bilaterally UE Gait/Stance: sitting in bedside chair Motor: Negative for pronator drift of out stretched arms with eyes closed. Strength: biceps triceps hand machine turner bilaterally 5/5, hip flex plantar flex ext 5/5 Laboratory Results Past 24 Hours: 07/03/16 11:32 Red Blood Count 4.27, Mean Corpuscular Volume 85.9, Mean Corpuscular Hemoglobin 27.6, Mean Corpuscular Hemoglobin Concent 32.2, Mean Platelet Volume 10.2, Neutrophils (%) (Auto) 59.5, Lymphocytes (%) (Auto) 22.1, Monocytes (%) (Auto) 7.5, Eosinophils (%) (Auto) 2.9, Basophils (%) (Auto) 0.7, Neutrophils # (Auto) 9.18, Lymphocytes # (Auto) 3.41, Monocytes # (Auto) 1.15, Eosinophils # (Auto) 0.45, Basophils # (Auto) 0.11 07/03/16 11:32 Test 07/03/16 11:32 07/03/16 11:34 White Blood Count 15.43 K/uL (4.8-10.8) Red Blood Count 4.27 M/uL (4.7-6.1) Hemoglobin 11.8 g/dL (14.0-18.0) Hematocrit 36.7 % (42-52) Mean Corpuscular Volume 85.9 fL (80-100) Mean Corpuscular Hemoglobin 27.6 pg (25-34) Mean Corpuscular Hemoglobin Concent 32.2 g/dl (32-36) Platelet Count 266 K/uL (130-400) Mean Platelet Volume 10.2 fL (7.4-10.4) Neutrophils (%) (Auto) 59.5 % Lymphocytes (%) (Auto) 22.1 % Monocytes (%) (Auto) 7.5 % Eosinophils (%) (Auto) 2.9 % Basophils (%) (Auto) 0.7 % Neutrophils # (Auto) 9.18 K/uL (1.4-6.5) Lymphocytes # (Auto) 3.41 K/uL (1.2-3.4) Monocytes # (Auto) 1.15 K/uL (0.11-0.59) Eosinophils # (Auto) 0.45 K/uL (0-0.5) Basophils # (Auto) 0.11 K/uL (0-0.2) RDW Standard Deviation 47.7 fL (36.4-46.3) RDW Coefficient of Variation 15.2 % (11.5-14.5) Immature Granulocyte % (Auto) 7.3 % Immature Granulocyte # (Auto) 1.13 K/uL (0.00-0.02) Hypersegmented Polys 1+ Anion Gap 9.0 mmol/L (3-11) Est Creatinine Clear Calc Drug Dose 40.0 ml/min Estimated GFR () 48.2 Estimated GFR (Non- 41.6 BUN/Creatinine Ratio 17.2 (10-20) Calcium Level 9.0 mg/dl (8.5-10.1) Bedside Glucose 136 mg/dl (70-99) Imaging CT head-No significant change compared to the prior study. No acute intracranial abnormality. Impression 85 year old with confusion s/p sepsis with intubation Plan 1. likely hospital delirium although he does not appear delirious currently 2. cogwheeling is likely from Haldol 3. previous stroke if no contra indication would continue aspirin 4. likely some underlying cognitive issues and should continue to improve after discharge 5. needs 24/7 supervision until back to baseline-states he lives with his son 6. PT/OT for discharge needs I have seen and discussed above patient with Dr Yady Phillips, neurology Chart reviewed. 85 year old with complex medical course including hypoxemia, intubation, pneumonia. 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 Pt is reported not at baseline. Pt is awake and alerted, not oriented to place, tangential, jokey. There is a jaw tremor, and cogwheeling at wrist, although pt has no resting tremor in the arms. No facial asymmetry, UE symmetric strength. Gait not tested due to pt size. Suspect mild delirium related to the aforementioned factors superimposed on an aging brain, with a r frontal, large vessel infarct. Pt will be slow to return to prior baseline which is unknown to this examiner. It appears sedative hypnotic medications are being minimized. No obvious clinic residua from R frontal infarct. Will follow with you. LAZARO Phillips MD
--- NOTE | 2016-07-03 18:13 | DIAGNOSTIC IMAGING REPORT ---
CHEST ONE VIEW PORTABLE CLINICAL HISTORY: Pneumonia. Congestive failure. COMPARISON STUDY: 06/28/2016 FINDINGS: There are postsurgical changes of a midline sternotomy. The heart is mildly enlarged. There is resolving pulmonary vascular congestion. There are improving bibasilar airspace opacities.[ IMPRESSION: 1. Resolving congestive failure. Improving bibasilar airspace opacities. Electronically signed by: Moises Vora M.D. 07/03/2016 6:11 PM Dictated Date/Time: 07/03/2016 6:11 PM
[2016-07-03] MEDS ORDERED: FUROSEMIDE INJ 20 MG in SYRINGE 0 ML IV ONE (18:15)
[2016-07-03] MEDS ORDERED: AMOXICILLIN/CLAVULANATE TAB 875 MG TAB PO ONE (18:30)
[2016-07-03] MEDS: HEPARIN SOD 5000 UNIT/0.5 ML CARP SQ SCH (20:26)
[2016-07-04] VITALS (9 sets, daily range): BP systolic 94–166; BP diastolic 51–84; PULSE 65–150; TEMP 36.4–37.2; O2SAT 93–98
[2016-07-04] MEDS ORDERED: DIGOXIN IV 250 MCG in SYRINGE 9 ML IV ONE ×2 (03:15→05:00)
[2016-07-04 03:32] LABS: HEMATOCRIT 37.7 % (42-52); MEAN CELL VOLUME 85.9 fL (80-100); MEAN CORPUSCULAR HGB CONC 32.6 g/dl (32-36); MEAN PLATELET VOLUME 10.2 fL (7.4-10.4); PLATELET COUNT 289 K/uL (130-400); RED BLOOD COUNT 4.39 M/uL (4.7-6.1); WHITE BLOOD COUNT 19.54 K/uL (4.8-10.8)
[2016-07-04 03:54] LABS: BUN/CREATININE RATIO 16.8 (10-20); CALCIUM 9.5 mg/dl (8.5-10.1); CREATININE 1.7 mg/dl (0.60-1.40); MAGNESIUM 2.4 mg/dl (1.8-2.4); POTASSIUM 4.6 mmol/L (3.5-5.1)
--- NOTE | 2016-07-04 04:02 | Progress Note ---
Internal Med Progress Note Date of Service: Jul 04, 2016. Provider Documentation: Made aware by RN of rapid AF CR 150s, SBP 100s rate controlled after digoxin x 2 doses normal lytes serum crea 1.7 from 1.5 NSS 250 cc bolus, hold lasix for now Vital Signs: Date Time Temp Pulse Resp B/P Pulse Ox O2 Delivery O2 Flow Rate FiO2 07/04/16 07:24 36.8 65 18 166/84 94 07/04/16 04:59 103 07/04/16 04:00 118 110/62 07/04/16 04:00 Nasal Cannula 07/04/16 03:26 123 07/04/16 03:03 37.1 150 21 108/68 98 Nasal Cannula 2.0 07/04/16 00:39 36.8 96 18 125/63 93 07/03/16 23:59 Nasal Cannula 07/03/16 20:00 Nasal Cannula 07/03/16 19:37 36.6 101 16 135/83 96 Nasal Cannula 2.0 07/03/16 19:09 97 16 95 Nasal Cannula 2.0 07/03/16 16:12 88 16 91 Nasal Cannula 2.0 07/03/16 16:00 Nasal Cannula 2.0 07/03/16 15:36 36.8 99 16 122/74 93 Nasal Cannula 2.0 07/03/16 12:00 Nasal Cannula 2.0 07/03/16 11:35 37.1 103 20 134/68 91 Nasal Cannula 1.0 07/03/16 11:31 83 16 88 Nasal Cannula 2.0 Lab Results: Results Past 24 Hours Test 07/03/16 11:32 07/03/16 11:34 07/03/16 15:50 07/03/16 20:19 Range/Units White Blood Count 15.43 4.8-10.8 K/uL Red Blood Count 4.27 4.7-6.1 M/uL Hemoglobin 11.8 14.0-18.0 g/dL Hematocrit 36.7 42-52 % Mean Corpuscular Volume 85.9 80-100 fL Mean Corpuscular Hemoglobin 27.6 25-34 pg Mean Corpuscular Hemoglobin Concent 32.2 32-36 g/dl Platelet Count 266 130-400 K/uL Mean Platelet Volume 10.2 7.4-10.4 fL Neutrophils (%) (Auto) 59.5 % Lymphocytes (%) (Auto) 22.1 % Monocytes (%) (Auto) 7.5 % Eosinophils (%) (Auto) 2.9 % Basophils (%) (Auto) 0.7 % Neutrophils # (Auto) 9.18 1.4-6.5 K/uL Lymphocytes # (Auto) 3.41 1.2-3.4 K/uL Monocytes # (Auto) 1.15 0.11-0.59 K/uL Eosinophils # (Auto) 0.45 0-0.5 K/uL Basophils # (Auto) 0.11 0-0.2 K/uL RDW Standard Deviation 47.7 36.4-46.3 fL RDW Coefficient of Variation 15.2 11.5-14.5 % Immature Granulocyte % (Auto) 7.3 % Immature Granulocyte # (Auto) 1.13 0.00-0.02 K/uL Hypersegmented Polys 1+ Sodium Level 142 136-145 mmol/L Potassium Level 4.0 3.5-5.1 mmol/L Chloride Level 99 98-107 mmol/L Carbon Dioxide Level 34 21-32 mmol/L Anion Gap 9.0 3-11 mmol/L Blood Urea Nitrogen 26 7-18 mg/dl Creatinine 1.50 0.60-1.40 mg/dl Est Creatinine Clear Calc Drug Dose 40.0 ml/min Estimated GFR () 48.2 Estimated GFR (Non- 41.6 BUN/Creatinine Ratio 17.2 10-20 Random Glucose 113 70-99 mg/dl Calcium Level 9.0 8.5-10.1 mg/dl Bedside Glucose 136 179 144 70-99 mg/dl Test 07/04/16 03:24 Range/Units White Blood Count 19.54 4.8-10.8 K/uL Red Blood Count 4.39 4.7-6.1 M/uL Hemoglobin 12.3 14.0-18.0 g/dL Hematocrit 37.7 42-52 % Mean Corpuscular Volume 85.9 80-100 fL Mean Corpuscular Hemoglobin 28.0 25-34 pg Mean Corpuscular Hemoglobin Concent 32.6 32-36 g/dl Platelet Count 289 130-400 K/uL Mean Platelet Volume 10.2 7.4-10.4 fL Neutrophils (%) (Auto) 56.6 % Lymphocytes (%) (Auto) 27.7 % Monocytes (%) (Auto) 8.7 % Eosinophils (%) (Auto) 1.0 % Basophils (%) (Auto) 0.4 % Neutrophils # (Auto) 11.07 1.4-6.5 K/uL Lymphocytes # (Auto) 5.42 1.2-3.4 K/uL Monocytes # (Auto) 1.70 0.11-0.59 K/uL Eosinophils # (Auto) 0.19 0-0.5 K/uL Basophils # (Auto) 0.07 0-0.2 K/uL RDW Standard Deviation 48.3 36.4-46.3 fL RDW Coefficient of Variation 15.3 11.5-14.5 % Immature Granulocyte % (Auto) 5.6 % Immature Granulocyte # (Auto) 1.09 0.00-0.02 K/uL Red Blood Cell Morphology Unremarkable Sodium Level 142 136-145 mmol/L Potassium Level 4.6 3.5-5.1 mmol/L Chloride Level 98 98-107 mmol/L Carbon Dioxide Level 34 21-32 mmol/L Anion Gap 10.0 3-11 mmol/L Blood Urea Nitrogen 29 7-18 mg/dl Creatinine 1.70 0.60-1.40 mg/dl Est Creatinine Clear Calc Drug Dose 35.3 ml/min Estimated GFR () 41.4 Estimated GFR (Non- 35.7 BUN/Creatinine Ratio 16.8 10-20 Random Glucose 99 70-99 mg/dl Calcium Level 9.5 8.5-10.1 mg/dl Magnesium Level 2.4 1.8-2.4 mg/dl
[2016-07-04 04:45] LABS: BASO % 0.4 %; BASO ABS # 0.07 K/uL (0-0.2); COMPLETE YES; IG% 5.6 %; LYMPH % 27.7 %; LYMPH ABS # 5.42 K/uL (1.2-3.4); MONO % 8.7 %; NEUT % 56.6 %
[2016-07-04] MEDS ORDERED: SODIUM CHLORIDE 0.9% 250ML 250 ML IV SCH (04:45)
[2016-07-04] MEDS: LEVOTHYROXINE 25 MCG TAB PO SCH (05:58)
[2016-07-04] MEDS: LEVOTHYROXINE 200 MCG TAB PO SCH (05:58)
[2016-07-04] MEDS: INSULIN ASPART 100 UNITS/ML 3 ML PEN SC SCH ×4 (07:00→20:50)
[2016-07-04] MEDS: ALBUT/IPRATROP 3MG/0.5MG NEB 3 ML VIAL INH SCH ×2 (07:13→11:41)
[2016-07-04] MEDS: AMOXICILLIN/CLAVULANATE TAB 875 MG TAB PO SCH ×2 (07:30→17:31)
[2016-07-04] MEDS: FERROUS SULFATE 325 MG TAB PO SCH ×2 (07:30→17:31)
[2016-07-04] MEDS: BOOST GLUCOSE CONTROL PO SCH ×3 (07:30→17:30)
[2016-07-04] MEDS: [UNRECOGNIZED DRUG - REMARK] SCH ×2 (08:00→16:00)
[2016-07-04] MEDS: ATORVASTATIN 40 MG TAB PO SCH (09:00)
[2016-07-04] MEDS: DOXYCYCLINE HYCLATE 100 MG CAP PO SCH ×2 (09:00→22:15)
[2016-07-04] MEDS: HEPARIN SOD 5000 UNIT/0.5 ML CARP SQ SCH ×2 (09:00→21:00)
[2016-07-04] MEDS: CALCITRIOL 0.25 MCG CAP PO SCH (09:00)
[2016-07-04] MEDS: CHOLECALCIFEROL 1000 INTER.UNIT TAB PO SCH (09:00)
[2016-07-04] MEDS: POLYETHYLENE (MIRALAX) 17 GM PACK PO SCH (09:00)
[2016-07-04] MEDS: PANTOprazole SOD 40 MG TAB PO SCH (09:00)
[2016-07-04] MEDS: ASPIRIN 81 MG ECTAB PO SCH (09:00)
--- NOTE | 2016-07-04 10:02 | PROGRESS NOTE ---
DATE: 07/04/2016 DATE: 07/04/2016. SUBJECTIVE: I am seeing Mr. Camacho in followup of a mild delirium which follows an extensive hospitalization with pneumonia, intubation, respiratory decompensation. His CTs have shown a right frontal infarction which appears to be old and was not known clinically. OBJECTIVE: GENERAL: On today's exam he is sleepy and asks me not to wake him up because he is tired, although he is in no distress. VITAL SIGNS: 36.8, 65, 18, 166/84, 94%. His speech is dysarthric consistent from awakening from sleep, but there is no language dysfunction. He moves his upper extremities symmetrically, although complains of some arm pain. IMPRESSION: This patient is 85 and has had a lengthy hospitalization with hypoxemia, respiratory decompensation, pneumonia, sepsis. I suspect he will be slow to return to baseline, although see no obvious changeable toxic metabolic etiologies. It appears he is getting a low dose of Haldol, but that has been minimized. Will continue to follow with you. MTDD
--- NOTE | 2016-07-04 14:16 | Progress Note ---
Medicine Progress Note Date & Time of Visit: Jul 04, 2016 at 14:03. Subjective patient seen eating, having lunch states he feels ok overall confused, not oriented but calm , cooperative denies cough, dyspnea, chest pain, palpitations no other symptom Objective Last 8 Hrs Date Time Temp Pulse Resp B/P Pulse Ox O2 Delivery O2 Flow Rate FiO2 07/04/16 12:00 Nasal Cannula 2.0 07/04/16 11:55 36.4 89 18 125/66 94 3.0 07/04/16 08:00 Nasal Cannula 2.0 07/04/16 07:24 36.8 65 18 166/84 94 Physical Exam: General- oriented x 1, not in distress, speaks in sentences , no effort Neck- no JVD Lungs- mild bibasilar rales, no wheeze, good air entry Heart-normal rate, regular rhythm; no murmur Abdomen- normal bowel sounds, soft, nontender Extremities-trace leg edema, no erythema/warmth/tenderness Neuro- alert, oriented x 1;no gross deficits Skin- warm & dry Laboratory Results: Last 24 Hours Test 07/03/16 15:50 07/03/16 20:19 07/04/16 03:24 07/04/16 11:14 Bedside Glucose 179 mg/dl 144 mg/dl 113 mg/dl White Blood Count 19.54 K/uL Red Blood Count 4.39 M/uL Hemoglobin 12.3 g/dL Hematocrit 37.7 % Mean Corpuscular Volume 85.9 fL Mean Corpuscular Hemoglobin 28.0 pg Mean Corpuscular Hemoglobin Concent 32.6 g/dl Platelet Count 289 K/uL Mean Platelet Volume 10.2 fL Neutrophils (%) (Auto) 56.6 % Lymphocytes (%) (Auto) 27.7 % Monocytes (%) (Auto) 8.7 % Eosinophils (%) (Auto) 1.0 % Basophils (%) (Auto) 0.4 % Neutrophils # (Auto) 11.07 K/uL Lymphocytes # (Auto) 5.42 K/uL Monocytes # (Auto) 1.70 K/uL Eosinophils # (Auto) 0.19 K/uL Basophils # (Auto) 0.07 K/uL RDW Standard Deviation 48.3 fL RDW Coefficient of Variation 15.3 % Immature Granulocyte % (Auto) 5.6 % Immature Granulocyte # (Auto) 1.09 K/uL Red Blood Cell Morphology Unremarkable Sodium Level 142 mmol/L Potassium Level 4.6 mmol/L Chloride Level 98 mmol/L Carbon Dioxide Level 34 mmol/L Anion Gap 10.0 mmol/L Blood Urea Nitrogen 29 mg/dl Creatinine 1.70 mg/dl Est Creatinine Clear Calc Drug Dose 35.3 ml/min Estimated GFR () 41.4 Estimated GFR (Non- 35.7 BUN/Creatinine Ratio 16.8 Random Glucose 99 mg/dl Calcium Level 9.5 mg/dl Magnesium Level 2.4 mg/dl Assessment & Plan SEPSIS WITH SHOCK, RESOLVED SECONDARY TO BILATERAL PNEUMONIA - off levophed, post extubation being weaned off nasal cannula not tolerating Bipap - on Zosyn and Levaquin--> transitioned to Augmentin and Doxycycline PO (last day today) Nebs (changed to Levalbuterol/Ipratropium) change IV steroids to prednisone , completed ENCEPHALOPATHY/LETHARGY/AMS, Resolved -likely multifactorial due to hypercapnia and sepsis, improved initially - seems to have been recurring for the past 2-3 days Levaquin changed to Doxy, Steroids discontinued CT head negative consulted Neurology: likely encephalopathy monitor ACUTE HYPOXIC HYPERCAPNIC RESPIRATORY FAILURE, Resolved - management as noted above DAKOTA on CKD STAGE III, Resolved -likely due to sepsis and dehydration -Cr 2.5-->2.0-->1.7 -baseline Cr of 1.6-1.7 - back to baseline - po intake poor resume Lasix in AM Lisnopril on hold A FIB IN RVR has been having intermittent a fib during admission AV darell agents avoided due to episodes of bradycardia - last night, was in a fib with RVR, given Digoxin, HR improved, now in SR - will re-consult Cardiology BRADYCARDIA, Resolved -has had slow atrial fibrillation intermittently per monitor -no beta blockers coumadin not recommended - resumed Aspirin DIARRHEA, Resolved negative for C diff, stool cultures d/c laxatives MELENA, Resolved -per family 1 episode black stool -Hemoccult stool + x 2 - Hg stable around [address] abdomen/pelvis: RLQ and Left Groin hernia, no signs of obstruction - check anemia panel: low folate, replace resume dAspirin, heparin continue Protonix daily - GI consulted, EGD/Colonoscopy not recommended at this time appreciate the input - no recurrence HEMATURIA - improving Lopez discontinued appreciate Dr. Oakes' recommendations - monitor - no recurrence CAD s/p CABG x 3 VESSELS: -resumed Aspirin, continue statin -MILADIS-I on hold for hypotension and DAKOTA -was not on BB DM TYPE II: well controlled -HbA1c: 6.5% -hold oral hyperglycemic medications -on lantus + insulin correction scale coverage HTN: -held lisinopril monitor HYPOTHYROIDISM -continue levothyroxine - check TSH GERD -continue PPI Disposition pending management of altered mental status, pneumonia as noted above discussed with patient's daughter yesterday, she is agreeable with SNF Current Inpatient Medications: Current Inpatient Medications Medications (Trade) Dose Ordered Sig/Drea Route Start Time Stop Time Status Last Admin Dose Admin Ondansetron HCl (Zofran Inj) 4 mg Q6H PRN IV 06/25/16 14:00 07/25/16 13:59 06/26/16 20:22 4 MG Acetaminophen (Tylenol Tab) 650 mg Q4H PRN PO 06/25/16 14:00 07/25/16 13:59 07/01/16 22:07 650 MG Glucose (Glucose 40% Gel) 15-30 GRAMS 15 GRAMS... UD PRN PO 06/25/16 14:15 07/25/16 14:14 Glucose (Glucose Chew Tab) 4-8 Tablets 4 Tabl... UD PRN PO 06/25/16 14:15 07/25/16 14:14 Dextrose (Dextrose 50% 50ML Syringe) 25-50ML OF 50% DW IV FOR... UD PRN IV 06/25/16 14:15 07/25/16 14:14 Glucagon (Glucagon Inj) 1 mg UD PRN SQ 06/25/16 14:15 07/25/16 14:14 Atorvastatin Calcium (Lipitor Tab) 40 mg DAILY PO 06/26/16 09:00 07/26/16 08:59 07/03/16 09:04 40 MG Calcitriol (Rocaltrol Cap) 0.25 mcg DAILY PO 06/26/16 09:00 07/26/16 08:59 07/03/16 09:04 0.25 MCG Cholecalciferol (Vitamin D Tab) 1,000 inter.unit DAILY PO 06/26/16 09:00 07/26/16 08:59 07/03/16 09:04 1,000 INTER.UNIT Levothyroxine Sodium (Synthroid Tab) 25 mcg DAILYBB PO 06/26/16 06:00 07/26/16 05:59 07/03/16 06:08 25 MCG Levothyroxine Sodium (Synthroid Tab) 200 mcg DAILYBB PO 06/26/16 06:00 07/26/16 05:59 07/03/16 06:08 200 MCG Magnesium Hydroxide (Milk Of Magnesia Susp) 30 ml DAILY PRN PO 06/25/16 14:30 07/25/16 14:29 Bacitracin (Bacitracin Oint) 1 appln TID PRN EXT 06/25/16 14:30 07/25/16 14:29 Miscellaneous Information (Order Awaiting Action) 1 ea QS N/A 06/25/16 16:00 07/25/16 15:59 06/30/16 00:56 1 EA Miscellaneous Information (Order Awaiting Action) 1 ea QS N/A 06/25/16 16:00 07/25/16 15:59 06/30/16 00:56 1 EA Miscellaneous Information (Consult Glycemic Management Pharmacy) 1 ea DAILY PRN N/A 06/26/16 09:00 07/26/16 08:59 Polyethylene (Miralax Powder Packet) 17 gm DAILY PO 06/27/16 09:00 07/27/16 08:59 07/03/16 09:05 17 GM Insulin Aspart (novoLOG ASPART) SLIDING SCALE If C... ACHS SC 06/28/16 11:00 07/28/16 10:59 07/02/16 20:58 1 UNITS Pantoprazole Sodium (Protonix Tab) 40 mg QAM PO 06/29/16 09:00 07/29/16 08:59 07/03/16 09:04 40 MG Enteral Nutritional Formula (Boost Glucose Control) 1 can TIDM PO 06/28/16 11:30 07/28/16 11:29 07/02/16 08:02 1 CAN Albuterol/ Ipratropium (Duoneb) 3 ml QIDR INH 06/28/16 12:00 07/28/16 11:59 07/03/16 19:09 3 ML Albuterol/ Ipratropium (Duoneb) 3 ml Q2H PRN INH 06/28/16 11:45 07/28/16 11:44 Folic Acid (Folvite Tab) 1 mg QAM PO 07/02/16 09:00 08/01/16 08:59 07/03/16 09:04 1 MG Haloperidol (Haldol Tab) 2 mg Q4H PRN PO 07/01/16 21:15 07/31/16 21:14 Haloperidol Lactate (Haldol Inj) 2 mg Q2H PRN IM 07/01/16 21:15 07/31/16 21:14 07/01/16 21:21 2 MG Ferrous Sulfate (Feosol Tab) 325 mg BIDM PO 07/02/16 16:45 08/01/16 16:44 07/03/16 09:05 325 MG Doxycycline Hyclate (Vibramycin Cap) 100 mg BID PO 07/02/16 21:00 07/09/16 08:59 07/03/16 09:04 100 MG Aspirin (Ecotrin Tab) 81 mg QAM PO 07/04/16 09:00 08/03/16 08:59 Heparin Sodium (Porcine) (Heparin Sq 5000 Unit/0.5ml) 5,000 unit Q12 SQ 07/03/16 21:00 08/02/16 20:59 07/03/16 20:26 5,000 UNIT Amoxicillin/ Clavulanate Potassium (Augmentin Tab) 875 mg BIDM PO 07/04/16 07:30 07/11/16 07:29
[2016-07-04] MEDS: IPRATROPIUM BROMIDE NEB SOLN 0.02% 2.5 ML VIAL INH SCH ×2 (15:00→19:42)
[2016-07-04] MEDS: LEVALBUTEROL 1.25MG/0.5ML NEB INH SCH ×2 (15:00→19:42)
[2016-07-04] MEDS ORDERED: METOPROLOL TARTRATE 25 MG TAB PO ONE (15:00)
[2016-07-04] MEDS ORDERED: LEVALBUTEROL/IPRATROPIUM NEB INH SCH (15:00)
[2016-07-04] MEDS: METOPROLOL TARTRATE 25 MG TAB PO SCH (22:15)
[2016-07-05 04:11] VITALS: BP 110/60; PULSE 61; TEMP 36.9; O2SAT 95
[2016-07-05] MEDS: LEVOTHYROXINE 25 MCG TAB PO SCH (06:00)
[2016-07-05] MEDS: LEVOTHYROXINE 200 MCG TAB PO SCH ×2 (06:00→06:13)
[2016-07-05] MEDS: LEVALBUTEROL 1.25MG/0.5ML NEB INH SCH ×3 (07:29→19:55)
[2016-07-05] MEDS: IPRATROPIUM BROMIDE NEB SOLN 0.02% 2.5 ML VIAL INH SCH ×3 (07:29→19:55)
[2016-07-05] MEDS: BOOST GLUCOSE CONTROL PO SCH ×3 (07:30→16:45)
[2016-07-05] MEDS: [UNRECOGNIZED DRUG - REMARK] SCH ×3 (08:00→16:00)
[2016-07-05] MEDS: INSULIN ASPART 100 UNITS/ML 3 ML PEN SC SCH ×4 (08:07→20:25)
[2016-07-05 08:32] LABS: HEMATOCRIT 38.4 % (42-52); MEAN CELL VOLUME 87.7 fL (80-100); MEAN CORPUSCULAR HEMOGLOBIN 27.4 pg (25-34); MEAN CORPUSCULAR HGB CONC 31.3 g/dl (32-36); MEAN PLATELET VOLUME 10.2 fL (7.4-10.4); PLATELET COUNT 327 K/uL (130-400); RED BLOOD COUNT 4.38 M/uL (4.7-6.1); WHITE BLOOD COUNT 20.22 K/uL (4.8-10.8)
[2016-07-05 08:58] LABS: BUN/CREATININE RATIO 17.6 (10-20); CALCIUM 9.1 mg/dl (8.5-10.1); CREATININE 1.6 mg/dl (0.60-1.40); POTASSIUM 4.2 mmol/L (3.5-5.1)
[2016-07-05] MEDS: HEPARIN SOD 5000 UNIT/0.5 ML CARP SQ SCH ×2 (09:00→21:00)
[2016-07-05 09:17] LABS: COMPLETE YES; EOSINOPHIL % 0.9 %; LYMPHOCYTE % 25.2 %; META ABS # 0.18 K/uL (0-0); METAMYELOCYTE % 0.9 %; MYELOCYTE % 1.7 %
[2016-07-05 11:50] VITALS: BP 113/71; PULSE 73; TEMP 36.8; O2SAT 91
[2016-07-05] MEDS: AMOXICILLIN/CLAVULANATE TAB 875 MG TAB PO SCH ×2 (12:26→18:08)
[2016-07-05] MEDS: FERROUS SULFATE 325 MG TAB PO SCH ×2 (12:27→18:08)
[2016-07-05] MEDS: POLYETHYLENE (MIRALAX) 17 GM PACK PO SCH (12:27)
[2016-07-05] MEDS: PANTOprazole SOD 40 MG TAB PO SCH (12:27)
[2016-07-05] MEDS: ATORVASTATIN 40 MG TAB PO SCH (12:27)
[2016-07-05] MEDS: DOXYCYCLINE HYCLATE 100 MG CAP PO SCH ×2 (12:27→20:24)
[2016-07-05] MEDS: ASPIRIN 81 MG ECTAB PO SCH (12:27)
[2016-07-05] MEDS: CHOLECALCIFEROL 1000 INTER.UNIT TAB PO SCH (12:27)
[2016-07-05] MEDS: CALCITRIOL 0.25 MCG CAP PO SCH (12:27)
[2016-07-05] MEDS: METOPROLOL TARTRATE 25 MG TAB PO SCH ×2 (12:28→20:24)
--- NOTE | 2016-07-05 13:57 | Progress Note ---
Medicine Progress Note Date & Time of Visit: Jul 05, 2016 at 13:48. Subjective seen sitting up in bedside chair oriented x 1 pleasant, cooperative states he feels fine overall denies dyspnea, cough, chest pain no abdominal pain, nausea no changes with urination or BM denies other symptoms Objective Last 8 Hrs Date Time Temp Pulse Resp B/P Pulse Ox O2 Delivery O2 Flow Rate FiO2 07/05/16 12:00 Nasal Cannula 2.0 07/05/16 11:50 36.8 73 18 113/71 91 07/05/16 08:00 Nasal Cannula 2.0 Physical Exam: General- oriented x 1, not in distress, speaks in sentences , no effort Neck- no JVD Lungs- mild bibasilar rales, no wheezes/rales Heart-normal rate, regular rhythm; no murmur Abdomen- normal bowel sounds, soft, nontender Extremities- no leg edema, no erythema/warmth/tenderness Neuro- alert, oriented x 1;no gross deficits Skin- warm & dry Laboratory Results: Last 24 Hours Test 07/04/16 16:02 07/04/16 20:09 07/05/16 06:39 07/05/16 08:19 Bedside Glucose 119 mg/dl 114 mg/dl 117 mg/dl White Blood Count 20.22 K/uL Red Blood Count 4.38 M/uL Hemoglobin 12.0 g/dL Hematocrit 38.4 % Mean Corpuscular Volume 87.7 fL Mean Corpuscular Hemoglobin 27.4 pg Mean Corpuscular Hemoglobin Concent 31.3 g/dl Platelet Count 327 K/uL Mean Platelet Volume 10.2 fL RDW Standard Deviation 50.3 fL RDW Coefficient of Variation 15.7 % Neutrophils % (Manual) 67.0 % Lymphocytes % (Manual) 25.2 % Monocytes % (Manual) 4.3 % Eosinophils % (Manual) 0.9 % Metamyelocytes % 0.9 % Myelocytes % 1.7 % Neutrophils # (Manual) 13.55 K/uL Total Absolute Neutrophils 13.55 K/uL Lymphocytes # (Manual) 5.10 K/uL Total Absolute Lymphocytes 5.10 K/uL Monocytes # (Manual) 0.87 K/uL Eosinophils # (Manual) 0.18 K/uL Metamyelocytes # 0.18 K/uL Myelocytes # 0.34 K/uL Red Blood Cell Morphology Unremarkable Sodium Level 143 mmol/L Potassium Level 4.2 mmol/L Chloride Level 102 mmol/L Carbon Dioxide Level 32 mmol/L Anion Gap 9.0 mmol/L Blood Urea Nitrogen 28 mg/dl Creatinine 1.60 mg/dl Est Creatinine Clear Calc Drug Dose 36.6 ml/min Estimated GFR () 44.6 Estimated GFR (Non- 38.4 BUN/Creatinine Ratio 17.6 Random Glucose 117 mg/dl Calcium Level 9.1 mg/dl Test 07/05/16 11:26 Bedside Glucose 104 mg/dl Assessment & Plan SEPSIS WITH SHOCK, RESOLVED SECONDARY TO BILATERAL PNEUMONIA - off levophed, post extubation being weaned off nasal cannula not tolerating Bipap - (+) increasing WBC, repeat blood and urine cultures - was on Zosyn and Levaquin--> transitioned to Augmentin and Doxycycline PO - continue for now (day 11) Nebs (changed to Levalbuterol/Ipratropium) change IV steroids to prednisone , completed ENCEPHALOPATHY/LETHARGY/AMS, Resolved -likely multifactorial due to hypercapnia and sepsis, improved initially - seems to have been recurring for the past 2-3 days Levaquin changed to Doxy, Steroids discontinued CT head negative consulted Neurology: likely encephalopathy slowly improving ACUTE HYPOXIC HYPERCAPNIC RESPIRATORY FAILURE, Resolved - management as noted above - resolved DAKOTA on CKD STAGE III, Resolved -likely due to sepsis and dehydration -Cr 2.5-->2.0-->1.7 -baseline Cr of 1.6-1.7 - back to baseline - po intake poor no signs of overload, hold Lasix today Lisinopril also on hold A FIB IN RVR has been having intermittent a fib during admission AV darell agents avoided due to episodes of bradycardia coumadin not recommended - resumed Aspirin - 07/03: was in a fib with RVR, given Digoxin, HR improved, now in SR - discussed with Dr. Griffiths, Metoprolol 12.5mg PO daily started no recurrence so far , monitor BRADYCARDIA, Resolved -has had slow atrial fibrillation intermittently per monitor -monitor while on Metoprolol DIARRHEA, Resolved negative for C diff, stool cultures d/c laxatives MELENA, Resolved -per family 1 episode black stool -Hemoccult stool + x 2 - Hg stable around [address] abdomen/pelvis: RLQ and Left Groin hernia, no signs of obstruction - check anemia panel: low folate, replace resumed Aspirin, heparin, no recurrence continue Protonix daily - GI consulted, EGD/Colonoscopy not recommended at this time appreciate the input - no recurrence HEMATURIA Lopez discontinued appreciate Dr. Oakes' recommendations - monitor - no recurrence CAD s/p CABG x 3 VESSELS: - Aspirin , Statin -MILADIS-I on hold for hypotension and DAKOTA -was not on BB DM TYPE II: well controlled -HbA1c: 6.5% -hold oral hyperglycemic medications -on lantus + insulin correction scale coverage HTN: - stable HYPOTHYROIDISM -continue levothyroxine - TSH: normal GERD -continue PPI Disposition pending management of altered mental status, pneumonia as noted above discussed with patient's daughter she is agreeable with SNF Current Inpatient Medications: Current Inpatient Medications Medications (Trade) Dose Ordered Sig/Drea Route Start Time Stop Time Status Last Admin Dose Admin Ondansetron HCl (Zofran Inj) 4 mg Q6H PRN IV 06/25/16 14:00 07/25/16 13:59 06/26/16 20:22 4 MG Acetaminophen (Tylenol Tab) 650 mg Q4H PRN PO 06/25/16 14:00 07/25/16 13:59 07/01/16 22:07 650 MG Glucose (Glucose 40% Gel) 15-30 GRAMS 15 GRAMS... UD PRN PO 06/25/16 14:15 07/25/16 14:14 Glucose (Glucose Chew Tab) 4-8 Tablets 4 Tabl... UD PRN PO 06/25/16 14:15 07/25/16 14:14 Dextrose (Dextrose 50% 50ML Syringe) 25-50ML OF 50% DW IV FOR... UD PRN IV 06/25/16 14:15 07/25/16 14:14 Glucagon (Glucagon Inj) 1 mg UD PRN SQ 06/25/16 14:15 07/25/16 14:14 Atorvastatin Calcium (Lipitor Tab) 40 mg DAILY PO 06/26/16 09:00 07/26/16 08:59 07/05/16 12:27 40 MG Calcitriol (Rocaltrol Cap) 0.25 mcg DAILY PO 06/26/16 09:00 07/26/16 08:59 07/05/16 12:27 0.25 MCG Cholecalciferol (Vitamin D Tab) 1,000 inter.unit DAILY PO 06/26/16 09:00 07/26/16 08:59 07/05/16 12:27 1,000 INTER.UNIT Levothyroxine Sodium (Synthroid Tab) 25 mcg DAILYBB PO 06/26/16 06:00 07/26/16 05:59 07/03/16 06:08 25 MCG Levothyroxine Sodium (Synthroid Tab) 200 mcg DAILYBB PO 06/26/16 06:00 07/26/16 05:59 07/03/16 06:08 200 MCG Magnesium Hydroxide (Milk Of Magnesia Susp) 30 ml DAILY PRN PO 06/25/16 14:30 07/25/16 14:29 Bacitracin (Bacitracin Oint) 1 appln TID PRN EXT 06/25/16 14:30 07/25/16 14:29 Miscellaneous Information (Order Awaiting Action) 1 ea QS N/A 06/25/16 16:00 07/25/16 15:59 06/30/16 00:56 1 EA Miscellaneous Information (Order Awaiting Action) 1 ea QS N/A 06/25/16 16:00 07/25/16 15:59 06/30/16 00:56 1 EA Miscellaneous Information (Consult Glycemic Management Pharmacy) 1 ea DAILY PRN N/A 06/26/16 09:00 07/26/16 08:59 Polyethylene (Miralax Powder Packet) 17 gm DAILY PO 06/27/16 09:00 07/27/16 08:59 07/05/16 12:27 17 GM Insulin Aspart (novoLOG ASPART) SLIDING SCALE If C... ACHS SC 06/28/16 11:00 07/28/16 10:59 07/02/16 20:58 1 UNITS Pantoprazole Sodium (Protonix Tab) 40 mg QAM PO 06/29/16 09:00 07/29/16 08:59 07/05/16 12:27 40 MG Enteral Nutritional Formula (Boost Glucose Control) 1 can TIDM PO 06/28/16 11:30 07/28/16 11:29 07/04/16 17:30 1 CAN Folic Acid (Folvite Tab) 1 mg QAM PO 07/02/16 09:00 08/01/16 08:59 1/22/17 12:28 1 MG Haloperidol (Haldol Tab) 2 mg Q4H PRN PO 07/01/16 21:15 07/31/16 21:14 Haloperidol Lactate (Haldol Inj) 2 mg Q2H PRN IM 07/01/16 21:15 07/31/16 21:14 07/01/16 21:21 2 MG Ferrous Sulfate (Feosol Tab) 325 mg BIDM PO 07/02/16 16:45 08/01/16 16:44 07/05/16 12:27 325 MG Doxycycline Hyclate (Vibramycin Cap) 100 mg BID PO 07/02/16 21:00 07/09/16 08:59 07/05/16 12:27 100 MG Aspirin (Ecotrin Tab) 81 mg QAM PO 07/04/16 09:00 08/03/16 08:59 07/05/16 12:27 81 MG Heparin Sodium (Porcine) (Heparin Sq 5000 Unit/0.5ml) 5,000 unit Q12 SQ 07/03/16 21:00 08/02/16 20:59 07/03/16 20:26 5,000 UNIT Amoxicillin/ Clavulanate Potassium (Augmentin Tab) 875 mg BIDM PO 07/04/16 07:30 07/11/16 07:29 07/05/16 12:26 875 MG Ipratropium [place] (Atrovent 0.02% 0.5MG/2.5ML Neb) 0.5 mg Q6RWA INH 07/04/16 15:00 08/03/16 14:59 07/04/16 19:42 0.5 MG Levalbuterol (Xopenex 1.25MG/ 0.5ML Neb) 1.25 mg Q6RWA INH 07/04/16 15:00 08/03/16 14:59 07/04/16 19:42 1.25 MG Metoprolol Tartrate (Lopressor Tab) 12.5 mg BID PO 07/04/16 21:00 08/03/16 20:59 07/05/16 12:28 12.5 MG
[2016-07-05 15:32] VITALS: BP 118/63; PULSE 69; TEMP 36.9; O2SAT 94
--- NOTE | 2016-07-05 17:39 | NEUROLOGY CONSULTATION ---
DATE OF CONSULTATION: 07/05/2016 I am seeing Mr. Camacho in followup of hospital related delirium. He remains much the same. He is sleepy but arousable, oriented to person only without any complaints. PHYSICAL EXAMINATION: VITAL SIGNS: The last set of vitals: 36.9; 61; respiratory rate was 28 at the time, that is normal now; 110/60; 95%. GENERAL: Sleepy but arousable, no facial asymmetry, significant dysarthria other than associated with the sleeping state. Moves upper and lower extremities symmetrically. IMPRESSION: Slow to resolve delirium, not unexpected at this patient's age, given the severity of his illness, underlying medical problems, radiographic stroke on scan. We will sign off. Please reconsult if there are new concerns. MAYELIN
[2016-07-05 19:48] VITALS: BP 111/65; PULSE 74; TEMP 36.9; O2SAT 96
[2016-07-05 19:56] VITALS: PULSE 70; O2SAT 90
[2016-07-05 23:20] VITALS: BP 115/54; PULSE 70; TEMP 36.5; O2SAT 92
[2016-07-06] VITALS (8 sets, daily range): BP systolic 101–124; BP diastolic 59–70; PULSE 62–86; TEMP 36.3–36.9; O2SAT 90–95
[2016-07-06] MEDS: LEVOTHYROXINE 200 MCG TAB PO SCH (06:00)
[2016-07-06] MEDS: LEVOTHYROXINE 25 MCG TAB PO SCH (06:01)
[2016-07-06] MEDS: INSULIN ASPART 100 UNITS/ML 3 ML PEN SC SCH ×4 (07:00→20:54)
[2016-07-06 07:03] LABS: BASO % 0.2 %; BASO ABS # 0.03 K/uL (0-0.2); COMPLETE YES; EOS % 3.4 %; HEMATOCRIT 36.6 % (42-52); IG% 2.5 %; LYMPH % 22.8 %; LYMPH ABS # 4.13 K/uL (1.2-3.4); MEAN CORPUSCULAR HEMOGLOBIN 27.6 pg (25-34); MEAN CORPUSCULAR HGB CONC 31.4 g/dl (32-36); MEAN PLATELET VOLUME 10.2 fL (7.4-10.4); MONO % 5.6 %; NEUT % 65.5 %; PLATELET COUNT 304 K/uL (130-400); RED BLOOD COUNT 4.16 M/uL (4.7-6.1); WHITE BLOOD COUNT 18.09 K/uL (4.8-10.8)
[2016-07-06] MEDS: BOOST GLUCOSE CONTROL PO SCH ×3 (07:30→16:45)
[2016-07-06] MEDS: IPRATROPIUM BROMIDE NEB SOLN 0.02% 2.5 ML VIAL INH SCH ×3 (07:39→19:32)
[2016-07-06] MEDS: LEVALBUTEROL 1.25MG/0.5ML NEB INH SCH ×3 (07:39→19:32)
[2016-07-06] MEDS: [UNRECOGNIZED DRUG - REMARK] SCH ×4 (08:00→22:22)
[2016-07-06] MEDS: HEPARIN SOD 5000 UNIT/0.5 ML CARP SQ SCH ×2 (08:12→19:32)
[2016-07-06] MEDS: AMOXICILLIN/CLAVULANATE TAB 875 MG TAB PO SCH ×2 (08:13→17:12)
[2016-07-06] MEDS: ASPIRIN 81 MG ECTAB PO SCH (08:14)
[2016-07-06] MEDS: FERROUS SULFATE 325 MG TAB PO SCH ×2 (08:14→17:12)
[2016-07-06] MEDS: CHOLECALCIFEROL 1000 INTER.UNIT TAB PO SCH (08:14)
[2016-07-06] MEDS: PANTOprazole SOD 40 MG TAB PO SCH (08:14)
[2016-07-06] MEDS: METOPROLOL TARTRATE 25 MG TAB PO SCH ×2 (08:15→20:54)
[2016-07-06] MEDS: ATORVASTATIN 40 MG TAB PO SCH (08:15)
[2016-07-06] MEDS: CALCITRIOL 0.25 MCG CAP PO SCH (08:15)
[2016-07-06] MEDS: DOXYCYCLINE HYCLATE 100 MG CAP PO SCH (08:15)
[2016-07-06] MEDS: POLYETHYLENE (MIRALAX) 17 GM PACK PO SCH (08:15)
[2016-07-06] MEDS ORDERED: NURSING DECISION MEDICATION ORDER SCH (14:45)
[2016-07-06] MEDS ORDERED: MICONAZOLE NITRATE POWDER 43 GM EXT PRN (15:00)
--- NOTE | 2016-07-06 20:02 | Progress Note ---
Medicine Progress Note Date & Time of Visit: Jul 06, 2016 at 20:01. delayed entry Subjective patient noted by staffing administrator to be less confused appetite better able to feed himself again on exam, in good spirits, oriented x 2 denies dyspnea, cough no abdominal pain no other symptoms Objective Last 8 Hrs Date Time Temp Pulse Resp B/P Pulse Ox O2 Delivery O2 Flow Rate FiO2 07/06/16 19:21 36.3 75 20 124/59 95 Nasal Cannula 2.0 07/06/16 16:00 Nasal Cannula 2.0 07/06/16 15:45 36.6 66 18 105/67 90 Nasal Cannula 1.0 07/06/16 14:06 62 18 93 Nasal Cannula 2.0 07/06/16 12:44 36.9 68 19 112/70 91 Nasal Cannula 2.0 Physical Exam: General- oriented x 1, not in distress, speaks in sentences , no effort Neck- no JVD Lungs- occasional mild bibasilar rales, no wheezes Heart-normal rate, regular rhythm; no murmur Abdomen- normal bowel sounds, soft, nontender Extremities- no leg edema, no erythema/warmth/tenderness Neuro- alert, oriented x 1;no gross deficits Skin- warm & dry Laboratory Results: Last 24 Hours Test 07/05/16 20:10 07/06/16 06:36 07/06/16 06:40 07/06/16 11:21 Bedside Glucose 101 mg/dl 105 mg/dl 137 mg/dl White Blood Count 18.09 K/uL Red Blood Count 4.16 M/uL Hemoglobin 11.5 g/dL Hematocrit 36.6 % Mean Corpuscular Volume 88.0 fL Mean Corpuscular Hemoglobin 27.6 pg Mean Corpuscular Hemoglobin Concent 31.4 g/dl Platelet Count 304 K/uL Mean Platelet Volume 10.2 fL Neutrophils (%) (Auto) 65.5 % Lymphocytes (%) (Auto) 22.8 % Monocytes (%) (Auto) 5.6 % Eosinophils (%) (Auto) 3.4 % Basophils (%) (Auto) 0.2 % Neutrophils # (Auto) 11.86 K/uL Lymphocytes # (Auto) 4.13 K/uL Monocytes # (Auto) 1.01 K/uL Eosinophils # (Auto) 0.61 K/uL Basophils # (Auto) 0.03 K/uL RDW Standard Deviation 50.6 fL RDW Coefficient of Variation 15.9 % Immature Granulocyte % (Auto) 2.5 % Immature Granulocyte # (Auto) 0.45 K/uL Test 07/06/16 16:10 Bedside Glucose 124 mg/dl Assessment & Plan SEPSIS WITH SHOCK, RESOLVED SECONDARY TO BILATERAL PNEUMONIA - was initially on levophed, intubated respiratory pena, doing well post extubation, maintaining good o2 sats on 2 L NC not tolerating Bipap - 2 days ago, (+) increasing WBC, but no fever, repeat blood and urine cultures ordered afebrile, WBC decreasing - was on Zosyn and Levaquin--> transitioned to Augmentin and Doxycycline PO- discontinue today (received 11 days antibiotics) received IV steroids then prednisone , completed continue Nebs ENCEPHALOPATHY/LETHARGY/AMS, Resolved -likely multifactorial due to hypercapnia and sepsis, improved initially - seems to have been recurring while in Tele Levaquin changed to Doxy, Steroids discontinued repeat CT head negative consulted Neurology: likely encephalopathy, delirium, continue present management gradually improving ACUTE HYPOXIC HYPERCAPNIC RESPIRATORY FAILURE, Resolved DAKOTA on CKD STAGE III, Resolved -likely due to sepsis and dehydration -Cr 2.5-->2.0-->1.7 -baseline Cr of 1.6-1.7 - back to baseline - po intake poor no signs of overload, hold Lasix, titrate accordingly Lisinopril also on hold A FIB IN RVR has been having intermittent a fib during admission AV darell agents avoided due to episodes of bradycardia early on - 07/03: was in a fib with RVR, given Digoxin, HR improved, now in SR - discussed with Dr. Griffiths, Metoprolol 12.5mg PO daily started also on Aspirin , coumadin not recommended as patient having hematuria, also high fall risk no recurrence so far , monitor BRADYCARDIA, Resolved -has had slow atrial fibrillation intermittently early on -monitor while on Metoprolol DIARRHEA, Resolved negative for C diff, stool cultures MELENA, Resolved -per family 1 episode black stool -Hemoccult stool + x 2 - CT abdomen/pelvis: RLQ and Left Groin hernia, no signs of obstruction - anemia panel: low folate, replaced - GI consulted, EGD/Colonoscopy not recommended at this time - Hg stable ~ 10 resumed Aspirin, heparin, no recurrence of melena so far continue Protonix daily HEMATURIA Lopez discontinued, Aspirin and Heparin held, Dr. Oakes consulted, no further interventions recommended - no recurrence so far CAD s/p CABG x 3 VESSELS - stable - on Aspirin , Statin -MILADIS-I on hold for hypotension and DAKOTA -was not on BB DM TYPE II: well controlled -HbA1c: 6.5% -hold oral hyperglycemic medications -on lantus + insulin correction scale coverage HTN: - stable HYPOTHYROIDISM -continue levothyroxine - TSH: normal GERD -continue PPI Disposition pending awaiting SNF placement Current Inpatient Medications: Current Inpatient Medications Medications (Trade) Dose Ordered Sig/Drea Route Start Time Stop Time Status Last Admin Dose Admin Ondansetron HCl (Zofran Inj) 4 mg Q6H PRN IV 06/25/16 14:00 07/25/16 13:59 06/26/16 20:22 4 MG Acetaminophen (Tylenol Tab) 650 mg Q4H PRN PO 06/25/16 14:00 07/25/16 13:59 07/01/16 22:07 650 MG Glucose (Glucose 40% Gel) 15-30 GRAMS 15 GRAMS... UD PRN PO 06/25/16 14:15 07/25/16 14:14 Glucose (Glucose Chew Tab) 4-8 Tablets 4 Tabl... UD PRN PO 06/25/16 14:15 07/25/16 14:14 Dextrose (Dextrose 50% 50ML Syringe) 25-50ML OF 50% DW IV FOR... UD PRN IV 06/25/16 14:15 07/25/16 14:14 Glucagon (Glucagon Inj) 1 mg UD PRN SQ 06/25/16 14:15 07/25/16 14:14 Atorvastatin Calcium (Lipitor Tab) 40 mg DAILY PO 06/26/16 09:00 07/26/16 08:59 07/06/16 08:15 40 MG Calcitriol (Rocaltrol Cap) 0.25 mcg DAILY PO 06/26/16 09:00 07/26/16 08:59 07/06/16 08:15 0.25 MCG Cholecalciferol (Vitamin D Tab) 1,000 inter.unit DAILY PO 06/26/16 09:00 07/26/16 08:59 07/06/16 08:14 1,000 INTER.UNIT Levothyroxine Sodium (Synthroid Tab) 25 mcg DAILYBB PO 06/26/16 06:00 07/26/16 05:59 07/06/16 06:01 25 MCG Levothyroxine Sodium (Synthroid Tab) 200 mcg DAILYBB PO 06/26/16 06:00 07/26/16 05:59 07/06/16 06:00 200 MCG Magnesium Hydroxide (Milk Of Magnesia Susp) 30 ml DAILY PRN PO 06/25/16 14:30 07/25/16 14:29 Bacitracin (Bacitracin Oint) 1 appln TID PRN EXT 06/25/16 14:30 07/25/16 14:29 Miscellaneous Information (Order Awaiting Action) 1 ea QS N/A 06/25/16 16:00 07/25/16 15:59 06/30/16 00:56 1 EA Miscellaneous Information (Order Awaiting Action) 1 ea QS N/A 06/25/16 16:00 07/25/16 15:59 06/30/16 00:56 1 EA Miscellaneous Information (Consult Glycemic Management Pharmacy) 1 ea DAILY PRN N/A 06/26/16 09:00 07/26/16 08:59 Polyethylene (Miralax Powder Packet) 17 gm DAILY PO 06/27/16 09:00 07/27/16 08:59 07/06/16 08:15 17 GM Insulin Aspart (novoLOG ASPART) SLIDING SCALE If C... ACHS SC 06/28/16 11:00 07/28/16 10:59 07/02/16 20:58 1 UNITS Pantoprazole Sodium (Protonix Tab) 40 mg QAM PO 06/29/16 09:00 07/29/16 08:59 07/06/16 08:14 40 MG Enteral Nutritional Formula (Boost Glucose Control) 1 can TIDM PO 06/28/16 11:30 07/28/16 11:29 07/06/16 11:57 1 CAN Folic Acid (Folvite Tab) 1 mg QAM PO 07/02/16 09:00 08/01/16 08:59 07/06/16 08:15 1 MG Haloperidol (Haldol Tab) 2 mg Q4H PRN PO 07/01/16 21:15 07/31/16 21:14 Haloperidol Lactate (Haldol Inj) 2 mg Q2H PRN IM 07/01/16 21:15 07/31/16 21:14 07/01/16 21:21 2 MG Ferrous Sulfate (Feosol Tab) 325 mg BIDM PO 07/02/16 16:45 08/01/16 16:44 07/06/16 17:12 325 MG Aspirin (Ecotrin Tab) 81 mg QAM PO 07/04/16 09:00 08/03/16 08:59 07/06/16 08:14 81 MG Heparin Sodium (Porcine) (Heparin Sq 5000 Unit/0.5ml) 5,000 unit Q12 SQ 07/03/16 21:00 08/02/16 20:59 07/03/16 20:26 5,000 UNIT Ipratropium [place] (Atrovent 0.02% 0.5MG/2.5ML Neb) 0.5 mg Q6RWA INH 07/04/16 15:00 08/03/16 14:59 07/06/16 14:04 0.5 MG Levalbuterol (Xopenex 1.25MG/ 0.5ML Neb) 1.25 mg Q6RWA INH 07/04/16 15:00 08/03/16 14:59 07/06/16 14:04 1.25 MG Metoprolol Tartrate (Lopressor Tab) 12.5 mg BID PO 07/04/16 21:00 08/03/16 20:59 07/06/16 08:15 12.5 MG Miconazole Nitrate (Desenex Powder) 1 appln PRN PRN EXT 07/06/16 15:00 08/05/16 14:59
[2016-07-07] VITALS (10 sets, daily range): BP systolic 93–122; BP diastolic 53–70; PULSE 62–86; TEMP 36.3–36.7; O2SAT 87–99
[2016-07-07] MEDS: LEVOTHYROXINE 25 MCG TAB PO SCH (05:50)
[2016-07-07] MEDS: LEVOTHYROXINE 200 MCG TAB PO SCH (05:50)
[2016-07-07] MEDS: INSULIN ASPART 100 UNITS/ML 3 ML PEN SC SCH ×4 (07:00→22:00)
[2016-07-07] MEDS: LEVALBUTEROL 1.25MG/0.5ML NEB INH SCH ×3 (07:28→19:34)
[2016-07-07] MEDS: IPRATROPIUM BROMIDE NEB SOLN 0.02% 2.5 ML VIAL INH SCH ×3 (07:28→19:34)
[2016-07-07 07:29] LABS: BASO % 0.2 %; BASO ABS # 0.03 K/uL (0-0.2); COMPLETE YES; EOS % 3.4 %; HEMATOCRIT 37.6 % (42-52); LYMPH % 25.3 %; LYMPH ABS # 4.43 K/uL (1.2-3.4); MEAN CELL VOLUME 88.1 fL (80-100); MEAN CORPUSCULAR HEMOGLOBIN 27.2 pg (25-34); MEAN CORPUSCULAR HGB CONC 30.9 g/dl (32-36); MEAN PLATELET VOLUME 10.6 fL (7.4-10.4); MONO % 5.4 %; NEUT % 63.7 %; PLATELET COUNT 324 K/uL (130-400); RED BLOOD COUNT 4.27 M/uL (4.7-6.1); WHITE BLOOD COUNT 17.48 K/uL (4.8-10.8)
[2016-07-07] MEDS: BOOST GLUCOSE CONTROL PO SCH ×3 (07:30→16:45)
[2016-07-07] MEDS: [UNRECOGNIZED DRUG - REMARK] SCH ×3 (07:44→23:57)
[2016-07-07 08:01] LABS: CREATININE 1.5 mg/dl (0.60-1.40); POTASSIUM 4.7 mmol/L (3.5-5.1)
[2016-07-07] MEDS: METOPROLOL TARTRATE 25 MG TAB PO SCH ×2 (09:10→22:01)
[2016-07-07] MEDS: CHOLECALCIFEROL 1000 INTER.UNIT TAB PO SCH (09:11)
[2016-07-07] MEDS: CALCITRIOL 0.25 MCG CAP PO SCH (09:11)
[2016-07-07] MEDS: FERROUS SULFATE 325 MG TAB PO SCH ×2 (09:11→16:45)
[2016-07-07] MEDS: POLYETHYLENE (MIRALAX) 17 GM PACK PO SCH (09:12)
[2016-07-07] MEDS: PANTOprazole SOD 40 MG TAB PO SCH (09:12)
[2016-07-07] MEDS: ATORVASTATIN 40 MG TAB PO SCH (09:13)
[2016-07-07] MEDS: ASPIRIN 81 MG ECTAB PO SCH (09:13)
[2016-07-07] MEDS: HEPARIN SOD 5000 UNIT/0.5 ML CARP SQ SCH ×2 (09:17→22:03)
--- NOTE | 2016-07-07 09:26 | Pharmacy Progress Note ---
Glycemic: Assessment & Plan Date of Service Jul 07, 2016. Assessment & Plan Assessment * Patient has not required any insulin since steroids stopped Plan * May consider d/c ACHS insulin altogether * For now, continue the following: * Correctional Insulin: Novolog Correction per scale ACHS Goal Range: Low 140 mg/dL - High 180 mg/dL Correction Factor: 35 mg/dL/unit * Prandial insulin: Per carb ratio of 1 unit per 20 grams CHO consumed Pharmacy will sign-off at this time. Please re-consult if desired. * Please note that the plan above was derived based on current level of insulin resistance and hospital stress. These recommendations are appropriate for inpatient admission only. Plan of care upon discharge will need to be reassessed to avoid potential outpatient hypo/hyperglycemia.
--- NOTE | 2016-07-07 22:26 | Progress Note ---
Medicine Progress Note Date & Time of Visit: Jul 07, 2016 at 17:09. Subjective 85 yoM admitted for septic shock s/p intubation in ICU. appears to be doing well today eating food talking to me but not making much sense; hard to tell if he is joking or just not oriented. Afebrile Denies nausea, vomiting, difficulty breathing, diarrhea, or chest pain. Per nurse, who had him over the weekend, says he is much improved. Objective Last 8 Hrs Date Time Temp Pulse Resp B/P Pulse Ox O2 Delivery O2 Flow Rate FiO2 07/07/16 16:00 Nasal Cannula 2.0 07/07/16 15:34 36.5 72 20 118/69 92 Nasal Cannula 3.0 07/07/16 14:21 62 18 94 Nasal Cannula 2.0 07/07/16 12:00 Nasal Cannula 2.0 07/07/16 11:26 36.4 66 20 93/58 99 Nasal Cannula 3.0 Physical Exam: GEN: WNWD, in no acute distress, alert , not oriented to person place or time. Eating HEENT: NC/AT, normal sclerae CARDIO: reg rate, S1/2 heard without m/g/r LUNGS: Crackles throughout all lung helm, No rales or wheezes, good diaphragmatic excursion ABD: soft, non-tender, non-distended, no rebound or guarding EXTREMITY: could not examine well as patient described exquisite tenderness NEURO: CN 2-12 grossly intact, no gross focal deficits. SKIN: warm and dry Laboratory Results: Last 24 Hours Test 07/06/16 20:13 07/07/16 06:36 07/07/16 07:08 07/07/16 11:05 Bedside Glucose 107 mg/dl 114 mg/dl 140 mg/dl White Blood Count 17.48 K/uL Red Blood Count 4.27 M/uL Hemoglobin 11.6 g/dL Hematocrit 37.6 % Mean Corpuscular Volume 88.1 fL Mean Corpuscular Hemoglobin 27.2 pg Mean Corpuscular Hemoglobin Concent 30.9 g/dl Platelet Count 324 K/uL Mean Platelet Volume 10.6 fL Neutrophils (%) (Auto) 63.7 % Lymphocytes (%) (Auto) 25.3 % Monocytes (%) (Auto) 5.4 % Eosinophils (%) (Auto) 3.4 % Basophils (%) (Auto) 0.2 % Neutrophils # (Auto) 11.13 K/uL Lymphocytes # (Auto) 4.43 K/uL Monocytes # (Auto) 0.95 K/uL Eosinophils # (Auto) 0.59 K/uL Basophils # (Auto) 0.03 K/uL RDW Standard Deviation 50.7 fL RDW Coefficient of Variation 15.9 % Immature Granulocyte % (Auto) 2.0 % Immature Granulocyte # (Auto) 0.35 K/uL Sodium Level 143 mmol/L Potassium Level 4.7 mmol/L Chloride Level 105 mmol/L Carbon Dioxide Level 30 mmol/L Anion Gap 8.0 mmol/L Blood Urea Nitrogen 23 mg/dl Creatinine 1.50 mg/dl Est Creatinine Clear Calc Drug Dose 39.4 ml/min Estimated GFR () 48.2 Estimated GFR (Non- 41.6 BUN/Creatinine Ratio 15.0 Random Glucose 108 mg/dl Calcium Level 9.0 mg/dl Assessment & Plan 85 yo M with COPD who presented to the ER on 06/25 with cough and SOB. He became hypotensive and was placed on Levophed. He was admitted to the ICU, started on broad spectrum abx for a PNA as well as IV steroids. He became lethargic, and a CT brain revealed no acute changes. He was placed on BIPAP 2/ 2 hypercapnia, which worsened requiring intubation. He receivedMucomyst and bronchodilators while on the vent. He was successfully extubated on 06/27 and was transferred to [facility] on 06/28 where he currently resides. Hypercapnic respiratory failure-acute exacerbation has resolved with BIPAP, however, per Marine Plumber, there may be a chronic resp failure element here-- currently cannot wean oxygen completely off H/o septic shock 2/2 bilateral pneumonia s/p extubation/pressors. --resolved Leukocytosis-infection vs steroids - (+) increasing WBC, repeat blood and urine cultures - was on Zosyn and Levaquin--> transitioned to Augmentin and Doxycycline PO - continue for now (day 11) Nebs (changed to Levalbuterol/Ipratropium) change IV steroids to prednisone , completed-later stopped 2/2 concerns for AMS received 7 days total ENCEPHALOPATHY/LETHARGY/AMS-appears disoriented today, will not answer questions about his name,etc. -likely multifactorial due to hypercapnia and sepsis, improved initially - seems to have been recurring for the past 2-3 days Levaquin changed to Doxy, Steroids discontinued CT head negative consulted Neurology: likely encephalopathy slowly improving DAKOTA on CKD STAGE III, Resolved -likely due to sepsis and dehydration -Cr 2.5-->2.0-->1.7 -baseline Cr of 1.6-1.7 - back to baseline - po intake poor no signs of overload, hold Lasix today Lisinopril also on hold A FIB IN RVR has been having intermittent a fib during admission AV darell agents avoided due to episodes of bradycardia coumadin not recommended - resumed Aspirin - 07/03: was in a fib with RVR, given Digoxin, HR improved, now in SR - discussed with Dr. Griffiths, Metoprolol 12.5mg PO daily started no recurrence so far monitor BRADYCARDIA, Resolved -has had slow atrial fibrillation intermittently per monitor -monitor while on Metoprolol DIARRHEA, Resolved negative for C diff, stool cultures d/c laxatives -normal BM per nurse today MELENA, Resolved -per family 1 episode black stool -Hemoccult stool + x 2 - Hg stable around 10 x 4 days-->improved to 11.6/37.[address] abdomen/pelvis: RLQ and Left Groin hernia, no signs of obstruction - check anemia panel: low folate, replace resumed Aspirin, heparin, no recurrence continue Protonix daily - GI consulted, EGD/Colonoscopy not recommended at this time appreciate the input - no recurrence HEMATURIA Lopez discontinued appreciate Dr. Oakes' recommendations - monitor - no recurrence -f/u for outpatient cystoscopy in 3-6 weeks CAD s/p CABG x 3 VESSELS: - Aspirin , Statin -MILADIS-I on hold for hypotension and DAKOTA -was not on BB -cont Lopressor 12.5 as above. DM TYPE II: well controlled -HbA1c: 6.5% -hold oral hyperglycemic medications -on lantus + insulin correction scale coverage HTN: - stable HYPOTHYROIDISM -continue levothyroxine - TSH: normal GERD -continue PPI [facility] Current Inpatient Medications: Current Inpatient Medications Medications (Trade) Dose Ordered Sig/Drea Route Start Time Stop Time Status Last Admin Dose Admin Ondansetron HCl (Zofran Inj) 4 mg Q6H PRN IV 06/25/16 14:00 2/11/17 13:59 06/26/16 20:22 4 MG Acetaminophen (Tylenol Tab) 650 mg Q4H PRN PO 06/25/16 14:00 07/25/16 13:59 07/01/16 22:07 650 MG Glucose (Glucose 40% Gel) 15-30 GRAMS 15 GRAMS... UD PRN PO 06/25/16 14:15 07/25/16 14:14 Glucose (Glucose Chew Tab) 4-8 Tablets 4 Tabl... UD PRN PO 06/25/16 14:15 07/25/16 14:14 Dextrose (Dextrose 50% 50ML Syringe) 25-50ML OF 50% DW IV FOR... UD PRN IV 06/25/16 14:15 07/25/16 14:14 Glucagon (Glucagon Inj) 1 mg UD PRN SQ 06/25/16 14:15 07/25/16 14:14 Atorvastatin Calcium (Lipitor Tab) 40 mg DAILY PO 06/26/16 09:00 07/26/16 08:59 07/07/16 09:13 40 MG Calcitriol (Rocaltrol Cap) 0.25 mcg DAILY PO 06/26/16 09:00 07/26/16 08:59 07/07/16 09:11 0.25 MCG Cholecalciferol (Vitamin D Tab) 1,000 inter.unit DAILY PO 06/26/16 09:00 07/26/16 08:59 07/07/16 09:11 1,000 INTER.UNIT Levothyroxine Sodium (Synthroid Tab) 25 mcg DAILYBB PO 06/26/16 06:00 07/26/16 05:59 07/06/16 06:01 25 MCG Levothyroxine Sodium (Synthroid Tab) 200 mcg DAILYBB PO 06/26/16 06:00 07/26/16 05:59 07/06/16 06:00 200 MCG Magnesium Hydroxide (Milk Of Magnesia Susp) 30 ml DAILY PRN PO 06/25/16 14:30 07/25/16 14:29 Bacitracin (Bacitracin Oint) 1 appln TID PRN EXT 06/25/16 14:30 07/25/16 14:29 Miscellaneous Information (Order Awaiting Action) 1 ea QS N/A 06/25/16 16:00 07/25/16 15:59 06/30/16 00:56 1 EA Miscellaneous Information (Order Awaiting Action) 1 ea QS N/A 06/25/16 16:00 07/25/16 15:59 06/30/16 00:56 1 EA Polyethylene (Miralax Powder Packet) 17 gm DAILY PO 06/27/16 09:00 07/27/16 08:59 07/07/16 09:12 17 GM Insulin Aspart (novoLOG ASPART) SLIDING SCALE If C... ACHS SC 06/28/16 11:00 07/28/16 10:59 07/02/16 20:58 1 UNITS Pantoprazole Sodium (Protonix Tab) 40 mg QAM PO 06/29/16 09:00 07/29/16 08:59 07/07/16 09:12 40 MG Enteral Nutritional Formula (Boost Glucose Control) 1 can TIDM PO 06/28/16 11:30 07/28/16 11:29 07/06/16 11:57 1 CAN Folic Acid (Folvite Tab) 1 mg QAM PO 07/02/16 09:00 08/01/16 08:59 07/07/16 09:11 1 MG Haloperidol (Haldol Tab) 2 mg Q4H PRN PO 07/01/16 21:15 07/31/16 21:14 Haloperidol Lactate (Haldol Inj) 2 mg Q2H PRN IM 07/01/16 21:15 07/31/16 21:14 07/01/16 21:21 2 MG Ferrous Sulfate (Feosol Tab) 325 mg BIDM PO 07/02/16 16:45 08/01/16 16:44 07/07/16 09:11 325 MG Aspirin (Ecotrin Tab) 81 mg QAM PO 07/04/16 09:00 08/03/16 08:59 07/07/16 09:13 81 MG Heparin Sodium (Porcine) (Heparin Sq 5000 Unit/0.5ml) 5,000 unit Q12 SQ 07/03/16 21:00 08/02/16 20:59 07/07/16 09:17 5,000 UNIT Ipratropium Fletcher (Atrovent 0.02% 0.5MG/2.5ML Neb) 0.5 mg Q6RWA INH 07/04/16 15:00 08/03/16 14:59 07/07/16 14:20 0.5 MG Levalbuterol (Xopenex 1.25MG/ 0.5ML Neb) 1.25 mg Q6RWA INH 07/04/16 15:00 08/03/16 14:59 07/07/16 14:20 1.25 MG Metoprolol Tartrate (Lopressor Tab) 12.5 mg BID PO 07/04/16 21:00 08/03/16 20:59 07/07/16 09:10 12.5 MG Miconazole Nitrate (Desenex Powder) 1 appln PRN PRN EXT 07/06/16 15:00 08/05/16 14:59
[2016-07-08] VITALS (9 sets, daily range): BP systolic 97–117; BP diastolic 51–69; PULSE 55–74; TEMP 36.3–37; O2SAT 90–99
[2016-07-08] MEDS: LEVOTHYROXINE 25 MCG TAB PO SCH (05:56)
[2016-07-08] MEDS: LEVOTHYROXINE 200 MCG TAB PO SCH (05:57)
[2016-07-08] MEDS: [UNRECOGNIZED DRUG - REMARK] SCH ×3 (06:51→23:37)
[2016-07-08 07:36] LABS: HEMATOCRIT 35.9 % (42-52); MEAN CORPUSCULAR HGB CONC 30.6 g/dl (32-36); MEAN PLATELET VOLUME 10.7 fL (7.4-10.4); PLATELET COUNT 297 K/uL (130-400); RED BLOOD COUNT 4.08 M/uL (4.7-6.1); WHITE BLOOD COUNT 16.05 K/uL (4.8-10.8)
[2016-07-08] MEDS: IPRATROPIUM BROMIDE NEB SOLN 0.02% 2.5 ML VIAL INH SCH ×3 (07:46→19:40)
[2016-07-08] MEDS: LEVALBUTEROL 1.25MG/0.5ML NEB INH SCH ×3 (07:46→19:40)
[2016-07-08 08:12] LABS: BUN/CREATININE RATIO 13.2 (10-20); CALCIUM 9.1 mg/dl (8.5-10.1); CREATININE 1.6 mg/dl (0.60-1.40); POTASSIUM 4.1 mmol/L (3.5-5.1)
[2016-07-08] MEDS: BOOST GLUCOSE CONTROL PO SCH ×3 (08:36→17:50)
[2016-07-08] MEDS: ATORVASTATIN 40 MG TAB PO SCH (08:40)
[2016-07-08] MEDS: ASPIRIN 81 MG ECTAB PO SCH (08:40)
[2016-07-08] MEDS: FERROUS SULFATE 325 MG TAB PO SCH ×2 (08:40→17:52)
[2016-07-08] MEDS: METOPROLOL TARTRATE 25 MG TAB PO SCH ×2 (08:40→21:00)
[2016-07-08] MEDS: CHOLECALCIFEROL 1000 INTER.UNIT TAB PO SCH (08:41)
[2016-07-08] MEDS: POLYETHYLENE (MIRALAX) 17 GM PACK PO SCH (08:41)
[2016-07-08] MEDS: CALCITRIOL 0.25 MCG CAP PO SCH (08:41)
[2016-07-08] MEDS: PANTOprazole SOD 40 MG TAB PO SCH (08:41)
[2016-07-08] MEDS: INSULIN ASPART 100 UNITS/ML 3 ML PEN SC SCH ×4 (08:47→20:56)
[2016-07-08] MEDS: HEPARIN SOD 5000 UNIT/0.5 ML CARP SQ SCH ×2 (08:47→21:17)
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
[2016-07-08] MEDS ORDERED: IPRATROPIUM BROMIDE NEB SOLN 0.02% 2.5 ML VIAL INH PRN (21:31)
[2016-07-08] MEDS ORDERED: LEVALBUTEROL 1.25MG/0.5ML NEB INH PRN (21:31)
--- NOTE | 2016-07-08 21:57 | Progress Note ---
Medicine Progress Note Date & Time of Visit: Jul 08, 2016 at 18:17. Subjective doing well tonight tolerating PO Still requiring 2-3 L NC at rest Pulm saw today Denies symptoms Feet are very tender more oriented today Afebrile Coughing only a little overnight last night. Objective Last 8 Hrs Date Time Temp Pulse Resp B/P Pulse Ox O2 Delivery O2 Flow Rate FiO2 07/08/16 14:56 36.4 65 20 106/65 97 Nasal Cannula 3.0 07/08/16 14:35 73 16 99 Nasal Cannula 3.0 07/08/16 12:00 Nasal Cannula 3.0 07/08/16 11:24 37.0 64 18 106/56 97 Nasal Cannula 3.0 Physical Exam: GEN: WNWD, in no acute distress, alert and appropriate HEENT: NC/AT, normal sclerae CARDIO: reg rate, S1/2 heard without m/g/r LUNGS: lungs CTA, No crackles, rales or wheezes, good diaphragmatic excursion ABD: soft, non-tender, non-distended, no rebound or guarding EXTREMITY: could not examine well as patient described exquisite tenderness, would not let me pull socks off his feet. NEURO: CN 2-12 grossly intact, no gross focal deficits. SKIN: warm and dry Laboratory Results: Last 24 Hours Test 07/07/16 21:59 07/08/16 06:35 07/08/16 07:30 07/08/16 11:30 Bedside Glucose 119 mg/dl 112 mg/dl 143 mg/dl White Blood Count 16.05 K/uL Red Blood Count 4.08 M/uL Hemoglobin 11.0 g/dL Hematocrit 35.9 % Mean Corpuscular Volume 88.0 fL Mean Corpuscular Hemoglobin 27.0 pg Mean Corpuscular Hemoglobin Concent 30.6 g/dl RDW Standard Deviation 51.1 fL RDW Coefficient of Variation 16.1 % Platelet Count 297 K/uL Mean Platelet Volume 10.7 fL Sodium Level 143 mmol/L Potassium Level 4.1 mmol/L Chloride Level 106 mmol/L Carbon Dioxide Level 28 mmol/L Anion Gap 9.0 mmol/L Blood Urea Nitrogen 21 mg/dl Creatinine 1.60 mg/dl Est Creatinine Clear Calc Drug Dose 37.1 ml/min Estimated GFR () 44.6 Estimated GFR (Non- 38.4 BUN/Creatinine Ratio 13.2 Random Glucose 99 mg/dl Calcium Level 9.1 mg/dl Test 07/08/16 16:38 Bedside Glucose 96 mg/dl Date/Time Source Procedure Growth Status 07/08/16 12:20 Urine , Clean Catch Urine Culture Pending Received Assessment & Plan 85 yo M with COPD who presented to the ER on 06/25 with cough and SOB. He became hypotensive and was placed on Levophed. He was admitted to the ICU, started on broad spectrum abx for a PNA as well as IV steroids. He became lethargic, and a CT brain revealed no acute changes. He was placed on BIPAP 2/ 2 hypercapnia, which worsened requiring intubation. He received Mucomyst and bronchodilators while on the vent. He was successfully extubated on 06/27 and was transferred to [facility] on 06/28 where he currently resides. He has completed 7 days of steroids and 11 days of broad abx and continues to have an oxygen requirement of 2-3 L via NC. Hypercapnic respiratory failure-acute exacerbation has resolved with BIPAP, however, per Public Policy Manager, there may be a chronic resp failure element here-- currently cannot wean oxygen completely off. Pulm saw him today and agrees with home oxygen so long as two step necessitates it. Will order this tomorrow. Peripheral neuropathy-very tender lower extremities. Workup with treatment trial as outpatient/will discuss a trial of gabapentin while at SNF. Ordered 25OH for am. B12 and ferritin are within normal range. TSH WNL. H/o septic shock 2/2 bilateral pneumonia s/p extubation/pressors. --shock resolved. Has been adequately treated with 11 days of abx for his pneumonia. - Was on Zosyn and Levaquin--> transitioned to Augmentin and Doxycycline PO - completed 11 day course Afebrile. Cont Nebs PRN. Repeat CXR in 4-6 weeks to ensure resolution. Leukocytosis-infection vs steroids: decreased to 16K, off steroids and abx at this time, expect to cont to fall Encephalopathy-resolved today -likely multifactorial due to hypercapnia and sepsis, along with drug reaction from steroids; CT head negative consulted Neurology--this is expected DAKOTA on CKD STAGE III, Resolved -likely due to sepsis and dehydration -Cr 2.5-->2.0-->1.7-->1.6 -baseline Cr of 1.6-1.7 - back to baseline no signs of overload, hold Lasix today Restarting Lisinopril and cont to hold Lasix in setting of lower BP Atrial fibrillation has been having intermittent a fib during admission AV darell agents avoided due to episodes of bradycardia coumadin not recommended - resumed Aspirin - 07/03: was in a fib with RVR, given Digoxin, HR improved, now in SR - discussed with Dr. Griffiths, Metoprolol 12.5mg PO daily started no recurrence so far monitor Bradycardia, Resolved -has had slow atrial fibrillation intermittently per monitor -monitor while on Metoprolol Diarrhea, Resolved negative for C diff, stool cultures d/c laxatives -normal BM per nurse today Melena, Resolved -per family 1 episode black stool -Hemoccult stool + x 2 - Hg stable around 10 x 4 days-->stable at today CT abdomen/pelvis: RLQ and Left Groin hernia, no signs of obstruction resumed Aspirin, heparin, no recurrence continue Protonix daily - GI consulted, EGD/Colonoscopy not recommended at this time - no recurrence Hematuria Lopez discontinued appreciate Dr. Oakes' recommendations - no recurrence -f/u for outpatient cystoscopy in 3-6 weeks CAD s/p CABG x 3 VESSELS: - Aspirin , Statin -restarting Lis now -was not on BB -cont Lopressor 12.5 as above. DM TYPE II: well controlled -HbA1c: 6.5% -hold oral hyperglycemic medications -on lantus + insulin correction scale coverage HYPOTHYROIDISM -continue levothyroxine - TSH: normal GERD -continue PPI DVT proph: heparin Full code Dispo: Two step in am, then likely d/c to SNF, referral in for Giorgio kenney CM. Will discuss with them and update family in am. Lynn Nguyen DO [facility] Hospitalist Current Inpatient Medications: Current Inpatient Medications Medications (Trade) Dose Ordered Sig/Drea Route Start Time Stop Time Status Last Admin Dose Admin Ondansetron HCl (Zofran Inj) 4 mg Q6H PRN IV 06/25/16 14:00 07/25/16 13:59 06/26/16 20:22 4 MG Acetaminophen (Tylenol Tab) 650 mg Q4H PRN PO 06/25/16 14:00 07/25/16 13:59 07/01/16 22:07 650 MG Glucose (Glucose 40% Gel) 15-30 GRAMS 15 GRAMS... UD PRN PO 06/25/16 14:15 07/25/16 14:14 Glucose (Glucose Chew Tab) 4-8 Tablets 4 Tabl... UD PRN PO 06/25/16 14:15 07/25/16 14:14 Dextrose (Dextrose 50% 50ML Syringe) 25-50ML OF 50% DW IV FOR... UD PRN IV 06/25/16 14:15 07/25/16 14:14 Glucagon (Glucagon Inj) 1 mg UD PRN SQ 06/25/16 14:15 07/25/16 14:14 Atorvastatin Calcium (Lipitor Tab) 40 mg DAILY PO 06/26/16 09:00 07/26/16 08:59 07/08/16 08:40 40 MG Calcitriol (Rocaltrol Cap) 0.25 mcg DAILY PO 06/26/16 09:00 07/26/16 08:59 07/08/16 08:41 0.25 MCG Cholecalciferol (Vitamin D Tab) 1,000 inter.unit DAILY PO 06/26/16 09:00 07/26/16 08:59 07/08/16 08:41 1,000 INTER.UNIT Levothyroxine Sodium (Synthroid Tab) 25 mcg DAILYBB PO 06/26/16 06:00 07/26/16 05:59 07/08/16 05:56 25 MCG Levothyroxine Sodium (Synthroid Tab) 200 mcg DAILYBB PO 06/26/16 06:00 07/26/16 05:59 07/08/16 05:57 200 MCG Magnesium Hydroxide (Milk Of Magnesia Susp) 30 ml DAILY PRN PO 06/25/16 14:30 07/25/16 14:29 Bacitracin (Bacitracin Oint) 1 appln TID PRN EXT 06/25/16 14:30 07/25/16 14:29 Miscellaneous Information (Order Awaiting Action) 1 ea QS N/A 06/25/16 16:00 07/25/16 15:59 06/30/16 00:56 1 EA Miscellaneous Information (Order Awaiting Action) 1 ea QS N/A 06/25/16 16:00 07/25/16 15:59 06/30/16 00:56 1 EA Polyethylene (Miralax Powder Packet) 17 gm DAILY PO 06/27/16 09:00 07/27/16 08:59 07/08/16 08:41 17 GM Insulin Aspart (novoLOG ASPART) SLIDING SCALE If C... ACHS SC 06/28/16 11:00 07/28/16 10:59 07/08/16 12:41 1 UNITS Pantoprazole Sodium (Protonix Tab) 40 mg QAM PO 06/29/16 09:00 07/29/16 08:59 07/08/16 08:41 40 MG Enteral Nutritional Formula (Boost Glucose Control) 1 can TIDM PO 06/28/16 11:30 07/28/16 11:29 07/06/16 11:57 1 CAN Folic Acid (Folvite Tab) 1 mg QAM PO 07/02/16 09:00 08/01/16 08:59 07/08/16 08:40 1 MG Haloperidol (Haldol Tab) 2 mg Q4H PRN PO 07/01/16 21:15 07/31/16 21:14 Haloperidol Lactate (Haldol Inj) 2 mg Q2H PRN IM 07/01/16 21:15 07/31/16 21:14 07/01/16 21:21 2 MG Ferrous Sulfate (Feosol Tab) 325 mg BIDM PO 07/02/16 16:45 08/01/16 16:44 07/08/16 17:52 325 MG Aspirin (Ecotrin Tab) 81 mg QAM PO 07/04/16 09:00 08/03/16 08:59 07/08/16 08:40 81 MG Heparin Sodium (Porcine) (Heparin Sq 5000 Unit/0.5ml) 5,000 unit Q12 SQ 07/03/16 21:00 08/02/16 20:59 07/08/16 08:47 5,000 UNIT Ipratropium Britt (Atrovent 0.02% 0.5MG/2.5ML Neb) 0.5 mg Q6RWA INH 07/04/16 15:00 08/03/16 14:59 07/08/16 14:35 0.5 MG Levalbuterol (Xopenex 1.25MG/ 0.5ML Neb) 1.25 mg Q6RWA INH 07/04/16 15:00 08/03/16 14:59 07/08/16 14:35 1.25 MG Metoprolol Tartrate (Lopressor Tab) 12.5 mg BID PO 07/04/16 21:00 08/03/16 20:59 07/07/16 22:01 12.5 MG Miconazole Nitrate (Desenex Powder) 1 appln PRN PRN EXT 07/06/16 15:00 08/05/16 14:59
[2016-07-09 04:25] VITALS: BP 106/79; PULSE 70; TEMP 36.6; O2SAT 94
[2016-07-09 05:34] LABS: HEMATOCRIT 36.5 % (42-52); MEAN CORPUSCULAR HEMOGLOBIN 27.3 pg (25-34); MEAN CORPUSCULAR HGB CONC 30.7 g/dl (32-36); MEAN PLATELET VOLUME 10.5 fL (7.4-10.4); PLATELET COUNT 287 K/uL (130-400); WHITE BLOOD COUNT 14.16 K/uL (4.8-10.8)
[2016-07-09 05:58] LABS: CREATININE 1.7 mg/dl (0.60-1.40)
[2016-07-09 05:59] LABS: BUN/CREATININE RATIO 10.8 (10-20); CALCIUM 8.9 mg/dl (8.5-10.1); POTASSIUM 4.2 mmol/L (3.5-5.1)
[2016-07-09] MEDS: LEVOTHYROXINE 25 MCG TAB PO SCH (06:12)
[2016-07-09] MEDS: LEVOTHYROXINE 200 MCG TAB PO SCH (06:12)
[2016-07-09 07:14] VITALS: BP 102/51; PULSE 69; TEMP 36.4; O2SAT 93
[2016-07-09 08:00] VITALS: O2SAT 93
[2016-07-09] MEDS ORDERED: LISINOPRIL 2.5 MG TAB PO SCH (09:00)
[2016-07-09] MEDS: ASPIRIN 81 MG ECTAB PO SCH (09:08)
[2016-07-09] MEDS: ATORVASTATIN 40 MG TAB PO SCH (09:08)
[2016-07-09] MEDS: CHOLECALCIFEROL 1000 INTER.UNIT TAB PO SCH (09:08)
[2016-07-09] MEDS: CALCITRIOL 0.25 MCG CAP PO SCH (09:09)
[2016-07-09] MEDS: METOPROLOL TARTRATE 25 MG TAB PO SCH (09:09)
[2016-07-09] MEDS: POLYETHYLENE (MIRALAX) 17 GM PACK PO SCH (09:09)
[2016-07-09] MEDS: PANTOprazole SOD 40 MG TAB PO SCH (09:10)
[2016-07-09] MEDS: INSULIN ASPART 100 UNITS/ML 3 ML PEN SC SCH ×3 (09:11→16:30)
[2016-07-09 09:15] VITALS: BP 107/70; PULSE 84
[2016-07-09] MEDS: [UNRECOGNIZED DRUG - REMARK] SCH ×2 (09:15→16:00)
[2016-07-09] MEDS: FERROUS SULFATE 325 MG TAB PO SCH (09:16)
[2016-07-09] MEDS: HEPARIN SOD 5000 UNIT/0.5 ML CARP SQ SCH (09:22)
[2016-07-09] MEDS: BOOST GLUCOSE CONTROL PO SCH ×2 (09:30→12:00)
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
[2016-07-09 12:00] VITALS: O2SAT 93
[2016-07-09] MEDS ORDERED: PRT40 PO (13:18)
[2016-07-09] MEDS ORDERED: LPR25 PO (13:18)
[2016-07-09] MEDS ORDERED: TIOT1AER2 PO (13:18)
--- NOTE | 2016-07-09 13:37 | Discharge Instructions ---
Discharge Instructions Admission Reason for Admission: Sepsis, Hypotension Discharge Discharge Diagnosis / Problem: Sepsis, hypoxia, Pneumonia, GI bleed, hematuria , atrial fibrillation, COPD Discharge Goals Goal(s): Prevent Disease Progression Activity Recommendations Activity Limitations: resume your previous activity . Instructions / Follow-Up Instructions / Follow-Up Please take all medications as instructed. Use attached list for guidance. New prescriptions have been electronically transmitted to your preferred pharmacy. Continue oxygen at 2L nasal canula to keep oxygen saturation >92%. Wean as tolerated. You will need to get a follow-up chest x-ray in 6 weeks to ensure complete resolution of pneumonia. After this has cleared up, you will need a CT scan to follow-up opacities in your lung that were seen on a prior CT scan in 2013. A pulmonary follow-up is recommended with consideration for outpatient pulmonary function tests (PFTs). This can be coordinated through your primary care provider (PCP) at follow-up. You are set up for a follow-up appointment with your PCP, Dr. Campoverde on Wed @ 2:50pm. Please bring all paperwork from this hospitalization with you. As you experienced some blood in your urine while you were hospitalized, you will need an outpatient follow-up with the urologist, Dr. Mariam Oakes. This should be within 3-6 weeks to consider cystoscopy. You also had some blood in your stool and you were evaluated by the director of safety, Dr. Rodriguez Gutierrez. No endoscopy was recommended as an inpatient, however, I would recommend follow-up with him as an outpatient to ensure everything is fine. It was a pleasure taking care of you! Call if you have any questions or problems. You can reach a [facility] hospitalist on duty at [facility] 24 hours a day by calling [phone]. Take care of yourself. Lynn Nguyen, [facility] Hospitalist Current Hospital Diet Patient's current hospital diet: AHA Diet (Heart Healthy), Diabetes Type 2 Diet Discharge Diet Recommended Diet: AHA Diet (Heart Healthy), Diabetes Type 2 Diet Procedures Procedures Performed: Intubation 06/26 TTE-06/26 Pending Studies Studies pending at discharge: no Laboratory Results Hemoglobin A1c Test 06/26/16 03:14 Range/Units Estimated Average Glucose 140 mg/dl Hemoglobin A1c 6.5 H 4.5-5.6 % Medical Emergencies . Who to Call and When: Medical Emergencies: If at any time you feel your situation is an emergency, please call 911 immediately. . Non-Emergent Contact Non-Emergency issues call your: Primary Care Provider . . "Provider Documentation" section prepared by Lynn Nguyen. VTE Core Measure Inpt VTE Proph given/why not?: SCD's (hematuria, GI bleeding)
[2016-07-09 14:00] VITALS: BP 107/70; PULSE 84; TEMP 36.4; O2SAT 93
--- NOTE | 2016-07-16 16:24 | Discharge Summary ---
Discharge Summary Admission Date: Jun 25, 2016 at 13:48 Discharge Date: Jul 09, 2016 Discharge Disposition: senior care facility Principal Diagnosis: Septic shock Acute hypercarbic and hypoxic respiratory failure Hypoxia Pneumonia Atrial fibrillation GI bleeding Hematuria Procedures: TTE 06/26 Intubation 06/26 Vaccinations: None. Consultations: Cardiology, GI, Pulm, Urology, Mobile Security Specialist Pending Studies/Follow-Up: see instructions below Medication Reconciliation New Medications: Tiotropium [place] Monohydrate (Spiriva Respimat) 1.25 Mcg/Act Aer 1 PUFF PO QD for 30 Days, #1 EA Metoprolol Tartrate (Lopressor) 25 Mg Tab 12.5 MG PO BID for 30 Days, #30 TAB Pantoprazole (Pantoprazole Sodium) 40 Mg Tab 40 MG PO QAM for 30 Days, #30 TAB Continued Medications: Albuterol 0.083% Soln (Ventolin 0.083% Soln *) Nebu 1 EA INH Q4HR PRN for SOB/Wheezing, 0 Refills Albuterol Sulfate (Proair Respiclick) 108 Mcg/Act Aer 2 PUFFS INH Q4H PRN for Wheezing Aspirin (Aspirin 81) 81 Mg Tab 81 MG PO DAILY Atorvastatin (Lipitor) 40 Mg Tab 40 MG PO DAILY, TAB Calcitriol (Calcitriol) 0.25 Mcg Cap 0.25 MCG PO DAILY Cholecalciferol (Vitamin D 1000 Unit) 1,000 Unit Cap 1000 INTER.UNIT PO DAILY, CAP Furosemide (Lasix) 40 Mg Tab 40 MG PO DAILY, TAB Levothyroxine Sodium (Levothyroxine Sodium) 25 Mcg Tab 1 TAB PO DAILY for 30 Days, #30 TAB 5 Refills with 200mcg tablet; total dose is 225mcg Levothyroxine Sodium (Levothyroxine Sodium) 200 Mcg Tab 1 TAB PO DAILY for 30 Days, #30 TAB 5 Refills with 25mcg tablet; total dose is 225mcg Lisinopril (Lisinopril) 2.5 Mg Tab 2.5 MG PO DAILY Magnesium Hydroxide (Milk of Magnesia 400 mg/5Ml) 1 Fatemeh Fatemeh 30 ML PO DAILY PRN for Constipation Mupirocin (Bactroban 2% Oint) 66 Appln/22 Gm Oint 1 APPLN EXT TID PRN for skin impairment, TUBE Pioglitazone Hcl (Actos) 30 Mg Tab 30 MG PO DAILY, TAB Promethazine-Dm (Promethazine-Dm) 1 Syp Syp 5 ML PO Q6H PRN for Cough for 6 Days, #120 ML Urea (Carmol 20) 20 % Cre 1 APPLN EXT DAILY Apply daily to feet. Discontinued Medications: Omeprazole (Prilosec) 20 Mg Capcr 20 MG PO DAILY PRN for Dyspepsia, 0 Refills Admission Information HPI (per Admitting provider): This is an 85 year old male with PMH of CAD, hypertension, DM type 2, COPD, hypothyroidism, CKD stage III, dyslipidemia, history of clostridium difficile, and other problems listed below who was sent to the ED by ambulance from Dr. Campoverde's office for sepsis. Patient does not know why he is here. Daughter-in- law at bedside states pt became ill 3 days ago with increasing SOB from baseline , generalized weakness, lethargy, poor PO intake, rhinorrhea, sore throat, cough with yellow sputum increased from baseline, subjective fever, sweats, chills/ rigors, disorientation (normally oriented x 3). No aspiration as per family. Yesterday patient had 2 episodes of diarrhea. Family noted black stool yesterday. Pt denies dizziness, headache, chest pain, abdominal pain, nausea, vomiting, dysuria, frequency. He was incontinent overnight. At Dr. Huffman's office today patient was hypoxic to 75% on RA, HR was 118, and was febrile to 39.2. En route to ER he received Duoneb and 1 liter IVF's. In the ER he received 3 additional boluses and now is on NSS at 125/ hour. CXR showed left basilar infiltrate. KUB showed no obstruction. [id number] states reports sick contacts with family members with URI symptoms. No recent travel, antibiotics, or hospitalizations. Family denies history of CHF. Physical Exam (per Admitting): General Appearance: WD/WN, + pertinent finding (alert confused 85 year old male, on non-rebreather mask, daughter in law at bedside) Head: normocephalic, atraumatic Eyes: normal inspection, PERRL, EOMI ENT: hearing grossly normal, pharynx normal Neck: supple, no JVD, trachea midline Respiratory/Chest: no respiratory distress, no accessory muscle use, + wheezing (expiratory wheezing), + pertinent finding (diffuse rhonchi) Cardiovascular: regular rate, rhythm, no murmur Abdomen/GI: normal bowel sounds, non tender, soft Genitourinary - Male: + pertinent finding (segovia catheter draining clear yellow urine) Extremities/Musculoskelatal: normal inspection, no calf tenderness, normal capillary refill, + pertinent finding (trace edema BLLE- chronic per family) Neurologic/Psych: no motor/sensory deficits, alert, + disoriented ( disoriented to date/ place, oriented to person- usually oriented x 3) Skin: normal color, warm/dry, + pertinent finding (+ venous stasis changes, dry flaky skin. no open areas. no mottling. ) Hospital Course 85 yo M with COPD who presented to the ER on 06/25 with cough and SOB. He became hypotensive and was placed on Levophed. He was admitted to the ICU, started on broad spectrum abx for a PNA as well as IV steroids. He became lethargic, and a CT brain revealed no acute changes. He was placed on BIPAP 2/ 2 hypercapnia, which worsened requiring intubation. He received Mucomyst and bronchodilators while on the vent. He was successfully extubated on 06/27 and was transferred to [facility] on 06/28 where he currently resides. He has completed 7 days of steroids and 11 days of broad abx and continues to have an oxygen requirement of 2-3 L via NC. Hypercapnic respiratory failure-acute exacerbation has resolved with BIPAP, however, per Mobile Security Specialist, there may be a chronic resp failure element here-- currently cannot wean oxygen completely off. Pulm saw him today and agrees with home oxygen so long as two step necessitates it. Two step deferred as patient was transferred to [facility] at discharge. Peripheral neuropathy-very tender lower extremities. Workup with treatment trial as outpatient/will discuss a trial of gabapentin while at [facility]. Ordered 25OH --31 (WNL). B12 and ferritin are within normal range. TSH WNL. H/o septic shock 2/2 bilateral pneumonia s/p extubation/pressors. --shock resolved. Has been adequately treated with 11 days of abx for his pneumonia. - Was on Zosyn and Levaquin--> transitioned to Augmentin and Doxycycline PO - completed 11 day course Afebrile. Cont Nebs PRN. Repeat CXR in 4-6 weeks to ensure resolution. Leukocytosis-infection vs steroids: decreased to 16K, off steroids and abx at this time, expect to cont to fall Encephalopathy-resolved today -likely multifactorial due to hypercapnia and sepsis, along with drug reaction from steroids; CT head negative consulted Neurology--this is expected DAKOTA on CKD STAGE III, Resolved -likely due to sepsis and dehydration -Cr 2.5-->2.0-->1.7-->1.6 -baseline Cr of 1.6-1.7 - back to baseline no signs of overload, hold Lasix today Restarting Lisinopril and cont to hold Lasix in setting of lower BP Atrial fibrillation has been having intermittent a fib during admission AV darell agents avoided due to episodes of bradycardia coumadin not recommended - resumed Aspirin - 07/03: was in a fib with RVR, given Digoxin, HR improved, now in SR - discussed with Dr. Griffiths (Cardiology) Metoprolol 12.5mg PO daily started no recurrence so far Bradycardia, Resolved -has had slow atrial fibrillation intermittently per monitor -monitor while on Metoprolol Diarrhea, Resolved negative for C diff, stool cultures d/c laxatives -normal BM per nurse today Melena, Resolved -per family 1 episode black stool -Hemoccult stool + x 2 - Hg stable around 10 x 4 days-->stable at today CT abdomen/pelvis: RLQ and Left Groin hernia, no signs of obstruction resumed Aspirin, heparin, no recurrence continue Protonix daily - GI consulted, EGD/Colonoscopy not recommended at this time - no recurrence Hematuria Segovia discontinued appreciate Dr. Oakes' recommendations - no recurrence -f/u for outpatient cystoscopy in 3-6 weeks CAD s/p CABG x 3 VESSELS: - Aspirin , Statin -restarting Lis now -was not on BB -cont Lopressor 12.5 as above. DM TYPE II: well controlled -HbA1c: 6.5% -hold oral hyperglycemic medications -on lantus + insulin correction scale coverage HYPOTHYROIDISM -continue levothyroxine - TSH: normal GERD -continue PPI On day of discharge, he was tolerating PO, afebrile and hemodynamically stable. Physical exam was unremarkable. He was discharged in stable condition for further rehab and reconditioning at SNF. He will need close follow-up with PCP within 7 days of discharge from rehab center. Total time spent on discharge = 60 minutes This includes examination of the patient, discharge planning, medication reconciliation, and communication with other providers. Discharge Instructions Discharge Instructions Admission Reason for Admission: Sepsis, Hypotension Discharge Discharge Diagnosis / Problem: Sepsis, hypoxia, Pneumonia, GI bleed, hematuria , atrial fibrillation, COPD Discharge Goals Goal(s): Prevent Disease Progression Activity Recommendations Activity Limitations: resume your previous activity . Instructions / Follow-Up Instructions / Follow-Up Please take all medications as instructed. Use attached list for guidance. New prescriptions have been electronically transmitted to your preferred pharmacy. Continue oxygen at 2L nasal canula to keep oxygen saturation >92%. Wean as tolerated. You will need to get a follow-up chest x-ray in 6 weeks to ensure complete resolution of pneumonia. After this has cleared up, you will need a CT scan to follow-up opacities in your lung that were seen on a prior CT scan in 2013. A pulmonary follow-up is recommended with consideration for outpatient pulmonary function tests (PFTs). This can be coordinated through your primary care provider (PCP) at follow-up. You are set up for a follow-up appointment with your PCP, Dr. Campoverde on Wed @ 2:50pm. Please bring all paperwork from this hospitalization with you. As you experienced some blood in your urine while you were hospitalized, you will need an outpatient follow-up with the urologist, Dr. Mariam Oakes. This should be within 3-6 weeks to consider cystoscopy. You also had some blood in your stool and you were evaluated by the automotive refinisher, Dr. Rodriguez Gutierrez. No endoscopy was recommended as an inpatient, however, I would recommend follow-up with him as an outpatient to ensure everything is fine. It was a pleasure taking care of you! Call if you have any questions or problems. You can reach a [facility] hospitalist on duty at [facility] 24 hours a day by calling [phone]. Take care of yourself. Lynn Nguyen, DO [facility] Additional Copies To Ivan Campoverde M.D.
[2016-11-05] MEDS ORDERED: ACT/30 PO (00:46)
[2016-11-05] MEDS ORDERED: ASPI-435 PO (00:46)
[2016-11-05] MEDS ORDERED: ATOR-24 PO (00:46)
[2016-11-05] MEDS ORDERED: CALC1CAP36 PO (00:52)
[2016-11-05] MEDS ORDERED: CHOL100027 PO (00:52)
[2016-11-05] MEDS ORDERED: LEVO25TA5 PO (14:03)
[2016-11-05] MEDS ORDERED: ALBU18002 INH (14:23)
[2016-11-13] MEDS ORDERED: AMOX875T PO (16:14)
== END 2016-07-09 16:45 | DRG 871 ==
LOC: ENRESERVTM → ENRESERVDT → EDBD 11:04 → C.ED 11:06 → C.MSICU 13:48 → C.2T 06-28 15:51 → CANBEDREQ 06-28 16:05 → C.2T 06-28 23:09 → C.MED 07-07 19:25
PROVIDERS: ADMIT Emergency Medicine; ATTEND Hospitalist
PROC: 0DH57BZ Insertion of Airway into Esophagus, Via Natural or Artificial Opening (ICD-10-PCS; principal; 2016-06-26)
PROC: 5A1945Z Respiratory Ventilation, 24-96 Consecutive Hours (ICD-10-PCS; 2016-06-26)
DX: A41.9 Sepsis, unspecified organism (principal); J18.9 Pneumonia, unspecified organism; J96.01 Acute respiratory failure with hypoxia; R65.21 Severe sepsis with septic shock; J96.02 Acute respiratory failure with hypercapnia; G93.41 Metabolic encephalopathy; I13.0 Hypertensive heart and chronic kidney disease with heart failure and stage 1 through stage 4 chronic kidney disease, or unspecified chronic kidney disease; J44.1 Chronic obstructive pulmonary disease with (acute) exacerbation; J44.0 Chronic obstructive pulmonary disease with (acute) lower respiratory infection; N17.9 Acute kidney failure, unspecified; J84.9 Interstitial pulmonary disease, unspecified; E87.2 Acidosis; K92.1 Melena; I50.22 Chronic systolic (congestive) heart failure; E11.22 Type 2 diabetes mellitus with diabetic chronic kidney disease; E03.9 Hypothyroidism, unspecified; I25.10 Atherosclerotic heart disease of native coronary artery without angina pectoris; Z95.1 Presence of aortocoronary bypass graft; Z87.891 Personal history of nicotine dependence; N18.3 Chronic kidney disease, stage 3 (moderate); K21.9 Gastro-esophageal reflux disease without esophagitis; E78.00 Pure hypercholesterolemia, unspecified; I25.2 Old myocardial infarction; E66.9 Obesity, unspecified; Z68.30 Body mass index [BMI] 30.0-30.9, adult; R00.1 Bradycardia, unspecified; E83.39 Other disorders of phosphorus metabolism; I48.2 Chronic atrial fibrillation; E87.6 Hypokalemia; D64.9 Anemia, unspecified; F03.90 Unspecified dementia, unspecified severity, without behavioral disturbance, psychotic disturbance, mood disturbance, and anxiety; R19.7 Diarrhea, unspecified; Z79.82 Long term (current) use of aspirin; Z79.899 Other long term (current) drug therapy; Z83.3 Family history of diabetes mellitus; Z98.49 Cataract extraction status, unspecified eye; Z82.49 Family history of ischemic heart disease and other diseases of the circulatory system; R31.0 Gross hematuria

== ENCOUNTER 2016-11-05 18:57 | Inpatient (IN) | payer OTHER ==
[~2016-11-05] VITALS: Ht 172.7 cm; Wt 100.6 kg
[~2016-11-05 18:57] MED LIST changes: +ACT/30 PO; +ALBU18002 INH; +ASPI-435 PO; +ATOR-24 PO; +BCTROWC EXT; -BRVIN INH; -BUDE0.5S INH; +CALC1CAP36 PO; +CHOL100027 PO; -CINN500T PO; +LEVO200T6 PO; +LEVO25TA5 PO; -LEVO300T5 PO; +LPR25 PO; +LSN25 PO; +MAGNSUS73 PO; -PRLSR20 PO; +PROMSYP2 PO; +PRT40 PO; +TIOT1AER2 PO; +UREA20CR EXT
[2016-11-05] MEDS ORDERED: ACETAMINOPHEN 500 MG TAB PO STA (19:13)
[2016-11-05] MEDS ORDERED: METHYLPREDNISOLONE 125 MG VIAL IV STA (19:13)
[2016-11-05] MEDS ORDERED: SODIUM CHLORIDE 0.9% 1000ML 1,000 ML IV ONE (19:13)
[2016-11-05] MEDS ORDERED: ALBUT/IPRATROP 3MG/0.5MG NEB 3 ML VIAL INH STA (19:13)
[2016-11-05] MEDS ORDERED: PIPERACILLIN/TAZOBACTAM 4.5 GM/100ML D5W IV STA (19:13)
--- NOTE | 2016-11-05 19:34 | EMERGENCY ROOM VISIT NOTE ---
History Report prepared by Georgi: Simone Marcelino Under the Supervision of: Dr. Jesus Conner M.D. First contact with patient: 19:08 Chief Complaint: CONFUSION Stated Complaint: COLD, SHAKES, CONFUSED History of Present Illness The patient is a 86 year old male who presents to the Emergency Room with complaints of constant confusion and fevers. Per [id number], the patient was noticed to be confused four hours ago. The patient states that he has been feeling chills for 7 hours. He states that he felt normal yesterday. He denies any sore throat, stuffy nose, or urinary symptoms. The patient notes that he has had a little diarrhea, a mild headache, and a cough recently. He has no known sick contacts. He is supposed to be on supplemental oxygen at home for COPD, but often does not wear it. The patient was most recently admitted to the hospital approximately four months ago with bilateral pneumonia and sepsis. Source of History: patient, family ([id number]) Onset: four hours ago Quality: other (confusion and fevers) Timing: constant Associated Symptoms: + cough, + diarrhea, + headache (mild), No sorethroat, No urinary symptoms Note: The patient denies any stuffy nose. Review of Systems See HPI for pertinent positives & negatives. A total of 10 systems reviewed and were otherwise negative. Past Medical & Surgical Medical Problems: (1) access (2) Acute kidney injury superimposed on chronic kidney disease (3) CKD (chronic kidney disease), stage III (4) COPD (chronic obstructive pulmonary disease) (5) COPD with exacerbation (6) Diabetes mellitus (7) DM type 2 (diabetes mellitus, type 2) (8) H/O diastolic dysfunction (9) Heart disease (10) History of Clostridium difficile (11) Hyperlipidemia (12) Hypertension (13) Hypotension (14) Hypothyroid (15) Hypothyroidism (16) Sepsis Surgical Problems: (1) History of cataract surgery (2) S/P CABG x 3 Family History Diabetes mellitus MOTHER FAM HX-ISCHEM HEART DIS MOTHER Social History Smoking Status: Never Smoker Drug Use: none Marital Status: Housing Status: lives with family Occupation Status: retired Current/Historical Medications Scheduled Aspirin (Aspirin 81), 81 MG PO DAILY Atorvastatin (Lipitor), 40 MG PO DAILY Calcitriol (Calcitriol), 0.25 MCG PO DAILY Cholecalciferol (Vitamin D 1000 Unit), 1,000 INTER.UNIT PO DAILY Furosemide (Lasix), 40 MG PO DAILY Levothyroxine Sodium (Levothyroxine Sodium), 1 TAB PO DAILY Levothyroxine Sodium (Levothyroxine Sodium), 1 TAB PO DAILY Pantoprazole (Pantoprazole Sodium), 40 MG PO QAM Pioglitazone Hcl (Actos), 30 MG PO DAILY Urea (Carmol 20), 1 APPLN EXT DAILY Scheduled PRN Albuterol Sulf (Proventil 0.083% 2.5MG/3ML), 2.5 MG INH QID PRN for Shortness of Breath Albuterol Sulfate (Proair Respiclick), 2 PUFFS INH Q4H PRN for Wheezing Magnesium Hydroxide (Milk of Magnesia 400 mg/5Ml), 30 ML PO DAILY PRN for Constipation Mupirocin (Bactroban 2% Oint), 1 APPLN EXT TID PRN for skin impairment Promethazine-Dm (Promethazine-Dm), 5 ML PO Q6H PRN for Cough Tiotropium [place] (Spiriva Handihaler), 1 CAP INH DAILY PRN for Shortness of Breath Allergies Coded Allergies: No Known Allergies (Verified , 06/25/16) Physical Exam Vital Signs Date Time Temp Pulse Resp B/P Pulse Ox O2 Delivery O2 Flow Rate FiO2 11/05/16 20:57 94 22 108/53 95 Nasal Cannula 3.0 11/05/16 20:19 101 22 107/60 98 Nasal Cannula 3.0 11/05/16 19:56 97 Nasal Cannula 3.0 11/05/16 19:38 94 30 99 Nebulizer 11/05/16 19:25 92 Room Air 11/05/16 19:00 38.0 100 20 113/56 90 Room Air Physical Exam GENERAL: Patient is in no acute distress. HEENT: No acute trauma, normocephalic atraumatic, mucous membranes moist, no nasal congestion, no scleral icterus. NECK: No stridor, no adenopathy, no meningismus, trachea is midline. LUNGS: Increased respiratory rate. Crackles bilaterally, worse on the right. Wheezing bilaterally with diminished breath sounds. HEART: Tachycardic with a regular rhythm. No murmurs. ABDOMEN: Soft, nontender, bowel sounds positive, no hernias, no peritonitis. EXTREMITIES: No cyanosis, full range of motion of all the joints without pain or difficulty, no signs for acute trauma. Mild bilateral pedal edema. NEUROLOGIC: Oriented x 3, no acute motor or sensory deficits, no focal weakness. SKIN: No rash, no jaundice, no diaphoresis. Medical Decision & Procedures ER Provider Diagnostic Interpretation: X-ray results as stated below per interpretation by me and the radiologist. CT results as stated below per my review and radiologist interpretation: HEAD CT NONCONTRAST Findings: The paranasal sinuses and mastoid air cells are clear. Old right frontal infarct. Age-related atrophy and chronic small vessel change. No acute intracranial hemorrhage. No midline shift. Impression: Chronic and age-related change. No acute process. Electronically signed by: Clement Pimentel M.D. 11/05/2016 8:14 PM CHEST ONE VIEW PORTABLE FINDINGS: Potential developing parenchymal infiltrate left base. Chronic fullness the pulmonary vasculature. Prior median sternotomy. IMPRESSION: Early parenchymal infiltrate left base Electronically signed by: Clement Pimentel M.D. 11/05/2016 7:58 PM Dictated Date/Time: 11/05/2016 7:56 PM Laboratory Results 11/05/16 19:33 Red Blood Count 4.48, Mean Corpuscular Volume 87.9, Mean Corpuscular Hemoglobin 27.5, Mean Corpuscular Hemoglobin Concent 31.2, Mean Platelet Volume 11.0, Neutrophils (%) (Auto) 91.0, Lymphocytes (%) (Auto) 2.5, Monocytes (%) (Auto) 5.8, Eosinophils (%) (Auto) 0.1, Basophils (%) (Auto) 0.2, Neutrophils # (Auto) 18.21, Lymphocytes # (Auto) 0.50, Monocytes # (Auto) 1.16, Eosinophils # (Auto) 0.02, Basophils # (Auto) 0.04 11/05/16 19:33 Test 11/05/16 00:00 11/05/16 19:33 11/05/16 19:49 11/05/16 20:13 Influenza Type A Antigen Neg for Influ A (NEG) Influenza Type B Antigen Neg for Influ B (NEG) White Blood Count 20.01 K/uL (4.8-10.8) Red Blood Count 4.48 M/uL (4.7-6.1) Hemoglobin 12.3 g/dL (14.0-18.0) Hematocrit 39.4 % (42-52) Mean Corpuscular Volume 87.9 fL (80-100) Mean Corpuscular Hemoglobin 27.5 pg (25-34) Mean Corpuscular Hemoglobin Concent 31.2 g/dl (32-36) Platelet Count 236 K/uL (130-400) Mean Platelet Volume 11.0 fL (7.4-10.4) Neutrophils (%) (Auto) 91.0 % Lymphocytes (%) (Auto) 2.5 % Monocytes (%) (Auto) 5.8 % Eosinophils (%) (Auto) 0.1 % Basophils (%) (Auto) 0.2 % Neutrophils # (Auto) 18.21 K/uL (1.4-6.5) Lymphocytes # (Auto) 0.50 K/uL (1.2-3.4) Monocytes # (Auto) 1.16 K/uL (0.11-0.59) Eosinophils # (Auto) 0.02 K/uL (0-0.5) Basophils # (Auto) 0.04 K/uL (0-0.2) RDW Standard Deviation 45.6 fL (36.4-46.3) RDW Coefficient of Variation 14.1 % (11.5-14.5) Immature Granulocyte % (Auto) 0.4 % Immature Granulocyte # (Auto) 0.08 K/uL (0.00-0.02) Prothrombin Time 10.7 SECONDS (9.0-12.0) Prothromb Time International Ratio 1.0 (0.9-1.1) Activated Partial Thromboplast Time 22.9 SECONDS (21.0-31.0) Partial Thromboplastin Ratio 0.9 Anion Gap 8.0 mmol/L (3-11) Est Creatinine Clear Calc Drug Dose 39.8 ml/min Estimated GFR () 47.8 Estimated GFR (Non- 41.3 BUN/Creatinine Ratio 15.9 (10-20) Calcium Level 8.7 mg/dl (8.5-10.1) Magnesium Level 1.8 mg/dl (1.8-2.4) Total Bilirubin 2.4 mg/dl (0.2-1) Aspartate Amino Transf (AST/SGOT) 278 U/L (15-37) Alanine Aminotransferase (ALT/SGPT) 169 U/L (12-78) Alkaline Phosphatase 337 U/L (45-117) Total Protein 7.5 gm/dl (6.4-8.2) Albumin 2.9 gm/dl (3.4-5.0) Globulin 4.6 gm/dl (2.5-4.0) Albumin/Globulin Ratio 0.6 (0.9-2) Thyroid Stimulating Hormone (TSH) 0.017 uIu/ml (0.300-4.500) Free Thyroxine 2.19 ng/dl (0.80-1.60) Bedside Lactic Acid Venous 1.82 mmol/L (0.90-1.70) Urine Color DK YELLOW Urine Appearance CLEAR (CLEAR) Urine pH 6.5 (4.5-7.5) Urine Specific [place] 1.015 (1.000-1.030) Urine Protein NEG (NEG) Urine Glucose (UA) 1+ (NEG) Urine Ketones NEG (NEG) Urine Occult Blood NEG (NEG) Urine Nitrite NEG (NEG) Urine Bilirubin 1+ (NEG) Urine Urobilinogen NEG (NEG) Urine Leukocyte Esterase NEG (NEG) Urine WBC (Auto) 1-5 /hpf (0-5) Urine RBC (Auto) 0-4 /hpf (0-4) Urine Hyaline Casts (Auto) 1-5 /lpf (0-5) Urine Epithelial Cells (Auto) 0-5 /lpf (0-5) Urine Bacteria (Auto) NEG (NEG) Laboratory results reviewed by me. Medications Administered Medications (Trade) Dose Ordered Sig/Drea Route Start Time Stop Time Status Last Admin Dose Admin Sodium Chloride (Nss 1000ml) 1,000 ml @ 999 mls/hr Q1H1M ONCE IV 11/05/16 19:13 11/05/16 20:13 DC 11/05/16 19:33 999 MLS/HR Piperacillin Sod/ Tazobactam Sod (Zosyn Iv) 4.5 gm ONE STAT IV 11/05/16 19:13 11/05/16 19:18 DC 11/05/16 19:33 4.5 GM Acetaminophen (Tylenol Tab) 1,000 mg NOW STAT PO 11/05/16 19:13 11/05/16 19:18 DC 11/05/16 19:33 1,000 MG Albuterol/ Ipratropium (Duoneb) 3 ml NOW STAT INH 11/05/16 19:13 11/05/16 19:18 DC 11/05/16 19:33 3 ML Methylprednisolone Sodium Succinate (Solu-Medrol IV) 80 mg NOW STAT IV 11/05/16 19:13 11/05/16 19:18 DC 11/05/16 19:33 80 MG ECG Indication: altered mental status Rate (beats per minute): 98 Rhythm: normal sinus Findings: no acute ischemic change, no ectopy ED Course 1910: The patient was evaluated in room C9. A complete history and physical exam was performed. 1912: Ordered Solu-Medrol IV 80 mg IV, DuoNeb 3 mL INH, Tylenol Tab 1000 mg PO, Zosyn IV 4.5 mg IV, Sodium Chloride 1000 ml @ 999 mls/hr IV. 2037: Upon reexamination the patient is resting comfortably. I discussed results and treatment plan with the patient. He verbalizes agreement and understanding. The patient will be evaluated for further management. Medical Decision The patient is a 86 year old male who presents to the ED with complaints of confusion. Differential diagnoses considered include sepsis, pneumonia, bronchitis, UTI, cellulitis, dehydration, influenza, electrolyte imbalance, anemia, cardiac ischemia, and CHF. There is a significant leukocytosis at 20,000, this is consistent with infection. No concerning anemia. Renal panel testing shows some dehydration, no significant electrolyte abnormality requiring correction. There was some elevation to the liver enzymes, possibly consistent with his infection. There was no coagulopathy. Chest film shows a left lung pneumonia, no pneumothorax. EKG shows a sinus rhythm, no acute ischemia. Brain CT shows no acute bleed or mass effect. Lactic acid level was very mildly elevated consistent with dehydration and/or infection. Influenza testing was negative. Blood cultures are pending. Urinalysis does not show evidence for infection. The patient was given a DuoNeb, IV Solu-Medrol, oral Tylenol. He received IV saline and IV Zosyn. The patient is feeling improved, I do think admission/observation is warranted. He appears to be septic from a pneumonia. I talked to the patient and to case management. The on-call hospitalist was consulted. Blood Pressure Screening: Patient was found to have normal blood pressure on screening and does not require follow-up. Medication Reconciliation: I attest that I have personally reviewed the patient' s current medication list. Consults Time Called: 2029 Consulting Physician: Dr. Ky Feldman Returned Call: [phone] Discussed the patient's case. The patient will be evaluated for further management. Impression Primary Impression: Sepsis Additional Impressions: Pneumonia Confusion Scribe Attestation The scribe's documentation has been prepared under my direction and personally reviewed by me in its entirety. I confirm that the note above accurately reflects all work, treatment, procedures, and medical decision making performed by me. Departure Information Dispostion Being Evaluated By Hospitalist Referrals Ivan Campoverde M.D. (PCP) Patient Instructions [facility] Problem Qualifiers
[2016-11-05] MEDS ORDERED: SPRIN/30 INH (19:46)
[2016-11-05] MEDS ORDERED: ALBINS/ INH (19:46)
[2016-11-05 19:57] LABS: HEMATOCRIT 39.4 % (42-52); MEAN CELL VOLUME 87.9 fL (80-100); MEAN CORPUSCULAR HEMOGLOBIN 27.5 pg (25-34); MEAN CORPUSCULAR HGB CONC 31.2 g/dl (32-36); PLATELET COUNT 236 K/uL (130-400); RED BLOOD COUNT 4.48 M/uL (4.7-6.1); WHITE BLOOD COUNT 20.01 K/uL (4.8-10.8)
--- NOTE | 2016-11-05 20:00 | DIAGNOSTIC IMAGING REPORT ---
CHEST ONE VIEW PORTABLE CLINICAL HISTORY: Sepsis dyspnea COMPARISON STUDY: 07/03/2016 FINDINGS: Potential developing parenchymal infiltrate left base. Chronic fullness the pulmonary vasculature. Prior median sternotomy. IMPRESSION: Early parenchymal infiltrate left base Electronically signed by: Clement Pimentel M.D. 11/05/2016 7:58 PM Dictated Date/Time: 11/05/2016 7:56 PM
[2016-11-05 20:08] LABS: PARTIAL THROMBOPLASTIN RATIO 0.9; PROTHROMBIN TIME (PATIENT) 10.7 SECONDS (9.0-12.0)
[2016-11-05 20:14] LABS: BUN/CREATININE RATIO 15.9 (10-20); CALCIUM 8.7 mg/dl (8.5-10.1); CREATININE 1.5 mg/dl (0.60-1.40); MAGNESIUM 1.8 mg/dl (1.8-2.4); POTASSIUM 4.4 mmol/L (3.5-5.1)
--- NOTE | 2016-11-05 20:15 | DIAGNOSTIC IMAGING REPORT ---
HEAD CT NONCONTRAST CT DOSE: 1074.96 mGy.cm HISTORY: Mental status change confusion TECHNIQUE: Multiaxial CT images of the head were performed without the use of intravenous contrast. Comparison: 07/01/2016 Findings: The paranasal sinuses and mastoid air cells are clear. Old right frontal infarct. Age-related atrophy and chronic small vessel change. No acute intracranial hemorrhage. No midline shift. Impression: Chronic and age-related change. No acute process. Electronically signed by: Clement Pimentel M.D. 11/05/2016 8:14 PM Dictated Date/Time: 11/05/2016 8:11 PM
[2016-11-05 20:16] LABS: BASO % 0.2 %; BASO ABS # 0.04 K/uL (0-0.2); COMPLETE YES; EOS % 0.1 %; IG% 0.4 %; LYMPH % 2.5 %; MONO % 5.8 %
[2016-11-05 20:25] LABS: ALB/GLOB RATIO 0.6 (0.9-2); THYROID STIMULATING HORMONE 0.017 uIu/ml (0.300-4.500)
[2016-11-05 20:35] LABS: URINE APPEARANCE CLEAR (CLEAR); URINE COLOR DK YELLOW; URINE EPITHELIAL CELL AUTO 0-5 /lpf (0-5); URINE NITRITE NEG (NEG); URINE PH 6.5 (4.5-7.5); URINE SPECIFIC GRAVITY 1.015 (1.000-1.030); UROBILINOGEN NEG (NEG); ZZURINE CULT IF INDIC CATH NO
[2016-11-05 20:56] LABS: MANUAL MICROSCOPIC REQUIRED? NO; REVIEW REQ? NO; URINE BILIRUBIN 1+ (NEG)
[2016-11-05] MEDS ORDERED: GLUCOSE 10 TABS/TUBE PO PRN (22:00)
[2016-11-05] MEDS ORDERED: NITROGLYCERIN 0.4 MG SL PER TAB CHARGE SL PRN (22:00)
[2016-11-05] MEDS ORDERED: GLUCOSE 40% GEL 15 GM TUBE PO PRN (22:00)
[2016-11-05] MEDS ORDERED: DEXTROSE 50% 50 ML SYR IV PRN (22:00)
[2016-11-05] MEDS ORDERED: GLUCAGON FOR INJ 1 MG VIAL SQ PRN (22:00)
[2016-11-05] MEDS ORDERED: MAGNESIUM HYDROXIDE SUSP 30 ML UDC PO PRN (22:00)
[2016-11-05] MEDS ORDERED: ONDANSETRON INJ 2 MG/ML 2 ML VIAL IV PRN (22:00)
[2016-11-05] MEDS ORDERED: LORAZEPAM 1 MG TAB PO PRN (22:00)
[2016-11-05 22:18] VITALS: Ht 172.7 cm; Wt 100.6 kg
[2016-11-05] MEDS ORDERED: PHARMACY GLYCEMIC MGMT CONSULT PRN (22:48)
[2016-11-05] MEDS: INSULIN ASPART 100 UNITS/ML 3 ML PEN SC SCH (23:00)
[2016-11-05] MEDS ORDERED: LEVOFLOXACIN CONSULT ACTIVE PRN (23:06)
[2016-11-05] MEDS ORDERED: PIPERACILL/TAZOBAC CONSULT ACTIVE PRN ×2 (23:15)
--- NOTE | 2016-11-05 23:23 | History and Physical ---
History & Physical Date & Time of Service: November 05, 2016 at 23:07 Chief Complaint: Pneumonia, Sepsis Primary Care Physician: No Doctor, Assigned History of Present Illness Source: patient, hospital records 86 year old male with history of COPD, CAD/CABG, Atrial Fibrillation, HTN, DM, other problems noted below presenting with fever and cough. Patient was apparently advised to use home oxygen but is not adherent. He was doing fine until yesterday when he started to have increased dry cough, and some subjective fevers and shortness of breath. He denies chest pain, palpitations, headache, dizziness, abdominal pain, nausea/ vomiting, diarrhea and changes with urination. A the ER, patient was febrile at 38 degrees, tachycardic ~100s. CXR showed possible infiltrate at the left lower lobes. Patient was given Solumedrol, Zosyn, Duonebs and IV fluids. On my exam, patient is resting comfortable in bed, with 2 liter via nasal cannula. State he is feeling somewhat better since arrival. Denies having active shortness of breath, chest pain or any other symptoms. Past Medical/Surgical History Medical Problems: (1) CKD (chronic kidney disease), stage III Status: Chronic (2) COPD (chronic obstructive pulmonary disease) Status: Chronic (3) Diabetes mellitus Status: Chronic (4) DM type 2 (diabetes mellitus, type 2) Status: Chronic (5) H/O diastolic dysfunction Permanent Comment: grade 1 diastolic dysfunction noted on 2013 echo Status: Chronic (6) Heart disease Status: Chronic (7) History of Clostridium difficile Status: Chronic (8) Hyperlipidemia Status: Chronic (9) Hypertension Status: Chronic (10) Hypothyroid Status: Chronic (11) Hypothyroidism Status: Chronic Surgical Problems: (1) History of cataract surgery Status: Chronic (2) S/P CABG x 3 Status: Chronic Family History Diabetes mellitus MOTHER FAM HX-ISCHEM HEART DIS MOTHER Social History Smoking Status: Former Smoker Drug Use: none Marital Status: Housing status: lives with family Occupational Status: retired Immunizations History of Influenza Vaccine: Yes Influenza Vaccine Date: Apr 25, 2010 History of Tetanus Vaccine?: Unknown History of Pneumococcal: No History of Hepatitis B Vaccine: Unknown Multi-Drug Resistant Organisms History of MDRO: No Allergies Coded Allergies: No Known Allergies (Verified , 06/25/16) Home Medications Scheduled Aspirin (Aspirin 81), 81 MG PO DAILY Atorvastatin (Lipitor), 40 MG PO DAILY Calcitriol (Calcitriol), 0.25 MCG PO DAILY Cholecalciferol (Vitamin D 1000 Unit), 1,000 INTER.UNIT PO DAILY Furosemide (Lasix), 40 MG PO DAILY Levothyroxine Sodium (Levothyroxine Sodium), 1 TAB PO DAILY Levothyroxine Sodium (Levothyroxine Sodium), 1 TAB PO DAILY Pantoprazole (Pantoprazole Sodium), 40 MG PO QAM Pioglitazone Hcl (Actos), 30 MG PO DAILY Urea (Carmol 20), 1 APPLN EXT DAILY Scheduled PRN Albuterol Sulf (Proventil 0.083% 2.5MG/3ML), 2.5 MG INH QID PRN for Shortness of Breath Albuterol Sulfate (Proair Respiclick), 2 PUFFS INH Q4H PRN for Wheezing Magnesium Hydroxide (Milk of Magnesia 400 mg/5Ml), 30 ML PO DAILY PRN for Constipation Mupirocin (Bactroban 2% Oint), 1 APPLN EXT TID PRN for skin impairment Promethazine-Dm (Promethazine-Dm), 5 ML PO Q6H PRN for Cough Tiotropium [place] (Spiriva Handihaler), 1 CAP INH DAILY PRN for Shortness of Breath Review of Systems Constitutional- (+) as noted above; no weight loss Eyes- no acute visual changes ENT- no sinus drainage; no pharyngitis Pulmonary- (+) as note above Cardiac- no chest pain, no palpitations, no orthopnea, no dependent edema GI- no nausea, no vomiting, no diarrhea, no melena, no hematochezia - no dysuria, no hematuria Musculoskeletal- no arthralgias, no myalgias Derm- no rashes, no new skin lesions, no changing skin lesions Hematologic- no unusual bruising, no unusual bleeding Lymphatics- no adenopathy Endocrine- no polyuria or polydipsia; no heat or cold intolerance Neuro- no headaches, no focal neurologic symptoms Psych- no anxiety, no depression Physical Exam Vital Signs Date Time Temp Pulse Resp B/P Pulse Ox O2 Delivery O2 Flow Rate FiO2 11/05/16 22:18 Nasal Cannula 3.0 11/05/16 22:06 37.0 82 18 106/51 91 Nasal Cannula 3.0 11/05/16 20:57 94 22 108/53 95 Nasal Cannula 3.0 11/05/16 20:19 101 22 107/60 98 Nasal Cannula 3.0 11/05/16 19:56 97 Nasal Cannula 3.0 11/05/16 19:38 94 30 99 Nebulizer 11/05/16 19:25 92 Room Air 11/05/16 19:00 38.0 100 20 113/56 90 Room Air General Appearance: WD/WN, no apparent distress Head: normocephalic, atraumatic Eyes: normal inspection, PERRL, EOMI, sclerae normal ENT: normal ENT inspection, hearing grossly normal, pharynx normal Neck: supple, no adenopathy, thyroid normal, no JVD, trachea midline Respiratory/Chest: chest non-tender, no respiratory distress, no accessory muscle use, + wheezing (bilateral expiratory wheezing, crackles on the left base ) Cardiovascular: regular rate, rhythm, no JVD, no murmur, normal peripheral pulses Abdomen/GI: normal bowel sounds, non tender, soft, no organomegaly Back: normal inspection, no CVA tenderness Extremities/Musculoskelatal: no calf tenderness, normal capillary refill, normal range of motion, + pertinent finding ((+) grade 1 lower leg edema) 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, no motor/sensory deficits, alert, normal mood/affect, normal reflexes, oriented x 3 Skin: normal color, warm/dry, no rash Lymphatic: no adenopathy Diagnostics Laboratory Results Results Past 24 Hours Test 11/05/16 00:00 11/05/16 19:33 11/05/16 19:49 11/05/16 20:13 Range/Units Influenza Type A Antigen Neg for Influ A NEG Influenza Type B Antigen Neg for Influ B NEG White Blood Count 20.01 4.8-10.8 K/uL Red Blood Count 4.48 4.7-6.1 M/uL Hemoglobin 12.3 14.0-18.0 g/dL Hematocrit 39.4 42-52 % Mean Corpuscular Volume 87.9 80-100 fL Mean Corpuscular Hemoglobin 27.5 25-34 pg Mean Corpuscular Hemoglobin Concent 31.2 32-36 g/dl Platelet Count 236 130-400 K/uL Mean Platelet Volume 11.0 7.4-10.4 fL Neutrophils (%) (Auto) 91.0 % Lymphocytes (%) (Auto) 2.5 % Monocytes (%) (Auto) 5.8 % Eosinophils (%) (Auto) 0.1 % Basophils (%) (Auto) 0.2 % Neutrophils # (Auto) 18.21 1.4-6.5 K/uL Lymphocytes # (Auto) 0.50 1.2-3.4 K/uL Monocytes # (Auto) 1.16 0.11-0.59 K/uL Eosinophils # (Auto) 0.02 0-0.5 K/uL Basophils # (Auto) 0.04 0-0.2 K/uL RDW Standard Deviation 45.6 36.4-46.3 fL RDW Coefficient of Variation 14.1 11.5-14.5 % Immature Granulocyte % (Auto) 0.4 % Immature Granulocyte # (Auto) 0.08 0.00-0.02 K/uL Prothrombin Time 10.7 9.0-12.0 SECONDS Prothromb Time International Ratio 1.0 0.9-1.1 Activated Partial Thromboplast Time 22.9 21.0-31.0 SECONDS Partial Thromboplastin Ratio 0.9 Sodium Level 139 136-145 mmol/L Potassium Level 4.4 3.5-5.1 mmol/L Chloride Level 104 98-107 mmol/L Carbon Dioxide Level 27 21-32 mmol/L Anion Gap 8.0 3-11 mmol/L Blood Urea Nitrogen 24 7-18 mg/dl Creatinine 1.50 0.60-1.40 mg/dl Est Creatinine Clear Calc Drug Dose 39.8 ml/min Estimated GFR () 47.8 Estimated GFR (Non- 41.3 BUN/Creatinine Ratio 15.9 10-20 Random Glucose 266 70-99 mg/dl Calcium Level 8.7 8.5-10.1 mg/dl Magnesium Level 1.8 1.8-2.4 mg/dl Total Bilirubin 2.4 0.2-1 mg/dl Aspartate Amino Transf (AST/SGOT) 278 15-37 U/L Alanine Aminotransferase (ALT/SGPT) 169 12-78 U/L Alkaline Phosphatase 337 45-117 U/L Total Protein 7.5 6.4-8.2 gm/dl Albumin 2.9 3.4-5.0 gm/dl Globulin 4.6 2.5-4.0 gm/dl Albumin/Globulin Ratio 0.6 0.9-2 Thyroid Stimulating Hormone (TSH) 0.017 0.300-4.500 uIu/ml Free Thyroxine 2.19 0.80-1.60 ng/dl Bedside Lactic Acid Venous 1.82 0.90-1.70 mmol/L Urine Color DK YELLOW Urine Appearance CLEAR CLEAR Urine pH 6.5 4.5-7.5 Urine Specific [place] 1.015 1.000-1.030 Urine Protein NEG NEG Urine Glucose (UA) 1+ NEG Urine Ketones NEG NEG Urine Occult Blood NEG NEG Urine Nitrite NEG NEG Urine Bilirubin 1+ NEG Urine Urobilinogen NEG NEG Urine Leukocyte Esterase NEG NEG Urine WBC (Auto) 1-5 0-5 /hpf Urine RBC (Auto) 0-4 0-4 /hpf Urine Hyaline Casts (Auto) 1-5 0-5 /lpf Urine Epithelial Cells (Auto) 0-5 0-5 /lpf Urine Bacteria (Auto) NEG NEG Microbiology Results 11/05/16 Blood Culture, Received Pending 11/05/16 Blood Culture, Received Pending Diagnostic Radiology CHEST ONE VIEW PORTABLE CLINICAL HISTORY: Sepsis dyspnea COMPARISON STUDY: 07/03/2016 FINDINGS: Potential developing parenchymal infiltrate left base. Chronic fullness the pulmonary vasculature. Prior median sternotomy. IMPRESSION: Early parenchymal infiltrate left base HEAD CT NONCONTRAST CT DOSE: 1074.96 mGy.cm HISTORY: Mental status change confusion TECHNIQUE: Multiaxial CT images of the head were performed without the use of intravenous contrast. Comparison: 07/01/2016 Findings: The paranasal sinuses and mastoid air cells are clear. Old right frontal infarct. Age-related atrophy and chronic small vessel change. No acute intracranial hemorrhage. No midline shift. Impression: Chronic and age-related change. No acute process. EKG pending Impression Assessment and Plan 86 year old male with history of COPD, CAD/CABG, Atrial Fibrillation, HTN, DM, other problems noted below presenting with fever and cough. SEPSIS SECONDARY TO PNEUMONIA, LEFT LOWER LOBE, COMMUNITY ACQUIRED MILD COPD EXACERBATION - lactic acid 1.8 - blood, sputum cultures pending - empiric Zosyn and Levaquin Nebs q6 Solumedrol gentle IV fluids ELEVATED LFTS - from Alcoholism? - check hepatitis profile, Liver US - follow LFTs DECREASED TSH, ELEVATED FT4 - repeat TFTs in AM hold Levothyroxine may need lowering the dose ALCOHOLISM - admits to drinking 1 beer/day last drink yesterday - no signs of withdrawal at this time - monitor alcohol withdrawal protocol ordered including tapering Gabapentin doses, PRN PO Ativan CAD/CABG -no cardiacs symptoms - continue Aspirin hold Statin due to elevated LFTs HISTORY OF ATRIAL FIBRILLATION - observed during last admission in 06/2016 - HR regular monitor in Tele DM TYPE 2 - hold Actos - ISS Pharmacy Glycemic consult HYPERTENSION - stable - HOLD Lasix CKD 3 stable CODE STATUS DNR according to patient DVT PROPHYLAXIS Heparin DISPOSITION lives at home with his son and daughter in law PT OT eval VTE Prophylaxis VTE Risk Assessment Done? Y/N: Yes Risk Level: Moderate
[2016-11-05] MEDS ORDERED: GABAPENTIN 600 MG TAB PO ONE (23:30)
[2016-11-05] MEDS: LEVOFLOXACIN 750MG / D5W IV SCH (23:52)
[2016-11-05] MEDS: SODIUM CHLORIDE 0.9% 1000ML 1,000 ML IV SCH (23:53)
[2016-11-06] VITALS (17 sets, daily range): BP systolic 76–150; BP diastolic 42–75; PULSE 61–84; TEMP 36.4–37; O2SAT 93–99
[2016-11-06] MEDS ORDERED: LEVALBUTEROL/IPRATROPIUM NEB INH SCH (01:00)
[2016-11-06] MEDS: LEVALBUTEROL 1.25MG/0.5ML NEB INH SCH ×4 (01:40→18:55)
[2016-11-06] MEDS: IPRATROPIUM BROMIDE NEB SOLN 0.02% 2.5 ML VIAL INH SCH ×4 (01:40→18:55)
[2016-11-06] MEDS: PIPERACILL/TAZOBAC IV 3.375 GM in DEXTROSE 5% 100ML IV SCH ×3 (02:19→17:15)
[2016-11-06] MEDS: METHYLPREDNISOLONE IV 40 MG in SYRINGE 0 ML IV SCH ×3 (04:00→20:03)
[2016-11-06 05:46] LABS: HEMATOCRIT 35.3 % (42-52); MEAN CELL VOLUME 87.6 fL (80-100); MEAN CORPUSCULAR HEMOGLOBIN 27.8 pg (25-34); MEAN CORPUSCULAR HGB CONC 31.7 g/dl (32-36); MEAN PLATELET VOLUME 10.9 fL (7.4-10.4); PLATELET COUNT 206 K/uL (130-400); RED BLOOD COUNT 4.03 M/uL (4.7-6.1); WHITE BLOOD COUNT 29.29 K/uL (4.8-10.8)
[2016-11-06 06:08] LABS: BASO % 0.1 %; BASO ABS # 0.03 K/uL (0-0.2); COMPLETE YES; IG% 0.4 %; LYMPH % 3.2 %; LYMPH ABS # 0.93 K/uL (1.2-3.4); NEUT % 94.3 %
[2016-11-06] MEDS: GABAPENTIN 600MG Q6H DOSE PO SCH ×2 (06:14→14:27)
[2016-11-06 06:23] LABS: BUN/CREATININE RATIO 16.6 (10-20); CALCIUM 8.1 mg/dl (8.5-10.1); CREATININE 1.5 mg/dl (0.60-1.40); MAGNESIUM 1.9 mg/dl (1.8-2.4); POTASSIUM 4.1 mmol/L (3.5-5.1)
[2016-11-06 06:32] LABS: BETA-HYDROXYBUTYRATE 1.08 mg/dL (0.2-2.81); THYROID STIMULATING HORMONE 0.009 uIu/ml (0.300-4.500)
[2016-11-06] MEDS: INSULIN ASPART 100 UNITS/ML 3 ML PEN SC SCH ×5 (07:00→20:38)
[2016-11-06 07:08] LABS: ESTIMATED AVERAGE GLUCOSE 148 mg/dl; HA1C FLAG Normal (Normal)
--- NOTE | 2016-11-06 07:15 | DIAGNOSTIC IMAGING REPORT ---
BILATERAL LOWER EXTREMITY VENOUS DOPPLER HISTORY: Leg swelling. COMPARISON STUDY: Venous Doppler 06/25/2016. FINDINGS: There is normal compressibility, flow, and augmentation within the bilateral lower extremity deep venous systems. IMPRESSION: No DVT within the right or left lower extremity. Electronically signed by: Surendra Palma M.D. 11/06/2016 7:14 AM Dictated Date/Time: 11/06/2016 7:14 AM
--- NOTE | 2016-11-06 07:18 | Clinical Documentation Query ---
CLINICAL DOCUMENTATION QUERY Dr. GONG, In your clinical opinion is this patient being managed for: ( X ) Chronic respiratory failure ( ) Other explanation of clinical findings (Please Explain) ( ) Unable to determine (Please Define) ( ) Need to Discuss ( ) Not Agree The medical record reflects the following clinical findings, treatment, and risk factors. Clinical Indicators: 86 yo male presenting with fever and cough. Reportedly to be using continuous home O2 support but pt refuses to do so. O2 sat 90% on RA upon ER arrival. Treatment:proventil nebs, proair, spiriva, O2 support was applied when pt arrived in ER Risk Factors: COPD, heart disease Please clarify and document your clinical opinion in the progress notes and discharge summary. Terms such as "probable", "suspected", "likely", "questionable", "possible", or "still to be ruled out" are acceptable. IF IN AGREEMENT, YOU MUST DOCUMENT ABOVE DIAGNOSTIC STATEMENT IN DAILY PROGRESS NOTES AND DISCHARGE SUMMARY. This document is not part of the patient's record. Thank You, Kaur Bill, JEAN [phone]
--- NOTE | 2016-11-06 07:36 | DIAGNOSTIC IMAGING REPORT ---
ULTRASOUND RIGHT UPPER QUADRANT ABDOMEN CLINICAL HISTORY: Elevated hepatic transaminases. COMPARISON STUDY: Abdominal CT dated 06/29/2016. TECHNIQUE: Real-time, grayscale, and color flow sonography of the right upper quadrant of the abdomen was performed. Images are reviewed in the transverse and longitudinal planes. FINDINGS: Liver: The liver is top normal in size measuring 18 cm in length. Hepatic echotexture is slightly heterogeneous. There is no intrahepatic biliary ductal dilatation. The main portal vein is patent. Gallbladder: There are numerous shadowing calcified gallstones. There is nonspecific gallbladder wall thickening which measures up to 8 mm. No pericholecystic fluid is identified. A sonographic Hunter's sign is reportedly absent. The common bile duct measures up to 0.3 cm in diameter. Pancreas: Visualized portions of the pancreatic head and body are normal in appearance. The splenic vein is patent. Right kidney: Survey images of the right kidney demonstrate cortical atrophy. There is no hydronephrosis. A 2.0 cm cyst is seen in the right upper pole. Ascites: None. IMPRESSION: 1. Cholelithiasis with nonspecific gallbladder wall thickening. There is no pericholecystic fluid and a sonographic Hunter's sign is reportedly absent. Findings are equivocal for acute cholecystitis which is not excluded. Clinical and laboratory correlation will be essential. If there is clinical concern for acute cholecystitis then a nuclear hepatobiliary scan could be considered for further assessment. 2. The liver is top normal in size and slightly heterogeneous in echotexture. Electronically signed by: Jesus Jenkins M.D. 11/06/2016 7:35 AM Dictated Date/Time: 11/06/2016 7:31 AM
[2016-11-06] MEDS ORDERED: OPTIRAY 320 IV PRN (07:45)
--- NOTE | 2016-11-06 08:11 | Progress Note ---
Internal Med Progress Note Date of Service: November 06, 2016. Provider Documentation: SUBJECTIVE: Seen and examined at bedside. He states feeling better today. Cough and SOB is improving. Denies chest pain, abd pain. Offers no other complaints. OBJECTIVE: Vital Signs-as noted below Physical Exam: General Appearance:Moderately built and nourished, no apparent distress Head: normocephalic, Atraumatic Eyes: normal inspection, EOMI, PERRL Neck: supple, Trachea midline Respiratory/Chest: Decreased breath sounds, Mild creps at bases Cardiovascular: S1, S2, No murmur Abdomen/GI:Soft, Non tender, Bowel sounds present Extremities/Musculoskelatal:normal inspection, 1+ b/l edema Neurologic/Psych:AAOX3, grossly no focal neurological deficits Skin: normal color, warm Lab data as noted below. ASSESSMENT & PLAN: Patient is an 86 yr M with h/o of COPD, CAD/CABG, Atrial Fibrillation, HTN, DM , other problems noted below presenting with fever and cough. SEPSIS LLL PNEUMONIA:CAP CHRONIC HYPOXIC RESPIRATORY FAILURE MILD COPD EXACERBATION BACTEREMIA Continue broad spectrum IV antibiotics: Zosyn and Levaquin for now Trend lactic acid Continue IV fluids Follow up cultures Continue solumedrol, duonebs, Oxygen by protocol Blood culture 06/15: Gram positive cocci and bacilli Will consult ID ELEVATED D-dimer: Venous Doppler:Negative for DVT CTA for PE:pending ELEVATED LFTS Likely secondary to Alcoholism Hepatitis profile, Liver US:pending LFTs improving DECREASED TSH, ELEVATED FT4 Take 225mcg of levothyroxine at home Resume Levothyroxine at reduced dose: 200mcg daily Needs repeat Thyroid function test in 6 weeks ALCOHOLISM Patient admits to drinking 1 beer/day Monitor for withdrawal Continue alcohol withdrawal protocol CAD/CABG No acute issues continue Aspirin hold Statin due to elevated LFTs H/O ATRIAL FIBRILLATION observed during last admission in 06/2016 Currently regular monitor in Tele continue aspirin Not a candidate for chronic anticoagulation based on prior cardiology input DM II hold Actos Continue ISS, accu checks Pharmacy Glycemic consult HYPERTENSION stable Hold Lasix for now CKD III stable Monitor renal function CODE STATUS DNR DVT PX Heparin sq DISPOSITION lives at home with his son and daughter in law [employer]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 Vital Signs: Date Time Temp Pulse Resp B/P Pulse Ox O2 Delivery O2 Flow Rate FiO2 11/06/16 12:16 37.0 78 18 150/75 96 5/26/17 11:35 99 Nasal Cannula 2.0 11/06/16 11:25 97 Nasal Cannula 3.0 11/06/16 08:23 36.9 69 20 104/63 97 Nasal Cannula 2.0 11/06/16 08:00 97 Nasal Cannula 3.0 11/06/16 08:00 97 Nasal Cannula 2.0 11/06/16 04:00 97 Nasal Cannula 3.0 11/06/16 03:35 36.4 74 21 122/63 98 Nasal Cannula 2.0 11/06/16 01:40 61 18 97 Nasal Cannula 3.0 11/06/16 00:00 36.8 82 24 101/59 97 Nasal Cannula 3.0 11/06/16 00:00 97 Nasal Cannula 3.0 11/05/16 22:18 Nasal Cannula 3.0 11/05/16 22:06 37.0 82 18 106/51 91 Nasal Cannula 3.0 11/05/16 20:57 94 22 108/53 95 Nasal Cannula 3.0 11/05/16 20:19 101 22 107/60 98 Nasal Cannula 3.0 11/05/16 19:56 97 Nasal Cannula 3.0 11/05/16 19:38 94 30 99 Nebulizer 11/05/16 19:25 92 Room Air 11/05/16 19:00 38.0 100 20 113/56 90 Room Air Lab Results: Results Past 24 Hours Test 11/05/16 19:33 11/05/16 19:49 11/05/16 20:13 11/06/16 00:00 Range/Units White Blood Count 20.01 4.8-10.8 K/uL Red Blood Count 4.48 4.7-6.1 M/uL Hemoglobin 12.3 14.0-18.0 g/dL Hematocrit 39.4 42-52 % Mean Corpuscular Volume 87.9 80-100 fL Mean Corpuscular Hemoglobin 27.5 25-34 pg Mean Corpuscular Hemoglobin Concent 31.2 32-36 g/dl Platelet Count 236 130-400 K/uL Mean Platelet Volume 11.0 7.4-10.4 fL Neutrophils (%) (Auto) 91.0 % Lymphocytes (%) (Auto) 2.5 % Monocytes (%) (Auto) 5.8 % Eosinophils (%) (Auto) 0.1 % Basophils (%) (Auto) 0.2 % Neutrophils # (Auto) 18.21 1.4-6.5 K/uL Lymphocytes # (Auto) 0.50 1.2-3.4 K/uL Monocytes # (Auto) 1.16 0.11-0.59 K/uL Eosinophils # (Auto) 0.02 0-0.5 K/uL Basophils # (Auto) 0.04 0-0.2 K/uL RDW Standard Deviation 45.6 36.4-46.3 fL RDW Coefficient of Variation 14.1 11.5-14.5 % Immature Granulocyte % (Auto) 0.4 % Immature Granulocyte # (Auto) 0.08 0.00-0.02 K/uL Prothrombin Time 10.7 9.0-12.0 SECONDS Prothromb Time International Ratio 1.0 0.9-1.1 Activated Partial Thromboplast Time 22.9 21.0-31.0 SECONDS Partial Thromboplastin Ratio 0.9 Sodium Level 139 136-145 mmol/L Potassium Level 4.4 3.5-5.1 mmol/L Chloride Level 104 98-107 mmol/L Carbon Dioxide Level 27 21-32 mmol/L Anion Gap 8.0 3-11 mmol/L Blood Urea Nitrogen 24 7-18 mg/dl Creatinine 1.50 0.60-1.40 mg/dl Est Creatinine Clear Calc Drug Dose 39.8 ml/min Estimated GFR () 47.8 Estimated GFR (Non- 41.3 BUN/Creatinine Ratio 15.9 10-20 Random Glucose 266 70-99 mg/dl Calcium Level 8.7 8.5-10.1 mg/dl Magnesium Level 1.8 1.8-2.4 mg/dl Total Bilirubin 2.4 0.2-1 mg/dl Aspartate Amino Transf (AST/SGOT) 278 15-37 U/L Alanine Aminotransferase (ALT/SGPT) 169 12-78 U/L Alkaline Phosphatase 337 45-117 U/L Total Protein 7.5 6.4-8.2 gm/dl Albumin 2.9 3.4-5.0 gm/dl Globulin 4.6 2.5-4.0 gm/dl Albumin/Globulin Ratio 0.6 0.9-2 Thyroid Stimulating Hormone (TSH) 0.017 0.300-4.500 uIu/ml Free Thyroxine 2.19 0.80-1.60 ng/dl Bedside Lactic Acid Venous 1.82 0.90-1.70 mmol/L Urine Color DK YELLOW Urine Appearance CLEAR CLEAR Urine pH 6.5 4.5-7.5 Urine Specific Derwent 1.015 1.000-1.030 Urine Protein NEG NEG Urine Glucose (UA) 1+ NEG Urine Ketones NEG NEG Urine Occult Blood NEG NEG Urine Nitrite NEG NEG Urine Bilirubin 1+ NEG Urine Urobilinogen NEG NEG Urine Leukocyte Esterase NEG NEG Urine WBC (Auto) 1-5 0-5 /hpf Urine RBC (Auto) 0-4 0-4 /hpf Urine Hyaline Casts (Auto) 1-5 0-5 /lpf Urine Epithelial Cells (Auto) 0-5 0-5 /lpf Urine Bacteria (Auto) NEG NEG Bedside Glucose 292 70-99 mg/dl Test 11/06/16 00:42 11/06/16 05:30 11/06/16 06:37 11/06/16 12:02 Range/Units D-Dimer 2450 0-500 ug/L FEU White Blood Count 29.29 4.8-10.8 K/uL Red Blood Count 4.03 4.7-6.1 M/uL Hemoglobin 11.2 14.0-18.0 g/dL Hematocrit 35.3 42-52 % Mean Corpuscular Volume 87.6 80-100 fL Mean Corpuscular Hemoglobin 27.8 25-34 pg Mean Corpuscular Hemoglobin Concent 31.7 32-36 g/dl Platelet Count 206 130-400 K/uL Mean Platelet Volume 10.9 7.4-10.4 fL Neutrophils (%) (Auto) 94.3 % Lymphocytes (%) (Auto) 3.2 % Monocytes (%) (Auto) 2.0 % Eosinophils (%) (Auto) 0.0 % Basophils (%) (Auto) 0.1 % Neutrophils # (Auto) 27.62 1.4-6.5 K/uL Lymphocytes # (Auto) 0.93 1.2-3.4 K/uL Monocytes # (Auto) 0.59 0.11-0.59 K/uL Eosinophils # (Auto) 0.00 0-0.5 K/uL Basophils # (Auto) 0.03 0-0.2 K/uL RDW Standard Deviation 45.9 36.4-46.3 fL RDW Coefficient of Variation 14.3 11.5-14.5 % Immature Granulocyte % (Auto) 0.4 % Immature Granulocyte # (Auto) 0.12 0.00-0.02 K/uL Red Blood Cell Morphology Unremarkable Sodium Level 138 136-145 mmol/L Potassium Level 4.1 3.5-5.1 mmol/L Chloride Level 106 98-107 mmol/L Carbon Dioxide Level 24 21-32 mmol/L Anion Gap 8.0 3-11 mmol/L Blood Urea Nitrogen 25 7-18 mg/dl Creatinine 1.50 0.60-1.40 mg/dl Est Creatinine Clear Calc Drug Dose 39.8 ml/min Estimated GFR () 47.8 Estimated GFR (Non- 41.3 BUN/Creatinine Ratio 16.6 10-20 Random Glucose 316 70-99 mg/dl Estimated Average Glucose 148 mg/dl Hemoglobin A1c 6.8 4.5-5.6 % Lactic Acid Level 2.1 0.4-2.0 mmol/L Calcium Level 8.1 8.5-10.1 mg/dl Magnesium Level 1.9 1.8-2.4 mg/dl Total Bilirubin 2.9 0.2-1 mg/dl Direct Bilirubin 1.8 0-0.2 mg/dl Aspartate Amino Transf (AST/SGOT) 161 15-37 U/L Alanine Aminotransferase (ALT/SGPT) 139 12-78 U/L Alkaline Phosphatase 229 45-117 U/L Total Protein 6.6 6.4-8.2 gm/dl Albumin 2.5 3.4-5.0 gm/dl Beta-Hydroxybutyric Acid 1.08 0.2-2.81 mg/dL Thyroid Stimulating Hormone (TSH) 0.009 0.300-4.500 uIu/ml Free Thyroxine 1.99 0.80-1.60 ng/dl Hepatitis B Surface Antigen NEG NEG Hepatitis C Antibody NEG NEG Bedside Glucose 295 70-99 mg/dl Microbiology Results 11/05/16 Blood Culture - Preliminary, Resulted Gram Positive Cocci Gram Positive Bacilli 11/05/16 Blood Culture, Received Pending 11/06/16 MRSA DNA Surveillance Screen - Final, Complete Specimen Negative for MRSA by DNA Probe
[2016-11-06] MEDS: ASPIRIN 81 MG ECTAB PO SCH (08:15)
[2016-11-06] MEDS: CALCITRIOL 0.25 MCG CAP PO SCH (08:16)
[2016-11-06] MEDS: HEPARIN SOD 5000 UNIT/0.5 ML CARP SQ SCH ×2 (08:26→20:39)
[2016-11-06] MEDS: PANTOprazole SOD 40 MG TAB PO SCH (08:27)
--- NOTE | 2016-11-06 08:45 | DIAGNOSTIC IMAGING REPORT ---
CT ANGIOGRAM OF THE CHEST CLINICAL HISTORY: Dyspnea. Pneumonia. COMPARISON STUDY: Chest CT dated 10/01/2013. Chest x-ray dated 11/05/2016. TECHNIQUE: Following the IV administration of 96 cc of Optiray 320, CT angiogram of the chest was performed from the upper abdomen to the thoracic inlet utilizing the pulmonary embolus protocol. Images are reviewed in the axial, sagittal, and coronal planes. 3-D MIPS images are created and assessed. IV contrast was administered without complication. The examination is degraded by motion artifact. CT DOSE: 546.32 mGy.cm FINDINGS: Thyroid: Atrophic. Thoracic aorta: There is atherosclerotic calcification of the thoracic aorta. There is mild intimal dilatation of the ascending thoracic aorta which measures up to 4.1 cm in diameter. The remainder of the thoracic aorta is normal in caliber, and the arch demonstrates variant 3-vessel anatomy. There is a bovine arch, and the left vertebral artery arises directly from the thoracic aorta. There is no evidence of dissection. Pulmonary vasculature: The pulmonary trunk is dilated, measuring 3.4 cm in diameter. This suggests pulmonary artery hypertension. The main and lobar branches are clear. There are thin linear filling defects seen within segmental and subsegmental branches of the right lower lobe pulmonary artery, best seen on images #128 and #122. Some of these are located centrally within the vessels. The remaining pulmonary vessels appear clear. The peripheral branches are not well assessed due to motion artifact. Heart: The patient is status post midline sternotomy. The heart is enlarged and without pericardial effusion. The coronary arteries are densely calcified. Lungs and pleural spaces: Evaluation of the lung parenchyma is significantly degraded by respiratory motion artifact. Fluid/secretions is present within the lower lobe airways. Mild patchy nodular airspace opacities are present in the right upper, right lower, and left lower lobes. No pleural effusion is seen. The trachea and central airways are clear. Mediastinum: There are mildly enlarged mediastinal lymph nodes. Right paratracheal nodes measure up to 12 mm in short axis as seen on image #204. Precarinal nodes measure up to 1.4 cm in short axis. Danitza: There are mildly enlarged hilar lymph nodes which measure up to 1.4 cm in short axis. Axillae: There is no axillary lymphadenopathy. Upper abdomen: A 2.3 cm cyst arises from the upper pole of the right kidney. There is a small to moderate hiatal hernia. Skeletal structures: The skeletal structures are osteopenic. There is a mild superior endplate compression deformity of T4. There are numerous healed bilateral rib fractures. No lytic or blastic bony lesions are seen. IMPRESSION: 1. Significantly motion degraded examination. 2. There are thin linear filling defects seen within segmental and subsegmental branches of the right lower lobe pulmonary artery. These are consistent with age indeterminant and possibly chronic pulmonary emboli. 3. The remaining pulmonary vessels are patent. 4. Cardiomegaly with evidence of pulmonary artery hypertension. 5. There are patchy nodular airspace opacities seen in the right upper, right lower, and left lower lobes. This likely represents an infectious/inflammatory pneumonitis, possibly on the basis of aspiration as there is fluid/secretions present within the lower lobe airways. Clinical correlation will be required. Precautionary CT follow-up in 3 months time is recommended for reassessment 6. Mildly enlarged mediastinal and hilar lymph nodes are nonspecific and may be on a reactive basis. These can also be reassessed at follow-up. 7. There is mild aneurysmal dilatation of the ascending thoracic aorta which measures up to 4.1 cm. This is similar appearance to the 2014 examination. 8. Additional findings as above. Electronically signed by: Jesus Jenkins M.D. 11/06/2016 8:43 AM Dictated Date/Time: 11/06/2016 8:32 AM
[2016-11-06] MEDS: CHOLECALCIFEROL 1000 INTER.UNIT TAB PO SCH (09:00)
[2016-11-06] MEDS ORDERED: INSULIN GLARGINE SOLOSTAR 100 UNITS/ML 3 ML PEN SC SCH (09:00)
[2016-11-06] MEDS: LEVOTHYROXINE 200 MCG TAB PO SCH (10:35)
--- NOTE | 2016-11-06 11:12 | Pharmacy Progress Note ---
Glycemic Control Intl Consult Date of Service November 06, 2016. Scope Glycemic Pharmacist consulted by Dr Mcpherson on 11/05/16 for glycemic control and to write orders per [facility] inpatient glycemic control protocol Objective Weight (Kilograms): 92.000 Accuchecks BSG (last 24hrs): Test 11/05/16 19:33 11/06/16 00:00 11/06/16 05:30 11/06/16 06:37 Random Glucose 266 mg/dl (70-99) 316 mg/dl (70-99) Bedside Glucose 292 mg/dl (70-99) 295 mg/dl (70-99) Laboratory Data (last 24hrs) HbA1c Test 11/06/16 05:30 Hemoglobin A1c 6.8 % (4.5-5.6) H Recent Pertinent Medications Outpatient Anti-diabetic Regimen: * Actos 30mg PO daily The patient is currently receiving: * Basal insulin: None ordered; Lantus -- units every -- hours * Correctional Insulin: Novolog Correction per scale ACHS Goal Range: Low 140 mg/dL - High 180 mg/dL Correction Factor: 25 mg/dL/unit * Prandial insulin: Per carb ratio of 1 unit per 10 grams CHO consumed * Oral Agents: On hold for admission Risk Factors for Insulin Resistance: * Steroids * Infection * Diet Assessment & Plan ASSESSMENT: * Pt is maintained on oral antidiabetic agents as an outpatient with adequate control per recent A1c, no changes needed at discharge. * Oral agents are not recommended for inpatient use d/t drug interactions, changing PO intake, and difficulty titrating for acute hyper/hypoglycemia. ADA recommends re-initiating outpatient oral agents 1-2 days prior to discharge if/ when appropriate if they were held on admission. * Will hold oral agents for admission and utilize SQ basal bolus insulin regimen which is the recommended regimen for inpatient glycemic control. * Will initiate weight based insulin dosing for insulin rufino patient and titrate based on BSG trends. * Pt with significant risk factors for insulin resistance including: high dose RTC steroids + infection. * Will utilize high stress (2-3) dosing * ADA & AACE recommend a goal blood sugar range 140-180 mg/dl for the majority of critically ill & non-critically ill patients. However, more stringent targets may be selected in individual cases. Continue higher goal range based on age. PLAN FOR INPATIENT GLYCEMIC CONTROL: * Holding outpatient oral diabetes medications * Basal insulin * Start Lantus 35 units SQ Q24hrs * Titrate dosing based on BSG trends and steroid dosing * Bolus insulin * NovoLog per scale ACHS or Q6hrs while NPO * Goal Range: Low 140 mg/dL - High 180 mg/dL * TIGHTEN Correction Factor: 20 mg/dL/unit * TIGHTEN Nutritional / Prandial insulin per carb ratio of 1 unit per 7 grams CHO consumed * Please note that the plan above was derived based on current level of insulin resistance and hospital stress. These recommendations are appropriate for inpatient admission only. Plan of care upon discharge will need to be reassessed to avoid potential outpatient hypo/hyperglycemia. Thank you.
--- NOTE | 2016-11-06 14:17 | Medical Consult ---
Consultation Date of Consultation: November 06, 2016. Attending Physician: Matteo Gutierrez MD Reason for Consultation: Bacteremia History of Present Illness 86-year-old male with history of diabetes mellitus, COPD, hypertension, atrial fibrillation, who was admitted with several day history of progressively worsening shortness of breath and cough. He came to the emergency department where he was found to have bibasilar infiltrates consistent with pneumonia. He has been started on broad-spectrum antibiotics, now blood cultures are reported positive for both gram-positive bacilli and gram-positive cocci. Has improved from admission, would decrease in shortness of breath, has remained afebrile, and tolerating antibiotics without apparent difficulty. Denies any significant travel or other exposure history. Past Medical/Surgical History Medical Problems: (1) Abnormal EKG Status: Acute (2) Confusion Status: Acute (3) Elevated troponin Status: Acute (4) Hypoxia Status: Acute (5) Pneumonia Status: Acute (6) Pneumonia Status: Acute Medical Problems: (1) access (2) Acute kidney injury superimposed on chronic kidney disease (3) CKD (chronic kidney disease), stage III (4) COPD (chronic obstructive pulmonary disease) (5) COPD with exacerbation (6) Diabetes mellitus (7) DM type 2 (diabetes mellitus, type 2) (8) H/O diastolic dysfunction (9) Heart disease (10) History of Clostridium difficile (11) Hyperlipidemia (12) Hypertension (13) Hypotension (14) Hypothyroid (15) Hypothyroidism (16) Sepsis Surgical Problems: (1) History of cataract surgery (2) S/P CABG x 3 Family History Diabetes mellitus MOTHER FAM HX-ISCHEM HEART DIS MOTHER Social History Smoking Status: Former Smoker Drug Use: none Marital Status: Housing Status: lives with family Occupation Status: retired Allergies Coded Allergies: No Known Allergies (Verified , 06/25/16) Current Inpatient Medications Current Inpatient Medications Medications (Trade) Dose Ordered Sig/Drea Route Start Time Stop Time Status Last Admin Dose Admin Sodium Chloride (Nss 1000ml) 1,000 ml @ 75 mls/hr [id number] IV 11/05/16 21:45 11/05/16 23:53 60 MLS/HR Levofloxacin 1 ea 1 ea UD PRN N/A 11/05/16 23:06 12/05/16 23:05 Methylprednisolone Sodium Succinate/ Syringe (Solu-Medrol IV/ Syringe) 0.64 ml @ 1.5 mls/min Q8H IV 11/06/16 04:00 12/06/16 03:59 11/06/16 12:29 1.5 MLS/MIN Miscellaneous Information (Consult Glycemic Management Pharmacy) 1 ea UD PRN N/A 11/05/16 22:48 12/05/16 22:47 Lorazepam (Ativan Tab) 1 mg ONE PRN PO 11/05/16 22:00 Insulin Aspart (novoLOG ASPART) SLIDING SCALE If C... ACHS SC 11/05/16 23:00 12/05/16 22:59 11/06/16 07:00 11 UNITS Glucose (Glucose 40% Gel) 15-30 GRAMS 15 GRAMS... UD PRN PO 11/05/16 22:00 12/05/16 21:59 Glucose (Glucose Chew Tab) 4-8 Tablets 4 Tabl... UD PRN PO 11/05/16 22:00 12/05/16 21:59 Dextrose (Dextrose 50% 50ML Syringe) 25-50ML OF 50% DW IV FOR... UD PRN IV 11/05/16 22:00 12/05/16 21:59 Glucagon (Glucagon Inj) 1 mg UD PRN SQ 11/05/16 22:00 12/05/16 21:59 Aspirin (Ecotrin Tab) 81 mg DAILY PO 11/06/16 09:00 12/06/16 08:59 11/06/16 08:15 81 MG Calcitriol (Rocaltrol Cap) 0.25 mcg DAILY PO 11/06/16 09:00 12/06/16 08:59 11/06/16 08:16 0.25 MCG Cholecalciferol (Vitamin D Tab) 1,000 inter.unit DAILY PO 11/06/16 09:00 12/06/16 08:59 11/06/16 09:00 1,000 INTER.UNIT Magnesium Hydroxide (Milk Of Magnesia Susp) 30 ml DAILY PRN PO 11/05/16 22:00 12/05/16 21:59 Pantoprazole Sodium (Protonix Tab) 40 mg QAM PO 11/06/16 09:00 12/06/16 08:59 11/06/16 08:27 40 MG Miscellaneous Information (Order Awaiting Action) 1 ea QS N/A 11/06/16 08:00 12/06/16 07:59 Heparin Sodium (Porcine) (Heparin Sq 5000 Unit/0.5ml) 5,000 unit Q12H SQ 11/06/16 09:00 12/06/16 08:59 11/06/16 08:26 5,000 UNIT Ondansetron HCl (Zofran Inj) 4 mg Q6H PRN IV 11/05/16 22:00 12/05/16 21:59 Nitroglycerin (Nitrostat Tab) 0.4 mg UD PRN SL 11/05/16 22:00 12/05/16 21:59 Ipratropium [place] (Atrovent 0.02% 0.5MG/2.5ML Neb) 0.5 mg Q6R INH 11/06/16 03:00 12/06/16 02:59 11/06/16 01:40 0.5 MG Levalbuterol (Xopenex 1.25MG/ 0.5ML Neb) 1.25 mg Q6R INH 11/06/16 03:00 12/06/16 02:59 11/06/16 01:40 1.25 MG Gabapentin (Neurontin Tab) 600 mg Q8H PO 11/06/16 22:00 11/07/16 14:01 Gabapentin (Neurontin Tab) 600 mg Q12H PO 11/08/16 00:00 11/08/16 12:01 Gabapentin (Neurontin Tab) 600 mg Q24H PO 11/09/16 12:00 11/09/16 12:01 Piperacillin Sod/ Tazobactam Sod 1 ea 1 ea UD PRN N/A 11/05/16 23:15 12/05/16 23:14 Levofloxacin 750 mg/Prmx 150 ml @ 100 mls/hr Q48H IV 11/05/16 23:00 11/12/16 22:59 11/05/16 23:52 100 MLS/HR Piperacillin Sod/ Tazobactam Sod/ Dextrose (Zosyn Iv/D5 100ml) 115 ml @ 28.75 mls/ hr Q8H IV 11/06/16 02:00 11/13/16 01:59 11/06/16 10:37 28.75 MLS/HR Insulin Glargine (Lantus Solostar Pen) 35 unit DAILY SC 11/06/16 09:00 12/06/16 08:59 11/06/16 08:25 35 UNIT Ioversol (Optiray 320) 125 ml UD PRN IV 11/06/16 07:45 11/10/16 07:44 Levothyroxine Sodium 200 mcg 200 mcg DAILYBB PO 11/06/16 09:00 12/06/16 08:59 11/06/16 10:35 200 MCG Vancomycin HCl/ Sodium Chloride (Vancomycin Inj/ Nss 250ml) 277.6 ml @ 125 mls/hr Q24H IV 11/06/16 14:15 11/20/16 14:14 UNV Review of Systems Constitutional: + fatigue, + fever, + weakness Eyes: No problem reported ENT: No problem reported Respiratory: + cough, + shortness of breath Cardiovascular: No problem reported Abdomen: No problem reported Musculoskeletal: No problem reported Genitourinary - Male: No problem reported Neurologic: No problem reported Psychiatric: No problem reported Endocrine: No problem reported Hematologic / Lymphatic: No problem reported Integumentary: No problem reported Allergic / Immunologic: No problem reported Physical Exam Date Time Temp Pulse Resp B/P Pulse Ox O2 Delivery O2 Flow Rate FiO2 11/06/16 12:16 37.0 78 18 150/75 96 11/06/16 11:35 99 Nasal Cannula 2.0 11/06/16 11:25 97 Nasal Cannula 3.0 11/06/16 08:23 36.9 69 20 104/63 97 Nasal Cannula 2.0 11/06/16 08:00 97 Nasal Cannula 3.0 11/06/16 08:00 97 Nasal Cannula 2.0 11/06/16 04:00 97 Nasal Cannula 3.0 11/06/16 03:35 36.4 74 21 122/63 98 Nasal Cannula 2.0 11/06/16 01:40 61 18 97 Nasal Cannula 3.0 11/06/16 00:00 36.8 82 24 101/59 97 Nasal Cannula 3.0 11/06/16 00:00 97 Nasal Cannula 3.0 11/05/16 22:18 Nasal Cannula 3.0 11/05/16 22:06 37.0 82 18 106/51 91 Nasal Cannula 3.0 11/05/16 20:57 94 22 108/53 95 Nasal Cannula 3.0 11/05/16 20:19 101 22 107/60 98 Nasal Cannula 3.0 11/05/16 19:56 97 Nasal Cannula 3.0 11/05/16 19:38 94 30 99 Nebulizer 11/05/16 19:25 92 Room Air 11/05/16 19:00 38.0 100 20 113/56 90 Room Air General Appearance: WD/WN, no apparent distress Head: normocephalic, atraumatic Eyes: normal inspection, EOMI, sclerae normal ENT: normal ENT inspection, pharynx normal Neck: supple, no adenopathy, thyroid normal, trachea midline Respiratory/Chest: chest non-tender, no respiratory distress, no accessory muscle use, + rales Cardiovascular: regular rate, rhythm, no gallop, no murmur Abdomen/GI: normal bowel sounds, non tender, soft, no organomegaly Back: normal inspection, no CVA tenderness Extremities/Musculoskelatal: normal inspection, no calf tenderness Neurologic/Psych: alert, oriented x 3 Skin: normal color, warm/dry, no rash Lymphatic: no adenopathy Laboratory Results Date/Time Source Procedure Growth Status 11/05/16 19:40 Blood Blood Culture - Preliminary Gram Positive Cocci Gram Positive Bacilli Resulted 11/05/16 19:33 Blood Blood Culture - Preliminary Gram Positive Cocci Gram Positive Bacilli Resulted 11/06/16 05:00 Nasal MRSA DNA Surveillance Screen - Final Specimen Negative for MRSA by DNA Probe Complete Last 24 Hours Test 11/05/16 19:33 11/05/16 19:49 11/05/16 20:13 11/06/16 00:00 White Blood Count 20.01 K/uL Red Blood Count 4.48 M/uL Hemoglobin 12.3 g/dL Hematocrit 39.4 % Mean Corpuscular Volume 87.9 fL Mean Corpuscular Hemoglobin 27.5 pg Mean Corpuscular Hemoglobin Concent 31.2 g/dl Platelet Count 236 K/uL Mean Platelet Volume 11.0 fL Neutrophils (%) (Auto) 91.0 % Lymphocytes (%) (Auto) 2.5 % Monocytes (%) (Auto) 5.8 % Eosinophils (%) (Auto) 0.1 % Basophils (%) (Auto) 0.2 % Neutrophils # (Auto) 18.21 K/uL Lymphocytes # (Auto) 0.50 K/uL Monocytes # (Auto) 1.16 K/uL Eosinophils # (Auto) 0.02 K/uL Basophils # (Auto) 0.04 K/uL RDW Standard Deviation 45.6 fL RDW Coefficient of Variation 14.1 % Immature Granulocyte % (Auto) 0.4 % Immature Granulocyte # (Auto) 0.08 K/uL Prothrombin Time 10.7 SECONDS Prothromb Time International Ratio 1.0 Activated Partial Thromboplast Time 22.9 SECONDS Partial Thromboplastin Ratio 0.9 Sodium Level 139 mmol/L Potassium Level 4.4 mmol/L Chloride Level 104 mmol/L Carbon Dioxide Level 27 mmol/L Anion Gap 8.0 mmol/L Blood Urea Nitrogen 24 mg/dl Creatinine 1.50 mg/dl Est Creatinine Clear Calc Drug Dose 39.8 ml/min Estimated GFR () 47.8 Estimated GFR (Non- 41.3 BUN/Creatinine Ratio 15.9 Random Glucose 266 mg/dl Calcium Level 8.7 mg/dl Magnesium Level 1.8 mg/dl Total Bilirubin 2.4 mg/dl Aspartate Amino Transf (AST/SGOT) 278 U/L Alanine Aminotransferase (ALT/SGPT) 169 U/L Alkaline Phosphatase 337 U/L Total Protein 7.5 gm/dl Albumin 2.9 gm/dl Globulin 4.6 gm/dl Albumin/Globulin Ratio 0.6 Thyroid Stimulating Hormone (TSH) 0.017 uIu/ml Free Thyroxine 2.19 ng/dl Bedside Lactic Acid Venous 1.82 mmol/L Urine Color DK YELLOW Urine Appearance CLEAR Urine pH 6.5 Urine Specific [place] 1.015 Urine Protein NEG Urine Glucose (UA) 1+ Urine Ketones NEG Urine Occult Blood NEG Urine Nitrite NEG Urine Bilirubin 1+ Urine Urobilinogen NEG Urine Leukocyte Esterase NEG Urine WBC (Auto) 1-5 /hpf Urine RBC (Auto) 0-4 /hpf Urine Hyaline Casts (Auto) 1-5 /lpf Urine Epithelial Cells (Auto) 0-5 /lpf Urine Bacteria (Auto) NEG Bedside Glucose 292 mg/dl Test 11/06/16 00:42 11/06/16 05:30 11/06/16 06:37 11/06/16 12:02 D-Dimer 2450 ug/L FEU White Blood Count 29.29 K/uL Red Blood Count 4.03 M/uL Hemoglobin 11.2 g/dL Hematocrit 35.3 % Mean Corpuscular Volume 87.6 fL Mean Corpuscular Hemoglobin 27.8 pg Mean Corpuscular Hemoglobin Concent 31.7 g/dl Platelet Count 206 K/uL Mean Platelet Volume 10.9 fL Neutrophils (%) (Auto) 94.3 % Lymphocytes (%) (Auto) 3.2 % Monocytes (%) (Auto) 2.0 % Eosinophils (%) (Auto) 0.0 % Basophils (%) (Auto) 0.1 % Neutrophils # (Auto) 27.62 K/uL Lymphocytes # (Auto) 0.93 K/uL Monocytes # (Auto) 0.59 K/uL Eosinophils # (Auto) 0.00 K/uL Basophils # (Auto) 0.03 K/uL RDW Standard Deviation 45.9 fL RDW Coefficient of Variation 14.3 % Immature Granulocyte % (Auto) 0.4 % Immature Granulocyte # (Auto) 0.12 K/uL Red Blood Cell Morphology Unremarkable Sodium Level 138 mmol/L Potassium Level 4.1 mmol/L Chloride Level 106 mmol/L Carbon Dioxide Level 24 mmol/L Anion Gap 8.0 mmol/L Blood Urea Nitrogen 25 mg/dl Creatinine 1.50 mg/dl Est Creatinine Clear Calc Drug Dose 39.8 ml/min Estimated GFR () 47.8 Estimated GFR (Non- 41.3 BUN/Creatinine Ratio 16.6 Random Glucose 316 mg/dl Estimated Average Glucose 148 mg/dl Hemoglobin A1c 6.8 % Lactic Acid Level 2.1 mmol/L 2.4 mmol/L Calcium Level 8.1 mg/dl Magnesium Level 1.9 mg/dl Total Bilirubin 2.9 mg/dl Direct Bilirubin 1.8 mg/dl Aspartate Amino Transf (AST/SGOT) 161 U/L Alanine Aminotransferase (ALT/SGPT) 139 U/L Alkaline Phosphatase 229 U/L Total Protein 6.6 gm/dl Albumin 2.5 gm/dl Beta-Hydroxybutyric Acid 1.08 mg/dL Thyroid Stimulating Hormone (TSH) 0.009 uIu/ml Free Thyroxine 1.99 ng/dl Hepatitis B Surface Antigen NEG Hepatitis C Antibody NEG Bedside Glucose 295 mg/dl Patient Name: TINO AYERS Unit Number: [id number] Dictated: 11/06/16831 Transcribed: 11/06/16831 EV Printed Date/Time: [~ rep prt dt]/[~ rep prt tm] [~ rep ct labl] - [~ rep ct ivnm] [facility] [place] [address] Dictated: 11/06/16831 Transcribed: 11/06/16831 EV Printed Date/Time: [~ rep prt dt]/[~ rep prt tm] [~ rep ct labl] - [~ rep ct ivnm] CT ANGIOGRAM OF THE CHEST CLINICAL HISTORY: Dyspnea. Pneumonia. COMPARISON STUDY: Chest CT dated 10/01/2013. Chest x-ray dated 11/05/2016. TECHNIQUE: Following the IV administration of 96 cc of Optiray 320, CT angiogram of the chest was performed from the upper abdomen to the thoracic inlet utilizing the pulmonary embolus protocol. Images are reviewed in the axial, sagittal, and coronal planes. 3-D MIPS images are created and assessed. IV contrast was administered without complication. The examination is degraded by motion artifact. CT DOSE: 546.32 mGy.cm FINDINGS: Thyroid: Atrophic. Thoracic aorta: There is atherosclerotic calcification of the thoracic aorta. There is mild intimal dilatation of the ascending thoracic aorta which measures up to 4.1 cm in diameter. The remainder of the thoracic aorta is normal in caliber, and the arch demonstrates variant 3-vessel anatomy. There is a bovine arch, and the left vertebral artery arises directly from the thoracic aorta. There is no evidence of dissection. Pulmonary vasculature: The pulmonary trunk is dilated, measuring 3.4 cm in diameter. This suggests pulmonary artery hypertension. The main and lobar branches are clear. There are thin linear filling defects seen within segmental and subsegmental branches of the right lower lobe pulmonary artery, best seen on images #128 and #122. Some of these are located centrally within the vessels. The remaining pulmonary vessels appear clear. The peripheral branches are not well assessed due to motion artifact. Heart: The patient is status post midline sternotomy. The heart is enlarged and without pericardial effusion. The coronary arteries are densely calcified. Lungs and pleural spaces: Evaluation of the lung parenchyma is significantly degraded by respiratory motion artifact. Fluid/secretions is present within the lower lobe airways. Mild patchy nodular airspace opacities are present in the right upper, right lower, and left lower lobes. No pleural effusion is seen. The trachea and central airways are clear. Mediastinum: There are mildly enlarged mediastinal lymph nodes. Right paratracheal nodes measure up to 12 mm in short axis as seen on image #204. Precarinal nodes measure up to 1.4 cm in short axis. [place]: There are mildly enlarged hilar lymph nodes which measure up to 1.4 cm in short axis. Axillae: There is no axillary lymphadenopathy. Upper abdomen: A 2.3 cm cyst arises from the upper pole of the right kidney. There is a small to moderate hiatal hernia. Skeletal structures: The skeletal structures are osteopenic. There is a mild superior endplate compression deformity of T4. There are numerous healed bilateral rib fractures. No lytic or blastic bony lesions are seen. IMPRESSION: 1. Significantly motion degraded examination. 2. There are thin linear filling defects seen within segmental and subsegmental branches of the right lower lobe pulmonary artery. These are consistent with age indeterminant and possibly chronic pulmonary emboli. 3. The remaining pulmonary vessels are patent. 4. Cardiomegaly with evidence of pulmonary artery hypertension. 5. There are patchy nodular airspace opacities seen in the right upper, right lower, and left lower lobes. This likely represents an infectious/inflammatory pneumonitis, possibly on the basis of aspiration as there is fluid/secretions present within the lower lobe airways. Clinical correlation will be required. Precautionary CT follow-up in 3 months time is recommended for reassessment 6. Mildly enlarged mediastinal and hilar lymph nodes are nonspecific and may be on a reactive basis. These can also be reassessed at follow-up. 7. There is mild aneurysmal dilatation of the ascending thoracic aorta which measures up to 4.1 cm. This is similar appearance to the 2014 examination. 8. Additional findings as above. Electronically signed by: Jesus Jenkins M.D. 11/06/2016 8:43 AM Dictated Date/Time: 11/06/2016 8:32 AM The status of this report is Signed. Draft = Not yet reviewed or approved by Radiologist. Signed = Reviewed and approved by Radiologist. <AttendingPhy>Matteo Gutierrez MD</AttendingPhy> <FamilyPhy>No Doctor, Assigned</FamilyPhy> <PrimaryPhy>No Doctor, Assigned</PrimaryPhy> <UnitNumber> [id number]</UnitNumber> <VisitNumber>[id number]</VisitNumber> <PatientName> ARMENTINO</PatientName> <DateOfBirth>1930</DateOfBirth> <Location> [facility]</Location> <ServiceDate>11/05/16</ServiceDate> <MNE>ESINDI</MNE> < OrderingPhy>Ab Mcpherson MD</OrderingPhy> <OrderingPhyMNE>f rep ord dr smith< /OrderingPhyMNE> <DictatingPhyMNE>f rep dict dr smith</DictatingPhyMNE> <CCListMNE >f rep ct mne</CCListMNE> <AdmittingPhyMNE>f pt admit dr smith</AdmittingPhyMNE> < AttendingPhyMNE>f pt attend dr smith</AttendingPhyMNE> <ConsultingPhyMNE>f pt consult dr smith</ConsultingPhyMNE> <FamilyPhyMNE>f pt fam dr smith</FamilyPhyMNE> <OtherPhyMNE>f pt other dr smith</OtherPhyMNE> < PrimaryPhyMNE>f pt prim care dr smith</PrimaryPhyMNE> <ReferringPhyMNE>f pt referring dr smith</ReferringPhyMNE> Assessment & Plan 86 yo male with bilateral pneumonia with bacteremia with gram positive cocci and bacilli. Pending identification and sensitivities, have added IV vancomycin. Will adjust once final results available.Would obtain echocardiogram. Will follow.
[2016-11-06] MEDS ORDERED: VANCOMYCIN CONSULT ACTIVE PRN (14:30)
--- NOTE | 2016-11-06 14:57 | Pharmacy Progress Note ---
Pharmacy Abx Initial Consult Date of Service November 06, 2016. Pharmacy Dosing Scope Date of Consult: 11/05/16 and 11/06/16 Consultation requested by: Dr. Mcpherson and Dr. Chatterjee Pharmacy is consulted to initiate Vancomycin, Zosyn and Levaquin IV dosing therapy, order appropriate labs and adjust drug dose/frequency. Subjective The patient is a 86 year old male admitted on November 05, 2016 at 21:44. Objective Height (Feet): 5 Height (Inches): 8.00 Weight (Kilograms): 92.000 Vital Signs (Past 12Hrs) Vital Signs Past 12 Hours Date Time Temp Pulse Resp B/P Pulse Ox O2 Delivery O2 Flow Rate FiO2 11/06/16 12:16 37.0 78 18 150/75 96 11/06/16 11:35 99 Nasal Cannula 2.0 11/06/16 11:25 97 Nasal Cannula 3.0 11/06/16 08:23 36.9 69 20 104/63 97 Nasal Cannula 2.0 11/06/16 08:00 97 Nasal Cannula 3.0 11/06/16 08:00 97 Nasal Cannula 2.0 11/06/16 04:00 97 Nasal Cannula 3.0 11/06/16 03:35 36.4 74 21 122/63 98 Nasal Cannula 2.0 Lab Results (24Hrs) Test 11/05/16 19:33 11/05/16 19:49 11/05/16 20:13 11/06/16 00:00 White Blood Count 20.01 K/uL (4.8-10.8) Red Blood Count 4.48 M/uL (4.7-6.1) Hemoglobin 12.3 g/dL (14.0-18.0) Hematocrit 39.4 % (42-52) Mean Corpuscular Volume 87.9 fL (80-100) Mean Corpuscular Hemoglobin 27.5 pg (25-34) Mean Corpuscular Hemoglobin Concent 31.2 g/dl (32-36) Platelet Count 236 K/uL (130-400) Mean Platelet Volume 11.0 fL (7.4-10.4) Neutrophils (%) (Auto) 91.0 % Lymphocytes (%) (Auto) 2.5 % Monocytes (%) (Auto) 5.8 % Eosinophils (%) (Auto) 0.1 % Basophils (%) (Auto) 0.2 % Neutrophils # (Auto) 18.21 K/uL (1.4-6.5) Lymphocytes # (Auto) 0.50 K/uL (1.2-3.4) Monocytes # (Auto) 1.16 K/uL (0.11-0.59) Eosinophils # (Auto) 0.02 K/uL (0-0.5) Basophils # (Auto) 0.04 K/uL (0-0.2) RDW Standard Deviation 45.6 fL (36.4-46.3) RDW Coefficient of Variation 14.1 % (11.5-14.5) Immature Granulocyte % (Auto) 0.4 % Immature Granulocyte # (Auto) 0.08 K/uL (0.00-0.02) Prothrombin Time 10.7 SECONDS (9.0-12.0) Prothromb Time International Ratio 1.0 (0.9-1.1) Activated Partial Thromboplast Time 22.9 SECONDS (21.0-31.0) Partial Thromboplastin Ratio 0.9 Sodium Level 139 mmol/L (136-145) Potassium Level 4.4 mmol/L (3.5-5.1) Chloride Level 104 mmol/L (98-107) Carbon Dioxide Level 27 mmol/L (21-32) Anion Gap 8.0 mmol/L (3-11) Blood Urea Nitrogen 24 mg/dl (7-18) Creatinine 1.50 mg/dl (0.60-1.40) Est Creatinine Clear Calc Drug Dose 39.8 ml/min Estimated GFR () 47.8 Estimated GFR (Non- 41.3 BUN/Creatinine Ratio 15.9 (10-20) Random Glucose 266 mg/dl (70-99) Calcium Level 8.7 mg/dl (8.5-10.1) Magnesium Level 1.8 mg/dl (1.8-2.4) Total Bilirubin 2.4 mg/dl (0.2-1) Aspartate Amino Transf (AST/SGOT) 278 U/L (15-37) Alanine Aminotransferase (ALT/SGPT) 169 U/L (12-78) Alkaline Phosphatase 337 U/L (45-117) Total Protein 7.5 gm/dl (6.4-8.2) Albumin 2.9 gm/dl (3.4-5.0) Globulin 4.6 gm/dl (2.5-4.0) Albumin/Globulin Ratio 0.6 (0.9-2) Thyroid Stimulating Hormone (TSH) 0.017 uIu/ml (0.300-4.500) Free Thyroxine 2.19 ng/dl (0.80-1.60) Bedside Lactic Acid Venous 1.82 mmol/L (0.90-1.70) Urine Color DK YELLOW Urine Appearance CLEAR (CLEAR) Urine pH 6.5 (4.5-7.5) Urine Specific [place] 1.015 (1.000-1.030) Urine Protein NEG (NEG) Urine Glucose (UA) 1+ (NEG) Urine Ketones NEG (NEG) Urine Occult Blood NEG (NEG) Urine Nitrite NEG (NEG) Urine Bilirubin 1+ (NEG) Urine Urobilinogen NEG (NEG) Urine Leukocyte Esterase NEG (NEG) Urine WBC (Auto) 1-5 /hpf (0-5) Urine RBC (Auto) 0-4 /hpf (0-4) Urine Hyaline Casts (Auto) 1-5 /lpf (0-5) Urine Epithelial Cells (Auto) 0-5 /lpf (0-5) Urine Bacteria (Auto) NEG (NEG) Bedside Glucose 292 mg/dl (70-99) Test 11/06/16 00:42 11/06/16 05:30 11/06/16 06:37 11/06/16 12:02 D-Dimer 2450 ug/L FEU (0-500) White Blood Count 29.29 K/uL (4.8-10.8) Red Blood Count 4.03 M/uL (4.7-6.1) Hemoglobin 11.2 g/dL (14.0-18.0) Hematocrit 35.3 % (42-52) Mean Corpuscular Volume 87.6 fL (80-100) Mean Corpuscular Hemoglobin 27.8 pg (25-34) Mean Corpuscular Hemoglobin Concent 31.7 g/dl (32-36) Platelet Count 206 K/uL (130-400) Mean Platelet Volume 10.9 fL (7.4-10.4) Neutrophils (%) (Auto) 94.3 % Lymphocytes (%) (Auto) 3.2 % Monocytes (%) (Auto) 2.0 % Eosinophils (%) (Auto) 0.0 % Basophils (%) (Auto) 0.1 % Neutrophils # (Auto) 27.62 K/uL (1.4-6.5) Lymphocytes # (Auto) 0.93 K/uL (1.2-3.4) Monocytes # (Auto) 0.59 K/uL (0.11-0.59) Eosinophils # (Auto) 0.00 K/uL (0-0.5) Basophils # (Auto) 0.03 K/uL (0-0.2) RDW Standard Deviation 45.9 fL (36.4-46.3) RDW Coefficient of Variation 14.3 % (11.5-14.5) Immature Granulocyte % (Auto) 0.4 % Immature Granulocyte # (Auto) 0.12 K/uL (0.00-0.02) Red Blood Cell Morphology Unremarkable Sodium Level 138 mmol/L (136-145) Potassium Level 4.1 mmol/L (3.5-5.1) Chloride Level 106 mmol/L (98-107) Carbon Dioxide Level 24 mmol/L (21-32) Anion Gap 8.0 mmol/L (3-11) Blood Urea Nitrogen 25 mg/dl (7-18) Creatinine 1.50 mg/dl (0.60-1.40) Est Creatinine Clear Calc Drug Dose 39.8 ml/min Estimated GFR () 47.8 Estimated GFR (Non- 41.3 BUN/Creatinine Ratio 16.6 (10-20) Random Glucose 316 mg/dl (70-99) Estimated Average Glucose 148 mg/dl Hemoglobin A1c 6.8 % (4.5-5.6) Lactic Acid Level 2.1 mmol/L (0.4-2.0) 2.4 mmol/L (0.4-2.0) Calcium Level 8.1 mg/dl (8.5-10.1) Magnesium Level 1.9 mg/dl (1.8-2.4) Total Bilirubin 2.9 mg/dl (0.2-1) Direct Bilirubin 1.8 mg/dl (0-0.2) Aspartate Amino Transf (AST/SGOT) 161 U/L (15-37) Alanine Aminotransferase (ALT/SGPT) 139 U/L (12-78) Alkaline Phosphatase 229 U/L (45-117) Total Protein 6.6 gm/dl (6.4-8.2) Albumin 2.5 gm/dl (3.4-5.0) Beta-Hydroxybutyric Acid 1.08 mg/dL (0.2-2.81) Thyroid Stimulating Hormone (TSH) 0.009 uIu/ml (0.300-4.500) Free Thyroxine 1.99 ng/dl (0.80-1.60) Hepatitis B Surface Antigen NEG (NEG) Hepatitis C Antibody NEG (NEG) Bedside Glucose 295 mg/dl (70-99) Micro Results Date/Time Source Procedure Growth Status 11/05/16 19:40 Blood Blood Culture - Preliminary Gram Positive Cocci Gram Positive Bacilli Resulted 11/05/16 19:33 Blood Blood Culture - Preliminary Gram Positive Cocci Gram Positive Bacilli Resulted 11/06/16 05:00 Nasal MRSA DNA Surveillance Screen - Final Specimen Negative for MRSA by DNA Probe Complete Assessment & Plan Assessment 86 year old male admitted with sepsis secondary to LLL pnx (CAP), COPD exacerbation. Patient was started on empiric Zosyn and Levaquin IV on 11/05. Vancomycin IV was added today due to both Gram positive cocci and Gram positive bacilli isolated in 2/2 blood cultures. Plan Vanc + Zosyn + Levaquin IV for treatment of sepsis secondary to CAP, bacteremia Vancomycin IV * Loading dose: 2000 mg (22 mg/kg) * Maintenance dose: 1400 mg IV (15 mg/kg) every 24 hours * Goal trough level for sepsis : 15 to 20 mcg/mL * Trough level ordered for 11/09/16 * Conservative dose selected due to h/o CKD III, advanced age and on Vanc/Zosyn combo, which is associated with worsening renal function Piperacillin/tazobactam * 4.5 g bolus administered over 30 minutes, then 3.375 g IV extended infusion every 8 hours for CrCl greater than 20 mL/min Levaquin * 750 mg IV every 48 hours for CrCl 20-49 ml/min Pharmacy will continue to follow and will adjust dose/frequency as necessary. Thank you.
[2016-11-06] MEDS ORDERED: VANCOMYCIN INJ 2,000 MG in SODIUM CHLORIDE 0.9% 500ML 500 ML IV ONE (15:00)
[2016-11-06] MEDS ORDERED: SODIUM CHLORIDE 0.9% 500ML 500 ML IV ONE (19:15)
[2016-11-06] MEDS: SODIUM CHLORIDE 0.9% 1000ML 1,000 ML IV SCH (19:29)
[2016-11-06] MEDS: GABAPENTIN 600MG Q8H DOSE PO SCH (20:44)
[2016-11-07] VITALS (16 sets, daily range): BP systolic 112–145; BP diastolic 63–71; PULSE 65–88; TEMP 36.3–36.7; O2SAT 93–100
[2016-11-07] MEDS: INSULIN ASPART 100 UNITS/ML 3 ML PEN SC SCH ×7 (00:22→21:05)
[2016-11-07] MEDS: SODIUM CHLORIDE 0.9% 1000ML 1,000 ML IV SCH ×2 (00:23→10:00)
[2016-11-07] MEDS: PIPERACILL/TAZOBAC IV 3.375 GM in DEXTROSE 5% 100ML IV SCH ×3 (01:41→16:59)
[2016-11-07] MEDS: IPRATROPIUM BROMIDE NEB SOLN 0.02% 2.5 ML VIAL INH SCH ×4 (02:14→19:01)
[2016-11-07] MEDS: LEVALBUTEROL 1.25MG/0.5ML NEB INH SCH ×4 (02:14→19:01)
[2016-11-07] MEDS: METHYLPREDNISOLONE IV 40 MG in SYRINGE 0 ML IV SCH (04:09)
[2016-11-07 04:23] LABS: HEMATOCRIT 33.9 % (42-52); MEAN CELL VOLUME 88.7 fL (80-100); MEAN CORPUSCULAR HEMOGLOBIN 27.2 pg (25-34); MEAN CORPUSCULAR HGB CONC 30.7 g/dl (32-36); MEAN PLATELET VOLUME 11.4 fL (7.4-10.4); PLATELET COUNT 209 K/uL (130-400); RED BLOOD COUNT 3.82 M/uL (4.7-6.1)
[2016-11-07 04:47] LABS: CREATININE 2.1 mg/dl (0.60-1.40); MAGNESIUM 2.2 mg/dl (1.8-2.4); POTASSIUM 4.1 mmol/L (3.5-5.1)
[2016-11-07 05:00] LABS: BASO ABS # 0.01 K/uL (0-0.2); COMPLETE YES; ECHINOCYTES 1+; IG% 0.5 %; LYMPH % 4.2 %; LYMPH ABS # 1.05 K/uL (1.2-3.4); MONO % 3.6 %; NEUT % 91.7 %
[2016-11-07] MEDS: GABAPENTIN 600MG Q8H DOSE PO SCH ×2 (05:20→08:00)
[2016-11-07] MEDS: LEVOTHYROXINE 200 MCG TAB PO SCH (05:21)
[2016-11-07] MEDS: ASPIRIN 81 MG ECTAB PO SCH (07:59)
[2016-11-07] MEDS: CALCITRIOL 0.25 MCG CAP PO SCH (08:01)
[2016-11-07] MEDS: CHOLECALCIFEROL 1000 INTER.UNIT TAB PO SCH (08:01)
[2016-11-07] MEDS: PANTOprazole SOD 40 MG TAB PO SCH (08:01)
[2016-11-07] MEDS: HEPARIN SOD 5000 UNIT/0.5 ML CARP SQ SCH ×2 (08:12→21:06)
--- NOTE | 2016-11-07 08:50 | Progress Note ---
Internal Med Progress Note Date of Service: November 07, 2016. Provider Documentation: SUBJECTIVE: Seen and examined at bedside. Seen and examined at bedside. Cough is improving. Denies chest pain, SOB, abd pain. Offers no other complaints. OBJECTIVE: Vital Signs-as noted below Physical Exam: General Appearance:Moderately built and nourished, no apparent distress Head: normocephalic, Atraumatic Eyes: normal inspection, EOMI, PERRL Neck: supple, Trachea midline Respiratory/Chest: Decreased breath sounds, creps at bases Cardiovascular: S1, S2, No murmur Abdomen/GI:Soft, Non tender, Bowel sounds present Extremities/Musculoskelatal:normal inspection, 1+ b/l edema Neurologic/Psych:AAOX3, grossly no focal neurological deficits Skin: normal color, warm Lab data as noted below. ASSESSMENT & PLAN: Patient is an 86 yr M with h/o of COPD, CAD/CABG, Atrial Fibrillation, HTN, DM , other problems noted below presenting with fever and cough. 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 LFTs improving Denies abd pain DECREASED TSH, ELEVATED FT4 Take 225mcg of levothyroxine at home Resume Levothyroxine at reduced dose: 200mcg daily Needs repeat Thyroid function test in 6 weeks ALCOHOLISM Patient admits to drinking 1 beer/day Monitor for withdrawal Continue alcohol withdrawal protocol CAD/CABG No acute issues continue Aspirin hold Statin due to elevated LFTs H/O ATRIAL FIBRILLATION observed during last admission in 06/2016 Currently regular monitor in Tele continue aspirin Not a candidate for chronic anticoagulation based on prior cardiology input DM II hold Actos Continue ISS, accu checks Pharmacy Glycemic consult HYPERTENSION stable Hold Lasix for now CKD III stable Monitor renal function CODE STATUS DNR DVT PX Heparin sq DISPOSITION lives at home with his son and daughter in law PT/OT access services representative consulted PROCEDURES: CTA for PE: 1. Significantly motion degraded examination. 2. There are thin linear filling defects seen within segmental and subsegmental branches of the right lower lobe pulmonary artery. These are consistent with age indeterminant and possibly chronic pulmonary emboli. 3. The remaining pulmonary vessels are patent. 4. Cardiomegaly with evidence of pulmonary artery hypertension. 5. There are patchy nodular airspace opacities seen in the right upper, right lower, and left lower lobes. This likely represents an infectious/inflammatory pneumonitis, possibly on the basis of aspiration as there is fluid/secretions present within the lower lobe airways. Clinical correlation will be required. Precautionary CT follow-up in 3 months time is recommended for reassessment 6. Mildly enlarged mediastinal and hilar lymph nodes are nonspecific and may be on a reactive basis. These can also be reassessed at follow-up. 7. There is mild aneurysmal dilatation of the ascending thoracic aorta which measures up to 4.1 cm. This is similar appearance to the 2014 examination. 8. Additional findings as above. Vital Signs: Date Time Temp Pulse Resp B/P Pulse Ox O2 Delivery O2 Flow Rate FiO2 11/07/16 08:00 94 Nasal Cannula 2.0 11/07/16 08:00 98 Nasal Cannula 2.0 11/07/16 07:04 88 18 98 Nasal Cannula 2.0 11/07/16 05:02 36.5 81 18 115/63 93 11/07/16 04:18 94 Nasal Cannula 2.0 11/07/16 02:15 79 18 98 Nasal Cannula 2.0 11/07/16 00:32 94 Nasal Cannula 2.0 11/06/16 23:59 36.4 62 18 90/54 99 Nasal Cannula 2.0 11/06/16 20:00 94 Nasal Cannula 2.0 11/06/16 19:18 36.5 84 18 98/45 95 Nasal Cannula 2.0 11/06/16 18:56 67 18 94 Nasal Cannula 2.0 11/06/16 15:35 36.5 83 20 76/42 93 Nasal Cannula 2.5 83 82/46 11/06/16 15:20 95 Nasal Cannula 3.0 11/06/16 15:13 62 18 93 Nasal Cannula 2.0 11/06/16 14:49 68 96 11/06/16 12:16 37.0 78 18 150/75 96 11/06/16 11:35 99 Nasal Cannula 2.0 11/06/16 11:25 97 Nasal Cannula 3.0 Lab Results: Results Past 24 Hours Test 11/06/16 12:02 11/06/16 16:04 11/06/16 16:24 11/06/16 17:25 Range/Units Lactic Acid Level 2.4 3.3 0.4-2.0 mmol/L Bedside Glucose 216 252 70-99 mg/dl Test 11/06/16 20:33 11/06/16 23:41 11/07/16 00:00 11/07/16 04:07 Range/Units Bedside Glucose 317 325 245 70-99 mg/dl Lactic Acid Level 2.1 0.4-2.0 mmol/L Test 11/07/16 04:10 Range/Units White Blood Count 25.10 4.8-10.8 K/uL Red Blood Count 3.82 4.7-6.1 M/uL Hemoglobin 10.4 14.0-18.0 g/dL Hematocrit 33.9 42-52 % Mean Corpuscular Volume 88.7 80-100 fL Mean Corpuscular Hemoglobin 27.2 25-34 pg Mean Corpuscular Hemoglobin Concent 30.7 32-36 g/dl Platelet Count 209 130-400 K/uL Mean Platelet Volume 11.4 7.4-10.4 fL Neutrophils (%) (Auto) 91.7 % Lymphocytes (%) (Auto) 4.2 % Monocytes (%) (Auto) 3.6 % Eosinophils (%) (Auto) 0.0 % Basophils (%) (Auto) 0.0 % Neutrophils # (Auto) 23.01 1.4-6.5 K/uL Lymphocytes # (Auto) 1.05 1.2-3.4 K/uL Monocytes # (Auto) 0.90 0.11-0.59 K/uL Eosinophils # (Auto) 0.01 0-0.5 K/uL Basophils # (Auto) 0.01 0-0.2 K/uL RDW Standard Deviation 47.0 36.4-46.3 fL RDW Coefficient of Variation 14.5 11.5-14.5 % Immature Granulocyte % (Auto) 0.5 % Immature Granulocyte # (Auto) 0.12 0.00-0.02 K/uL Echinocytes 1+ Sodium Level 140 136-145 mmol/L Potassium Level 4.1 3.5-5.1 mmol/L Chloride Level 107 98-107 mmol/L Carbon Dioxide Level 24 21-32 mmol/L Anion Gap 9.0 3-11 mmol/L Blood Urea Nitrogen 42 7-18 mg/dl Creatinine 2.10 0.60-1.40 mg/dl Est Creatinine Clear Calc Drug Dose 27.3 ml/min Estimated GFR () 31.8 Estimated GFR (Non- 27.5 BUN/Creatinine Ratio 20.0 10-20 Random Glucose 247 70-99 mg/dl Lactic Acid Level 1.6 0.4-2.0 mmol/L Calcium Level 8.0 8.5-10.1 mg/dl Magnesium Level 2.2 1.8-2.4 mg/dl Total Bilirubin 0.6 0.2-1 mg/dl Direct Bilirubin 0.3 0-0.2 mg/dl Aspartate Amino Transf (AST/SGOT) 100 15-37 U/L Alanine Aminotransferase (ALT/SGPT) 117 12-78 U/L Alkaline Phosphatase 184 45-117 U/L Total Protein 6.4 6.4-8.2 gm/dl Albumin 2.4 3.4-5.0 gm/dl
[2016-11-07] MEDS ORDERED: INSULIN GLARGINE SOLOSTAR 100 UNITS/ML 3 ML PEN SC SCH ×2 (09:00→21:00)
--- NOTE | 2016-11-07 11:35 | Pharmacy Progress Note ---
Glycemic Control: Progress Nt Date of Service November 07, 2016. Scope Glycemic Pharmacist consulted for glycemic control and to write orders per [facility] inpatient glycemic control protocol. Objective Accuchecks BSG (last 24hrs): Test 11/06/16 16:04 11/06/16 16:24 11/06/16 20:33 11/07/16 00:00 Bedside Glucose 216 mg/dl (70-99) 252 mg/dl (70-99) 317 mg/dl (70-99) 325 mg/dl (70-99) Test 11/07/16 04:07 11/07/16 04:10 Bedside Glucose 245 mg/dl (70-99) Random Glucose 247 mg/dl (70-99) Laboratory Data (last 24hrs) HbA1c: Test 11/06/16 05:30 Hemoglobin A1c 6.8 % (4.5-5.6) H Recent Pertinent Medications Outpatient Anti-diabetic Regimen: * Actos 30mg PO daily The patient is currently receiving: * Basal insulin: Lantus 35 units every 24 hours- given in the morning * Correctional Insulin: Novolog Correction per scale ACHS Goal Range: Low 140 mg/dL - High 180 mg/dL Correction Factor: 20 mg/dL/unit * Prandial insulin: Per carb ratio of 1 unit per 7 grams CHO consumed * Oral Agents: On hold for admission Risk Factors for Insulin Resistance: * Steroids * Infection * Diet Assessment & Plan ASSESSMENT: Initial: * Pt is maintained on oral antidiabetic agents as an outpatient with adequate control per recent A1c, no changes needed at discharge. * Oral agents are not recommended for inpatient use d/t drug interactions, changing PO intake, and difficulty titrating for acute hyper/hypoglycemia. ADA recommends re-initiating outpatient oral agents 1-2 days prior to discharge if/ when appropriate if they were held on admission. * Will hold oral agents for admission and utilize SQ basal bolus insulin regimen which is the recommended regimen for inpatient glycemic control. * Will initiate weight based insulin dosing for insulin rufino patient and titrate based on BSG trends. * Pt with significant risk factors for insulin resistance including: high dose RTC steroids + infection. * Will utilize high stress (2-3) dosing 11/07/16: * Pt with significant steroid induced hyperglycemia over the past 24hrs * BSGs 295, 252, 317, 325 * Pt ordered aggressive SQ basal bolus insulin regimen (weight and stress 2) but was not adequate for steroid induced hyperglycemia * Lantus 35 units SQ AM * NovoLog CF 20, CR 7 * Insulin regimen increased to weight/stress 3 this morning * Lantus 45 units SQ AM * NovoLog CF 15, CR 6 * HOWEVER, solumedrol then decreased from Q8 to Q24hrs. Insulin regimen needs decreased. PLAN FOR INPATIENT GLYCEMIC CONTROL: Empirically reduce insulin regimen to prevent hypoglycemia with step down in steroid dosing * Holding outpatient oral diabetes medications * Basal insulin * Increased dosing of Lantus 45 units SQ Q24hrs was given this morning prior to solu-medrol decrease * Hold Lantus this evening * Pharmacy to determine dosing for tomorrow AM based on AM fasting BSG, likely 17-25units needed? * Continue to titrate dosing downwards (pt not on basal insulin as outpatient) based on BSG trends and steroid dosing * Bolus insulin * NovoLog per scale ACHS or Q6hrs while NPO * Goal Range: Low 140 mg/dL - High 180 mg/dL * LOOSEN Correction Factor: 25 mg/dL/unit * LOOSEN Nutritional / Prandial insulin per carb ratio of 1 unit per 8 grams CHO consumed * Please note that the plan above was derived based on current level of insulin resistance and hospital stress. These recommendations are appropriate for inpatient admission only. Plan of care upon discharge will need to be reassessed to avoid potential outpatient hypo/hyperglycemia. Thank you.
[2016-11-07] MEDS: VANCOMYCIN INJ 1,400 MG in SODIUM CHLORIDE 0.9% 500ML 500 ML IV SCH (12:20)
[2016-11-07] MEDS ORDERED: PERFLUTREN LIPID MICROSPHERE (DEFINITY) IV ONE (13:57)
[2016-11-07] MEDS: LEVOFLOXACIN 750MG / D5W IV SCH (22:45)
[2016-11-07] MEDS: GABAPENTIN 600MG Q12H DOSE PO SCH (23:31)
[2016-11-08] VITALS (15 sets, daily range): BP systolic 121–140; BP diastolic 53–75; PULSE 63–94; TEMP 35.9–36.8; O2SAT 91–100
[2016-11-08] MEDS: PIPERACILL/TAZOBAC IV 3.375 GM in DEXTROSE 5% 100ML IV SCH ×2 (01:46→08:11)
[2016-11-08] MEDS: SODIUM CHLORIDE 0.9% 1000ML 1,000 ML IV SCH ×3 (01:50→17:10)
[2016-11-08] MEDS: LEVALBUTEROL 1.25MG/0.5ML NEB INH SCH ×4 (02:01→19:12)
[2016-11-08] MEDS: IPRATROPIUM BROMIDE NEB SOLN 0.02% 2.5 ML VIAL INH SCH ×4 (02:01→19:12)
[2016-11-08] MEDS: LEVOTHYROXINE 200 MCG TAB PO SCH (05:38)
[2016-11-08 06:08] LABS: COMPLETE YES; HEMATOCRIT 32.9 % (42-52); IG% 0.5 %; LYMPH % 5.2 %; LYMPH ABS # 0.98 K/uL (1.2-3.4); MEAN CELL VOLUME 90.1 fL (80-100); MEAN CORPUSCULAR HEMOGLOBIN 28.5 pg (25-34); MEAN CORPUSCULAR HGB CONC 31.6 g/dl (32-36); MEAN PLATELET VOLUME 11.2 fL (7.4-10.4); MONO % 4.1 %; NEUT % 90.2 %; PLATELET COUNT 213 K/uL (130-400); RED BLOOD COUNT 3.65 M/uL (4.7-6.1)
[2016-11-08 06:43] LABS: BUN/CREATININE RATIO 19.2 (10-20); CALCIUM 8.3 mg/dl (8.5-10.1); CREATININE 2.1 mg/dl (0.60-1.40); MAGNESIUM 2.4 mg/dl (1.8-2.4); POTASSIUM 4.1 mmol/L (3.5-5.1)
[2016-11-08] MEDS: INSULIN ASPART 100 UNITS/ML 3 ML PEN SC SCH ×5 (08:04→23:36)
[2016-11-08] MEDS: ASPIRIN 81 MG ECTAB PO SCH (08:06)
[2016-11-08] MEDS: PANTOprazole SOD 40 MG TAB PO SCH (08:07)
[2016-11-08] MEDS: CALCITRIOL 0.25 MCG CAP PO SCH (08:07)
[2016-11-08] MEDS: CHOLECALCIFEROL 1000 INTER.UNIT TAB PO SCH (08:07)
[2016-11-08] MEDS: HEPARIN SOD 5000 UNIT/0.5 ML CARP SQ SCH ×2 (08:09→20:25)
[2016-11-08] MEDS ORDERED: INSULIN GLARGINE SOLOSTAR 100 UNITS/ML 3 ML PEN SC SCH ×3 (09:00→21:00)
[2016-11-08] MEDS ORDERED: METHYLPREDNISOLONE IV 40 MG in SYRINGE 0 ML IV SCH (09:00)
--- NOTE | 2016-11-08 09:40 | ECHOCARDIOGRAM REPORT ---
*NOTICE TO RECEIVING DEMOCRAT AGENCY This information is strictly Confidential and protected under [place] law. [place] law prohibits you from making any further disclosure of this information unless further disclosure is expressly permitted by the written consent of the person to whom it pertains or is authorized by law. A general authorization for the release of medical or other information is not sufficient for this purpose. Hospital accepts no responsibility if the information is made available to any other person, INCLUDING THE PATIENT. Interpretation Summary * Name: TINO AYERS Study Date: 11/07/2016 01:42 PM BP: 115/63 mmHg * Patient Location: C.2T\S\S232\S\1 HR: 65 * : 1930 (M/d/yyyy) Gender: Male Height: 68 in * Age: 86 yrs Ethnicity: CA Weight: 201 lb * Ordering Physician: Matteo Gutierrez * Referring Physician: Self, Referred * Performed By: William Quick RDCS * * Reason For Study: Bacteremia * BSA: 2.0 m2 * -- Conclusions -- * The study was technically difficult. * A contrast injection of Definity was performed to improve assessment of LV function. * The left ventricle is normal in size. * There is mild concentric left ventricular hypertrophy. * The left ventricular wall motion is normal. * Ejection Fraction = 60-65%. * Aortic valve sclerosis moderate, without significant aortic valvular stenosis. * No significant valvular pathology is noted with technical limitations present Procedure Details * A complete two-dimensional transthoracic echocardiogram was performed (2D, M-mode, Doppler and color flow Doppler). * The study was technically difficult. * There were technical limitations due to patient'sbody habitus * A contrast injection of Definity was performed to improve assessment of LV function. * Contrast was injected into an intravenous site in the right arm. * One vial of Definity ultrasound contrast was diluted in normal saline to a total volume of 10 ml. A total of '5' ml of solution was administered during imaging. * Lot # [id number] of Definity utilized for procedure. * Expiration date [id number]. * The attending nurse who injected the contrast agent was Licha Valdez RN. Left Ventricle * The left ventricle is normal in size. * There is mild concentric left ventricular hypertrophy. * Left ventricular systolic function is normal. * Ejection Fraction = 60-65%. * The left ventricular wall motion is normal. Right Ventricle * The right ventricle is normal in size and function. Atria * The left atrial size is normal. * Right atrial size is normal. * A patent foramen ovale is suspected. * Lipomatous hypertrophy of the interatrial septum is noted. Mitral Valve * The mitral valve anatomy is normal. * There is no mitral valve stenosis. * There is trace mitral regurgitation. Tricuspid Valve * The tricuspid valve is not well visualized, but is grossly normal. * There is no tricuspid stenosis. * There is trace tricuspid regurgitation. * Doppler findings do not suggest pulmonary hypertension. Aortic Valve * The aortic valve is trileaflet. * Aortic valve sclerosis moderate, without significant aortic valvular stenosis. * No aortic regurgitation is present. Pulmonic Valve * The pulmonic valve is not well visualized. Great Vessels * The aortic root is normal size. Pericardium/Pleural * There is no pericardial effusion. Great Vessels * Normal inferior vena cava diameter and respiratory variation suggests normal central venous pressure. MMode 2D Measurements and Calculations IVSd 1.2 cm IVSs 1.7 cm LVIDd 4.9 cm LVIDs 2.5 cm LVPWd 1.3 cm LVPWs 1.7 cm IVS/LVPW 0.96 FS 49.6 % EDV(Teich) 113.4 ml ESV(Teich) 21.8 ml EF(Teich) 80.8 % EDV(cubed) 118.4 ml ESV(cubed) 15.2 ml EF(cubed) 87.2 % % IVS thick 44.2 % % LVPW thick 31.5 % LV mass(C)d 234.6 grams LV mass(C)dI 114.5 grams/m\S\2 LV mass(C)s 155.3 grams LV mass(C)sI 75.8 grams/m\S\2 SV(Teich) 91.6 ml SI(Teich) 44.7 ml/m\S\2 SV(cubed) 103.2 ml SI(cubed) 50.4 ml/m\S\2 EPSS 0.63 cm Ao root diam 3.6 cm Ao root area 10.4 cm\S\2 ACS 1.5 cm LA dimension 5.3 cm asc Aorta Diam 3.6 cm LA/Ao 1.5 LVOT diam 2.0 cm LVOT area 3.1 cm\S\2 LVAd ap4 27.5 cm\S\2 LVLd ap4 7.5 cm EDV(MOD-sp4) 83.0 ml LVAs ap4 13.2 cm\S\2 LVLs ap4 6.3 cm ESV(MOD-sp4) 23.0 ml EF(MOD-sp4) 72.3 % LVAd ap2 26.1 cm\S\2 LVLd ap2 7.6 cm EDV(MOD-sp2) 74.0 ml LVAs ap2 14.0 cm\S\2 LVLs ap2 6.4 cm ESV(MOD-sp2) 25.0 ml EF(MOD-sp2) 66.2 % SV(MOD-sp4) 60.0 ml SI(MOD-sp4) 29.3 ml/m\S\2 SV(MOD-sp2) 49.0 ml SI(MOD-sp2) 23.9 ml/m\S\2 Doppler Measurements and Calculations MV E max shaquille 118.6 cm/sec MV A max shaquille 61.7 cm/sec MV E/A 1.9 MV dec time 0.15 sec Ao V2 max 129.4 cm/sec Ao max PG 6.7 mmHg Ao max PG (full) 2.6 mmHg KELLY(V,A) 2.4 cm\S\2 KELLY(V,D) 2.4 cm\S\2 LV V1 max PG 4.1 mmHg LV V1 max 100.9 cm/sec PA V2 max 109.6 cm/sec PA max PG 4.8 mmHg TR max shaquille 273.6 cm/sec
--- NOTE | 2016-11-08 10:48 | Pharmacy Progress Note ---
Glycemic Control: Progress Nt Date of Service November 08, 2016. Scope Glycemic Pharmacist consulted for glycemic control and to write orders per [facility] inpatient glycemic control protocol. Objective Accuchecks BSG (last 24hrs): Test 11/07/16 11:32 11/07/16 20:46 11/08/16 05:49 11/08/16 06:20 Bedside Glucose 270 mg/dl (70-99) 289 mg/dl (70-99) 297 mg/dl (70-99) Random Glucose 268 mg/dl (70-99) HbA1c: Test 11/06/16 05:30 Hemoglobin A1c 6.8 % (4.5-5.6) H Recent Pertinent Medications Outpatient Anti-diabetic Regimen: * Actos 30mg PO daily The patient is currently receiving: * Basal insulin: Lantus 45 units every 24 hours- given in the morning * Correctional Insulin: Novolog Correction per scale ACHS Goal Range: Low 140 mg/dL - High 180 mg/dL Correction Factor: 25 mg/dL/unit * Prandial insulin: Per carb ratio of 1 unit per 8 grams CHO consumed * Oral Agents: On hold for admission Risk Factors for Insulin Resistance: * Steroids * Infection * Diet Assessment & Plan ASSESSMENT: * See progress note from 11/07 for more background info, in short: * Pt receiving weight based SQ basal bolus insulin regimen for hyperglycemia secondary to baseline DM (Actos on hold) & stress/infection * Weight and stress of 2 regimen initiated on 11/06 secondary to Solumedrol 40mg IV Q8hrs. Stress of 2 chosen over a stress of 3 d/t elderly and impaired renal function. * Pt received 84 units of insulin {Lantus 35 units SQ AM + NovoLog CF 20, CR 7) * Unfortunately this was not adequate for steroid induced hyperglycemia * BSGs 295, 252, 317, 325 * Weight and stress of 3 regimen initiated on 11/07 secondary to Solumedrol 40mg IV Q8hrs and stress of 2 dosing inadequate * Pt received 81 units of insulin {Lantus 45 units SQ AM + NovoLog CF 15, CR 6) * Solumedrol decreased from Q8hrs to Q24hrs. Insulin regimen was empirically reduced that afternoon in accordance with step down in steroid dosing. * Unfortunately moderate/severe hyperglycemia persisting despite decrease in Solu-Medrol * BSGs 245, 270, 289 * Insulin regimen needs cautiously increased today for better glycemic control. Am still anticipating improvement in BSGs with Solumendrol only being given once daily. * Steroids have their most profound effect on post-prandial hyperglycemia, therefore, aggressive CF/CR warranted. PLAN FOR INPATIENT GLYCEMIC CONTROL: Empirically increase insulin regimen for sustained hyperglycemia. Will utilize weight and stress of ~2.5 * Holding outpatient oral diabetes medications * Basal insulin * Change to Lantus 40 units SQ Q24hrs given in the morning {weight and stress of ~2.5} * Lantus 10 units this evening PRN BSG > 200mg/dl * Continue to titrate dosing downwards (pt not on basal insulin as outpatient) based on BSG trends and steroid dosing * Bolus insulin * Increase to weight/stress = 3 * NovoLog per scale ACHS or Q6hrs while NPO, additional checks + coverage at 0000 & 0400 for sustained hyperglycemia * Goal Range: Low 140 mg/dL - High 180 mg/dL * LOOSEN Correction Factor: 15 mg/dL/unit * LOOSEN Nutritional / Prandial insulin per carb ratio of 1 unit per 36 grams CHO consumed * Please note that the plan above was derived based on current level of insulin resistance and hospital stress. These recommendations are appropriate for inpatient admission only. Plan of care upon discharge will need to be reassessed to avoid potential outpatient hypo/hyperglycemia. Thank you.
--- NOTE | 2016-11-08 11:24 | Progress Note ---
Internal Med Progress Note Date of Service: November 08, 2016. Provider Documentation: SUBJECTIVE: Seen and examined at bedside. States feeling better today. Minimal intermittent Cough. Denies chest pain, SOB, abd pain. Offers no other complaints. OBJECTIVE: Vital Signs-as noted below Physical Exam: General Appearance:Moderately built and nourished, no apparent distress Head: normocephalic, Atraumatic Eyes: normal inspection, EOMI, PERRL Neck: supple, Trachea midline Respiratory/Chest: Coarse breath sounds, creps at bases Cardiovascular: S1, S2, No murmur Abdomen/GI:Soft, Non tender, Bowel sounds present Extremities/Musculoskelatal:normal inspection, 1+ b/l edema Neurologic/Psych:AAOX3, grossly no focal neurological deficits Skin: normal color, warm Lab data as noted below. ASSESSMENT & PLAN: Patient is an 86 yr M with h/o of COPD, CAD/CABG, Atrial Fibrillation, HTN, DM , other problems noted below presenting with fever and cough. SEPSIS LLL PNEUMONIA:CAP CHRONIC HYPOXIC RESPIRATORY FAILURE MILD COPD EXACERBATION BACTEREMIA On Vanco, Zosyn and Levaquin Deescalate to Vanco and Levaquin: 11/08 lactic acid trended down Continue IV fluids Blood cultures: Strep species. Repeat blood cultures Continue solumedrol, duonebs, Oxygen by protocol Plan to Taper to PO steroids tomorrow Appreciate ID input ECHO: No vegetations ELEVATED D-dimer: Venous Doppler:Negative for DVT CTA for PE:findings suggestive of Chronic PE Chronic AAA: 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 LFTs improving Denies abd pain DECREASED TSH, ELEVATED FT4 Take 225mcg of levothyroxine at home Resume Levothyroxine at reduced dose: 200mcg daily Needs repeat Thyroid function test in 6 weeks ALCOHOLISM Patient admits to drinking 1 beer/day Monitor for withdrawal Continue alcohol withdrawal protocol CAD/CABG No acute issues continue Aspirin hold Statin due to elevated LFTs H/O ATRIAL FIBRILLATION observed during last admission in 06/2016 Currently regular monitor in Tele continue aspirin Not a candidate for chronic anticoagulation based on prior cardiology input DM II hold Actos Continue ISS, accu checks Pharmacy Glycemic consult HYPERTENSION stable Hold Lasix for now CKD III stable Monitor renal function Cr:2.1: Cr elevated likely secondary to meds CODE STATUS DNR DVT PX Heparin sq DISPOSITION lives at home with his son and daughter in law PT/OT manager office services consulted PROCEDURES: CTA for PE: 1. Significantly motion degraded examination. 2. There are thin linear filling defects seen within segmental and subsegmental branches of the right lower lobe pulmonary artery. These are consistent with age indeterminant and possibly chronic pulmonary emboli. 3. The remaining pulmonary vessels are patent. 4. Cardiomegaly with evidence of pulmonary artery hypertension. 5. There are patchy nodular airspace opacities seen in the right upper, right lower, and left lower lobes. This likely represents an infectious/inflammatory pneumonitis, possibly on the basis of aspiration as there is fluid/secretions present within the lower lobe airways. Clinical correlation will be required. Precautionary CT follow-up in 3 months time is recommended for reassessment 6. Mildly enlarged mediastinal and hilar lymph nodes are nonspecific and may be on a reactive basis. These can also be reassessed at follow-up. 7. There is mild aneurysmal dilatation of the ascending thoracic aorta which measures up to 4.1 cm. This is similar appearance to the 2014 examination. 8. Additional findings as above. ECHO: * The study was technically difficult. * A contrast injection of Definity was performed to improve assessment of LV function. * The left ventricle is normal in size. * There is mild concentric left ventricular hypertrophy. * The left ventricular wall motion is normal. * Ejection Fraction = 60-65%. * Aortic valve sclerosis moderate, without significant aortic valvular stenosis. * No significant valvular pathology is noted with technical limitations present Vital Signs: Date Time Temp Pulse Resp B/P Pulse Ox O2 Delivery O2 Flow Rate FiO2 11/08/16 11:04 36.3 73 20 121/67 98 Nasal Cannula 2.0 11/08/16 07:44 35.9 75 20 122/72 100 Nasal Cannula 2.0 11/08/16 07:30 95 Nasal Cannula 2.0 11/08/16 06:56 93 16 91 Nasal Cannula 2.0 11/08/16 04:14 95 Nasal Cannula 2.0 11/08/16 03:22 36.4 88 20 124/53 98 Nasal Cannula 2.0 11/08/16 02:02 66 16 91 Nasal Cannula 2.0 11/08/16 00:07 95 Nasal Cannula 2.0 11/07/16 23:09 36.7 80 19 121/66 100 Nasal Cannula 2.0 11/07/16 20:00 95 Nasal Cannula 2.0 11/07/16 19:55 36.5 72 18 145/71 98 Nasal Cannula 2.0 11/07/16 19:01 65 16 93 Nasal Cannula 2.0 11/07/16 16:03 36.4 74 20 133/70 100 Nasal Cannula 2.0 11/07/16 16:00 95 Nasal Cannula 2.0 11/07/16 14:10 76 18 97 Nasal Cannula 2.0 11/07/16 12:00 36.6 65 18 112/67 96 Nasal Cannula 2.0 Lab Results: Results Past 24 Hours Test 11/07/16 11:32 11/07/16 20:46 11/08/16 05:49 11/08/16 06:20 Range/Units Bedside Glucose 270 289 297 70-99 mg/dl White Blood Count 18.90 4.8-10.8 K/uL Red Blood Count 3.65 4.7-6.1 M/uL Hemoglobin 10.4 14.0-18.0 g/dL Hematocrit 32.9 42-52 % Mean Corpuscular Volume 90.1 80-100 fL Mean Corpuscular Hemoglobin 28.5 25-34 pg Mean Corpuscular Hemoglobin Concent 31.6 32-36 g/dl Platelet Count 213 130-400 K/uL Mean Platelet Volume 11.2 7.4-10.4 fL Neutrophils (%) (Auto) 90.2 % Lymphocytes (%) (Auto) 5.2 % Monocytes (%) (Auto) 4.1 % Eosinophils (%) (Auto) 0.0 % Basophils (%) (Auto) 0.0 % Neutrophils # (Auto) 17.05 1.4-6.5 K/uL Lymphocytes # (Auto) 0.98 1.2-3.4 K/uL Monocytes # (Auto) 0.78 0.11-0.59 K/uL Eosinophils # (Auto) 0.00 0-0.5 K/uL Basophils # (Auto) 0.00 0-0.2 K/uL RDW Standard Deviation 49.0 36.4-46.3 fL RDW Coefficient of Variation 14.7 11.5-14.5 % Immature Granulocyte % (Auto) 0.5 % Immature Granulocyte # (Auto) 0.09 0.00-0.02 K/uL Sodium Level 141 136-145 mmol/L Potassium Level 4.1 3.5-5.1 mmol/L Chloride Level 109 98-107 mmol/L Carbon Dioxide Level 23 21-32 mmol/L Anion Gap 9.0 3-11 mmol/L Blood Urea Nitrogen 40 7-18 mg/dl Creatinine 2.10 0.60-1.40 mg/dl Est Creatinine Clear Calc Drug Dose 28.2 ml/min Estimated GFR () 31.8 Estimated GFR (Non- 27.5 BUN/Creatinine Ratio 19.2 10-20 Random Glucose 268 70-99 mg/dl Calcium Level 8.3 8.5-10.1 mg/dl Magnesium Level 2.4 1.8-2.4 mg/dl Total Bilirubin 0.4 0.2-1 mg/dl Direct Bilirubin 0.2 0-0.2 mg/dl Aspartate Amino Transf (AST/SGOT) 47 15-37 U/L Alanine Aminotransferase (ALT/SGPT) 89 12-78 U/L Alkaline Phosphatase 147 45-117 U/L Total Protein 6.3 6.4-8.2 gm/dl Albumin 2.4 3.4-5.0 gm/dl Microbiology Results 11/08/16 Blood Culture, Ordered Pending 11/08/16 Blood Culture, Ordered Pending
[2016-11-08] MEDS: GABAPENTIN 600MG Q12H DOSE PO SCH (12:15)
[2016-11-08] MEDS: VANCOMYCIN INJ 1,400 MG in SODIUM CHLORIDE 0.9% 500ML 500 ML IV SCH (12:19)
[2016-11-09] VITALS (16 sets, daily range): BP systolic 103–133; BP diastolic 53–79; PULSE 58–80; TEMP 36.2–36.5; O2SAT 94–99
[2016-11-09] MEDS: LEVALBUTEROL 1.25MG/0.5ML NEB INH SCH ×4 (02:24→19:10)
[2016-11-09] MEDS: IPRATROPIUM BROMIDE NEB SOLN 0.02% 2.5 ML VIAL INH SCH ×4 (02:24→19:10)
[2016-11-09] MEDS: INSULIN ASPART 100 UNITS/ML 3 ML PEN SC SCH ×5 (04:00→20:40)
[2016-11-09] MEDS: LEVOTHYROXINE 200 MCG TAB PO SCH (05:37)
[2016-11-09 05:50] LABS: BASO % 0.1 %; BASO ABS # 0.01 K/uL (0-0.2); COMPLETE YES; HEMATOCRIT 35.3 % (42-52); IG% 0.6 %; LYMPH % 9.2 %; LYMPH ABS # 1.72 K/uL (1.2-3.4); MEAN CELL VOLUME 89.4 fL (80-100); MEAN CORPUSCULAR HEMOGLOBIN 27.3 pg (25-34); MEAN CORPUSCULAR HGB CONC 30.6 g/dl (32-36); MEAN PLATELET VOLUME 11.4 fL (7.4-10.4); MONO % 5.1 %; PLATELET COUNT 227 K/uL (130-400); RED BLOOD COUNT 3.95 M/uL (4.7-6.1); WHITE BLOOD COUNT 18.74 K/uL (4.8-10.8)
[2016-11-09 06:14] LABS: BUN/CREATININE RATIO 19.6 (10-20); CALCIUM 8.4 mg/dl (8.5-10.1); CREATININE 1.7 mg/dl (0.60-1.40); MAGNESIUM 2.5 mg/dl (1.8-2.4); POTASSIUM 4.3 mmol/L (3.5-5.1)
[2016-11-09] MEDS: ASPIRIN 81 MG ECTAB PO SCH (08:42)
[2016-11-09] MEDS: PANTOprazole SOD 40 MG TAB PO SCH (08:42)
[2016-11-09] MEDS: CHOLECALCIFEROL 1000 INTER.UNIT TAB PO SCH (08:42)
[2016-11-09] MEDS: CALCITRIOL 0.25 MCG CAP PO SCH (08:42)
--- NOTE | 2016-11-09 08:42 | Progress Note ---
Internal Med Progress Note Date of Service: November 09, 2016. Provider Documentation: SUBJECTIVE: Seen and examined at bedside. Denies chest pain, SOB, cough, abd pain. Offers no complaints. States doing well. Eager to get discharged. OBJECTIVE: Vital Signs-as noted below Physical Exam: General Appearance:Moderately built and nourished, no apparent distress Head: normocephalic, Atraumatic Eyes: normal inspection, EOMI, PERRL Neck: supple, Trachea midline Respiratory/Chest: Coarse breath sounds, creps at bases Cardiovascular: S1, S2, No murmur Abdomen/GI:Soft, Non tender, Bowel sounds present Extremities/Musculoskelatal:normal inspection, 2+ b/l edema Neurologic/Psych:AAOX3, grossly no focal neurological deficits Skin: normal color, warm Lab data as noted below. ASSESSMENT & PLAN: Patient is an 86 yr M with h/o of COPD, CAD/CABG, Atrial Fibrillation, HTN, DM , other problems noted below presenting with fever and cough. SEPSIS LLL PNEUMONIA:CAP CHRONIC HYPOXIC RESPIRATORY FAILURE MILD COPD EXACERBATION BACTEREMIA On Vanco, Zosyn and Levaquin Deescalate to Vanco and Levaquin: 11/08 Will add flagyl 11/09 lactic acid trended down DC IV fluids Blood cultures: Streptococcus, Enterococcus and Clostridium Follow up repeat blood cultures Continue prednisone, duonebs, Oxygen by protocol Continue prednisone taper Appreciate ID input ECHO: No vegetations ELEVATED D-dimer: Venous Doppler:Negative for DVT CTA for PE:findings suggestive of Chronic PE Chronic AAA: 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 LFTs trended down DECREASED TSH, ELEVATED FT4 Take 225mcg of levothyroxine at home Resume Levothyroxine at reduced dose: 200mcg daily Needs repeat Thyroid function test in 6 weeks ALCOHOLISM Patient admits to drinking 1 beer/day Monitor for withdrawal Continue alcohol withdrawal protocol CAD/CABG No acute issues continue Aspirin hold Statin due to elevated LFTs H/O ATRIAL FIBRILLATION observed during last admission in 06/2016 Currently regular monitor in Tele continue aspirin Not a candidate for chronic anticoagulation based on prior cardiology input DM II hold Actos Continue ISS, accu checks Pharmacy Glycemic consult HYPERTENSION stable Resumed Lasix CKD III stable Monitor renal function Cr:1.7 CODE STATUS DNR DVT PX Heparin sq DISPOSITION lives at home with his son and daughter in law PT/OT support services specialist consulted PROCEDURES: CTA for PE: 1. Significantly motion degraded examination. 2. There are thin linear filling defects seen within segmental and subsegmental branches of the right lower lobe pulmonary artery. These are consistent with age indeterminant and possibly chronic pulmonary emboli. 3. The remaining pulmonary vessels are patent. 4. Cardiomegaly with evidence of pulmonary artery hypertension. 5. There are patchy nodular airspace opacities seen in the right upper, right lower, and left lower lobes. This likely represents an infectious/inflammatory pneumonitis, possibly on the basis of aspiration as there is fluid/secretions present within the lower lobe airways. Clinical correlation will be required. Precautionary CT follow-up in 3 months time is recommended for reassessment 6. Mildly enlarged mediastinal and hilar lymph nodes are nonspecific and may be on a reactive basis. These can also be reassessed at follow-up. 7. There is mild aneurysmal dilatation of the ascending thoracic aorta which measures up to 4.1 cm. This is similar appearance to the 2014 examination. 8. Additional findings as above. ECHO: * The study was technically difficult. * A contrast injection of Definity was performed to improve assessment of LV function. * The left ventricle is normal in size. * There is mild concentric left ventricular hypertrophy. * The left ventricular wall motion is normal. * Ejection Fraction = 60-65%. * Aortic valve sclerosis moderate, without significant aortic valvular stenosis. * No significant valvular pathology is noted with technical limitations present Vital Signs: Date Time Temp Pulse Resp B/P Pulse Ox O2 Delivery O2 Flow Rate FiO2 11/09/16 08:16 70 16 98 Nasal Cannula 2.0 11/09/16 07:37 36.3 66 16 112/66 98 Nasal Cannula 2.0 11/09/16 07:30 99 Nasal Cannula 2.0 11/09/16 04:21 36.2 64 18 103/53 95 3.0 11/09/16 04:16 98 Nasal Cannula 2.0 11/09/16 02:24 58 16 97 Nasal Cannula 2.0 11/09/16 00:20 36.2 71 18 123/74 97 3.0 11/09/16 00:18 98 Nasal Cannula 2.0 11/08/16 20:00 98 Nasal Cannula 2.0 11/08/16 19:32 36.8 94 20 140/67 98 Nasal Cannula 2.0 11/08/16 19:12 63 16 94 Nasal Cannula 2.0 11/08/16 16:00 95 Nasal Cannula 2.0 11/08/16 15:28 36.4 72 22 137/75 96 Nasal Cannula 2.0 11/08/16 13:53 67 16 100 Nasal Cannula 2.0 11/08/16 11:30 95 Nasal Cannula 2.0 11/08/16 11:04 36.3 73 20 121/67 98 Nasal Cannula 2.0 Lab Results: Results Past 24 Hours Test 11/08/16 11:08 11/08/16 16:10 11/08/16 20:11 11/08/16 23:32 Range/Units Bedside Glucose 285 276 249 261 70-99 mg/dl Test 11/09/16 04:12 11/09/16 05:25 11/09/16 06:30 Range/Units Bedside Glucose 156 146 70-99 mg/dl White Blood Count 18.74 4.8-10.8 K/uL Red Blood Count 3.95 4.7-6.1 M/uL Hemoglobin 10.8 14.0-18.0 g/dL Hematocrit 35.3 42-52 % Mean Corpuscular Volume 89.4 80-100 fL Mean Corpuscular Hemoglobin 27.3 25-34 pg Mean Corpuscular Hemoglobin Concent 30.6 32-36 g/dl Platelet Count 227 130-400 K/uL Mean Platelet Volume 11.4 7.4-10.4 fL Neutrophils (%) (Auto) 85.0 % Lymphocytes (%) (Auto) 9.2 % Monocytes (%) (Auto) 5.1 % Eosinophils (%) (Auto) 0.0 % Basophils (%) (Auto) 0.1 % Neutrophils # (Auto) 15.94 1.4-6.5 K/uL Lymphocytes # (Auto) 1.72 1.2-3.4 K/uL Monocytes # (Auto) 0.96 0.11-0.59 K/uL Eosinophils # (Auto) 0.00 0-0.5 K/uL Basophils # (Auto) 0.01 0-0.2 K/uL RDW Standard Deviation 47.7 36.4-46.3 fL RDW Coefficient of Variation 14.6 11.5-14.5 % Immature Granulocyte % (Auto) 0.6 % Immature Granulocyte # (Auto) 0.11 0.00-0.02 K/uL Sodium Level 144 136-145 mmol/L Potassium Level 4.3 3.5-5.1 mmol/L Chloride Level 113 98-107 mmol/L Carbon Dioxide Level 26 21-32 mmol/L Anion Gap 5.0 3-11 mmol/L Blood Urea Nitrogen 33 7-18 mg/dl Creatinine 1.70 0.60-1.40 mg/dl Est Creatinine Clear Calc Drug Dose 35.1 ml/min Estimated GFR () 41.1 Estimated GFR (Non- 35.5 BUN/Creatinine Ratio 19.6 10-20 Random Glucose 143 70-99 mg/dl Calcium Level 8.4 8.5-10.1 mg/dl Magnesium Level 2.5 1.8-2.4 mg/dl Total Bilirubin 0.4 0.2-1 mg/dl Direct Bilirubin 0.1 0-0.2 mg/dl Aspartate Amino Transf (AST/SGOT) 26 15-37 U/L Alanine Aminotransferase (ALT/SGPT) 75 12-78 U/L Alkaline Phosphatase 142 45-117 U/L Total Protein 6.5 6.4-8.2 gm/dl Albumin 2.6 3.4-5.0 gm/dl Microbiology Results 11/08/16 Blood Culture, Received Pending 11/08/16 Blood Culture, Received Pending
[2016-11-09] MEDS: HEPARIN SOD 5000 UNIT/0.5 ML CARP SQ SCH ×2 (08:47→20:44)
[2016-11-09] MEDS ORDERED: INSULIN GLARGINE SOLOSTAR 100 UNITS/ML 3 ML PEN SC SCH (09:00)
[2016-11-09] MEDS ORDERED: VANCOMYCIN TROUGH SCH (11:30)
[2016-11-09] MEDS: FUROSEMIDE 40 MG TAB PO SCH (11:31)
[2016-11-09] MEDS ORDERED: GABAPENTIN 600MG X1 DOSE PO SCH (12:00)
--- NOTE | 2016-11-09 12:04 | Pharmacy Progress Note ---
Glycemic Control: Progress Nt Date of Service November 09, 2016. Scope Glycemic Pharmacist consulted for glycemic control and to write orders per [facility] inpatient glycemic control protocol. Objective Accuchecks BSG (last 24hrs): Test 11/08/16 16:10 11/08/16 20:11 11/08/16 23:32 11/09/16 04:12 Bedside Glucose 276 mg/dl (70-99) 249 mg/dl (70-99) 261 mg/dl (70-99) 156 mg/dl (70-99) Test 11/09/16 05:25 11/09/16 06:30 11/09/16 11:18 Random Glucose 143 mg/dl (70-99) Bedside Glucose 146 mg/dl (70-99) 130 mg/dl (70-99) Laboratory Data (last 24hrs) HbA1c: Test 11/06/16 05:30 Hemoglobin A1c 6.8 % (4.5-5.6) H Recent Pertinent Medications Outpatient Anti-diabetic Regimen: * Actos 30mg PO daily The patient is currently receiving: * Basal insulin: Lantus 40 units every 24 hours- given in the morning + Lantus 10 units HS PRN BSG > 200 * Correctional Insulin: Novolog Correction per scale ACHS Goal Range: Low 140 mg/dL - High 180 mg/dL Correction Factor: 15 mg/dL/unit * Prandial insulin: Per carb ratio of 1 unit per 6 grams CHO consumed * Oral Agents: On hold for admission Risk Factors for Insulin Resistance: * Steroids * Infection * Diet Assessment & Plan ASSESSMENT: * See progress note from 11/07 for more background info, in short: * Pt receiving weight based SQ basal bolus insulin regimen for hyperglycemia secondary to baseline DM (Actos on hold) & stress/infection 11/06 * Weight and stress of 2 regimen initiated on 11/06 secondary to Solumedrol 40mg IV Q8hrs. Stress of 2 chosen over a stress of 3 d/t elderly and impaired renal function. * Pt received 84 units of insulin {Lantus 35 units SQ AM + NovoLog CF 20, CR 7) * Unfortunately this was not adequate for steroid induced hyperglycemia * BSGs 295, 252, 317, 325 11/07 * Weight and stress of 3 regimen initiated on 11/07 secondary to Solumedrol 40mg IV Q8hrs and stress of 2 dosing inadequate * Pt received 81 units of insulin {Lantus 45 units SQ AM + NovoLog CF 15, CR 6) * Solumedrol decreased from Q8hrs to Q24hrs. Insulin regimen was empirically reduced that afternoon in accordance with step down in steroid dosing. * Unfortunately moderate/severe hyperglycemia persisting despite decrease in Solu-Medrol * BSGs 245, 270, 289 11/08 * Pt received 108 units of insulin {Lantus 40 units SQ AM + Lantus 10 units in PM, NovoLog CF 15, CR 6) * BSGs 297, 285, 276, 449, 261 11/09 * Steroids tapered from Solumedrol to once daily prednisone 30mg PO daily * Anticipate improvement in BSGs with step down in steroid dosing. Will decrease regimen accordingly. * Steroids have their most profound effect on post-prandial hyperglycemia, therefore, aggressive CF/CR warranted. PLAN FOR INPATIENT GLYCEMIC CONTROL: Empirically decrease insulin regimen for tapered steroids. Change regimen based on an estimated total daily dose of ~ 70- 80 units/day * Holding outpatient oral diabetes medications * Basal insulin: decrease dosing to only once daily * Lantus 45 units SQ Q24hrs given in the morning (d/c HS dosing) today, then, * Lantus 35 units SQ daily starting 11/10/16 {this dosing may change based on AM fasting BSG 11/10} * Continue to titrate dosing downwards (pt not on basal insulin as outpatient) based on BSG trends and steroid dosing * Bolus insulin: "loosen" parameters * NovoLog per scale ACHS or Q6hrs while NPO * Goal Range: Low 140 mg/dL - High 180 mg/dL * LOOSEN Correction Factor: 20 mg/dL/unit * LOOSEN Nutritional / Prandial insulin per carb ratio of 1 unit per 7 grams CHO consumed * Please note that the plan above was derived based on current level of insulin resistance and hospital stress. These recommendations are appropriate for inpatient admission only. Plan of care upon discharge will need to be reassessed to avoid potential outpatient hypo/hyperglycemia. Thank you.
[2016-11-09] MEDS: METRONIDAZOLE / NSS 500 MG in PREMIXED NSS 100 ML IV SCH ×2 (12:21→18:36)
[2016-11-09] MEDS: VANCOMYCIN INJ 1,400 MG in SODIUM CHLORIDE 0.9% 500ML 500 ML IV SCH (14:09)
--- NOTE | 2016-11-09 14:33 | Pharmacy Progress Note ---
Pharmacy Antibiotic Prog Note Date of Service November 09, 2016. Subjective The patient is currently receiving vancomycin 1400 mg iv q 24 hrs, levaquin 750 mg q 48 hr and flagyl 500 mg iv q 8 hrs The patient is currently on day # 4 of IV therapy. Objective Height (Feet): 5 Height (Inches): 8.00 Weight (Kilograms): 99.900 Levels: Item Value Date Time Random Vancomycin Level 20.6 mcg/ml 11/09/16 1123 Lab Results (24hrs): Test 11/09/16 05:25 11/09/16 06:30 11/09/16 11:18 11/09/16 11:23 White Blood Count 18.74 K/uL (4.8-10.8) Red Blood Count 3.95 M/uL (4.7-6.1) Hemoglobin 10.8 g/dL (14.0-18.0) Hematocrit 35.3 % (42-52) Mean Corpuscular Volume 89.4 fL (80-100) Mean Corpuscular Hemoglobin 27.3 pg (25-34) Mean Corpuscular Hemoglobin Concent 30.6 g/dl (32-36) Platelet Count 227 K/uL (130-400) Mean Platelet Volume 11.4 fL (7.4-10.4) Neutrophils (%) (Auto) 85.0 % Lymphocytes (%) (Auto) 9.2 % Monocytes (%) (Auto) 5.1 % Eosinophils (%) (Auto) 0.0 % Basophils (%) (Auto) 0.1 % Neutrophils # (Auto) 15.94 K/uL (1.4-6.5) Lymphocytes # (Auto) 1.72 K/uL (1.2-3.4) Monocytes # (Auto) 0.96 K/uL (0.11-0.59) Eosinophils # (Auto) 0.00 K/uL (0-0.5) Basophils # (Auto) 0.01 K/uL (0-0.2) RDW Standard Deviation 47.7 fL (36.4-46.3) RDW Coefficient of Variation 14.6 % (11.5-14.5) Immature Granulocyte % (Auto) 0.6 % Immature Granulocyte # (Auto) 0.11 K/uL (0.00-0.02) Sodium Level 144 mmol/L (136-145) Potassium Level 4.3 mmol/L (3.5-5.1) Chloride Level 113 mmol/L (98-107) Carbon Dioxide Level 26 mmol/L (21-32) Anion Gap 5.0 mmol/L (3-11) Blood Urea Nitrogen 33 mg/dl (7-18) Creatinine 1.70 mg/dl (0.60-1.40) Est Creatinine Clear Calc Drug Dose 35.1 ml/min Estimated GFR () 41.1 Estimated GFR (Non- 35.5 BUN/Creatinine Ratio 19.6 (10-20) Random Glucose 143 mg/dl (70-99) Calcium Level 8.4 mg/dl (8.5-10.1) Magnesium Level 2.5 mg/dl (1.8-2.4) Total Bilirubin 0.4 mg/dl (0.2-1) Direct Bilirubin 0.1 mg/dl (0-0.2) Aspartate Amino Transf (AST/SGOT) 26 U/L (15-37) Alanine Aminotransferase (ALT/SGPT) 75 U/L (12-78) Alkaline Phosphatase 142 U/L (45-117) Total Protein 6.5 gm/dl (6.4-8.2) Albumin 2.6 gm/dl (3.4-5.0) Bedside Glucose 146 mg/dl (70-99) 130 mg/dl (70-99) Random Vancomycin Level 20.6 mcg/ml Assessment & Plan Patient admitted with sepsis secondary to LLL pnx (CAP), COPD exacerbation. He receiving vancomycin, levaquin and flagyl. ID is consulted. Vancomycin: * Trough level this am was therapeutic at ~20 mcg/ml (goal 15-20 mcg/ml for bacteremia); however level drawn before 3rd dose therefore not reflective of steady state, estimated trough level probably higher * Will decrease vancomycin dose to 1250 mg (~12.5 mg/kg) iv q 24 hrs to maintain trough ~15-20 mcg/ml * Scr slightly improving more today, from 2.1 to 1.70 mg/dL (CrCl ~35 ml/min) * Will plan to order a trough prior to the 1400 dose on 11/12 to ensure therapeutic Levaquin * 750 mg IV every 48 hours for CrCl 20-49 ml/min; no change Pharmacy will continue to follow and will adjust dose/frequency as necessary. Thank you
[2016-11-09] MEDS: LEVOFLOXACIN 750MG / D5W IV SCH (20:45)
[2016-11-10] VITALS (8 sets, daily range): BP systolic 117–143; BP diastolic 57–72; PULSE 62–72; TEMP 36.3–36.5; O2SAT 95–100
[2016-11-10] MEDS: IPRATROPIUM BROMIDE NEB SOLN 0.02% 2.5 ML VIAL INH SCH ×5 (02:34→19:09)
[2016-11-10] MEDS: LEVALBUTEROL 1.25MG/0.5ML NEB INH SCH ×5 (02:34→19:09)
[2016-11-10] MEDS: METRONIDAZOLE / NSS 500 MG in PREMIXED NSS 100 ML IV SCH ×3 (03:15→17:41)
[2016-11-10] MEDS: LEVOTHYROXINE 200 MCG TAB PO SCH (05:08)
[2016-11-10 06:16] LABS: BASO % 0.2 %; BASO ABS # 0.02 K/uL (0-0.2); COMPLETE YES; EOS % 0.1 %; HEMATOCRIT 33.5 % (42-52); IG% 0.6 %; LYMPH % 15.3 %; LYMPH ABS # 2.01 K/uL (1.2-3.4); MEAN CELL VOLUME 88.9 fL (80-100); MEAN CORPUSCULAR HEMOGLOBIN 27.9 pg (25-34); MEAN CORPUSCULAR HGB CONC 31.3 g/dl (32-36); MEAN PLATELET VOLUME 10.7 fL (7.4-10.4); MONO % 4.6 %; NEUT % 79.2 %; PLATELET COUNT 206 K/uL (130-400); RED BLOOD COUNT 3.77 M/uL (4.7-6.1); WHITE BLOOD COUNT 13.18 K/uL (4.8-10.8)
[2016-11-10 06:51] LABS: BUN/CREATININE RATIO 17.9 (10-20); CREATININE 1.7 mg/dl (0.60-1.40); POTASSIUM 4.5 mmol/L (3.5-5.1)
[2016-11-10 06:52] LABS: CALCIUM 8.3 mg/dl (8.5-10.1); MAGNESIUM 2.6 mg/dl (1.8-2.4)
[2016-11-10] MEDS: FUROSEMIDE 40 MG TAB PO SCH (07:45)
[2016-11-10] MEDS: PANTOprazole SOD 40 MG TAB PO SCH (07:45)
[2016-11-10] MEDS: ASPIRIN 81 MG ECTAB PO SCH (07:45)
[2016-11-10] MEDS: CALCITRIOL 0.25 MCG CAP PO SCH (07:46)
[2016-11-10] MEDS: CHOLECALCIFEROL 1000 INTER.UNIT TAB PO SCH (07:46)
[2016-11-10] MEDS: HEPARIN SOD 5000 UNIT/0.5 ML CARP SQ SCH ×2 (07:51→21:45)
[2016-11-10] MEDS: INSULIN ASPART 100 UNITS/ML 3 ML PEN SC SCH ×4 (07:54→21:00)
--- NOTE | 2016-11-10 08:39 | Progress Note ---
Internal Med Progress Note Date of Service: November 10, 2016. Provider Documentation: SUBJECTIVE: Seen and examined at bedside. States feeling well. Eager to get discharged. Denies chest pain, SOB,abd pain. Intermittent cough. Offers no complaints. OBJECTIVE: Vital Signs-as noted below Physical Exam: General Appearance:Moderately built and nourished, no apparent distress Head: normocephalic, Atraumatic Eyes: normal inspection, EOMI, PERRL Neck: supple, Trachea midline Respiratory/Chest: Normal breath sounds, minimal creps at bases Cardiovascular: S1, S2, No murmur Abdomen/GI:Soft, Non tender, Bowel sounds present Extremities/Musculoskelatal:normal inspection, 2+ b/l edema Neurologic/Psych:AAOX3, grossly no focal neurological deficits Skin: normal color, warm Lab data as noted below. ASSESSMENT & PLAN: Patient is an 86 yr M with h/o of COPD, CAD/CABG, Atrial Fibrillation, HTN, DM , other problems noted below presenting with fever and cough. SEPSIS LLL PNEUMONIA:CAP CHRONIC HYPOXIC RESPIRATORY FAILURE MILD COPD EXACERBATION BACTEREMIA On Vanco, Zosyn and Levaquin Deescalate to Vanco and Levaquin: 11/08 Continue flagyl started on 11/09 lactic acid trended down DC IV fluids Blood cultures: Streptococcus, Enterococcus and Clostridium Repeat blood cultures: No growth to date Continue prednisone, duonebs, Oxygen by protocol Continue prednisone taper Appreciate ID input ECHO: No vegetations Will obtain HIDA scan to look for source of bacteremia ELEVATED D-dimer: Venous Doppler:Negative for DVT CTA for PE:findings suggestive of Chronic PE Chronic AAA: 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 LFTs trended down DECREASED TSH, ELEVATED FT4 Take 225mcg of levothyroxine at home Resume Levothyroxine at reduced dose: 200mcg daily Needs repeat Thyroid function test in 6 weeks ALCOHOLISM Patient admits to drinking 1 beer/day Monitor for withdrawal Continue alcohol withdrawal protocol CAD/CABG No acute issues continue Aspirin hold Statin due to elevated LFTs H/O ATRIAL FIBRILLATION observed during last admission in 06/2016 Currently regular monitor in Tele continue aspirin Not a candidate for chronic anticoagulation based on prior cardiology input DM II hold Actos Continue ISS, accu checks Pharmacy Glycemic consult HYPERTENSION stable Resumed Lasix CKD III stable Monitor renal function Cr:1.7 CODE STATUS DNR DVT PX Heparin sq DISPOSITION lives at home with his son and daughter in law PT/OT account services manager consulted PROCEDURES: CTA for PE: 1. Significantly motion degraded examination. 2. There are thin linear filling defects seen within segmental and subsegmental branches of the right lower lobe pulmonary artery. These are consistent with age indeterminant and possibly chronic pulmonary emboli. 3. The remaining pulmonary vessels are patent. 4. Cardiomegaly with evidence of pulmonary artery hypertension. 5. There are patchy nodular airspace opacities seen in the right upper, right lower, and left lower lobes. This likely represents an infectious/inflammatory pneumonitis, possibly on the basis of aspiration as there is fluid/secretions present within the lower lobe airways. Clinical correlation will be required. Precautionary CT follow-up in 3 months time is recommended for reassessment 6. Mildly enlarged mediastinal and hilar lymph nodes are nonspecific and may be on a reactive basis. These can also be reassessed at follow-up. 7. There is mild aneurysmal dilatation of the ascending thoracic aorta which measures up to 4.1 cm. This is similar appearance to the 2014 examination. 8. Additional findings as above. ECHO: * The study was technically difficult. * A contrast injection of Definity was performed to improve assessment of LV function. * The left ventricle is normal in size. * There is mild concentric left ventricular hypertrophy. * The left ventricular wall motion is normal. * Ejection Fraction = 60-65%. * Aortic valve sclerosis moderate, without significant aortic valvular stenosis. * No significant valvular pathology is noted with technical limitations present Vital Signs: Date Time Temp Pulse Resp B/P Pulse Ox O2 Delivery O2 Flow Rate FiO2 11/10/16 15:09 72 16 98 Nasal Cannula 2.0 11/10/16 15:09 36.3 63 20 123/66 100 Nasal Cannula 2.0 11/10/16 10:30 36.5 70 20 128/71 95 Nasal Cannula 2.0 11/10/16 10:09 36.5 66 20 98 2.0 11/10/16 08:21 36.4 63 20 138/60 98 Nasal Cannula 2.0 11/10/16 08:00 Nasal Cannula 2.0 11/10/16 07:36 62 16 99 Nasal Cannula 2.0 11/10/16 04:00 Nasal Cannula 2.0 11/10/16 03:39 36.5 68 21 117/57 96 Nasal Cannula 2.0 11/10/16 02:34 66 16 98 Nasal Cannula 2.0 11/10/16 00:01 Nasal Cannula 11/09/16 23:22 36.5 70 22 127/62 96 Nasal Cannula 2.0 11/09/16 20:00 Nasal Cannula 2.0 11/09/16 19:17 36.5 80 20 133/79 94 Nasal Cannula 2.0 11/09/16 19:15 70 16 94 Nasal Cannula 2.0 Lab Results: Results Past 24 Hours Test 11/09/16 20:20 11/10/16 05:45 11/10/16 06:46 11/10/16 11:29 Range/Units Bedside Glucose 106 103 157 70-99 mg/dl White Blood Count 13.18 4.8-10.8 K/uL Red Blood Count 3.77 4.7-6.1 M/uL Hemoglobin 10.5 14.0-18.0 g/dL Hematocrit 33.5 42-52 % Mean Corpuscular Volume 88.9 80-100 fL Mean Corpuscular Hemoglobin 27.9 25-34 pg Mean Corpuscular Hemoglobin Concent 31.3 32-36 g/dl Platelet Count 206 130-400 K/uL Mean Platelet Volume 10.7 7.4-10.4 fL Neutrophils (%) (Auto) 79.2 % Lymphocytes (%) (Auto) 15.3 % Monocytes (%) (Auto) 4.6 % Eosinophils (%) (Auto) 0.1 % Basophils (%) (Auto) 0.2 % Neutrophils # (Auto) 10.45 1.4-6.5 K/uL Lymphocytes # (Auto) 2.01 1.2-3.4 K/uL Monocytes # (Auto) 0.61 0.11-0.59 K/uL Eosinophils # (Auto) 0.01 0-0.5 K/uL Basophils # (Auto) 0.02 0-0.2 K/uL RDW Standard Deviation 48.0 36.4-46.3 fL RDW Coefficient of Variation 14.7 11.5-14.5 % Immature Granulocyte % (Auto) 0.6 % Immature Granulocyte # (Auto) 0.08 0.00-0.02 K/uL Sodium Level 144 136-145 mmol/L Potassium Level 4.5 3.5-5.1 mmol/L Chloride Level 112 98-107 mmol/L Carbon Dioxide Level 28 21-32 mmol/L Anion Gap 4.0 3-11 mmol/L Blood Urea Nitrogen 30 7-18 mg/dl Creatinine 1.70 0.60-1.40 mg/dl Est Creatinine Clear Calc Drug Dose 35.2 ml/min Estimated GFR () 41.1 Estimated GFR (Non- 35.5 BUN/Creatinine Ratio 17.9 10-20 Random Glucose 109 70-99 mg/dl Calcium Level 8.3 8.5-10.1 mg/dl Magnesium Level 2.6 1.8-2.4 mg/dl Total Bilirubin 0.3 0.2-1 mg/dl Direct Bilirubin 0.1 0-0.2 mg/dl Aspartate Amino Transf (AST/SGOT) 22 15-37 U/L Alanine Aminotransferase (ALT/SGPT) 63 12-78 U/L Alkaline Phosphatase 128 45-117 U/L Total Protein 5.9 6.4-8.2 gm/dl Albumin 2.3 3.4-5.0 gm/dl
[2016-11-10] MEDS ORDERED: INSULIN GLARGINE SOLOSTAR 100 UNITS/ML 3 ML PEN SC SCH (09:00)
--- NOTE | 2016-11-10 09:55 | Infectious Disease Progress Nt ---
Progress Note Date of Service November 10, 2016. Subjective Pt evaluation today including: conversation w/ patient, physical exam, chart review, lab review, review of studies, conversation w/ [employer] manufacturing consultant, review of inpatient medication list Patient feeling better. Offers no new complaints. No increase in shortness of breath or cough. Blood cultures have now grown Enterococcus and Clostridium. All Other Systems: Reviewed and Negative Medications Current Inpatient Medications Medications (Trade) Dose Ordered Sig/Drea Route Start Time Stop Time Status Last Admin Dose Admin Levofloxacin (Consult) 1 ea UD PRN N/A 11/05/16 23:06 12/05/16 23:05 Miscellaneous Information (Consult Glycemic Management Pharmacy) 1 ea UD PRN N/A 11/05/16 22:48 12/05/16 22:47 Lorazepam (Ativan Tab) 1 mg ONE PRN PO 11/05/16 22:00 Insulin Aspart (novoLOG ASPART) SLIDING SCALE If C... ACHS SC 11/05/16 23:00 12/05/16 22:59 11/10/16 07:54 6 UNITS Glucose (Glucose 40% Gel) 15-30 GRAMS 15 GRAMS... UD PRN PO 11/05/16 22:00 12/05/16 21:59 Glucose (Glucose Chew Tab) 4-8 Tablets 4 Tabl... UD PRN PO 11/05/16 22:00 12/05/16 21:59 Dextrose (Dextrose 50% 50ML Syringe) 25-50ML OF 50% DW IV FOR... UD PRN IV 11/05/16 22:00 12/05/16 21:59 Glucagon (Glucagon Inj) 1 mg UD PRN SQ 11/05/16 22:00 12/05/16 21:59 Aspirin (Ecotrin Tab) 81 mg DAILY PO 11/06/16 09:00 12/06/16 08:59 11/10/16 07:45 81 MG Calcitriol (Rocaltrol Cap) 0.25 mcg DAILY PO 11/06/16 09:00 12/06/16 08:59 11/10/16 07:46 0.25 MCG Cholecalciferol (Vitamin D Tab) 1,000 inter.unit DAILY PO 11/06/16 09:00 12/06/16 08:59 11/10/16 07:46 1,000 INTER.UNIT Magnesium Hydroxide (Milk Of Magnesia Susp) 30 ml DAILY PRN PO 11/05/16 22:00 12/05/16 21:59 Pantoprazole Sodium (Protonix Tab) 40 mg QAM PO 11/06/16 09:00 12/06/16 08:59 11/10/16 07:45 40 MG Miscellaneous Information (Order Awaiting Action) 1 ea QS N/A 11/06/16 08:00 12/06/16 07:59 11/06/16 12:31 1 EA Heparin Sodium (Porcine) (Heparin Sq 5000 Unit/0.5ml) 5,000 unit Q12H SQ 11/06/16 09:00 12/06/16 08:59 11/10/16 07:51 5,000 UNIT Ondansetron HCl (Zofran Inj) 4 mg Q6H PRN IV 11/05/16 22:00 12/05/16 21:59 Nitroglycerin (Nitrostat Tab) 0.4 mg UD PRN SL 11/05/16 22:00 12/05/16 21:59 Ipratropium [place] (Atrovent 0.02% 0.5MG/2.5ML Neb) 0.5 mg Q6R INH 11/06/16 03:00 12/06/16 02:59 11/10/16 07:40 0.5 MG Levalbuterol 1.25 mg 1.25 mg Q6R INH 11/06/16 03:00 12/06/16 02:59 11/10/16 07:41 1.25 MG Levofloxacin/Prmx (Levaquin / D5W/ Premixed D5W) 150 ml @ 100 mls/hr Q48H IV 11/05/16 23:00 11/12/16 22:59 11/09/16 20:45 100 MLS/HR Levothyroxine Sodium (Synthroid Tab) 200 mcg DAILYBB PO 11/06/16 09:00 12/06/16 08:59 11/10/16 05:08 200 MCG Vancomycin HCl (Consult) 1 ea UD PRN N/A 11/06/16 14:30 12/06/16 14:29 Furosemide 40 mg 40 mg DAILY PO 11/09/16 09:00 12/09/16 08:59 11/10/16 07:45 40 MG Metronidazole 500 mg/Prmx 100 ml @ 100 mls/hr Q8H IV 11/09/16 10:00 11/23/16 09:59 11/10/16 03:15 100 MLS/HR Vancomycin HCl/ Sodium Chloride (Vancomycin Inj/ Nss 250ml) 275 ml @ 125 mls/hr Q24H IV 11/10/16 14:00 11/21/16 13:59 Insulin Glargine (Lantus Solostar Pen) 35 unit DAILY SC 11/10/16 09:00 12/10/16 08:59 11/10/16 07:49 35 UNIT Prednisone (PredniSONE TAB) 20 mg DAILY PO 11/11/16 09:00 12/11/16 08:59 Objective Vital Signs Date Time Temp Pulse Resp B/P Pulse Ox O2 Delivery O2 Flow Rate FiO2 11/10/16 08:21 36.4 63 20 138/60 98 Nasal Cannula 2.0 11/10/16 08:00 Nasal Cannula 2.0 11/10/16 07:36 62 16 99 Nasal Cannula 2.0 11/10/16 04:00 Nasal Cannula 2.0 11/10/16 03:39 36.5 68 21 117/57 96 Nasal Cannula 2.0 11/10/16 02:34 66 16 98 Nasal Cannula 2.0 11/10/16 00:01 Nasal Cannula 11/09/16 23:22 36.5 70 22 127/62 96 Nasal Cannula 2.0 11/09/16 20:00 Nasal Cannula 2.0 11/09/16 19:17 36.5 80 20 133/79 94 Nasal Cannula 2.0 11/09/16 19:15 70 16 94 Nasal Cannula 2.0 11/09/16 16:00 98 Nasal Cannula 2.0 11/09/16 15:56 36.2 67 16 118/60 94 Nasal Cannula 2.0 11/09/16 14:16 75 16 98 Nasal Cannula 2.0 11/09/16 12:00 36.3 77 20 121/75 97 Nasal Cannula 2.0 11/09/16 11:30 98 Nasal Cannula 2.0 Physical Exam General Appearance: WD/WN, no apparent distress Eyes: normal inspection, sclerae normal ENT: normal ENT inspection, pharynx normal Neck: supple, no adenopathy, trachea midline Respiratory/Chest: chest non-tender, no respiratory distress, + rales Cardiovascular: regular rate, rhythm, no gallop, no murmur Abdomen: normal bowel sounds, non tender, soft, no organomegaly Extremities: non-tender, no calf tenderness Neurologic/Psychiatric: alert, oriented x 3 Skin: normal color, no rash Lymphatic: no adenopathy Laboratory Results RUN DATE: 11/08/16 [facility] LAB PAGE 1 RUN TIME: 1621 Specimen Inquiry PATIENT: TINO AYERS LOC: [facility] U # : [id number] AGE/SX: 86/M ROOM: [facility] REG : 11/05/[address]: Matteo Gutierrez MD : [id number] BED: 1 DIS : STATUS: ADM IN TLOC: SPEC #: [id number] FELIX: 11/05/16 STATUS: COMP REQ #: [id number] RECD: 11/05/[address]: Jesus Conner M.D. SOURCE: BLOOD ENTR: 11/05/[address] [facility] [address]: Ivan Campoverde M.D. [facility]: ORDERED: BLOOD CULTURE Procedure Result Verified Site BLD CULT Final 11/08/16-1621 Organism 1 ENTEROCOCCUS FAECIUM SENS SENSITIVITY TO FOLLOW Organism 2 CLOSTRIDIUM PERFRINGENS SENS NO SENSITIVITY TO FOLLOW Phoned Positive Blood Culture Gram Stain Report to DYANA Subramanian on 11/06/16 At 1304 By MARILYN. Results were verbalized back to MARILYN. 1. ENTEROCOCCUS FAECIUM Target Route Dose RX AB Cost M.I.C. IQ ------ ----- ------ -- ------ -------- - ------ AMPICILLIN S <=2 GENT SYNERGY S <=500 VANCOMYCIN S 1 PENICILLIN S 2 DAPTOMYCIN S 4 STREP SYNERGY S <=1000 Streptomycin Synergy Screen S Gentamicin Synergy Screen S S = SENSITIVE I = INTERMEDIATE R = RESISTANT Last 24 Hours Test 11/09/16 11:18 11/09/16 11:23 11/09/16 16:30 11/09/16 20:20 Bedside Glucose 130 mg/dl 77 mg/dl 106 mg/dl Random Vancomycin Level 20.6 mcg/ml Test 11/10/16 05:45 11/10/16 06:46 White Blood Count 13.18 K/uL Red Blood Count 3.77 M/uL Hemoglobin 10.5 g/dL Hematocrit 33.5 % Mean Corpuscular Volume 88.9 fL Mean Corpuscular Hemoglobin 27.9 pg Mean Corpuscular Hemoglobin Concent 31.3 g/dl Platelet Count 206 K/uL Mean Platelet Volume 10.7 fL Neutrophils (%) (Auto) 79.2 % Lymphocytes (%) (Auto) 15.3 % Monocytes (%) (Auto) 4.6 % Eosinophils (%) (Auto) 0.1 % Basophils (%) (Auto) 0.2 % Neutrophils # (Auto) 10.45 K/uL Lymphocytes # (Auto) 2.01 K/uL Monocytes # (Auto) 0.61 K/uL Eosinophils # (Auto) 0.01 K/uL Basophils # (Auto) 0.02 K/uL RDW Standard Deviation 48.0 fL RDW Coefficient of Variation 14.7 % Immature Granulocyte % (Auto) 0.6 % Immature Granulocyte # (Auto) 0.08 K/uL Sodium Level 144 mmol/L Potassium Level 4.5 mmol/L Chloride Level 112 mmol/L Carbon Dioxide Level 28 mmol/L Anion Gap 4.0 mmol/L Blood Urea Nitrogen 30 mg/dl Creatinine 1.70 mg/dl Est Creatinine Clear Calc Drug Dose 35.2 ml/min Estimated GFR () 41.1 Estimated GFR (Non- 35.5 BUN/Creatinine Ratio 17.9 Random Glucose 109 mg/dl Calcium Level 8.3 mg/dl Magnesium Level 2.6 mg/dl Total Bilirubin 0.3 mg/dl Direct Bilirubin 0.1 mg/dl Aspartate Amino Transf (AST/SGOT) 22 U/L Alanine Aminotransferase (ALT/SGPT) 63 U/L Alkaline Phosphatase 128 U/L Total Protein 5.9 gm/dl Albumin 2.3 gm/dl Bedside Glucose 103 mg/dl Patient Name: TINO AYERS Unit Number: [id number] Dictated: 11/06/16730 Transcribed: 11/06/16730 EV Printed Date/Time: [~ rep prt dt]/[~ rep prt tm] [~ rep ct labl] - [~ rep ct ivnm] [facility] [place] [address] Dictated: 11/06/16730 Transcribed: 11/06/16 0731 EV Printed Date/Time: [~ rep prt dt]/[~ rep prt tm] [~ rep ct labl] - [~ rep ct ivnm] ULTRASOUND RIGHT UPPER QUADRANT ABDOMEN CLINICAL HISTORY: Elevated hepatic transaminases. COMPARISON STUDY: Abdominal CT dated 06/29/2016. TECHNIQUE: Real-time, grayscale, and color flow sonography of the right upper quadrant of the abdomen was performed. Images are reviewed in the transverse and longitudinal planes. FINDINGS: Liver: The liver is top normal in size measuring 18 cm in length. Hepatic echotexture is slightly heterogeneous. There is no intrahepatic biliary ductal dilatation. The main portal vein is patent. Gallbladder: There are numerous shadowing calcified gallstones. There is nonspecific gallbladder wall thickening which measures up to 8 mm. No pericholecystic fluid is identified. A sonographic Hunter's sign is reportedly absent. The common bile duct measures up to 0.3 cm in diameter. Pancreas: Visualized portions of the pancreatic head and body are normal in appearance. The splenic vein is patent. Right kidney: Survey images of the right kidney demonstrate cortical atrophy. There is no hydronephrosis. A 2.0 cm cyst is seen in the right upper pole. Ascites: None. IMPRESSION: 1. Cholelithiasis with nonspecific gallbladder wall thickening. There is no pericholecystic fluid and a sonographic Hunter's sign is reportedly absent. Findings are equivocal for acute cholecystitis which is not excluded. Clinical and laboratory correlation will be essential. If there is clinical concern for acute cholecystitis then a nuclear hepatobiliary scan could be considered for further assessment. 2. The liver is top normal in size and slightly heterogeneous in echotexture. Electronically signed by: Jesus Jenkins M.D. 11/06/2016 7:35 AM Dictated Date/Time: 11/06/2016 7:31 AM The status of this report is Signed. Draft = Not yet reviewed or approved by Radiologist. Signed = Reviewed and approved by Radiologist. <AttendingPhy>Matteo Gutierrez MD</AttendingPhy> <FamilyPhy>No Doctor, Assigned</FamilyPhy> <PrimaryPhy>No Doctor, Assigned</PrimaryPhy> <UnitNumber> [id number]</UnitNumber> <VisitNumber>[id number]</VisitNumber> <PatientName> TINO AYERS</PatientName> <DateOfBirth>1930</DateOfBirth> <Location> C.2T</Location> <ServiceDate>11/05/16</ServiceDate> <MNE>ESINDI</MNE> < OrderingPhy>Ab Mcpherson MD</OrderingPhy> <OrderingPhyMNE>f rep ord dr smith< /OrderingPhyMNE> <DictatingPhyMNE>f rep dict dr smith</DictatingPhyMNE> <CCListMNE >f rep ct adrianae</CCListMNE> <AdmittingPhyMNE>f pt admit dr smith</AdmittingPhyMNE> < AttendingPhyMNE>f pt attend dr smith</AttendingPhyMNE> <ConsultingPhyMNE>f pt consult dr smith</ConsultingPhyMNE> <FamilyPhyMNE>f pt fam dr smith</FamilyPhyMNE> <OtherPhyMNE>f pt other dr smith</OtherPhyMNE> < PrimaryPhyMNE>f pt prim care dr smith</PrimaryPhyMNE> <ReferringPhyMNE>f pt referring dr smith</ReferringPhyMNE> Assessment and Plan 86 yo male with bilateral pneumonia with bacteremia with blood cultures growing Enterococcus and Clostridium. This raises the concern about gastrointestinal source of infection, and I am specially worried about acute cholecystitis given initial elevations of liver enzymes and bilirubin, and findings on ultrasound. Would consider either CT scan or HIDA scan. I will discuss with all involved.
--- NOTE | 2016-11-10 10:44 | Pharmacy Progress Note ---
Glycemic Control: Progress Nt Date of Service November 10, 2016. Scope Glycemic Pharmacist consulted by Dr Mcpherson on 11/05/16 for glycemic control and to write orders per [facility] inpatient glycemic control protocol. Objective Accuchecks BSG (last 24hrs): Test 11/09/16 11:18 11/09/16 16:30 11/09/16 20:20 11/10/16 05:45 Bedside Glucose 130 mg/dl (70-99) 77 mg/dl (70-99) 106 mg/dl (70-99) Random Glucose 109 mg/dl (70-99) Test 11/10/16 06:46 Bedside Glucose 103 mg/dl (70-99) Laboratory Data (last 24hrs) Test 11/10/16 05:45 Anion Gap 4.0 mmol/L BUN/Creatinine Ratio 17.9 Blood Urea Nitrogen 30 mg/dl Creatinine 1.70 mg/dl Potassium Level 4.5 mmol/L Sodium Level 144 mmol/L White Blood Count 13.18 K/uL Red Blood Count 3.77 M/uL Hemoglobin 10.5 g/dL Hematocrit 33.5 % Mean Corpuscular Volume 88.9 fL Mean Corpuscular Hemoglobin 27.9 pg Mean Corpuscular Hemoglobin Concent 31.3 g/dl Platelet Count 206 K/uL Mean Platelet Volume 10.7 fL Neutrophils (%) (Auto) 79.2 % Lymphocytes (%) (Auto) 15.3 % Monocytes (%) (Auto) 4.6 % Eosinophils (%) (Auto) 0.1 % Basophils (%) (Auto) 0.2 % Neutrophils # (Auto) 10.45 K/uL Lymphocytes # (Auto) 2.01 K/uL Monocytes # (Auto) 0.61 K/uL Eosinophils # (Auto) 0.01 K/uL Basophils # (Auto) 0.02 K/uL HbA1c: Test 11/06/16 05:30 Hemoglobin A1c 6.8 % (4.5-5.6) H Recent Pertinent Medications Outpatient Anti-diabetic Regimen: * Actos 30mg PO daily The patient is currently receiving: * Basal insulin: Lantus 40-45 units every 24 hours * Correctional Insulin: Novolog Correction per scale ACHS Goal Range: Low 140 mg/dL - High 180 mg/dL Correction Factor: 20 mg/dL/unit * Prandial insulin: Per carb ratio of 1 unit per 7 grams CHO consumed * Oral Agents: On hold for admission Risk Factors for Insulin Resistance: * Steroids - Solu Medrol IV --> Prednisone taper (30 mg on 11/09-11/10, decreased to 20 mg on 11/11) * Infection - Vanc/Levaquin/Flagyl IV for sepsis secondary to bacteremia/pnx * Diet Assessment & Plan Assessment & Plan ASSESSMENT: * See progress note from 11/07 for more background info, in short: * Pt receiving weight based SQ basal bolus insulin regimen for hyperglycemia secondary to baseline DM (Actos on hold) & stress/infection 11/09 * Steroids tapered from Solumedrol to once daily prednisone 30mg PO daily * Anticipate improvement in BSGs with step down in steroid dosing. Will decrease regimen accordingly. * Steroids have their most profound effect on post-prandial hyperglycemia, therefore, aggressive CF/CR warranted. 11/10 * Patient required significantly less insulin over the past 24 hours with tapering of steroids. * BSGs ranged from 77 to 156 mg/dL yesterday * Fasting BSG is at goal. * Patient's regimen was empirically decreased on 11/09 * Decrease was based on estimated total daily dose of ~ 70-80 units, however, patient only ended up needing 60 units all day. * Risk factors for resistance remain constant today. * Will base today's insulin regimen off of 60 units per day * Steroid dose will further taper from 30 mg po daily to 20 mg po daily tomorrow PLAN FOR INPATIENT GLYCEMIC CONTROL: * Holding outpatient oral diabetes medications * Basal insulin: continue to decrease with steroid taper * Lantus 35 units SQ daily today * Lantus 30 units SQ daily starting 11/11/16 * Continue to titrate dosing downwards (pt not on basal insulin as outpatient) based on BSG trends and steroid dosing * Bolus insulin: * NovoLog per scale ACHS or Q6hrs while NPO * Goal Range: Low 140 mg/dL - High 180 mg/dL * Correction Factor: 20 mg/dL/unit * Nutritional / Prandial insulin per carb ratio of 1 unit per 7 grams CHO consumed RECOMMENDATIONS FOR DISCHARGE: * Outpatient diabetic regimen provides adequate glycemic control evidenced by A1c of 6.8% (11/06/16) * Patient may resume Actos 30 mg po daily on discharge. * Please note that the plan above was derived based on current level of insulin resistance and hospital stress. These recommendations are appropriate for inpatient admission only. Plan of care upon discharge will need to be reassessed to avoid potential outpatient hypo/hyperglycemia. Thank you.
[2016-11-10] MEDS: VANCOMYCIN INJ 1,250 MG in SODIUM CHLORIDE 0.9% 250ML 250 ML IV SCH (14:43)
[2016-11-11] VITALS (8 sets, daily range): BP systolic 124–157; BP diastolic 66–70; PULSE 62–75; TEMP 36.4–36.6; O2SAT 97–99
[2016-11-11] MEDS: METRONIDAZOLE / NSS 500 MG in PREMIXED NSS 100 ML IV SCH ×3 (01:31→18:04)
[2016-11-11] MEDS: LEVALBUTEROL 1.25MG/0.5ML NEB INH SCH ×4 (01:40→19:07)
[2016-11-11] MEDS: IPRATROPIUM BROMIDE NEB SOLN 0.02% 2.5 ML VIAL INH SCH ×4 (01:40→19:07)
[2016-11-11] MEDS: LEVOTHYROXINE 200 MCG TAB PO SCH (05:55)
[2016-11-11 06:45] LABS: MEAN CELL VOLUME 87.3 fL (80-100); MEAN CORPUSCULAR HEMOGLOBIN 27.6 pg (25-34); MEAN CORPUSCULAR HGB CONC 31.6 g/dl (32-36); MEAN PLATELET VOLUME 10.9 fL (7.4-10.4); PLATELET COUNT 256 K/uL (130-400); RED BLOOD COUNT 4.24 M/uL (4.7-6.1)
[2016-11-11 07:07] LABS: BASO % 0.2 %; BASO ABS # 0.04 K/uL (0-0.2); COMPLETE YES; ECHINOCYTES 1+; EOS % 0.2 %; HYPERSEGMENTED POLYS 1+; IG% 1.7 %; LYMPH ABS # 3.63 K/uL (1.2-3.4); MONO % 5.6 %; NEUT % 70.3 %
[2016-11-11 07:13] LABS: BUN/CREATININE RATIO 20.2 (10-20); CALCIUM 8.7 mg/dl (8.5-10.1); CREATININE 1.8 mg/dl (0.60-1.40); POTASSIUM 3.9 mmol/L (3.5-5.1)
[2016-11-11] MEDS ORDERED: INSULIN GLARGINE SOLOSTAR 100 UNITS/ML 3 ML PEN SC SCH (08:00)
[2016-11-11] MEDS: INSULIN ASPART 100 UNITS/ML 3 ML PEN SC SCH ×4 (08:30→20:29)
--- NOTE | 2016-11-11 09:42 | DIAGNOSTIC IMAGING REPORT ---
NUCLEAR HEPATOBILIARY SCAN CLINICAL HISTORY: Sepsis. Pneumonia. Clinical concern for acute cholecystitis. COMPARISON STUDY: Abdominal ultrasound dated 11/06/2016. TECHNIQUE: Dynamic images of the liver and anterior abdomen were obtained every 5 minutes for a total of 40 minutes following the IV administration of 5mCi of technetium 99m Choletec. FINDINGS: The hepatobiliary scan shows prompt and homogeneous hepatic uptake. There is visualized activity within the intra and extrahepatic biliary tree at 10 minutes, and within the gallbladder at 30 minutes. There is normal biliary to bowel transit, with small bowel visualized by 10 minutes. IMPRESSION: Unremarkable nuclear hepatobiliary scan. There is no scintigraphic evidence of cholecystitis. Electronically signed by: Jesus Jenkins M.D. 11/11/2016 9:40 AM Dictated Date/Time: 11/11/2016 9:18 AM
[2016-11-11] MEDS: CALCITRIOL 0.25 MCG CAP PO SCH (10:35)
[2016-11-11] MEDS: PANTOprazole SOD 40 MG TAB PO SCH (10:35)
[2016-11-11] MEDS: ASPIRIN 81 MG ECTAB PO SCH (10:35)
[2016-11-11] MEDS: CHOLECALCIFEROL 1000 INTER.UNIT TAB PO SCH (10:36)
[2016-11-11] MEDS: FUROSEMIDE 40 MG TAB PO SCH (10:36)
[2016-11-11] MEDS: HEPARIN SOD 5000 UNIT/0.5 ML CARP SQ SCH ×2 (10:44→20:34)
[2016-11-11] MEDS: VANCOMYCIN INJ 1,250 MG in SODIUM CHLORIDE 0.9% 250ML 250 ML IV SCH (14:35)
--- NOTE | 2016-11-11 15:04 | Pharmacy Progress Note ---
Glycemic Control: Progress Nt Date of Service November 11, 2016. Scope Glycemic Pharmacist consulted by Dr Mcpherson on 11/05/16 for glycemic control and to write orders per [facility] inpatient glycemic control protocol. Objective Accuchecks BSG (last 24hrs): Test 11/10/16 16:39 11/10/16 20:24 11/11/16 05:45 11/11/16 07:35 Bedside Glucose 125 mg/dl (70-99) 161 mg/dl (70-99) 108 mg/dl (70-99) Random Glucose 116 mg/dl (70-99) Test 11/11/16 11:15 Bedside Glucose 100 mg/dl (70-99) Laboratory Data (last 24hrs) Test 11/11/16 05:45 Anion Gap 6.0 mmol/L BUN/Creatinine Ratio 20.2 Blood Urea Nitrogen 36 mg/dl Creatinine 1.80 mg/dl Potassium Level 3.9 mmol/L Sodium Level 141 mmol/L White Blood Count 16.50 K/uL Red Blood Count 4.24 M/uL Hemoglobin 11.7 g/dL Hematocrit 37.0 % Mean Corpuscular Volume 87.3 fL Mean Corpuscular Hemoglobin 27.6 pg Mean Corpuscular Hemoglobin Concent 31.6 g/dl Platelet Count 256 K/uL Mean Platelet Volume 10.9 fL Neutrophils (%) (Auto) 70.3 % Lymphocytes (%) (Auto) 22.0 % Monocytes (%) (Auto) 5.6 % Eosinophils (%) (Auto) 0.2 % Basophils (%) (Auto) 0.2 % Neutrophils # (Auto) 11.59 K/uL Lymphocytes # (Auto) 3.63 K/uL Monocytes # (Auto) 0.92 K/uL Eosinophils # (Auto) 0.04 K/uL Basophils # (Auto) 0.04 K/uL HbA1c: Test 11/06/16 05:30 Hemoglobin A1c 6.8 % (4.5-5.6) H Recent Pertinent Medications Outpatient Anti-diabetic Regimen: * Actos 30mg PO daily The patient is currently receiving: * Basal insulin: Lantus 30 units every 24 hours (decreasing dose daily since 11/09) * Correctional Insulin: Novolog Correction per scale ACHS Goal Range: Low 140 mg/dL - High 180 mg/dL Correction Factor: 20 mg/dL/unit * Prandial insulin: Per carb ratio of 1 unit per 7 grams CHO consumed * Oral Agents: On hold for admission Risk Factors for Insulin Resistance: * Steroids - Solu Medrol IV --> Prednisone taper (30 mg on 11/09-11/10, decreased to 20 mg on 11/11) * Infection - Vanc/Levaquin/Flagyl IV for sepsis secondary to bacteremia/pnx * Diet Assessment & Plan ASSESSMENT: * See progress note from 11/07 for more background info, in short: * Pt receiving weight based SQ basal bolus insulin regimen for hyperglycemia secondary to baseline DM (Actos on hold) & stress/infection 11/10 * Patient required significantly less insulin over the past 24 hours with tapering of steroids. * BSGs ranged from 77 to 156 mg/dL yesterday * Fasting BSG is at goal. * Patient's regimen was empirically decreased on 11/09 * Decrease was based on estimated total daily dose of ~ 70-80 units, however, patient only ended up needing 60 units all day. * Risk factors for resistance remain constant today. * Will base today's insulin regimen off of 60 units per day * Steroid dose will further taper from 30 mg po daily to 20 mg po daily tomorrow 11/11 * Adequate glycemic control - > BSGS ranged from 105 to 161 mg/dL over the past 24 hours * 57 units of insulin administered (62% basal/38% bolus) * Fasting BSG at goal * I suspect basal insulin is helping to cover prandial needs - decrease Lantus to avoid hypoglycemia with decreasing steroids * Continue to step down insulin coverage as steroids are tapered * Anticipate needing 40-50 units per day on current Prednisone dose * Loosen CF/CR * May consider switching to once daily NPH (0.2 units/kg) if prednisone continues PLAN FOR INPATIENT GLYCEMIC CONTROL: * Holding outpatient oral diabetes medications * Basal insulin: continue to decrease with steroid taper * Lantus 20 units SQ for BSG less than 140 mg/dL * Lantus 25 units SQ for BSG 140 mg/dL or greater * Bolus insulin: * NovoLog per scale ACHS or Q6hrs while NPO * Goal Range: Low 140 mg/dL - High 180 mg/dL * Loosen Correction Factor: 30 mg/dL/unit * Loosen Nutritional / Prandial insulin per carb ratio of 1 unit per 10 grams CHO consumed RECOMMENDATIONS FOR DISCHARGE: * Outpatient diabetic regimen provides adequate glycemic control evidenced by A1c of 6.8% (11/06/16) * Patient may resume Actos 30 mg po daily on discharge. * Please note that the plan above was derived based on current level of insulin resistance and hospital stress. These recommendations are appropriate for inpatient admission only. Plan of care upon discharge will need to be reassessed to avoid potential outpatient hypo/hyperglycemia. Thank you.
[2016-11-11] MEDS: LEVOFLOXACIN 750MG / D5W IV SCH (23:46)
--- NOTE | 2016-11-11 23:57 | Progress Note ---
Medicine Progress Note Date & Time of Visit: November 11, 2016 at 12:10 . Subjective No fever or chills. Cough improved. No shortness of breath. No chest pain. No nausea or vomiting. No diarrhea. No urinary symptoms. . Objective Last 8 Hrs Date Time Temp Pulse Resp B/P Pulse Ox O2 Delivery O2 Flow Rate FiO2 11/11/16 23:51 36.4 66 18 133/66 98 2.0 11/11/16 19:07 75 16 97 Nasal Cannula 2.0 11/11/16 16:00 98 Nasal Cannula 2.0 Physical Exam: General- no acute distress Lungs- rales left base Heart- regular Abdomen- normal bowel sounds, soft, nontender Extremities- 2-3+ pretibial and pedal edema Neuro- alert . Laboratory Results: Last 24 Hours Test 11/11/16 05:45 11/11/16 07:35 11/11/16 11:15 11/11/16 17:09 White Blood Count 16.50 K/uL Red Blood Count 4.24 M/uL Hemoglobin 11.7 g/dL Hematocrit 37.0 % Mean Corpuscular Volume 87.3 fL Mean Corpuscular Hemoglobin 27.6 pg Mean Corpuscular Hemoglobin Concent 31.6 g/dl Platelet Count 256 K/uL Mean Platelet Volume 10.9 fL Neutrophils (%) (Auto) 70.3 % Lymphocytes (%) (Auto) 22.0 % Monocytes (%) (Auto) 5.6 % Eosinophils (%) (Auto) 0.2 % Basophils (%) (Auto) 0.2 % Neutrophils # (Auto) 11.59 K/uL Lymphocytes # (Auto) 3.63 K/uL Monocytes # (Auto) 0.92 K/uL Eosinophils # (Auto) 0.04 K/uL Basophils # (Auto) 0.04 K/uL RDW Standard Deviation 45.7 fL RDW Coefficient of Variation 14.4 % Immature Granulocyte % (Auto) 1.7 % Immature Granulocyte # (Auto) 0.28 K/uL Hypersegmented Polys 1+ Echinocytes 1+ Sodium Level 141 mmol/L Potassium Level 3.9 mmol/L Chloride Level 107 mmol/L Carbon Dioxide Level 28 mmol/L Anion Gap 6.0 mmol/L Blood Urea Nitrogen 36 mg/dl Creatinine 1.80 mg/dl Est Creatinine Clear Calc Drug Dose 33.2 ml/min Estimated GFR () 38.4 Estimated GFR (Non- 33.1 BUN/Creatinine Ratio 20.2 Random Glucose 116 mg/dl Calcium Level 8.7 mg/dl Bedside Glucose 108 mg/dl 100 mg/dl 135 mg/dl Test 11/11/16 20:10 Bedside Glucose 180 mg/dl Assessment & Plan SEPSIS Met criteria for sepsis per 2001 definition and current CMS guidelines. Chest x-ray demonstrated left lower lobe pneumonia. Blood cultures grew Enterococcus faecium and Clostridium perfringens raising possibility of GI origin. ID consulted. Gallbladder ultrasound showed cholelithiasis with gallbladder wall thickening. HIDA scan normal. Continue IV antibiotic therapy with vancomycin, levofloxacin, metronidazole. ELEVATED LFT'S Hold statin. ELEVATED D-DIMER Venous duplex negative for DVT. CTA chest demonstrated filling defects felt to represent chronic pulmonary emboli. CORONARY ARTERY DISEASE No anginal symptoms. AAA 4.[address], stable since 2013. CKD III Follow. DM TYPE 2 Hold oral agents during hospital stay. Insulin therapy per protocol. HYPOTHYROIDISM TSH low. Levothyroxine dose decreased to 200 g daily. VTE PROPHYLAXIS SQ heparin. Ambulate. DISPOSITION Expected discharge to home. Family Medicine follow-up with Dr. Campoverde. . Current Inpatient Medications: Current Inpatient Medications Medications (Trade) Dose Ordered Sig/Drea Route Start Time Stop Time Status Last Admin Dose Admin Levofloxacin (Consult) 1 ea UD PRN N/A 11/05/16 23:06 11/14/16 23:59 Miscellaneous Information (Consult Glycemic Management Pharmacy) 1 ea UD PRN N/A 11/05/16 22:48 12/05/16 22:47 Lorazepam (Ativan Tab) 1 mg ONE PRN PO 11/05/16 22:00 Insulin Aspart (novoLOG ASPART) SLIDING SCALE If C... ACHS SC 11/05/16 23:00 12/05/16 22:59 11/11/16 18:08 4 UNITS Glucose (Glucose 40% Gel) 15-30 GRAMS 15 GRAMS... UD PRN PO 11/05/16 22:00 12/05/16 21:59 Glucose (Glucose Chew Tab) 4-8 Tablets 4 Tabl... UD PRN PO 11/05/16 22:00 12/05/16 21:59 Dextrose (Dextrose 50% 50ML Syringe) 25-50ML OF 50% DW IV FOR... UD PRN IV 11/05/16 22:00 12/05/16 21:59 Glucagon (Glucagon Inj) 1 mg UD PRN SQ 11/05/16 22:00 12/05/16 21:59 Aspirin (Ecotrin Tab) 81 mg DAILY PO 11/06/16 09:00 12/06/16 08:59 11/11/16 10:35 81 MG Calcitriol (Rocaltrol Cap) 0.25 mcg DAILY PO 11/06/16 09:00 12/06/16 08:59 11/11/16 10:35 0.25 MCG Cholecalciferol (Vitamin D Tab) 1,000 inter.unit DAILY PO 11/06/16 09:00 12/06/16 08:59 11/11/16 10:36 1,000 INTER.UNIT Magnesium Hydroxide (Milk Of Magnesia Susp) 30 ml DAILY PRN PO 11/05/16 22:00 12/05/16 21:59 Pantoprazole Sodium (Protonix Tab) 40 mg QAM PO 11/06/16 09:00 12/06/16 08:59 11/11/16 10:35 40 MG Miscellaneous Information (Order Awaiting Action) 1 ea QS N/A 11/06/16 08:00 12/06/16 07:59 11/06/16 12:31 1 EA Heparin Sodium (Porcine) (Heparin Sq 5000 Unit/0.5ml) 5,000 unit Q12H SQ 11/06/16 09:00 12/06/16 08:59 11/11/16 20:34 5,000 UNIT Ondansetron HCl (Zofran Inj) 4 mg Q6H PRN IV 11/05/16 22:00 12/05/16 21:59 Nitroglycerin (Nitrostat Tab) 0.4 mg UD PRN SL 11/05/16 22:00 12/05/16 21:59 Ipratropium [place] (Atrovent 0.02% 0.5MG/2.5ML Neb) 0.5 mg Q6R INH 11/06/16 03:00 12/06/16 02:59 11/11/16 19:07 0.5 MG Levalbuterol 1.25 mg 1.25 mg Q6R INH 11/06/16 03:00 12/06/16 02:59 11/11/16 19:07 1.25 MG Levofloxacin/Prmx (Levaquin / D5W/ Premixed D5W) 150 ml @ 100 mls/hr Q48H IV 11/05/16 23:00 11/14/16 23:59 11/11/16 23:46 100 MLS/HR Levothyroxine Sodium (Synthroid Tab) 200 mcg DAILYBB PO 11/06/16 09:00 12/06/16 08:59 11/11/16 05:55 200 MCG Vancomycin HCl (Consult) 1 ea UD PRN N/A 11/06/16 14:30 12/06/16 14:29 Furosemide 40 mg 40 mg DAILY PO 11/09/16 09:00 12/09/16 08:59 11/11/16 10:36 40 MG Metronidazole 500 mg/Prmx 100 ml @ 100 mls/hr Q8H IV 11/09/16 10:00 11/23/16 09:59 11/11/16 18:04 100 MLS/HR Vancomycin HCl/ Sodium Chloride (Vancomycin Inj/ Nss 250ml) 275 ml @ 125 mls/hr Q24H IV 11/10/16 14:00 11/21/16 13:59 11/11/16 14:35 125 MLS/HR Prednisone (PredniSONE TAB) 20 mg DAILY PO 11/11/16 08:00 12/11/16 08:59 11/11/16 10:35 20 MG Insulin Glargine (Lantus Solostar Pen) SEE PROTOCOL TEXT DAILY SC 11/12/16 08:00 12/12/16 07:59
[2016-11-12 01:08] VITALS: PULSE 58; O2SAT 98
[2016-11-12] MEDS: LEVALBUTEROL 1.25MG/0.5ML NEB INH SCH ×2 (01:08→06:50)
[2016-11-12] MEDS: IPRATROPIUM BROMIDE NEB SOLN 0.02% 2.5 ML VIAL INH SCH ×2 (01:08→06:50)
[2016-11-12] MEDS: METRONIDAZOLE / NSS 500 MG in PREMIXED NSS 100 ML IV SCH ×2 (01:29→10:03)
[2016-11-12] MEDS: LEVOTHYROXINE 200 MCG TAB PO SCH (05:50)
[2016-11-12 06:49] LABS: HEMATOCRIT 36.4 % (42-52); MEAN CELL VOLUME 86.3 fL (80-100); MEAN CORPUSCULAR HEMOGLOBIN 27.7 pg (25-34); MEAN CORPUSCULAR HGB CONC 32.1 g/dl (32-36); MEAN PLATELET VOLUME 11.2 fL (7.4-10.4); PLATELET COUNT 280 K/uL (130-400); RED BLOOD COUNT 4.22 M/uL (4.7-6.1); WHITE BLOOD COUNT 18.76 K/uL (4.8-10.8)
[2016-11-12 06:50] VITALS: PULSE 63; O2SAT 94
[2016-11-12 07:26] LABS: BUN/CREATININE RATIO 22.2 (10-20); CALCIUM 8.8 mg/dl (8.5-10.1); CREATININE 1.8 mg/dl (0.60-1.40); POTASSIUM 3.8 mmol/L (3.5-5.1)
[2016-11-12 07:53] VITALS: BP 165/72; PULSE 65; TEMP 36.4; O2SAT 96
[2016-11-12] MEDS: CHOLECALCIFEROL 1000 INTER.UNIT TAB PO SCH (08:10)
[2016-11-12] MEDS: FUROSEMIDE 40 MG TAB PO SCH (08:10)
[2016-11-12] MEDS: ASPIRIN 81 MG ECTAB PO SCH (08:11)
[2016-11-12] MEDS: PANTOprazole SOD 40 MG TAB PO SCH (08:11)
[2016-11-12] MEDS: CALCITRIOL 0.25 MCG CAP PO SCH (08:11)
[2016-11-12 08:12] LABS: BASO % 0.3 %; BASO ABS # 0.06 K/uL (0-0.2); COMPLETE YES; EOS % 0.8 %; LYMPH % 23.2 %; LYMPH ABS # 4.36 K/uL (1.2-3.4); MONO % 7.2 %; NEUT % 66.5 %
[2016-11-12] MEDS: INSULIN ASPART 100 UNITS/ML 3 ML PEN SC SCH ×4 (08:42→21:00)
[2016-11-12] MEDS: INSULIN GLARGINE SOLOSTAR 100 UNITS/ML 3 ML PEN SC SCH (08:43)
[2016-11-12] MEDS: HEPARIN SOD 5000 UNIT/0.5 ML CARP SQ SCH ×2 (08:43→21:07)
--- NOTE | 2016-11-12 11:51 | Pharmacy Progress Note ---
Glycemic Control: Progress Nt Date of Service Nov 12, 2016. Scope Glycemic Pharmacist consulted by Dr Mcpherson on 11/05/16 for glycemic control and to write orders per [facility] inpatient glycemic control protocol. Objective Accuchecks BSG (last 24hrs): Test 11/11/16 17:09 11/11/16 20:10 11/12/16 06:11 11/12/16 07:36 Bedside Glucose 135 mg/dl (70-99) 180 mg/dl (70-99) 92 mg/dl (70-99) Random Glucose 104 mg/dl (70-99) Test 11/12/16 11:11 Bedside Glucose 198 mg/dl (70-99) Laboratory Data (last 24hrs) Test 11/12/16 06:11 Anion Gap 5.0 mmol/L BUN/Creatinine Ratio 22.2 Blood Urea Nitrogen 40 mg/dl Creatinine 1.80 mg/dl Potassium Level 3.8 mmol/L Sodium Level 142 mmol/L White Blood Count 18.76 K/uL Red Blood Count 4.22 M/uL Hemoglobin 11.7 g/dL Hematocrit 36.4 % Mean Corpuscular Volume 86.3 fL Mean Corpuscular Hemoglobin 27.7 pg Mean Corpuscular Hemoglobin Concent 32.1 g/dl Platelet Count 280 K/uL Mean Platelet Volume 11.2 fL Neutrophils (%) (Auto) 66.5 % Lymphocytes (%) (Auto) 23.2 % Monocytes (%) (Auto) 7.2 % Eosinophils (%) (Auto) 0.8 % Basophils (%) (Auto) 0.3 % Neutrophils # (Auto) 12.47 K/uL Lymphocytes # (Auto) 4.36 K/uL Monocytes # (Auto) 1.35 K/uL Eosinophils # (Auto) 0.15 K/uL Basophils # (Auto) 0.06 K/uL HbA1c: Test 11/06/16 05:30 Hemoglobin A1c 6.8 % (4.5-5.6) H Recent Pertinent Medications Outpatient Anti-diabetic Regimen: * Actos 30mg PO daily Risk Factors for Insulin Resistance: * Steroids * Infection * Diet Assessment & Plan ASSESSMENT: * 86 yo M receiving basal/bolus insulin due to steroid induced hyperglycemia * Pt with adequate outpatient glycemic control as evidenced by most recent A1c on oral glipizide only * Steroids continue to taper so I expect insulin needs to continue to decrease * Fasting BSG 92 mg/dL this AM * Lantus has been reduced each day as steroids step down (35 units-->30 units-- >20units) * Continue to reduce Lantus by giving 15 units tomorrow if BSG <140 mg/dL (I assume it will be) * Continue weight-based Novolog, stress of 2 given PO steroids * ADA & AACE recommend a goal blood sugar range 140-180 mg/dl for the majority of critically ill & non-critically ill patients. However, more stringent targets may be selected in individual cases. PLAN FOR INPATIENT GLYCEMIC CONTROL: * Decrease Basal insulin with LANTUS 15 units SQ daily tomorrow AM * Correctional Insulin with NOVOLOG per scale ACHS or Q6hrs while NPO * Goal Range: Low 140 mg/dL - High 180 mg/dL * Correction Factor: 25 mg/dL/unit * Nutritional / Prandial insulin per carb ratio of 1 unit per 8 grams CHO consumed RECOMMENDATIONS FOR DISCHARGE: * Outpatient diabetic regimen provides adequate glycemic control evidenced by A1c of 6.8% (11/06/16) * Patient may resume Actos 30 mg po daily on discharge. * Please note that the plan above was derived based on current level of insulin resistance and hospital stress. These recommendations are appropriate for inpatient admission only. Plan of care upon discharge will need to be reassessed to avoid potential outpatient hypo/hyperglycemia. Thank you.
--- NOTE | 2016-11-12 12:27 | Pharmacy Progress Note ---
Automatic IV to PO Conversion Date of Service: Nov 12, 2016. Scope Pharmacy has identified patient as an appropriate candidate for automatic intravenous to oral conversion. Eligible medication: Flagyl and Levaquin Subjective The patient is a 86 year old male admitted on November 05, 2016 at 21:44 for Pneumonia, Sepsis. Objective Vital Signs: Vital Signs Past 12 Hours Date Time Temp Pulse Resp B/P (MAP) Pulse Ox O2 Delivery O2 Flow Rate FiO2 11/12/16 08:00 Nasal Cannula 2.0 11/12/16 07:53 36.4 65 18 165/72 (103) 96 Nasal Cannula 3.0 11/12/16 06:50 63 16 94 Nasal Cannula 2.0 11/12/16 01:08 58 16 98 Nasal Cannula 2.0 White Blood Count: Test 11/12/16 06:11 White Blood Count 18.76 K/uL (4.8-10.8) Red Blood Count 4.22 M/uL (4.7-6.1) Hemoglobin 11.7 g/dL (14.0-18.0) Hematocrit 36.4 % (42-52) Mean Corpuscular Volume 86.3 fL (80-100) Mean Corpuscular Hemoglobin 27.7 pg (25-34) Mean Corpuscular Hemoglobin Concent 32.1 g/dl (32-36) Platelet Count 280 K/uL (130-400) Mean Platelet Volume 11.2 fL (7.4-10.4) Neutrophils (%) (Auto) 66.5 % Lymphocytes (%) (Auto) 23.2 % Monocytes (%) (Auto) 7.2 % Eosinophils (%) (Auto) 0.8 % Basophils (%) (Auto) 0.3 % Neutrophils # (Auto) 12.47 K/uL (1.4-6.5) Lymphocytes # (Auto) 4.36 K/uL (1.2-3.4) Monocytes # (Auto) 1.35 K/uL (0.11-0.59) Eosinophils # (Auto) 0.15 K/uL (0-0.5) Basophils # (Auto) 0.06 K/uL (0-0.2) Height (Feet): 5 Height (Inches): 8.00 Weight (Kilograms): 100.600 Type of Diet: Diabetic AHA Phase I Assessment & Plan The Infectious Disease Society and the [place] [employer] recommend conversion to oral therapy once a patient is determined to be clinically stable and are able to tolerate oral medications. Patient identified as appropriate candidate for IV to PO conversion of LVQ and Flagyl based on the following criteria: * Afebrile for greater than or equal to 12 hours * Receiving oral/enteral medications and/or tolerating oral/enteral diet for greater than 24 hours * Improvement in clinical condition evidenced by .. WBC count trending downward , resolution of signs/symptoms of illness * Hemodynamically stable or * Receiving oral medications and/or tolerating oral diet for greater than 24 hours * Patient does not meet criteria for use of intravenous proton pump inhibitors ( negative for GI bleed, hypersecretory conditions, GERD associated with erosive esophagitis & unable to take PO) Automatic conversion to: IV FLAGYL AND IV LVQ TO PO FLAGYL AND PO LVQ
[2016-11-12] MEDS ORDERED: VANCOMYCIN TROUGH ONE (13:30)
[2016-11-12 14:07] VITALS: PULSE 70; O2SAT 92
[2016-11-12] MEDS: VANCOMYCIN INJ 1,250 MG in SODIUM CHLORIDE 0.9% 250ML 250 ML IV SCH (14:11)
[2016-11-12 14:40] VITALS: BP 109/67; PULSE 66; TEMP 36.4; O2SAT 99
--- NOTE | 2016-11-12 15:52 | Pharmacy Progress Note ---
Pharmacy Abx Dose Short Note Date of Service Nov 12, 2016. Assessment & Plan Assessment 86 year old male receiving vancomycin and Levaquin for treatment of bacteremia and pneumonia Day # 8 of antimicrobial therapy. Plan Vancomycin * Trough level of 22.1 mcg/mL is supratherapeutic. * Change to 1000 mg IV every 24 hours * Goal trough level for bacteremia : 15 to 20 mcg/mL * Trough level ordered for: 11/15/16 prior to the 1400 dose Pharmacy will continue to follow and will adjust dose/frequency as necessary. Thank you.
[2016-11-12] MEDS ORDERED: METRONIDAZOLE 500 MG TAB PO SCH (18:00)
[2016-11-12] MEDS: METRONIDAZOLE 500MG / NSS IV SCH (19:00)
[2016-11-12] MEDS: IPRATROPIUM BROMIDE HFA INHALER INH SCH (19:02)
[2016-11-12] MEDS: LEValbuterol HFA 15GM INHALER INH SCH (19:02)
--- NOTE | 2016-11-12 21:45 | Progress Note ---
Medicine Progress Note Date & Time of Visit: Nov 12, 2016 at 16:40 . Subjective No fever, chills, sweats. Cough improved. No shortness of breath. No chest pain. Chronic dependent edema unchanged. No nausea, vomiting, diarrhea. Ambulating. . Objective Last 8 Hrs Date Time Temp Pulse Resp B/P (MAP) Pulse Ox O2 Delivery O2 Flow Rate FiO2 11/12/16 17:04 Nasal Cannula 2.0 11/12/16 14:40 36.4 66 18 109/67 (81) 99 Nasal Cannula 2.0 11/12/16 14:07 70 16 92 Nasal Cannula 2.0 Physical Exam: General- sitting in chair, no acute distress Lungs- rales left base Heart- regular Abdomen- normal bowel sounds, soft, nontender Extremities- 2-3+ pretibial and pedal edema Neuro- alert . Laboratory Results: Last 24 Hours Test 11/12/16 06:11 11/12/16 07:36 11/12/16 11:11 11/12/16 13:16 White Blood Count 18.76 K/uL Red Blood Count 4.22 M/uL Hemoglobin 11.7 g/dL Hematocrit 36.4 % Mean Corpuscular Volume 86.3 fL Mean Corpuscular Hemoglobin 27.7 pg Mean Corpuscular Hemoglobin Concent 32.1 g/dl Platelet Count 280 K/uL Mean Platelet Volume 11.2 fL Neutrophils (%) (Auto) 66.5 % Lymphocytes (%) (Auto) 23.2 % Monocytes (%) (Auto) 7.2 % Eosinophils (%) (Auto) 0.8 % Basophils (%) (Auto) 0.3 % Neutrophils # (Auto) 12.47 K/uL Lymphocytes # (Auto) 4.36 K/uL Monocytes # (Auto) 1.35 K/uL Eosinophils # (Auto) 0.15 K/uL Basophils # (Auto) 0.06 K/uL RDW Standard Deviation 45.1 fL RDW Coefficient of Variation 14.3 % Immature Granulocyte % (Auto) 2.0 % Immature Granulocyte # (Auto) 0.37 K/uL Sodium Level 142 mmol/L Potassium Level 3.8 mmol/L Chloride Level 102 mmol/L Carbon Dioxide Level 35 mmol/L Anion Gap 5.0 mmol/L Blood Urea Nitrogen 40 mg/dl Creatinine 1.80 mg/dl Est Creatinine Clear Calc Drug Dose 33.2 ml/min Estimated GFR () 38.4 Estimated GFR (Non- 33.1 BUN/Creatinine Ratio 22.2 Random Glucose 104 mg/dl Calcium Level 8.8 mg/dl Bedside Glucose 92 mg/dl 198 mg/dl Vancomycin Level Trough 22.1 mcg/ml Test 11/12/16 16:44 11/12/16 20:09 Bedside Glucose 172 mg/dl 159 mg/dl Assessment & Plan SEPSIS Met criteria for sepsis per 2001 definition and current CMS guidelines. Chest x-ray demonstrated left lower lobe pneumonia. Blood cultures grew Enterococcus faecium and Clostridium perfringens raising possibility of GI origin. ID consulted. Gallbladder ultrasound showed cholelithiasis with gallbladder wall thickening. HIDA scan normal. Continue IV antibiotic therapy with vancomycin, levofloxacin, metronidazole. Hopefully can transition to oral antibiotic therapy soon- will discuss with ID. LEUKOCYTOSIS WBC at time of admission 20,000. Leukocytosis secondary to sepsis. WBC today = 18,760. Persistent leukocytosis prior secondary to steroid therapy. Follow. ELEVATED LFT'S Hold statin. Check repeat labs. ELEVATED D-DIMER Venous duplex negative for DVT. CTA chest demonstrated filling defects felt to represent chronic pulmonary emboli. CORONARY ARTERY DISEASE No anginal symptoms. AAA 4.[address], stable since 2013. CKD III Serum creatinine today = 1.8. Follow. DM TYPE 2 Hold oral agents during hospital stay. Insulin therapy per protocol. Fasting blood sugar today = 92. HYPOTHYROIDISM TSH low. Levothyroxine dose decreased to 200 g daily. VTE PROPHYLAXIS SQ heparin. Ambulate. DISPOSITION Expected discharge to home. Family Medicine follow-up with Dr. Campoverde. . Current Inpatient Medications: Current Inpatient Medications Medications (Trade) Dose Ordered Sig/Drea Route Start Time Stop Time Status Last Admin Dose Admin Levofloxacin (Consult) 1 ea UD PRN N/A 11/05/16 23:06 11/14/16 23:59 Miscellaneous Information (Consult Glycemic Management Pharmacy) 1 ea UD PRN N/A 11/05/16 22:48 12/05/16 22:47 Lorazepam (Ativan Tab) 1 mg ONE PRN PO 11/05/16 22:00 Insulin Aspart (novoLOG ASPART) SLIDING SCALE If C... ACHS SC 11/05/16 23:00 12/05/16 22:59 11/12/16 19:11 6 UNITS Glucose (Glucose 40% Gel) 15-30 GRAMS 15 GRAMS... UD PRN PO 11/05/16 22:00 12/05/16 21:59 Glucose (Glucose Chew Tab) 4-8 Tablets 4 Tabl... UD PRN PO 11/05/16 22:00 12/05/16 21:59 Dextrose (Dextrose 50% 50ML Syringe) 25-50ML OF 50% DW IV FOR... UD PRN IV 11/05/16 22:00 12/05/16 21:59 Glucagon (Glucagon Inj) 1 mg UD PRN SQ 11/05/16 22:00 12/05/16 21:59 Aspirin (Ecotrin Tab) 81 mg DAILY PO 11/06/16 09:00 12/06/16 08:59 11/12/16 08:11 81 MG Calcitriol (Rocaltrol Cap) 0.25 mcg DAILY PO 11/06/16 09:00 12/06/16 08:59 11/12/16 08:11 0.25 MCG Cholecalciferol (Vitamin D Tab) 1,000 inter.unit DAILY PO 11/06/16 09:00 12/06/16 08:59 11/12/16 08:10 1,000 INTER.UNIT Magnesium Hydroxide (Milk Of Magnesia Susp) 30 ml DAILY PRN PO 11/05/16 22:00 12/05/16 21:59 Pantoprazole Sodium (Protonix Tab) 40 mg QAM PO 11/06/16 09:00 12/06/16 08:59 11/12/16 08:11 40 MG Miscellaneous Information (Order Awaiting Action) 1 ea QS N/A 11/06/16 08:00 12/06/16 07:59 11/06/16 12:31 1 EA Heparin Sodium (Porcine) (Heparin Sq 5000 Unit/0.5ml) 5,000 unit Q12H SQ 11/06/16 09:00 12/06/16 08:59 11/12/16 21:07 5,000 UNIT Ondansetron HCl (Zofran Inj) 4 mg Q6H PRN IV 11/05/16 22:00 12/05/16 21:59 Nitroglycerin (Nitrostat Tab) 0.4 mg UD PRN SL 11/05/16 22:00 12/05/16 21:59 Ipratropium [place] (Atrovent 0.02% 0.5MG/2.5ML Neb) 0.5 mg Q6R INH 11/06/16 03:00 12/06/16 02:59 11/12/16 06:50 0.5 MG Levalbuterol (Xopenex 1.25MG/ 0.5ML Neb) 1.25 mg Q6R INH 11/06/16 03:00 12/06/16 02:59 11/12/16 06:50 1.25 MG Levothyroxine Sodium (Synthroid Tab) 200 mcg DAILYBB PO 11/06/16 09:00 12/06/16 08:59 11/12/16 05:50 200 MCG Vancomycin HCl (Consult) 1 ea UD PRN N/A 11/06/16 14:30 12/06/16 14:29 Furosemide (Lasix Tab) 40 mg DAILY PO 11/09/16 09:00 12/09/16 08:59 11/12/16 08:10 40 MG Prednisone (PredniSONE TAB) 20 mg DAILY PO 11/11/16 08:00 12/11/16 08:59 11/12/16 08:10 20 MG Insulin Glargine (Lantus Solostar Pen) SEE PROTOCOL TEXT DAILY SC 11/12/16 08:00 12/12/16 07:59 11/12/16 08:43 20 UNIT Ipratropium [place] (Atrovent Hfa Inhaler) 2 puffs Q6 INH 11/12/16 18:00 12/12/16 17:59 11/12/16 19:02 2 PUFFS Levalbuterol (Xopenex Hfa Inhaler) 2 puffs Q6 INH 11/12/16 18:00 12/12/16 17:59 11/12/16 19:02 2 PUFFS Levofloxacin 750 mg/Prmx 150 ml @ 100 mls/hr Q2D@1400 IV 11/13/16 14:00 11/27/16 13:59 Metronidazole 500 mg/Prmx 100 ml @ 100 mls/hr Q8@02,10,18 IV 11/12/16 18:00 11/26/16 17:59 11/12/16 19:00 100 MLS/HR Vancomycin HCl 1000 mg/Sodium Chloride 270 ml @ 125 mls/hr Q24H IV 11/13/16 14:00 11/21/16 13:59
[2016-11-12 23:59] VITALS: BP 106/64; PULSE 85; TEMP 36.4; O2SAT 98
[2016-11-13] MEDS: IPRATROPIUM BROMIDE HFA INHALER INH SCH ×3 (00:58→13:08)
[2016-11-13] MEDS: LEValbuterol HFA 15GM INHALER INH SCH ×3 (00:59→13:08)
[2016-11-13] MEDS: METRONIDAZOLE 500MG / NSS IV SCH ×2 (02:35→09:11)
[2016-11-13] MEDS: LEVOTHYROXINE 200 MCG TAB PO SCH (05:44)
[2016-11-13 06:02] LABS: HEMATOCRIT 35.6 % (42-52); MEAN CELL VOLUME 86.4 fL (80-100); MEAN CORPUSCULAR HEMOGLOBIN 26.9 pg (25-34); MEAN CORPUSCULAR HGB CONC 31.2 g/dl (32-36); MEAN PLATELET VOLUME 10.9 fL (7.4-10.4); PLATELET COUNT 289 K/uL (130-400); RED BLOOD COUNT 4.12 M/uL (4.7-6.1); WHITE BLOOD COUNT 20.96 K/uL (4.8-10.8)
[2016-11-13 06:39] LABS: BUN/CREATININE RATIO 23.7 (10-20); CALCIUM 8.4 mg/dl (8.5-10.1); CREATININE 1.8 mg/dl (0.60-1.40); POTASSIUM 3.8 mmol/L (3.5-5.1)
[2016-11-13 06:41] LABS: ALB/GLOB RATIO 0.7 (0.9-2)
[2016-11-13 07:26] VITALS: BP 151/83; PULSE 66; TEMP 36.4; O2SAT 99
[2016-11-13] MEDS: CHOLECALCIFEROL 1000 INTER.UNIT TAB PO SCH (08:10)
[2016-11-13] MEDS: FUROSEMIDE 40 MG TAB PO SCH (08:10)
[2016-11-13] MEDS: ASPIRIN 81 MG ECTAB PO SCH (08:10)
[2016-11-13] MEDS: CALCITRIOL 0.25 MCG CAP PO SCH (08:10)
[2016-11-13] MEDS: PANTOprazole SOD 40 MG TAB PO SCH (08:10)
[2016-11-13] MEDS: HEPARIN SOD 5000 UNIT/0.5 ML CARP SQ SCH (08:13)
[2016-11-13] MEDS: INSULIN GLARGINE SOLOSTAR 100 UNITS/ML 3 ML PEN SC SCH (08:14)
[2016-11-13] MEDS: INSULIN ASPART 100 UNITS/ML 3 ML PEN SC SCH ×2 (08:15→13:08)
[2016-11-13] MEDS ORDERED: LEVOFLOXACIN 750 MG TAB PO SCH ×2 (11:00)
[2016-11-13] MEDS ORDERED: LEVOFLOXACIN 750MG / D5W IV SCH (14:00)
[2016-11-13] MEDS ORDERED: VANCOMYCIN INJ 1,000 MG in SODIUM CHLORIDE 0.9% 250ML 250 ML IV SCH (14:00)
--- NOTE | 2016-11-13 16:09 | Progress Note ---
Medicine Progress Note Date & Time of Visit: Nov 13, 2016 at 16:09 . Subjective Feels well. Anxious to go home. No fever. No chest pain. Chronic dependent edema at baseline. No cough or SOB. No abdominal pain, nausea, vomiting, diarrhea. No urinary symptoms. . Objective Last 8 Hrs Date Time Temp Pulse Resp B/P (MAP) Pulse Ox O2 Delivery O2 Flow Rate FiO2 11/13/16 09:50 Nasal Cannula 2.0 Physical Exam: General- sitting in chair, no distress Lungs- few rales L base Heart- regular Abdomen- normal bowel sounds, soft, nontender Extremities- 2-3+ pretibial and pedal edema; no calf tenderness Neuro- alert . Laboratory Results: Last 24 Hours Test 11/12/16 16:44 11/12/16 20:09 11/13/16 05:48 11/13/16 07:32 Bedside Glucose 172 mg/dl 159 mg/dl 90 mg/dl White Blood Count 20.96 K/uL Red Blood Count 4.12 M/uL Hemoglobin 11.1 g/dL Hematocrit 35.6 % Mean Corpuscular Volume 86.4 fL Mean Corpuscular Hemoglobin 26.9 pg Mean Corpuscular Hemoglobin Concent 31.2 g/dl RDW Standard Deviation 45.9 fL RDW Coefficient of Variation 14.5 % Platelet Count 289 K/uL Mean Platelet Volume 10.9 fL Sodium Level 143 mmol/L Potassium Level 3.8 mmol/L Chloride Level 103 mmol/L Carbon Dioxide Level 34 mmol/L Anion Gap 6.0 mmol/L Blood Urea Nitrogen 43 mg/dl Creatinine 1.80 mg/dl Est Creatinine Clear Calc Drug Dose 33.2 ml/min Estimated GFR () 38.4 Estimated GFR (Non- 33.1 BUN/Creatinine Ratio 23.7 Random Glucose 105 mg/dl Calcium Level 8.4 mg/dl Total Bilirubin 0.4 mg/dl Aspartate Amino Transf (AST/SGOT) 45 U/L Alanine Aminotransferase (ALT/SGPT) 72 U/L Alkaline Phosphatase 133 U/L Total Protein 6.0 gm/dl Albumin 2.5 gm/dl Globulin 3.5 gm/dl Albumin/Globulin Ratio 0.7 Test 11/13/16 11:34 Bedside Glucose 155 mg/dl Assessment & Plan SEPSIS Presented to ED with fever, cough, SOB. Met criteria for sepsis per 2001 definition and current CMS guidelines. Chest x-ray demonstrated left lower lobe pneumonia. Blood cultures grew Enterococcus faecium and Clostridium perfringens raising possibility of GI origin, possibly biliary tract. ID consulted. LFT's elevated. Gallbladder ultrasound showed cholelithiasis with gallbladder wall thickening. HIDA scan normal. Received IV antibiotic therapy with vancomycin, levofloxacin, metronidazole with improvement. Source of sepsis probably due to pneumonia, but may have been from biliary tract. Discharge on Augmentin to complete course of therapy. Check f/u chest x-ray in about 4 weeks. LEUKOCYTOSIS WBC at time of admission 20,000. Leukocytosis secondary to sepsis. WBC today = 20,960. Persistent leukocytosis prior secondary to steroid therapy. Follow. ELEVATED LFT'S Held statin. Repeat LFT's improved. [place] that pt may have had choledocholithiasis and passed stone. Resume statin. Check repeat LFT's in clinic. ELEVATED D-DIMER Venous duplex negative for DVT. CTA chest demonstrated filling defects felt to represent chronic pulmonary emboli. CORONARY ARTERY DISEASE No anginal symptoms. AAA 4.[address], stable since 2013. CKD III Serum creatinine today = 1.8. Follow. DM TYPE 2 Hold oral agents during hospital stay. Insulin therapy per protocol. Fasting blood sugar today = 90. HYPOTHYROIDISM TSH low (0.017, repeat 0.009) Levothyroxine dose decreased to 200 g daily. Follow. VTE PROPHYLAXIS SQ heparin. Ambulate. DISPOSITION Discharge to home. Family Medicine follow-up with Dr. Campoverde. Daughter given update. . Current Inpatient Medications: Current Inpatient Medications Medications (Trade) Dose Ordered Sig/Drea Route Start Time Stop Time Status Last Admin Dose Admin Levofloxacin (Consult) 1 ea UD PRN N/A 11/05/16 23:06 11/14/16 23:59 Miscellaneous Information (Consult Glycemic Management Pharmacy) 1 ea UD PRN N/A 11/05/16 22:48 12/05/16 22:47 Lorazepam (Ativan Tab) 1 mg ONE PRN PO 11/05/16 22:00 Insulin Aspart (novoLOG ASPART) SLIDING SCALE If C... ACHS SC 11/05/16 23:00 12/05/16 22:59 11/13/16 13:08 8 UNITS Glucose (Glucose 40% Gel) 15-30 GRAMS 15 GRAMS... UD PRN PO 11/05/16 22:00 12/05/16 21:59 Glucose (Glucose Chew Tab) 4-8 Tablets 4 Tabl... UD PRN PO 11/05/16 22:00 12/05/16 21:59 Dextrose (Dextrose 50% 50ML Syringe) 25-50ML OF 50% DW IV FOR... UD PRN IV 11/05/16 22:00 12/05/16 21:59 Glucagon (Glucagon Inj) 1 mg UD PRN SQ 11/05/16 22:00 12/05/16 21:59 Aspirin (Ecotrin Tab) 81 mg DAILY PO 11/06/16 09:00 12/06/16 08:59 11/13/16 08:10 81 MG Calcitriol (Rocaltrol Cap) 0.25 mcg DAILY PO 11/06/16 09:00 12/06/16 08:59 11/13/16 08:10 0.25 MCG Cholecalciferol (Vitamin D Tab) 1,000 inter.unit DAILY PO 11/06/16 09:00 12/06/16 08:59 11/13/16 08:10 1,000 INTER.UNIT Magnesium Hydroxide (Milk Of Magnesia Susp) 30 ml DAILY PRN PO 11/05/16 22:00 12/05/16 21:59 Pantoprazole Sodium (Protonix Tab) 40 mg QAM PO 11/06/16 09:00 12/06/16 08:59 11/13/16 08:10 40 MG Miscellaneous Information (Order Awaiting Action) 1 ea QS N/A 11/06/16 08:00 12/06/16 07:59 11/06/16 12:31 1 EA Heparin Sodium (Porcine) (Heparin Sq 5000 Unit/0.5ml) 5,000 unit Q12H SQ 11/06/16 09:00 12/06/16 08:59 11/13/16 08:13 5,000 UNIT Ondansetron HCl (Zofran Inj) 4 mg Q6H PRN IV 11/05/16 22:00 12/05/16 21:59 Nitroglycerin (Nitrostat Tab) 0.4 mg UD PRN SL 11/05/16 22:00 12/05/16 21:59 Levothyroxine Sodium (Synthroid Tab) 200 mcg DAILYBB PO 11/06/16 09:00 12/06/16 08:59 11/13/16 05:44 200 MCG Vancomycin HCl (Consult) 1 ea UD PRN N/A 11/06/16 14:30 12/06/16 14:29 Furosemide (Lasix Tab) 40 mg DAILY PO 11/09/16 09:00 12/09/16 08:59 11/13/16 08:10 40 MG Prednisone (PredniSONE TAB) 20 mg DAILY PO 11/11/16 08:00 12/11/16 08:59 11/13/16 08:11 20 MG Insulin Glargine (Lantus Solostar Pen) SEE PROTOCOL TEXT DAILY SC 11/12/16 08:00 12/12/16 07:59 11/13/16 08:14 15 UNIT Ipratropium [place] (Atrovent Hfa Inhaler) 2 puffs Q6 INH 11/12/16 18:00 12/12/16 17:59 11/13/16 13:08 2 PUFFS Levalbuterol (Xopenex Hfa Inhaler) 2 puffs Q6 INH 11/12/16 18:00 12/12/16 17:59 11/13/16 13:08 2 PUFFS Levofloxacin 750 mg/Prmx 150 ml @ 100 mls/hr Q2D@1400 IV 11/13/16 14:00 11/14/16 23:59 11/13/16 13:08 100 MLS/HR Metronidazole 500 mg/Prmx 100 ml @ 100 mls/hr Q8@02,10,18 IV 11/12/16 18:00 11/23/16 17:59 11/13/16 09:11 100 MLS/HR Vancomycin HCl 1000 mg/Sodium Chloride 270 ml @ 125 mls/hr Q24H IV 11/13/16 14:00 11/21/16 13:59 11/13/16 13:08 125 MLS/HR
[2016-11-13] MEDS ORDERED: AMOX875T PO (16:14)
--- NOTE | 2016-11-13 16:18 | Discharge Instructions ---
Discharge Instructions Date of Service Nov 13, 2016. Admission Reason for Admission: fever . Discharge Discharge Diagnosis / Problem: pneumonia or possible bile duct infection Discharge Goals Goal(s): Improve disease control Activity Recommendations Activity Limitations: resume your previous activity . Instructions / Follow-Up Instructions / Follow-Up APPOINTMENTS: FAMILY MEDICINE 11/17/2016 11:20 AM Ivan Campoverde MD INSTRUCTIONS: New medication- amoxicillin / clavulanic acid (Augmentin) 875 mg twice a day with meals for 7 days (prescription sent to your pharmacy) Your thyroid level was too high. Stop levothyroxine 25 micrograms daily. Continue levothyroxine 200 micrograms daily. Seek medical attention if you have: * temperature above 101 * chest pain or trouble breathing * abdominal pain, nausea, vomiting * diarrhea, dark stools or bloody stools * any unanswered questions or concerns Call 911 if symptoms are severe. Call if you have any questions or problems. My cell # is [phone]. You can also reach a [facility] hospitalist on duty at [facility] 24 hours a day by calling [phone]. Please take good care of yourself. J Carlos Lopez . Current Hospital Diet Patient's current hospital diet: Diabetes Type 2 Diet, AHA Diet (Heart Healthy) Discharge Diet Recommended Diet: AHA Diet (Heart Healthy), Diabetes Type 2 Diet Pending Studies Studies pending at discharge: no Laboratory Results Hemoglobin A1c Test 11/06/16 05:30 Range/Units Estimated Average Glucose 148 mg/dl Hemoglobin A1c 6.8 H 4.5-5.6 % Medical Emergencies . Who to Call and When: Medical Emergencies: If at any time you feel your situation is an emergency, please call 911 immediately. . Non-Emergent Contact Non-Emergency issues call your: Primary Care Provider, Hospital Doctor . . "Provider Documentation" section prepared by J Carlos Lopez. . VTE Core Measure Inpt VTE Proph given/why not?: Unfractionated heparin SQ
[2016-11-13 16:24] VITALS: BP 151/83; PULSE 66; TEMP 36.4; O2SAT 99
--- NOTE | 2016-11-14 19:57 | Discharge Summary ---
Discharge Summary Date of Service Nov 14, 2016. Discharge Summary Admission Date: November 05, 2016 at 21:44 Discharge Date: Nov 13, 2016 Discharge Disposition: Home Principal Diagnosis: sepsis- probably secondary to pneumonia . Secondary Diagnoses/Problems: Other Acute Medical Problems: elevated LFT's Chronic and Resolved Medical Problems: (1) CKD (chronic kidney disease), stage III Status: Chronic (2) COPD (chronic obstructive pulmonary disease) Status: Chronic (3) Cholelithiasis Status: Chronic (4) DM type 2 (diabetes mellitus, type 2) Status: Chronic (5) H/O diastolic dysfunction Permanent Comment: grade 1 diastolic dysfunction noted on 2013 echo Status: Chronic (7) History of Clostridium difficile Status: Chronic (8) Hyperlipidemia Status: Chronic (9) Hypertension Status: Chronic (11) Hypothyroidism Status: Chronic Surgical Problems: (1) History of cataract surgery Status: Chronic (2) S/P CABG x 3 Status: Chronic . Procedures: CT head US liver venous duplex lower extremities CTA chest HIDA IV meds . Consultations: ID with Dr. Chatterjee . Pending Studies/Follow-Up: Please check CBC and comprehensive chem profile in clinic. Please check chest x-ray in 4 weeks re: pneumonia. . Medication Reconciliation New Medications: Amoxicillin & Pot Clavulanate (Augmentin 875-125 mg) 1 Tab Tab 875 MG PO BID, #14 TAB Take twice a day with food. Continued Medications: Albuterol Sulf (Proventil 0.083% 2.5MG/3ML) 2.5 Mg/3 Ml Nebu 2.5 MG INH QID PRN for Shortness of Breath, EA Albuterol Sulfate (Proair Respiclick) 108 Mcg/Act Aer 2 PUFFS INH Q4H PRN for Wheezing Aspirin (Aspirin 81) 81 Mg Tab 81 MG PO DAILY Atorvastatin (Lipitor) 40 Mg Tab 40 MG PO DAILY, TAB Calcitriol (Calcitriol) 0.25 Mcg Cap 0.25 MCG PO DAILY Cholecalciferol (Vitamin D 1000 Unit) 1,000 Unit Cap 1000 INTER.UNIT PO DAILY, CAP Furosemide (Lasix) 40 Mg Tab 40 MG PO DAILY, TAB Levothyroxine Sodium (Levothyroxine Sodium) 200 Mcg Tab 1 TAB PO DAILY for 30 Days, #30 TAB 5 Refills Magnesium Hydroxide (Milk of Magnesia 400 mg/5Ml) 1 Fatemeh Fatemeh 30 ML PO DAILY PRN for Constipation Mupirocin (Bactroban 2% Oint) 66 Appln/22 Gm Oint 1 APPLN EXT TID PRN for skin impairment, TUBE Pantoprazole (Pantoprazole Sodium) 40 Mg Tab 40 MG PO QAM for 30 Days, #30 TAB Pioglitazone Hcl (Actos) 30 Mg Tab 30 MG PO DAILY, TAB Promethazine-Dm (Promethazine-Dm) 1 Syp Syp 5 ML PO Q6H PRN for Cough for 6 Days, #120 ML Tiotropium [place] (Spiriva Handihaler) 30 Puff/540 Mcg Aerp 1 CAP INH DAILY PRN for Shortness of Breath, INHALER Urea (Carmol 20) 20 % Cre 1 APPLN EXT DAILY Apply daily to feet. Discontinued Medications: Levothyroxine Sodium (Levothyroxine Sodium) 25 Mcg Tab 1 TAB PO DAILY for 30 Days, #30 TAB 5 Refills with 200mcg tablet; total dose is 225mcg Admission Information HPI (per Admitting provider): 86 year old male with history of COPD, CAD/CABG, Atrial Fibrillation, HTN, DM, other problems noted below presenting with fever and cough. Patient was apparently advised to use home oxygen but is not adherent. He was doing fine until yesterday when he started to have increased dry cough, and some subjective fevers and shortness of breath. He denies chest pain, palpitations, headache, dizziness, abdominal pain, nausea/ vomiting, diarrhea and changes with urination. A the ER, patient was febrile at 38 degrees, tachycardic ~100s. CXR showed possible infiltrate at the left lower lobes. Patient was given Solumedrol, Zosyn, Duonebs and IV fluids. On my exam, patient is resting comfortable in bed, with 2 liter via nasal cannula. State he is feeling somewhat better since arrival. Denies having active shortness of breath, chest pain or any other symptoms. . Physical Exam (per Admitting): General Appearance: WD/WN, no apparent distress Head: normocephalic, atraumatic Eyes: normal inspection, PERRL, EOMI, sclerae normal ENT: normal ENT inspection, hearing grossly normal, pharynx normal Neck: supple, no adenopathy, thyroid normal, no JVD, trachea midline Respiratory/Chest: chest non-tender, no respiratory distress, no accessory muscle use, + wheezing (bilateral expiratory wheezing, crackles on the left base ) Cardiovascular: regular rate, rhythm, no JVD, no murmur, normal peripheral pulses Abdomen/GI: normal bowel sounds, non tender, soft, no organomegaly Back: normal inspection, no CVA tenderness Extremities/Musculoskelatal: no calf tenderness, normal capillary refill, normal range of motion, + pertinent finding ((+) grade 1 lower leg edema) Neurologic/Psych: 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 Met criteria for sepsis per 2001 definition and current CMS guidelines. Chest x-ray demonstrated left lower lobe pneumonia. Blood cultures grew Enterococcus faecium and Clostridium perfringens raising possibility of GI origin, possibly biliary tract. ID consulted. LFT's elevated. Gallbladder ultrasound showed cholelithiasis with gallbladder wall thickening. HIDA scan normal. Received IV antibiotic therapy with vancomycin, levofloxacin, metronidazole with improvement. Source of sepsis probably due to pneumonia, but may have been from biliary tract. Discharge on Augmentin to complete course of therapy. Check f/u chest x-ray in about 4 weeks. LEUKOCYTOSIS WBC at time of admission 20,000. Leukocytosis secondary to sepsis. WBC today = 20,960. Persistent leukocytosis prior secondary to steroid therapy. Follow. ELEVATED LFT'S Held statin. Repeat LFT's improved. [place] that pt may have had choledocholithiasis and passed stone. Resume statin. Check repeat LFT's in clinic. ELEVATED D-DIMER Venous duplex negative for DVT. CTA chest demonstrated filling defects felt to represent chronic pulmonary emboli. CORONARY ARTERY DISEASE No anginal symptoms. AAA 4.[address], stable since 2014. CKD III Serum creatinine today = 1.8. Follow. DM TYPE 2 Hold oral agents during hospital stay. Insulin therapy per protocol. Fasting blood sugar today = 90. HYPOTHYROIDISM TSH low (0.017, repeat 0.009) Levothyroxine dose decreased to 200 g daily. Follow. VTE PROPHYLAXIS SQ heparin. Ambulate. DISPOSITION Discharge to home. Family Medicine follow-up with Dr. Campoverde. Daughter given update. . Total time spent on discharge = 40 min. This includes examination of the patient, discharge planning, medication reconciliation, and communication with other providers. . Discharge Instructions Date of Service Nov 13, 2016. Admission Reason for Admission: fever . Discharge Discharge Diagnosis / Problem: pneumonia or possible bile duct infection Discharge Goals Goal(s): Improve disease control Activity Recommendations Activity Limitations: resume your previous activity . Instructions / Follow-Up Instructions / Follow-Up APPOINTMENTS: FAMILY MEDICINE 11/17/2016 11:20 AM Ivan Campoverde MD INSTRUCTIONS: New medication- amoxicillin / clavulanic acid (Augmentin) 875 mg twice a day with meals for 7 days (prescription sent to your pharmacy) Your thyroid level was too high. Stop levothyroxine 25 micrograms daily. Continue levothyroxine 200 micrograms daily. Seek medical attention if you have: * temperature above 101 * chest pain or trouble breathing * abdominal pain, nausea, vomiting * diarrhea, dark stools or bloody stools * any unanswered questions or concerns Call 911 if symptoms are severe. Call if you have any questions or problems. My cell # is [phone]. You can also reach a [facility] hospitalist on duty at [facility] 24 hours a day by calling [phone]. Please take good care of yourself. J Carlos Lopez . Current Hospital Diet Patient's current hospital diet: Diabetes Type 2 Diet, AHA Diet (Heart Healthy) Discharge Diet Recommended Diet: AHA Diet (Heart Healthy), Diabetes Type 2 Diet Pending Studies Studies pending at discharge: no Laboratory Results Hemoglobin A1c Test 11/06/16 05:30 Range/Units Estimated Average Glucose 148 mg/dl Hemoglobin A1c 6.8 H 4.5-5.6 % Medical Emergencies . Who to Call and When: Medical Emergencies: If at any time you feel your situation is an emergency, please call 911 immediately. . Non-Emergent Contact Non-Emergency issues call your: Primary Care Provider, Hospital Doctor . . "Provider Documentation" section prepared by J Carlos Lopez. . VTE Core Measure Inpt VTE Proph given/why not?: Unfractionated heparin SQ . Additional Copies To Ivan Campoverde M.D.
[2016-11-15] MEDS ORDERED: VANCOMYCIN TROUGH ONE (13:30)
== END 2016-11-13 16:46 | disposition home health service (06) | DRG 871 ==
LOC: ENRESERVDT → ENRESERVTM → C.EDB 18:58 → C.2T 21:44 → C.4E 11-10 10:20
PROVIDERS: ADMIT Internal Medicine; ATTEND Hospitalist
DX: A41.9 Sepsis, unspecified organism (principal); J15.4 Pneumonia due to other streptococci; J44.1 Chronic obstructive pulmonary disease with (acute) exacerbation; J44.0 Chronic obstructive pulmonary disease with (acute) lower respiratory infection; I13.0 Hypertensive heart and chronic kidney disease with heart failure and stage 1 through stage 4 chronic kidney disease, or unspecified chronic kidney disease; N17.9 Acute kidney failure, unspecified; J96.11 Chronic respiratory failure with hypoxia; I25.10 Atherosclerotic heart disease of native coronary artery without angina pectoris; Z95.1 Presence of aortocoronary bypass graft; I48.91 Unspecified atrial fibrillation; E03.9 Hypothyroidism, unspecified; E11.22 Type 2 diabetes mellitus with diabetic chronic kidney disease; E78.5 Hyperlipidemia, unspecified; N18.3 Chronic kidney disease, stage 3 (moderate); Z99.81 Dependence on supplemental oxygen; F10.20 Alcohol dependence, uncomplicated; Z66 Do not resuscitate; Z91.19 Patient's noncompliance with other medical treatment and regimen; I71.4 Abdominal aortic aneurysm, without rupture; K80.20 Calculus of gallbladder without cholecystitis without obstruction; Z79.82 Long term (current) use of aspirin; Z79.899 Other long term (current) drug therapy; Z87.891 Personal history of nicotine dependence; Z83.3 Family history of diabetes mellitus; Z82.49 Family history of ischemic heart disease and other diseases of the circulatory system